=== PATIENT | male | born 1965 | race Caucasian/White ===

== ENCOUNTER 2022-10-27 10:30 | Outpatient (AMB) | payer OTHER, SELFPAY ==
--- NOTE | 2022-10-27 11:12 | MHC.OFFWIV ---
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 Reporting symptoms of sinus congestion, sore throat and difficulty swallowing. Low-grade fever. No family member is sick. No recent travel. Patient reports symptoms of malaise and fatigue. PFSH Social History Patient Tobacco Use Status: Never used Tobacco Physical Exam Vital Signs: Last Vital Signs Temp 98 F 10/27/22 11:13 Pulse 68 10/27/22 11:13 BP 120/80 10/27/22 11:13 Pulse Ox 98 10/27/22 11:13 Oxygen Delivery Method Room Air 10/27/22 11:13 BMI result Body Mass Index 36.0 Const General: cooperative and healthy appearing Nutritional Appearance: well nourished Orientation/consciousness: patient oriented x3 Limitations: no limitations HEENT Other: Left ear: Tympanic membrane is red. Head: Yes normal to inspection Eyes General: appearance normal, both eyes and all related structures Neck Neck: Yes normal visual inspection Chest Chest palpation & inspection: normal palpation of entire chest wall Resp Effort & Inspection: normal respiratory effort Neuro General: patient oriented x3 Assessment & Plan Assessment & Plan (1) Left acute serous otitis media: Code(s): H65.02 - Acute serous otitis media, left ear Plan: Antibiotics ordered. Increase fluid intake. Tylenol for aches and pains. If symptoms worsen, follow-up here for a recheck. Coding Level of Care Code Est Pt Level 3 (77917) Diagnoses Left acute serous otitis media H65.02
[2022-10-27 11:13] VITALS: BP 120/80; PULSE 68; TEMP 36.6; O2SAT 98; BMI 36.0
== END 2022-10-27 12:16 | disposition home or self-care (01) ==
PROVIDERS: PCP Family Medicine; Visit Provider Internal Medicine
DX: H65.02 Acute serous otitis media, left ear (principal)
CPT/HCPCS: 99213

== ENCOUNTER 2022-12-07 09:11 | Outpatient (AMB) | payer OTHER, SELFPAY ==
[2022-12-07 10:57] VITALS: BP 142/88; PULSE 73; TEMP 36.4; O2SAT 98; BMI 36.8
--- NOTE | 2022-12-07 10:57 | MHC.OFFWIV ---
Intake Vital Signs 12/07/22 10:57 Height 5 ft 8 in Weight 242 lb 4 oz BMI 36.8 BP 142/88 H Blood Pressure Location Rt brachial Position Sitting Pulse 73 Pulse Source Pulse Oximeter Temp 97.5 F Temp Source Oral Pulse Oximetry (%) 98 Oxygen Delivery Method Room Air Intake Visit Reasons: Est/left side jaw swelling/ear inf? Intake Note: Pt presents to the office today for c/o left sided jaw pain and swelling that goes behind the left ear that started Pt states he had an ear infection in his left ear about a month ago and it started to get better but it still never fully went away. Patient Tobacco Use Status: Never used Tobacco Allergies acetaminophen [From PERCOCET] Allergy (Unknown, Unverified 12/07/22 10:59) DIFFICULTY BREATHING oxycodone [From PERCOCET] Allergy (Unknown, Unverified 12/07/22 10:59) DIFFICULTY BREATHING HPI Est/left side jaw swelling/ear inf? HPI Details 57-year-old male presents to the office for a sick visit. Patient is reporting symptoms of pain around the left ear. He was seen for a left ear infection a month ago .. He completed the antibiotics and then had the flu for 3 weeks. The symptoms of pain have recurred around the left ear area. [facility], [facility] Social History Household Members: None Housing: Apartment Alcohol intake: never Patient Tobacco Use Status: Never used Tobacco Use of substances other than those prescribed or required for medical reasons: Yes Substance Use Type: Marijuana Physical Exam Vital Signs: Last Vital Signs Temp 97.5 F 12/07/22 10:57 Pulse 73 12/07/22 10:57 BP 142/88 H 12/07/22 10:57 Pulse Ox 98 12/07/22 10:57 Oxygen Delivery Method Room Air 12/07/22 10:57 BMI result Body Mass Index 36.8 Const General: cooperative and healthy appearing Nutritional Appearance: well nourished Orientation/consciousness: patient oriented x3 Limitations: no limitations HEENT Head: Yes normal to inspection Eyes General: appearance normal, both eyes and all related structures Neck Other: Swelling around the left TMJ area and between the angle of the jaw and the ear. Tender to touch. Oral cavity appears normal. Neck: Yes normal visual inspection Chest Chest palpation & inspection: normal palpation of entire chest wall Resp Effort & Inspection: normal respiratory effort Neuro General: patient oriented x3 Assessment & Plan Assessment & Plan (1) Parotitis, acute: Code(s): K11.21 - Acute sialoadenitis Plan: Ultrasound of the neck ordered. Antibiotics called in. Will call with results. Orders: Orders US soft tiss head and/or neck Today K11.21 - Acute sialoadenitis Coding Level of Care Code Est Pt Level 3 (73751) Diagnoses Parotitis, acute K11.21
== END 2022-12-07 11:40 | disposition home or self-care (01) ==
PROVIDERS: PCP Family Medicine; Visit Provider Internal Medicine
DX: K11.21 Acute sialoadenitis (principal)
CPT/HCPCS: 99213

== ENCOUNTER 2022-12-11 15:23 | Outpatient (REF) | payer OTHER, SELFPAY ==
--- NOTE | ~2022-12-11 | US_ITS ---
EXAMINATION: US SOFT TISSUE NECK CLINICAL INFORMATION: Acute sialoadenitis left neck. COMPARISON: None available. TECHNIQUE: Ultrasound of the neck soft tissues is performed with high- frequency slade-scale imaging and color Doppler. FINDINGS: The ultrasound examination is predominantly focused over the region of the left parotid gland. An abnormal irregular, somewhat lobulated 3.7 x 1.8 x 2.5 cm hypoechoic lesion is present within the parotid. The color Doppler images show no evidence of vascular flow within this hypoechoic focus. Also, there is no evidence of any hypervascularity in the surrounding tissues. The lesion has an approximately 1.2 cm area that is more hypoechoic than the lesion periphery. No calcifications within the gland. The visualized superficial parotid lymph nodes have normal size, contour and echotexture. US/US soft tiss head and/or neck IMPRESSION: There is an abnormal, irregular, somewhat lobulated 3.7 x 1.8 x 2.5 cm hypoechoic lesion within the left parotid gland. Since a history of sialoadenitis is given, the possibility of focal parotid inflammation with abscess formation is considered. Depending upon patient's overall clinical history and clinical course, determine whether there is any need to perform FNA of the lesion.
== END 2022-12-11 15:24 | disposition home or self-care (01) ==
LOC: HO.HMGCX 15:23
PROVIDERS: Visit Provider Internal Medicine
DX: K11.21 Acute sialoadenitis (principal)
CPT/HCPCS: 76536

== ENCOUNTER 2022-12-21 08:02 | Outpatient (AMB) | payer OTHER, SELFPAY ==
[2022-12-21 08:04] VITALS: BP 122/80; PULSE 76; TEMP 37.1; O2SAT 97; BMI 36.8
--- NOTE | 2022-12-21 08:04 | MHC.OFFWIV ---
Intake Vital Signs 12/21/22 08:04 Height 5 ft 8 in Weight 242 lb BMI 36.8 BP 122/80 Blood Pressure Location Rt brachial Position Sitting Pulse 76 Pulse Source Pulse Oximeter Temp 98.8 F Temp Source Temporal Artery Scan Pulse Oximetry (%) 97 Oxygen Delivery Method Room Air Intake Visit Reasons: EST/follow up per dr Souza ultrasound (leopoldo) Intake Note: pt is here for f/u ultrasound per dr souza Patient Tobacco Use Status: Never used Tobacco Allergies acetaminophen [From PERCOCET] Allergy (Unknown, Verified 12/21/22 08:36) DIFFICULTY BREATHING oxycodone [From PERCOCET] Allergy (Unknown, Verified 12/21/22 08:36) DIFFICULTY BREATHING Medication List - Last Reconciled 12/21/22 by Rodriguez Winkler MD clonidine HCl 0.1 mg PO BID divalproex 500 mg PO TID doxepin 10 mg PO BEDTIME gabapentin 100 mg PO DAILY PRN hydroxyzine HCl 10 mg PO Q8H PRN lisinopril 10 mg PO DAILY meloxicam 15 mg PO DAILY rosuvastatin 5 mg PO DAILY tamsulosin 0.4 mg PO DAILY Do you need a note to return to daycare/school/sports/work: Yes HPI EST/follow up per dr Souza ultrasound (leopoldo) HPI Details 57-year-old male presents to the office for a follow-up visit. The swelling on the left side of the face has subsided. Pain symptoms and discomfort have subsided. However he continues to feel something hard on the left side of the face. Able to function and do all activities of daily living. [facility] Social History Household Members: None Housing: Apartment Alcohol intake: never Patient Tobacco Use Status: Never used Tobacco Substance Use Type: Marijuana Physical Exam Vital Signs: Last Vital Signs Temp 98.8 F 12/21/22 08:04 Pulse 76 12/21/22 08:04 BP 122/80 12/21/22 08:04 Pulse Ox 97 12/21/22 08:04 Oxygen Delivery Method Room Air 12/21/22 08:04 BMI result Body Mass Index 36.8 HEENT Other: Face: Left parotid is still palpable and slightly hardened. Nontender to touch. Assessment & Plan Assessment & Plan (1) Parotitis, acute: Code(s): K11.21 - Acute sialoadenitis Plan: Ultrasound results discussed with patient. A copy of the ultrasound was provided to him. I instructed him to follow-up with his primary care provider. Patient reported he would be seeing a new provider. I instructed him that he would need an ENT follow-up for further evaluation of the parotid gland. Since there is no tenderness and no evidence of infection another round of antibiotics is unnecessary. Patient clearly understands that the swelling on the left side of the face needs further evaluation. Coding Level of Care Code Est Pt Level 3 (57087) Diagnoses Parotitis, acute K11.21
== END 2022-12-21 09:04 | disposition home or self-care (01) ==
PROVIDERS: PCP Family Medicine; Visit Provider Internal Medicine
DX: K11.21 Acute sialoadenitis (principal)
CPT/HCPCS: 99213

== ENCOUNTER 2023-01-29 12:46 | Outpatient (AMB) | payer OTHER, SELFPAY ==
[2023-01-29 13:45] VITALS: BP 130/80; PULSE 69; TEMP 36.8; O2SAT 99; BMI 36.7
--- NOTE | 2023-01-29 13:45 | MHC.OFFWIV ---
Intake Vital Signs 01/29/23 13:45 Height 5 ft 8 in Weight 241 lb 2 oz BMI 36.7 BP 130/80 Blood Pressure Location Lt brachial Position Sitting Pulse 69 Pulse Source Pulse Oximeter Temp 98.3 F Temp Source Oral Pulse Oximetry (%) 99 Oxygen Delivery Method Room Air Intake Visit Reasons: EST/ear infection (lobby masked) Intake Note: pt is here today for ear infection started months ago, has had antibiotics and pain meds. Patient Tobacco Use Status: Never used Tobacco Allergies acetaminophen [From PERCOCET] Allergy (Unknown, Verified 01/29/23 13:46) DIFFICULTY BREATHING oxycodone [From PERCOCET] Allergy (Unknown, Verified 01/29/23 13:46) DIFFICULTY BREATHING Do you need a note to return to daycare/school/sports/work: Yes HPI EST/ear infection (lobby masked) HPI Details This is a 57 year old patient who presents today with swelling/tenderness on the left side of his cheek near his ear. This has been ongoing for the last several months. He has been seen here at the [facility] for parotitis He has had antibiotics - azithromycin and Bactrim, and NSAIDs for treatment. He also had an U/S of this - Impression: There is an abnormal, irregular, somewhat lobulated 3.7 x 1.8 x 2.5 cm hypoechoic lesion within the left parotid gland. Since a history of sialoadenitis is given, the possibility of focal parotid inflammation with abscess formation is considered. Depending upon patient's overall clinical history and clinical course, determine whether there is any need to perform FNA of the lesion. He states that medication tends to improve symptoms for a short time however then swelling and pain recur. He has an ENT visit in March (soonest). He is waiting to see new PCP in February. He denies any fever or chills. Having some left ear pain as well. [facility] Social History Household Members: None Housing: Apartment Alcohol intake: never Patient Tobacco Use Status: Never used Tobacco Substance Use Type: Marijuana Review of Systems Const All systems reviewed & are unremarkable except as noted in HPI and below Physical Exam Vital Signs: Last Vital Signs Temp 98.3 F 01/29/23 13:45 Pulse 69 12/22/23 13:45 BP 130/80 01/29/23 13:45 Pulse Ox 99 01/29/23 13:45 Oxygen Delivery Method Room Air 01/29/23 13:45 BMI result Body Mass Index 36.7 Const General: cooperative and no acute distress HEENT Other: left parotid remains swollen, firm, and mildly tender to palpation. Ears: TM's normal bilaterally General nose exam: Normal external nose present Mouth: Normal oral and palatal mucosa present Throat: Yes posterior oropharynx normal Neck Neck: Yes no lymphadenopathy Resp Effort & Inspection: normal respiratory effort Skin General skin exam: no rashes or lesions noted Psych Appearance: grossly normal Mental Status: mental status grossly normal Speech and movement: Normal speech and movement present Assessment & Plan Assessment & Plan (1) Parotitis, acute: Code(s): K11.21 - Acute sialoadenitis Plan: Ongoing left parotitis. Consulted with Dr. Winkler in the office who has seen patient previously. Plan discussed to start on abx and nsaids and await evaluation with ENT. He will be establishing care with a new PCP soon. He can return to the clinic in the meantime if needed, and can go to ED if he develops worsening symptoms or fever. He verbalizes understanding and agrees to plan. Medications: New amoxicillin-pot clavulanate 875-125 mg 1 tab PO BID 20 tabs 0RF 10 days K11.21 - Acute sialoadenitis Refilled meloxicam 15 mg PO DAILY 14 tabs 0RF Coding Level of Care Code Est Pt Level 3 (50231) Diagnoses Parotitis, acute K11.21
== END 2023-01-29 14:41 | disposition home or self-care (01) ==
PROVIDERS: PCP Physician Assistant; Visit Provider Nurse Practitioner Family
DX: K11.21 Acute sialoadenitis (principal)
CPT/HCPCS: 99213

== ENCOUNTER 2023-03-01 12:18 | Outpatient (AMB) | payer OTHER, SELFPAY ==
[2023-03-01 12:22] VITALS: BP 120/86; PULSE 67; O2SAT 98; BMI 36.4
--- NOTE | 2023-03-01 12:22 | MHC.PC.OV ---
Vital Signs 03/01/23 12:22 Height 5 ft 8 in Weight 239 lb 8 oz BMI 36.4 BP 120/86 Blood Pressure Location Rt brachial Position Sitting Pulse 67 Pulse Source Pulse Oximeter Pulse Oximetry (%) 98 Oxygen Delivery Method Room Air Intake Visit Reasons: EST Care Req PE Intake Note: Pt is here to est care Allergies oxycodone [From PERCOCET] Allergy (Unknown, Verified 03/01/23 12:39) DIFFICULTY BREATHING Medication List - Last Reconciled 03/01/23 by NAT Burks clonidine HCl 0.1 mg PO BID divalproex 500 mg PO TID doxepin 10 mg PO BEDTIME hydroxyzine HCl 10 mg PO Q8H PRN lisinopril 10 mg PO DAILY rosuvastatin 5 mg PO DAILY sildenafil (Viagra) 100 mg PO DAILY PRN tamsulosin 0.4 mg PO DAILY Tobacco use date assessed: 03/01/23 Dental Screening Dental Screen Date: 03/01/23 Did you have a dental visit in the last 12 months?: Yes Did you have a dental problem in the last 6 months where you did not have access to dental care?: No Was dental information given to patient?: Patient has dentist HPI HPI Comments History of Present Illness Details Patient is a 57-year-old male here to establish care and have a physical exam. He was seen recently in our walk-in clinic for complaints of left sided mouth discomfort, he felt like he had a bump in his mouth that was getting larger. He was able to have an ultrasound for the walk-in clinic the impression revealed a hypoechoic mass of the left parotid gland. Patient will receive referral to ear nose throat. He denies difficulty breathing, denies difficulty eating or drinking, denies chest pain. Patient states he has upcoming appointment with Ear Nose Throat in 10 days. Patient has a past medical history significant for depression, anxiety, obstructive sleep apnea, hypertension, and prostate cancer. He has an established psychiatric provider as well as therapist. He has had an evaluation for sleep apnea and states he is unable to wear the CPAP machine, patient states he is willing to try the CPAP machine again once he addresses the concern of his left parotid gland. Patient has an established urologist who is following him for the history of prostate cancer, he states he has appointments with with his urologist every 6 months with a check PSA. He has a history of prostate surgery. Patient will be sending us his medical records from the [facility]. He states his last colonoscopy was 3 years ago, will seek medical records to determine next colonoscopy due date. He is going to receive the flu vaccine in office today. He is up-to-date with the COVID booster is. He is up-to-date on his other immunizations. [facility] Medical History (Updated 03/01/23 @ 14:02 by NAT Burks) Prostate cancer Hypertension Anxiety Bipolar 1 disorder Surgical History H/O prostate biopsy Family History Paternal Grandfather Substance use disorder Mother Mental health disorder Daughter Mental health disorder Family/Other Mental health disorder Father Prostate cancer Social History Household Members: None Housing: Apartment Alcohol intake: never Patient Tobacco Use Status: Never used Tobacco e-Cigarette/Vaping Use: Currently Using (tHC ) Second Hand Smoke Exposure: No Substance Use Type: Marijuana service: Yes Current occupational status: employed Current occupation: [employer] Current occupational exposures/hazards: No Cognitive needs: No Hearing needs: No Vision needs: No Questionnaire PHQ-9 Over the last 2 weeks, how often have you been bothered by any of the following problems? 1. Little interest or pleasure in doing things: more than half the days 2. Feeling down, depressed, or hopeless: more than half the days 3. Trouble falling or staying asleep, or sleeping too much: more than half the days 4. Feeling tired or having little energy: more than half the days 5. Poor appetite or overeating: more than half the days 6. Feeling bad about yourself - or that you are a failure or have let yourself or your family down: more than half the days 7. Trouble concentrating on things, such as reading the newspaper or watching television: several days 8. Moving or speaking so slowly that other people could have noticed. Or the opposite - being so fidgety or restless that you have been moving around a lot more than usual: several days 9. Thoughts that you would be better off or of hurting yourself in some way: not at all Total score: 14 Depression Screening Interpretation: Positive Depression Screening Done: Yes 03026 - PHQ-9 Billing: Yes Source: Developed by Drs. Joe West, Saima Gamino, Gaurav Rondon and colleagues, with an educational kimberly from [employer]. Thrive Questionnaire Date Thrive assessed: 03/01/23 I am a: Patient What is your living situation today?: I have a place to live, but I am worried about losing it in the future Within the past 12 months, did the food you bought not last and you didn't have the money to get more?: Sometimes True Within the past 12 months, did you worry whether your food would run out before you got money to buy more?: Sometimes True Do you have trouble paying for medicines?: I choose not to answer this question Do you have trouble getting transportation to medical appointments?: I choose not to answer this question Do you have trouble paying your heating and electricity bill?: I choose not to answer this question Do you have trouble taking care of your child, family member or friend?: I choose not to answer this question Do you have trouble with day-to-day activities such as bathing, preparing meals, shopping, managing finances, etc.?: Yes Are you currently unemployed and looking for a job?: No Are you interested in more education?: No Please select the resources that you would like help with: Housing/Assisted, Daily support and Job search/training THRIVE Score: 3 AUDIT C Alcohol Use Questionnaire (AUDIT-C) 1. How often do you have a drink containing alcohol?: Monthly or less 2. How many drinks containing alcohol do you have on a typical day when you are drinking?: 1 or 2 3. How often do you have six or more drinks on one occasion?: Monthly Total Score: 3 LASHELL-7 AMB Questionnaire LASHELL-7 Date LASHELL - 7 assessed: 03/01/23 Feeling nervous, anxious, or on edge: 2 = More than half the days Not being able to stop or control worryin = More than half the days Worrying too much about different things: 2 = More than half the days Trouble relaxin = More than half the days Being so restless that it is hard to sit still: 1 = Several days Becoming easily annoyed or irritable: 1 = Several days Feeling afraid as if something awful might happen: 2 = More than half the days Total LASHELL-7 score (0-4 normal; 5-9 mild; 10-14 moderate; 15-21 severe): 12 Source: Developed by Drs. Joe West, Saima Gamino, Gaurav Rondon and colleagues, with an educational kimberly from [employer]. LASHELL-7 Assessment Billing LASHELL-7 Assessment Tool: LASHELL-7 Assessment 05503 Review of Systems Const Details: Constitutional : No Weight loss, No Fever, No Chills, No Fatigue, No Malaise ENT/Mouth : No Rhinorrhea. Denies ear fullness. States he has a swollen left cheek Eyes: No Eye Pain, No Swelling, No Redness Cardiovascular : No Chest Pain, No SOB, No Dyspnea on Exertion, No Orthopnea, No Edema, No Palpitations Respiratory : No Cough, No Sputum, No Wheezing Gastrointestinal : No Nausea, No Vomiting, No Diarrhea, No Constipation, No abdominal Pain, No Hematochezia, No Melena. Admits heartburn. Genitourinary : Admits occasional dribbling urine. Musculoskeletal : No joint pain, No Myalgias, No Joint Swelling Skin : No Skin Lesions, No rash Neuro : No Weakness, No Numbness, No Dizziness, No Headache Psych : Admits Anxiety/Panic, Admits Depression. Denies SI/HI. Heme/Lymph: No Bruising, No Bleeding,No Lymphadenopathy Endocrine : No Polyuria, No Polydipsia All other systems reviewed and are negative Physical exam (Primary Care) Vital Signs: Last Vital Signs Pulse 67 03/01/23 12:22 BP 120/86 03/01/23 12:22 Pulse Ox 98 03/01/23 12:22 Oxygen Delivery Method Room Air 03/01/23 12:22 Care Plan Goal for BP management: Vital signs reviewed are stable BMI result Body Mass Index 36.4 Tobacco/Smoking Status: Tobacco use Status Tobacco use date assessed 03/01/23 03/01/23 12:30 Patient Tobacco Use Status Never used Tobacco 03/01/23 12:30 e-Cigarette/Vaping Use Currently Using (tHC ) 03/01/23 12:30 PHQ-9: PHQ-9 Score PHQ-9: Total score 20 03/01/23 12:53 Patient sees psychiatrist and therapist. He states he feels worse during the winter months. He denies SI HI. States he knows how to seek help if he feels like he needs it. Depression Screening Interpretation: Positive Thrive Assessment: Date of Thrive Assessment Date Thrive assessed 03/01/23 03/01/23 12:40 Const General: cooperative and no acute distress Orientation/consciousness: patient oriented x3 Limitations: no limitations HENMT Head: Yes normal to inspection and Yes normocephalic Ears: TM's normal bilaterally General nose exam: Normal septum present and no nasal discharge noted Mouth: Abnormal salivary glands and ducts left Stensons (parotid) duct(s mass hard and fixed Throat: Yes other (Patient has no uvula, no tonsils, due to surgical removal) Eyes General: appearance normal, both eyes and all related structures Eyelids: Yes eyelids normal Conjunctivae: conjunctivae normal Sclerae: sclerae normal Pupils: Equal, round and reactive pupils present EOM: EOMs intact bilaterally Direct Ophthalmoscopy: normal light reflex and no photophobia Neck Neck: Yes normal visual inspection, Yes full ROM and Yes no lymphadenopathy Thyroid: Thyroid normal Resp Auscultation: clear to auscultation bilaterally Cardio Rate: regular rate Rhythm: regular rhythm Heart sounds: S1 normal heart sound present and S2 normal heart sound present GI Inspection: Yes normal to inspection Auscultation: Hyperactive bowel sounds present Rectal Exam - Male: Yes deferred General: Yes no CVA tenderness Back/Spine/Pelvis Back: no CVA tenderness Thoracic/Lumbar Spine: thoracic and lumbar spine normal to inspection Skin General skin exam: no rashes or lesions noted Neuro General: patient oriented x3 and CN's II-XI intact bilaterally Cranial nerves: Yes Equal, round and reactive pupils present Cognition (Neuro): normal cognition Gait exam (Neuro): Normal gait present Motor exam (neuro): 5/5 motor strength present throughout Deep tendon reflexes (DTR's): Right patellar reflex intensity grade: 2+ and Left patellar reflex intensity grade: 2+ Extrem General: Yes normal to inspection and Yes full ROM Psych Affect: normal affect Attitude: cooperative Thought process: Normal thought process present Thought content: Normal thought content present Insight: Good insight present (Psych) Judgement: Good judgement present (Psych) Office Procedures Flu Questionnaire Does the patient have a severe egg allergy?: No Does the patient have severe life threatening allergies?: No Does the patient have a fever or illness today?: No Has the patient ever had Guillain-[place] Syndrome?: No Has the patient ever had any past reaction to a flu shot?: No Immunizations flu vacc [id number] 6mos up(PF) 60 mcg(15 mcgx4)/0.5 mL IM syringe Performing Provider: NAT Burks Performing Location: [facility] Administered by: DONAVON Stephens on 03/01/23 13:19 Dose Route Admin Location Dispensed Lot Number Expiration Date NDC Craft Coordinator 0.5 mL IM Right Deltoid 0.5 mL [id number] 03/01/23 15293-187-74 [employer] VIS Given Date VIS Provided VIS Publication Date 03/01/23 Single Vaccine 20 Eligibility Eligibility Date Funding Source Not [facility] Eligible 03/01/23 Private Results Reviewed Results Reviewed: From US results There is an abnormal, irregular, somewhat lobulated 3.7 x 1.8 x 2.5 cm hypoechoic lesion within the left parotid gland. Since a history of sialoadenitis is given, the possibility of focal parotid inflammation with abscess formation is considered. Depending upon patient's overall clinical history and clinical course, determine whether there is any need to perform FNA of the lesion. Assessment and Plan Assessment & Plan (1) Encounter for routine adult physical exam with abnormal findings: Comment: Will order labs. Patient has follow-up in 2 months Code(s): Z00.01 - Encounter for general adult medical examination with abnormal findings (2) Parotitis, acute: Comment: Patient had ultrasound walk-in the demonstrated hypoechoic lesion. Patient has referral to ENT. Patient has appointment with [facility] Ear Nose Throat in 10 days. Denies difficulty breathing. Denies difficulty eating or swallowing. Code(s): K11.21 - Acute sialoadenitis (3) GERD (gastroesophageal reflux disease): Comment: Patient has been educated on foods to avoid, that he should elevate the head of his bed, that he should not eat at least 3 hours before going to bed. He should drink plenty of water. Will prescribe omeprazole 20 mg to be taken as directed Code(s): K21.9 - Gastro-esophageal reflux disease without esophagitis Qualifiers: Esophagitis presence: esophagitis presence not specified Qualified Code(s): K21.9 - Gastro-esophageal reflux disease without esophagitis Plan: Take your medications as prescribed. If you were prescribed antibiotics today, it is important that you take your medication to their entirety, do not skip any doses, do not finish them early. Follow-up with your primary care provider this week. Return to the emergency department with new or worsening symptoms. Such as fevers, chills, chest pain, shortness of breath, nausea, vomiting, dizziness, headache, vision changes, lethargy In case of emergency call 911 Plan Patient will follow-up in 2 months Orders: Orders Influenza [id number] Immunization Today Z23 - Encounter for immunization Comprehensive Met. Panel Today Z91.89 - Other specified personal risk factors, not elsewhere classified Complete Blood Count Auto Diff Today Z13.0 - Encounter for screening for diseases of the blood and blood-forming organs and certain disorders involving the immune mechanism Lipid Panel Today Z13.220 - Encounter for screening for lipoid disorders PSA,Total (Free>4and<10) Today Z12.5 - Encounter for screening for malignant neoplasm of prostate Vitamin B12 Today Z13.21 - Encounter for screening for nutritional disorder TSH reflex Free T4 Today Z13.29 - Encounter for screening for other suspected endocrine disorder Vitamin D 25-OH (D2 and D3) Today Z13.21 - Encounter for screening for nutritional disorder Vitamin B6 Today Z13.21 - Encounter for screening for nutritional disorder UA CC w/rflx Micro + Cult Today Z13.89 - Encounter for screening for other disorder Referrals Ear/Nose/Throat Referral K11.21 - Acute sialoadenitis Medications: New omeprazole 20 mg PO DAILY 30 caps 0RF Coding Level of Care Code Est Pt Level 3 (93563) Diagnoses Encounter for routine adult physical exam with abnormal findings Z00.01 Parotitis, acute K11.21 Gastroesophageal reflux disease, unspecified whether esophagitis present K21.9 Esophagitis presence: esophagitis presence not specified Additional Codes LASHELL-7 Assessment Billing - LASHELL-7 Assessment Tool: LASHELL-7 Assessment 13575 ([id number]) Time Spent (min) 45
== END 2023-03-01 17:15 | disposition home or self-care (01) ==
PROVIDERS: PCP Physician Assistant; Visit Provider Nurse Practitioner Primary Care
DX: Z00.01 Encounter for general adult medical examination with abnormal findings (principal); K11.21 Acute sialoadenitis; K21.9 Gastro-esophageal reflux disease without esophagitis
CPT/HCPCS: 90471; 90686; 99396

== ENCOUNTER 2023-03-02 11:58 | Outpatient (REF) | payer OTHER, SELFPAY ==
[2023-03-02 13:29] LABS: MANUAL DIFF FLAG NO
[2023-03-02 13:44] LABS: Basophils Percent Auto 0.3 % (0-2); Eosinophils Absolute Auto 0.4 X10*3/uL (0.0-0.4); Eosinophils Percent Auto 6.4 % (0-4); Hematocrit 45.2 % (42.0-52.0); Hemoglobin 15.7 g/dl (14.0-18.0); Imm Gran Abs Auto 0.01 X10*3/uL (0.00-0.03); Imm Gran Pct Auto 0.2 % (0.0-0.4); Lymphocytes Absolute Auto 2.2 X10*3/uL (1.2-4.9); Lymphocytes Percent Auto 35.3 % (20-40); Mean Corpuscular HGB Conc 34.7 g/dl (31.0-36.0); Mean Corpuscular Hemoglobin 30.6 pg (27.0-33.0); Mean Corpuscular Volume 88.1 fL (80.0-98.0); Mean Platelet Volume 11.6 fL (9.4-12.4); Monocytes Absolute Auto 0.5 X10*3/uL (0.1-1.2); Monocytes Percent Auto 8.7 % (2-11); Neutrophils Absolute Auto 3.1 x10*3/uL (2.0-8.3); Neutrophils Percent Auto 49.1 % (45-73); Platelet Count 164 X10*3/uL (160-400); Red Blood Count 5.13 X10*6/uL (4.60-5.80); Red Cell Distribution Width 12.7 % (11.0-16.0); White Blood Count 6.2 X10*3/uL (4.8-10.8)
[2023-03-02 14:00] LABS: Appearance Urine Clear; Color Urine Yellow; Glucose Urine UA Negative (Negative); Leukocyte Esterase Urine Negative (Negative); Nitrite Urine Negative (Negative); Specific Gravity - Urine 1.015 (1.005-1.025); Urine Blood Negative (Negative); Urine Ketones Negative (Negative); Urine Protein Negative (Neg-Trace)
[2023-03-02 14:42] LABS: Valproate 94.5 mcg/mL (50.0-100.0)
[2023-03-02 14:44] LABS: PSA,Total (Free>4and<10) 1.85 ng/mL (0.00-4.00)
[2023-03-02 14:52] LABS: Vitamin B12 787 pg/mL (200-900)
[2023-03-02 15:01] LABS: Alanine Aminotransferase 25 U/L (0-40); Albumin Level 4.1 g/dL (3.5-5.0); Alkaline Phosphatase 38 U/L (39-117); Anion Gap 12 (12-20); Aspartate Amino Transferase 22 U/L (5-37); Bilirubin Total 0.9 mg/dL (0.0-1.0); Blood Urea Nitrogen 20 mg/dL (9-16); Calcium 8.8 mg/dL (8.4-10.2); Carbon Dioxide 24 mmol/L (22-29); Chloride 106 mmol/L (96-108); Cholesterol 143 mg/dL (<200); Estimated Glomerular Filt Rate > 60; Glucose Random 85 mg/dL (60-115); HDL Cholesterol 35 mg/dL (>40); LDL Cholesterol Calculated 78 mg/dL (<100); Potassium 3.9 mmol/L (3.3-5.1); Sodium 138 mmol/L (135-145); TSH reflex Free T4 2.47 uIU/mL (0.32-4.0); Total Protein 6.8 g/dL (6.5-8.0); Triglycerides 152 mg/dL (<150)
[2023-03-06 13:13] LABS: Vitamin D 25-OH, D2 <4 ng/mL; Vitamin D 25-OH, D3 35 ng/mL; Vitamin D 25-OH, Total 35 ng/mL (30-100)
[2023-03-08 06:24] LABS: Vitamin B6 25.6 ng/mL (2.1-21.7)
== END 2023-03-02 11:59 | disposition home or self-care (01) ==
LOC: HO.HMGCLDS 11:58
PROVIDERS: PCP Nurse Practitioner Primary Care; Visit Provider Nurse Practitioner Primary Care
DX: Z13.0 Encounter for screening for diseases of the blood and blood-forming organs and certain disorders involving the immune mechanism (principal); Z13.220 Encounter for screening for lipoid disorders; Z12.5 Encounter for screening for malignant neoplasm of prostate; Z13.29 Encounter for screening for other suspected endocrine disorder; Z13.21 Encounter for screening for nutritional disorder; Z13.89 Encounter for screening for other disorder; F41.1 Generalized anxiety disorder; F31.89 Other bipolar disorder; Z79.899 Other long term (current) drug therapy; Z91.89 Other specified personal risk factors, not elsewhere classified
CPT/HCPCS: 36415; 80053; 80061; 80164; 81003; 82306; 82607; 84153; 84207; 84443; 85025

== ENCOUNTER 2023-03-29 11:15 | Outpatient (AMB) | payer OTHER, SELFPAY ==
[2023-03-29 13:05] VITALS: BP 140/90; PULSE 76; TEMP 36.8; O2SAT 97; BMI 35.9
--- NOTE | 2023-03-29 13:05 | MHC.OFFWIV ---
Intake Vital Signs 03/29/23 13:05 Height 5 ft 8 in Weight 236 lb BMI 35.9 BP 140/90 H Blood Pressure Location Lt brachial Position Sitting Pulse 76 Pulse Source Pulse Oximeter Temp 98.3 F Temp Source Temporal Artery Scan Pulse Oximetry (%) 97 Oxygen Delivery Method Room Air Intake Visit Reasons: EP Left ear/jaw Intake Note: pt is here today for lft ear and jaw started november Patient Tobacco Use Status: Never used Tobacco Allergies oxycodone [From PERCOCET] Allergy (Unknown, Verified 03/29/23 13:08) DIFFICULTY BREATHING Do you need a note to return to daycare/school/sports/work: Yes HPI HPI Comments History of Present Illness Details The patient presents to emergency department for evaluation of left jaw pain. He was diagnosed with stage IV parotid gland cancer recently. He is seeing an ENT in [place] for this. However he was given gabapentin which has since run out. He is seeking pain medication relief of his jaw pain. 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 This is not new just that the patient noted it today. [facility] Medical History Prostate cancer Hypertension Anxiety Bipolar 1 disorder Surgical History H/O prostate biopsy Family History Paternal Grandfather Substance use disorder Mother Mental health disorder Daughter Mental health disorder Family/Other Mental health disorder Father Prostate cancer Social History Household Members: None Housing: Apartment Alcohol intake: never Patient Tobacco Use Status: Never used Tobacco e-Cigarette/Vaping Use: Currently Using (tHC ) Second Hand Smoke Exposure: No Substance Use Type: Marijuana service: Yes Current occupational status: employed Current occupation: [employer] Current occupational exposures/hazards: No Cognitive needs: No Hearing needs: No Vision needs: No Physical Exam Vital Signs: Last Vital Signs Temp 98.3 F 03/29/23 13:05 Pulse 76 03/29/23 13:05 BP 140/90 H 03/29/23 13:05 Pulse Ox 97 03/29/23 13:05 Oxygen Delivery Method Room Air 03/29/23 13:05 BMI result Body Mass Index 35.9 HEENT Other: 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 Left parotid gland mass firm tender Assessment & Plan Assessment & Plan (1) Cancer of parotid gland: Code(s): C07 - Malignant neoplasm of parotid gland Plan Will prescribe codeine as he states that Percocet made him itch had some previous time. He states that he was able to take codeine which was a decent pain reliever for him. Patient was advised to follow-up with his PCP for further pain management. Work note for this week given. Medications: New codeine sulfate Partial Fill upon patient request. 30 mg PO BID PRN 20 tabs 0RF pain Coding Level of Care Code Est Pt Level 3 (87314) Diagnoses Cancer of parotid gland C07
== END 2023-03-29 14:28 | disposition home or self-care (01) ==
PROVIDERS: PCP Nurse Practitioner Primary Care; Visit Provider Emergency Medicine
DX: C07 Malignant neoplasm of parotid gland (principal)
CPT/HCPCS: 99213

== ENCOUNTER 2023-11-01 13:43 | Outpatient (AMB) | payer OTHER, SELFPAY ==
--- OUTSIDE RECORDS SUMMARY | 2023-11-01 13:47 | XMS_ITS | Continuity of Care Document ---
Author Organization [facility] ter Address [address] [place] [address]- Care Team Providers Care Physiotherapy Assistant Name Role Phone Florencio Sky Primary Care Physician [facility]counter [facility] Date(s): 10/14/23 - 10/14/[address] [address] Discharge Disposition: A-D/C Home Attending Physician: Hoa Ruth MD Admitting Physician: Hoa Ruth MD Referring Physician: Hoa Ruth MD Allergies, Adverse Reactions, Alerts No Known Medication Allergies Immunizations Given and Recorded Vaccine Date Status Refusal Reason pneumococcal 23-valent vaccine 09/21/23 Given pneumococcal 15-valent conjugate vaccine 06/07/23 Given influenza virus vaccine, inactivated 03/01/23 Pascual rded influenza virus vaccine, inactivated 11/07/20 Pascual rded zoster vaccine, inactivated 07/10/21 Recorded zoster vaccine, inactivated 04/26/21 Recorded SARS-CoV-2 (COVID-19) mRNA-1273 vaccine 02/20/21 R ecorded SARS-CoV-2 (COVID-19) mRNA-1273 vaccine 07/10/20 R ecorded SARS-CoV-2 (COVID-19) mRNA-1273 vaccine 06/07/20 R ecorded Medications divalproex sodium 500 mg oral enteric coated tablet 1 tablet = 500 mg, By Mouth, 3 times a day, # 90 tablet, 0 Refills, Maintenance, 05/11/23 13:06:00 EDT, EC Tablet, Partial fill upon patient request if the prescription is for a schedule II opioid drug. Start Date: 05/11/23 Status: Ordered doxepin 10 mg oral capsule 1 capsule = 10 mg, By Mouth, 3 times a day, # 90 capsule, 0 Refills, Maintenance, 05/11/23 13:06:00EDT, Capsule, Partial fill upon patient request if the prescription is for a schedule II opioid drug. Start Date: 05/11/23 Status: Ordered Eliquis 5 mg oral tablet 1 tablet = 5 mg, By Mouth, 2 times a day, # 60 tablet, 3 Refills, Maintenance, 09/09/23 15:30:00 EDT, Tablet, [facility], Partial fill upon patient request if the prescription is for a schedule II opioid drug., 173, cm, 09/01/23 13:28:00 ED... Start Date: 09/09/23 Status: Ordered famotidine 20 mg oral tablet 20 mg, 1, tablet, By Mouth, Daily, # 30 tablet, Refills 0, Tot. Refills 0, Maintenance, 09/21/23 16:59:00 EDT, Route to Pharmacy Electronically, [facility], Partial fill upon patient request if the prescription is for a schedule II opioid d... Start Date: 09/21/23 Status: Ordered Jobst JoviPak extended chin strap Jobst JoviPak extended chin strap, See Instructions, # 1 each, Refills 0, Tot. Refills 0, Maintenance, Use as instructed. Diagnosis: I89.0, 10/08/23 13:35:00 EDT, Supply Start Date: 10/08/23 Status: Ordered lidocaine-prilocaine 2.5%-2.5% topical cream See Instructions, apply small dollop to [facility] 1 hr prior to appt and cover with plastic, #30 Gm, 1 Refills, Maintenance, 06/01/23 8:55:00 EDT, Cream, [facility], Partial fill upon patient request if the prescription is for a sched... Start Date: 06/01/23 Status: Ordered lisinopril 10 mg oral tablet 10 mg, 1, tablet, By Mouth, Daily, # 30 tablet, Refills 0, Maintenance, 05/11/23 13:06:00 EDT, Partial fill upon patient request if the prescription is for a schedule II opioid drug. Start Date: 05/11/23 Status: Ordered meclizine 25 mg oral tablet 1 tablet = 25 mg, By Mouth, 3 times a day, PRN for dizziness, # 30 tablet, 0 Refills, Acute 11/12/23 14:13:00 EDT, 10/12/23 14:13:00 EDT, Tablet, [facility], Partial fill upon patient request if the prescription is for a schedule II opioid... Start Date: 10/12/23 Stop Date: 11/12/23 Status: Ordered omeprazole 20 mg oral delayed release tablet 1 tablet = 20 mg, By Mouth, 2 times a day, # 60 tablet, 0 Refills, Maintenance, 09/21/23 16:58:00 EDT, EC Tablet, [facility], Partial fill upon patient request if the prescription is for aschedule II opioid drug., 173, cm, 09/21/23 15:44:0... Start Date: 09/21/23 Status: Ordered ondansetron 8 mg oral tablet 1 tablet = 8 mg, By Mouth, Every 8 hours, PRN as needed for nausea/vomiting, # 30 tablet, 1 Refills, Maintenance, 06/01/23 8:53:00 EDT, Tablet, [facility], Partial fill upon patient request if the prescription is for a schedule II opioid dr... Start Date: 06/01/23 Status: Ordered oxyCODONE 5 mg oral tablet 5 mg, 1, tablet, By Mouth, Every 4 hours, PRN, # 42 tablet, Refills 0, Tot. Refills 0, Maintenance,as needed for pain, 10/07/23 11:24:00 EDT, Route to Pharmacy Electronically, [facility],Partial fill upon patient request if the prescripti... Start Date: 10/07/23 Stop Date: 10/14/23 Status: Ordered [id number] oral powder for reconstitution = 17 Gm, By Mouth, Daily, PRN Constipation, # 510 Gm, 0 Refills, Maintenance, 07/12/23 12:28:00 EDT, REC Powder, [facility], Partial fill upon patient request if the prescription is fora schedule II opioid drug., 17 Gm By Mouth Daily,DC... Start Date: 07/12/23 Status: Ordered pilocarpine 5 mg oral tablet 1 tablet = 5 mg, By Mouth, 3 times a day, # 90 tablet, 0 Refills, Maintenance, 09/21/23 16:59:00 EDT, Tablet, [facility], Partial fill upon patient request if the prescription is for a schedule II opioid drug., 173, cm, 09/21/23 15:44:00 ED... Start Date: 09/21/23 Status: Ordered prochlorperazine 10 mg oral tablet 1 tablet = 10 mg, By Mouth, Every 6 hours, PRN nausea/vomiting, may cause drowsiness, # 30 tablet, 1 Refills, Maintenance, 06/01/23 8:53:00 EDT, [facility], Partial fill upon patient request if the prescription is for a schedule II opioid d... Start Date: 06/01/23 Status: Ordered rosuvastatin 5 mg oral capsule 1 capsule = 5 mg, By Mouth, Daily, # 30 capsule, 0 Refills, Maintenance, 05/11/23 13:07:00 EDT, Capsule, Partial fill upon patient request if the prescription is for a schedule II opioid drug. Start Date: 05/11/23 Status: Ordered senna 187 mg oral tablet 1 tablet = 8.6 mg, By Mouth, 2 times a day, PRN Constipation, # 30 tablet, 0 Refills, Maintenance, 07/12/23 12:28:00 EDT, Tablet, [facility], Partial fill upon patient request if the prescription is for a schedule II opioid drug., 173, c... Start Date: 07/12/23 Status: Ordered tamsulosin 0.4 mg oral capsule 0.4 mg, 1, capsule, By Mouth, Daily, # 30 capsule, Refills 0, Maintenance, 05/11/23 13:07:00 EDT, Partial fill upon patient request if the prescription is for a schedule II opioid drug. Start Date: 05/11/23 Status: Ordered Problem List Condition Confirmation Course Effective Dates Status Health St [facility] Informant Obese class I Confirmed Active Results Radiology Reports * Exam Date Time Procedure Performing Provider Status 10/14/23 11:06 AM IR End of Case Report Aut h (Verified) IR End of Case Report * Exam Date Time Procedure Performing Provider Status 10/14/23 11:06 AM IR Replace G Tube or Cecostomy Tube Auth (Verified) Notes: (IR Replace G Tube or Cecostomy Tube) Reason For Exam: Other: IR Replace G Tube or Cecostomy Tube Patient: CHRISSY REHMAN Study Date: 10/14/2023 Performing: Leroy Antunez PA-C Referring: : 1965 Age: 58 Gender: MALE Pre-procedure diagnosis and Indication: History of head/neck cancer, patient presents for g-tube exchange. Exam: Prior to the procedure, the patient was seen and the nature of the procedure explained along with its attendant risks and benefits to the patient . Informed consent was obtained from, the patient . The patient arrived in IR room 1 for a gastrostomy tube change PROCEDURE: The patient was positioned supine and secured with arm boards. The access site was prepped with chloraprep and draped in the usual clean fashion. Then water removed from the old balloon and the existing tube was removed. A new 16 FR gastrostomy tube was inserted, the retention balloon was filled to a volume of 5 ml's of water. Then contrast injected to check placement of new tube. The sterile field was maintained throughout the procedure and patient tolerated the procedure well with no complications of the procedure estimated blood loss was minimal Specimens/samples: no specimens or samples were sent for [place] [id number] [place] procedure instructions sent in envelope with the patient Impression: Satisfactory fluoroscopically guided replacement of a gastrostomy tube patient tolerated the procedure well with no complications of the procedure Please Note:. Do not cut the any suture encircling the G-tube collar (if present). 1. The G-tube can be used now. 2. Please consult with nutrition service concerning starting g-tube feeds. 3. When initiating G-tube feeds have the patient in right side down decubitus. 4. Written instructions and other information concerning G-tubes were given to [ ] and/or also placed in the patients chart. These orders were entered into [facility].. 5. Please ensure that the white port on the hub of the catheter is used for balloon inflation and deflation only. This port should only be manipulated by an interventional radiologist. This should not be used for flushing or administration of feeds. 6. We recommend that G-tubes of this type be replaced at 3 month intervals to avoid inadvertent loss of access due to deterioration in the G-tube retention balloon material. We will make arrangements. TO PREVENT CLOGGING OF THE G-TUBE FLUSH VIGOROUSLY WITH 30ML OF WATER AFTER EACH FEEDING. WHENEVER POSSIBLE GIVE MEDICATIONS IN LIQUID FORM; IF SOLID MEDICATIONS ARE ABSOLUTELY REQUIRED HAVE THE MEDICATIONS GROUND TO A FINE PASTE (preferably by a compounding pharmacy) SUSPEND IN WATER AND FLUSH AFTER EACH DOSE. IF CLUMPS OF MEDICATION ARE SEEN IN THE SUSPENSION, RESUSPEND. Fluoroscopy time and dose Total Fluoro Time: 0.1 mins Total dose 1 mGy Total DAP 47.8 - ?Gy/m2 Contrast used Contrast used: Omnipaque_300 10 ml's Signed By Leroy Antunez PA-C On 10/14/2023 12:06:49 PM Leroy Antunez PA-C, George MD Dictated By: Leroy Forte Dictated Date/Time: 10/14/23 11:06 a Reviewed By: Leroy Forte Signed By: Leroy Forte Signed Date/Time: 10/14/23 11:06 am Transcribed By: JACKELYN Transcribed Date/Time: 10/14/23 11:06 am Vital Signs Most recent to oldest [Reference Range]: 1 2 Height 173 cm (10/14/23 9:07 AM) 173 cm (10/14/23 9:03 AM) Weight 95 kg (10/14/23 9:07 AM) 95 kg (10/14/23 9:03 AM) Oxygen Saturation [94-100 %] 100 % (10/14/23 8:50 AM) Pulse Rate [55-90 bpm] 80 bpm (10/14/23 8:50 AM) Blood Pressure [90-138/55-84 mm Hg] 134/ 80mm Hg (10/14/23 8:50 AM) Respiratory Rate [16-30 br/min] 20 br/mi n (10/14/23 8:50 AM) Temperature [96.8-100.4 DegF] 98 DegF (10/14/23 8:50 AM) Mode of Delivery (Oxygen) Room air (10/14/23 8:50 AM) Blood pressure sites Arm, right (10/14/23 8:50 AM) Temperature Route Oral (10/14/23 8:50 AM) Dry Weight 95 kg (10/14/23 9:03 AM) Social History Social History Type Response Tobacco Interested in cessat ion: No. No Sex Hospital Progress note * Leroy Bliss RN: SIGN, MODIFY, PERFORM, SIGN, VERIFY Event Display: Progress Note Hospital Authored Date: Patient: CHRISSY REHMAN Age: 58 years Sex: Male : 1965 Associated Diagnoses: None Author: Leroy Bliss RN Findings Evaluation Patient arrived to unit, VSS. EMLA cream applied to tube site. Medical daystay assessment, home medreview, and pre-procedure checklist completed. Resting comfortably awaiting procedure. Will continue to monitor. . * Leroy Bliss RN: PERFORM Event Display: Progress Note Hospital Authored Date: Returned from procedure. VSS. G tube site CDI. No signs or symptoms of bleeding. Discharge instructions reviewed and signed. Questions asked and answered. Discharged from unit via wheelchair. Note * Leroy Bliss RN: PERFORM Event Display: Discharge/Transfer Note Hospital Authored Date: Nursing Discharge Note Entered On: 10/14/2023 11:58 EDT Performed On: 10/14/2023 11:58 EDT by Leroy Bliss RN Nursing Discharge Note 2 Discharge Time : 10/14/2023 11:58 EDT Discharge Level of Care at Discharge : Home/Intermediate/Foster Care Patient Left Unit Via : Wheelchair Patient Accompanied Off Unit with : Responsible adult DC Instructions Provided & Signed by Pt : Yes Patient Understands D/C Instructions : Yes Patient Instructions Discharge Signed : Yes Did Pt have Specialty Bed or Wound Vac : No Leroy Bliss RN - 10/14/2023 11:58 EDT Patient Care team information Care Team Personnel Name: Florencio Sky Position: Reference Physician Member Role: PCP Address: Address: [address] [place] [address]- Name: Maren Sanchez RN Position: S RN Member Role: Primary Care Nurse Name: Shital Green RN Position: S Onco RN Member Role: Primary Care Nurse Name: Preethi Simental RN Position: [facility] Onco RN Member Role: Primary Care Nurse Name: Johnna Musa RN Position: S RN Member Role: Primary Care Nurse Name: Paul Haines RN Position: [facility] Onco RN Member Role: Primary Care Nurse Name: Isabel Jeronimo RN Position: [facility] Onco RN Member Role: Primary Care Nurse Name: Harper Damian RN Position: S RN Member Role: Primary Care Nurse Name: Aleena Shelby LPN Position: S RN Member Role: Primary Care Nurse Name: Aleena Chacon LPN Position: [facility] RN Member Role: Primary Care Nurse Care Team Related Persons Name: SNOW NORWOOD Address: home [address] [place] [address] Name: MATY REHMAN Address: home [address] [place] [address]
--- OUTSIDE RECORDS SUMMARY | 2023-11-01 13:47 | XMS_ITS | Continuity of Care Document ---
Author Organization [facility] Address [address] [place] [address]- Care Team Providers Care Welt Beater Name Role Phone Florencio Sky Primary Care Physician Encounter [facility] Date(s): 06/15/23 - 07/15/[address] [address] Allergies, Adverse Reactions, Alerts No Known Medication Allergies Immunizations Given and Recorded Vaccine Date Status Refusal Reason pneumococcal 15-valent conjugate vaccine 06/07/23 Given influenza virus vaccine, inactivated 03/01/23 Pascual rded influenza virus vaccine, inactivated 11/07/20 Pascual rded zoster vaccine, inactivated 07/10/21 Recorded zoster vaccine, inactivated 04/26/21 Recorded SARS-CoV-2 (COVID-19) mRNA-1273 vaccine 02/20/21 R ecorded SARS-CoV-2 (COVID-19) mRNA-1273 vaccine 07/10/20 R ecorded SARS-CoV-2 (COVID-19) mRNA-1273 vaccine 06/07/20 R ecorded Medications acetaminophen-codeine 300 mg-30 mg oral tablet 1, tablet, By Mouth, Every 4 hours, PRN, Refills 0, Maintenance, for pain, 05/11/23 13:05:00 EDT, Tablet, Partial fill upon patient request if the prescription is for a schedule II opioid drug. Start Date: 05/11/23 Status: Ordered acyclovir 200 mg/5 mL oral suspension See Instructions, 10 mL By Mouth 3 times a day 7 days, then 10 ml twice a day for 21 days, # 630 mL, 0 Refills, Maintenance, 07/06/23 12:36:00 EDT, Suspension, [facility], Partial fill upon patient request if the prescription is for a sched... Start Date: 07/06/23 Status: Ordered Ativan 1 mg oral tablet See Instructions, PRN as needed for anxiety, 1 tab PO 30m prior to scheduled radaition treatment., # 36 tablet, 0 Refills, Acute 07/22/23 18:21:00 EDT, 05/23/23 15:17:00 EDT, Tablet, [id number], Partial fill upon patient request if the pres... Start Date: 05/23/23 Stop Date: 07/22/23 Status: Ordered divalproex sodium 500 mg oral enteric coated [...] drug. Start Date: 05/11/23 Status: Ordered Eliquis Starter Pack 5 mg oral tablet 0 Refills, Maintenance, 07/12/23 12:25:00 EDT, Partial fill upon patient request if the prescription is for a schedule II opioid drug. Start Date: 07/12/23 Status: Ordered gabapentin 300 mg oral capsule 300 mg, 1, capsule, By Mouth, 2 times a day, Refills 0, Maintenance, 05/11/23 13:08:00 EDT, Partialfill upon patient request if the prescription is for a schedule II opioid drug. Start Date: 05/11/23 Status: Ordered hydrOXYzine hydrochloride 10 mg oral tablet 2 tablet = 20 mg, By Mouth, 4 times a day, 0 Refills, Maintenance, 05/11/23 13:06:00 EDT, Partial fill upon patient request if the prescription is for a schedule II opioid drug. Start Date: 05/11/23 Status: Ordered lactulose 10 gm/15 ml oral syrup 30 mL = 20 Gm, By Mouth, 3 times a day, PRN as needed for constipation, for 7 days, # 630 mL, 0 Refills, Acute 07/19/23 12:26:00 EDT, 07/12/23 12:26:00 EDT, Syrup, [facility], Partial fill upon patient request if the prescription is for... Start Date: 07/12/23 Stop Date: 07/19/23 Status: Ordered lidocaine 4% mucous membrane solution 10 mL = 0.4 Gm, Swish and Spit, Every 4 hours, PRN Other, for 7 days, mouth sore / pain, # 420 mL, 0 Refills, Acute 07/19/23 12:41:00 EDT, 07/12/23 12:41:00 EDT, Solution, [facility], Partial fill upon patient request if the prescription... Start Date: 07/12/23 Stop Date: 07/19/23 Status: Ordered lidocaine-prilocaine 2.5%-2.5% topical cream See Instructions, apply small dollop [facility] 1 hr prior to appt and cover with plastic, #30 Gm, 1 Refills, Maintenance, 06/01/23 8:55:00 EDT, Cream, [facility], Partial fill upon patient request if the prescription is for a sched... Start Date: 06/01/23 Status: Ordered lisinopril 10 mg oral tablet 10 mg, 1, tablet, By Mouth, Daily, # 30 tablet, Refills 0, Maintenance, 05/11/23 13:06:00 EDT, Partial fill upon patient request if the prescription is for a schedule II opioid drug. Start Date: 05/11/23 Status: Ordered magic mouthwash magic mouthwash, See Instructions, # 580 mL, Refills 0, Tot. Refills 0, Maintenance, benadryl elixir 4 oz + nystatin susp (100,000 u/mL) 4 oz + lidocaine visc 2% 100 mL + Mylanta 8 oz 5-10 mL swish/spit or swallow every 2 hours PRN for throat/mouth... Start Date: 07/01/23 Status: Ordered olanzapine 5 mg oral tablet See Instructions, 1 tablet By Mouth at bedtime for 4 nights starting the first day of each Cisplatin chemo, as directed., # 16 tablet, Refills 0, Tot. Refills 0, Maintenance, 06/01/23 8:54:00 EDT, Instructions Replace Required Details, Route to Pharma... Start Date: 06/01/23 Status: Ordered omeprazole 20 mg oral delayed release tablet 1 tablet = 20 mg, By Mouth, 2 times a day, # 30 tablet, 0 Refills, Maintenance, 05/11/23 13:07:00 EDT, EC Tablet, Partial fill upon patient request if the prescription is for a schedule II opioid drug. Start Date: 05/11/23 Status: Ordered ondansetron 8 mg oral tablet 1 tablet = 8 mg, By Mouth, Every 8 hours, PRN as needed for nausea/vomiting, # 30 tablet, 1 Refills, Maintenance, 06/01/23 8:53:00 EDT, Tablet, [facility], Partial fill upon patient request if the prescription is for a schedule II opioid dr... Start Date: 06/01/23 Status: Ordered oxyCODONE 5 mg oral tablet 5 mg, 1, tablet, By Mouth, Every 6 hours, PRN, # 42 tablet, Refills 0, Tot. Refills 0, Maintenance,as needed for pain, 07/12/23 12:41:00 EDT, Route to Pharmacy Electronically, [facility], Partial fill upon patient request if the prescri... Start Date: 07/12/23 Status: Ordered [id number] oral powder for reconstitution = 17 Gm, By Mouth, Daily, PRN Constipation, # 510 Gm, 0 Refills, Maintenance, 07/12/23 12:28:00 EDT, REC Powder, [facility], Partial fill upon patient request if the prescription is fora schedule II opioid drug., 17 Gm By Mouth Daily,IA... Start Date: 07/12/23 Status: Ordered prochlorperazine 10 mg oral tablet 1 tablet = 10 mg, By Mouth, Every 6 hours, PRN nausea/vomiting, may cause drowsiness, # 30 tablet, 1 Refills, Maintenance, 06/01/23 8:53:00 EDT, [facility], Partial fill upon patient request [...] 0 Refills, Maintenance, 07/12/23 12:28:00 EDT, Tablet, [facility], Partial fill upon patient request if [...] atus Informant Obese class I Confirmed Active Social History Social History Type Response Tobacco Interested in cessat ion: No. No Sex Patient Care team information Care Team Personnel Name: Florencio Sky Position: Reference Physician Member Role: PCP Address: Address: [address] [place] [address] [address] [place] [address]- Name: Maren Sanchez RN Position: S RN Member Role: Primary Care Nurse Name: Shital Green RN Position: S Onco RN Member Role: Primary Care Nurse Name: Preethi Simental RN Position: S Onco RN Member Role: Primary Care Nurse Name: Johnna Musa RN Position: S RN Member Role: Primary Care Nurse Name: Thomas Haines RN Position: S Onco RN Member Role: Primary Care Nurse Name: Harper Damian RN Position: S RN Member Role: Primary Care Nurse Name: Aleena Shelby LPN Position: S RN Member Role: Primary Care Nurse Name: Aleena Chacon LPN Position: S RN Member Role: Primary Care Nurse Care Team Related Persons Name: ANGÉLICA NORWOODE Address: [address] [place] [address] Name: MATY REHMAN Address: home [address] [place] [address]
--- OUTSIDE RECORDS SUMMARY | 2023-11-01 13:47 | XMS_ITS | Continuity of Care Document ---
Author Organization [facility] Address [address] [place] [address]- Care Team Providers Care Programming Instructor Name Role Phone Florencio Sky Primary Care Physician Encounter [facility] Date(s): 04/28/23 - 05/05/[address] [address]- Attending Physician: Florence Conklin MD Allergies, Adverse Reactions, Alerts Substance Reaction Severity Status Percocet itchy Active Medications Clonidine 0 Refills, Maintenance, 08/09/18 11:07:52 EDT Start Date: 08/09/18 Status: Ordered Clonidine as needed for anxiety, 0 Refills, Maintenance, 08/09/18 11:08:25 EDT Start Date: 08/09/18 Status: Ordered Depakene 250 mg oral capsule 3 capsule = 750 mg, By Mouth, Daily at bedtime, 0 Refills, Maintenance, 08/09/18 11:06:45 EDT Start Date: 08/09/18 Status: Ordered Multivitamin 1 tablet, Daily, 0 Refills, Maintenance, 08/09/18 11:08:48 EDT Start Date: 08/09/18 Status: Ordered SEROquel 50 mg oral tablet 1 tablet = 50 mg, By Mouth, Daily at bedtime, 0 Refills, Maintenance, 08/09/18 11:07:19 EDT Start Date: 08/09/18 Status: Ordered Problem List Condition Confirmation Course Effective Dates Status Health [facility] Informant Obese class I Confirmed Active Social History Social History Type Response Smoking Status Never (less than 100 in lifetime) entered on: 04/26/19 Sex Patient Care team information Care Team Personnel Name: Florencio Sky Position: Reference Physician Member Role: PCP Address: Address: [address] [place] [place] [address] Care Team Related Persons Name: SNOW NORWOOD Address: home [address] [place] [address] Name: MATY REHMAN Address: home [address] [place] [address]
--- OUTSIDE RECORDS SUMMARY | 2023-11-01 13:47 | XMS_ITS | Continuity of Care Document ---
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 Name Role Phone Florencio Sky Primary Care Physician Encounter [facility] Date(s): 10/22/23 - 10/30/[address] [address]- Encounter Diagnosis Compression fx, lumbar spine(Final) - 10/21/23 Discharge Disposition: A-D/C Home Attending Physician: Sammie Brand MD Admitting Physician: Margarita JAUREGUI, Len Madrigal Referring Physician: Not on Staff, Referring MD Allergies, Adverse Reactions, Alerts No Known [...] (COVID-19) mRNA-1273 vaccine 06/07/20 R ecorded Medications acetaminophen 325 mg oral tablet 975 mg, By Mouth, 3 times a day, Please check Temperature prior to administering Tylenol, Refills 0, Maintenance, 10/30/23 13:12:00 EDT, Partial fill upon patient request if the prescription is for aschedule II opioid drug. Start Date: 10/30/23 Status: Ordered bisacodyl 10 mg rectal suppository 1 supp = 10 mg, Rectally, Daily, PRN Constipation, # 2 supp, 0 Refills, Acute 11/02/23 16:07:00 EDT, 10/30/23 16:06:00 EDT, Suppository, [facility], Partial fill upon patient request ifthe prescription is for a schedule II opioid drug.,... Start Date: 10/30/23 Stop Date: 11/02/23 Status: Ordered cyclobenzaprine 10 mg oral tablet 10 mg, Tablet, By Mouth, 10/30/23 15:00:00 EDT Start Date: 10/30/23 Stop Date: 10/30/23 Status: Completed cyclobenzaprine 10 mg oral tablet 10 mg, By Mouth, 3 times a day, PRN, # 15 tablet, Refills 0, Tot. Refills 0, Acute 11/03/23 13:13:00 EDT, Spasm, 10/30/23 13:12:00 EDT, Route to Pharmacy Electronically, [facility], Partial fill upon patient request if the prescription i... Start Date: 10/30/23 Stop Date: 11/03/23 Status: Ordered divalproex sodium 500 mg oral enteric coated tablet 1 tablet = 500 mg, By Mouth, 2 times a day, # 90 tablet, 0 Refills, Maintenance, 05/11/23 13:06:00 EDT, EC Tablet, Partial fill upon patient request if the prescription is for a schedule II opioid drug. Start Date: 05/11/23 Status: Ordered doxepin 10 mg oral capsule 1 capsule = 10 mg, By Mouth, Daily at bedtime, # 90 capsule, 0 Refills, Maintenance, 05/11/23 13:06:00 EDT, Capsule, Partial fill upon patient request if the prescription is for a schedule II opioid drug. Start Date: 05/11/23 Status: Ordered Eliquis 5 mg oral tablet 1 tablet = 5 mg, By Mouth, 2 times a day, # 60 tablet, 3 Refills, Maintenance, 09/09/23 15:30:00 EDT, Tablet, [facility], Partial fill upon patient request if the prescription is for a schedule II opioid drug., 173, cm, 09/01/23 13:28:00 ED... Start Date: 09/09/23 Status: Ordered Jobst JoviPak extended chin strap Jobst JoviPak extended chin strap, See Instructions, # 1 each, Refills 0, Tot. Refills 0, Maintenance, Use as instructed. Diagnosis: I89.0, 10/08/23 13:35:00 EDT, Supply Start Date: 10/08/23 Status: Ordered lactulose 10 gm/15 ml oral syrup 15 mL = 10 Gm, By Mouth, Daily, PRN as needed for constipation, # 480 mL, 0 Refills, Maintenance, 10/30/23 16:07:00 EDT, Syrup, [facility], Partial fill upon patient request if the prescription is for a schedule II opioid drug., 15 mL By... Start Date: 10/30/23 Status: Ordered lidocaine 5% topical film See Instructions, 1 patch apply Topically to painful area on back Daily. remove patches after 12 hours, # 30 patch, 0 Refills, Maintenance, 10/30/23 13:13:00 EDT, Patch, [facility], Partial fill upon patient request if the prescriptio... Start Date: 10/30/23 Status: Ordered lidocaine-prilocaine 2.5%-2.5% topical cream See Instructions, apply small dollop to [facility] site 1 hr prior to appt and cover with plastic, #30 Gm, 1 Refills, Maintenance, 06/01/23 8:55:00 EDT, Cream, [facility], Partial fill upon patient request if the prescription is for a sched... Start Date: 06/01/23 Status: Ordered meclizine 25 mg oral tablet 1 tablet = 25 mg, By Mouth, 3 times a day, PRN for dizziness, # 30 tablet, 0 Refills, Acute 11/12/23 14:13:00 EDT, 10/12/23 14:13:00 EDT, Tablet, [facility], Partial fill upon patient request if the prescription is for a schedule II opioid... Start Date: 10/12/23 Stop Date: 11/12/23 Status: Ordered morphine 30 mg/8 to 12 hr oral tablet, extended release = 30 mg, By Mouth, Every 8 hours, # 21 tablet, 0 Refills, Maintenance, 10/30/23 13:14:00 EDT, ER Tablet, [facility], Partial fill upon patient request if the prescription is for a schedule II opioid drug., 173, cm, 10/30/23 11:36:00 EDT,... Start Date: 10/30/23 Stop Date: 11/06/23 Status: Ordered MorPHINE CR Tablet 30 mg, CR Tablet, By Mouth, Hold for: sedation, RR < 10, 10/30/23 17:00:00 EDT Start Date: 10/30/23 Stop Date: 10/30/23 Status: Completed omeprazole 20 mg oral delayed release tablet 1 tablet = 20 mg, By Mouth, 2 times a day, # 180 tablet, 1 Refills, Maintenance, 10/18/23 9:47:00 EDT, EC Tablet, [facility], Partial fill upon patient request if the prescription is for aschedule II opioid drug., 173, cm, 10/14/23 9:07:00... Start Date: 10/18/23 Status: Ordered oxyCODONE 15 mg oral tablet 1 tablet = 15 mg, By Mouth, Every 4 hours, PRN Pain , Severe, for 7 days, # 42 tablet, 0 Refills, Acute 11/06/23 13:11:00 EDT, 10/30/23 13:11:00 EDT, Tablet, [facility], Partial fill upon patient request if the prescription is for a sche... Start Date: 10/30/23 Stop Date: 11/06/23 Status: Ordered oxyCODONE 5 mg oral tablet 15 mg, Tablet, By Mouth, Every 4 hours, PRN for Pain , Moderate, Routine, 10/23/23 16:19:00 EDT Start Date: 10/23/23 Stop Date: 10/31/23 Status: Discontinued [id number] oral powder for reconstitution = 17 Gm, By Mouth, Daily, # 510 Gm, 0 Refills, Maintenance, 10/30/23 13:11:00 EDT, REC Powder, [facility], Partial fill upon patient request if the prescription is for a schedule II opioid drug., 173, cm, 10/30/23 11:36:00 EDT, Height, 9... Start Date: 10/30/23 Status: Ordered prochlorperazine 10 mg oral tablet 1 tablet = 10 mg, By Mouth, Every 6 hours, PRN nausea/vomiting, may cause drowsiness, # 30 tablet, 1 Refills, Maintenance, 06/01/23 8:53:00 EDT, [facility], Partial fill upon patient [...] 0 Refills, Maintenance, 07/12/23 12:28:00 EDT, Tablet, [facility], Partial fill upon patient request if [...] List Condition Confirmation Course Effective Dates Status [facility] Informant Compression fx, lumbar spine Confirmed 10/21/23 Active DVT (deep venous thrombosis) Confirmed 10/22/23 Active Acinic cell carcinoma Confirmed 10/27/23 Active Obese class I Confirmed Active Results Radiology Reports * Exam Date Time Procedure Performing Provider Status 10/29/23 3:[address]/ US Image Guide Biopsy Auth (Verified) Notes: (CT/ US Image Guide Biopsy) Reason For Exam: Back pain, L4 fracture due to possible mets? CT/ US Image Guide Biopsy Patient: CHRISSY REHMAN Study Date: 10/29/2023 Performing: Renae Mclain MD Referring: : 1965 Age: 58 Gender: MALE PROCEDURE: CT guided biopsy of? L4? vertebral body? CLINICAL INDICATION:? Lytic lesion of L4 vertebral body?, history of left parotid gland acinar carcinoma MRB ENGINEER(S): Darren Gamino MD under the supervision of Renae Mclain M.D. RADIATION DOSE PARAMETERS: ? ANESTHESIA: Local anesthesia and general anesthesia from Dr. Yoav Ventura. TECHNIQUE: A limited CT scan of the? lumbar spine was performed using automatic tube current modulation to optimize exposure parameters. A suitable access site in the soft tissues to the right of L4? was identified, marked, prepped, and draped in standard fashion. One percent lidocaine was administered for local anesthesia.? Using intermittent CT fluoroscopy guidance, an 11 Ga Oncontrol introducer needle was advanced to the periphery of the target lesion. Two core biopsies of the targeted lesion were performed using the 13 Ga biopsy needles.? Samples submitted to histology in formalin. A post biopsy scan was performed.? COMPLICATIONS: The patient tolerated the procedure well and left the department in stable condition. There were no immediate complications.? FINDINGS:? Lytic lesion of L4 biopsied as above. Post biopsy scan shows no bleeding. PLAN: Routine post procedure monitoring in the PACU. ? IMPRESSION:? CT-guided bone biopsy of L4 bone lesion. Signed By Renae Mclain MD On 10/29/2023 6:13:49 PM Renae Mclain MD SUPPLIES : [employer] BONE LESION TRAY 11 X 10 Dictated By: Renae Mclain MD Dictated Date/Time: 10/29/23 3:06 pm Reviewed By: Renae Mclain MD Signed By: Renae Mclain MD Signed Date/Time: 10/29/23 3:06 pm Transcribed By: HEIDY Transcribed Date/Time: 10/29/23 3:06 pm * Exam Date Time Procedure Performing Provider Status 10/21/23 11:[address] Lumbar Spine W/O Contrast Jamel De La Fuente cassie; Auth (Verified) Notes: (CT Lumbar Spine W/O Contrast) Reason For Exam: Spine fracture, lumbar, traumatic;Other: RESULT: CT Lumbar Spine W/O Contrast CT Lumbar Spine W/O Contrast Hx of Present Illness: pt just finished chemo and radiation, pulled his back last week moving a picnic table last week, today he took a shower and bent over after getting out and pulled his back 12 10 pain pt took 10mg oxycodone po with no relief. pt barerly able to stand.; Reason: Other:; Spine fracture, lumbar, traumatic; Clinical Question(s): Fracture Dislocation; Order Comment: CLINICAL QUESTION: Fracture/Dislocation TECHNIQUE: Thin section axial images were acquired through the lumbar spine. Bone and soft tissue algorithms were reconstructed along with coronal and sagittal reformats. Weight-based protocol using automatic tube modulation was used to optimize exposure parameters. 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 Spine: No recent comparison studies available. There is a appears to be a pathologic compression fracture with large destructive lesion in the L4 vertebral body. Mild retropulsion noted. This finding is not seen on the PET CT scan 03/29/2023. There appears to be some associated disc bulging overall mild spinal canal narrowing. Soft tissues: No acute abnormality in the paravertebral soft tissues. Visualized aorta and kidneys appear unremarkable. IMPRESSION: Probable pathologic compression fracture of the L4 vertebral body with mild retropulsion and associated disc bulging. Overall mild canal narrowing. No other acute abnormality. WSN: [id number] Ordering Physician: Neris Rider Dictated By: Robbie Haynes MD Dictated Date/Time: 10/21/23 11:29 p Reviewed By: Robbie Haynes MD Signed By: Robbie Haynes MD Signed Date/Time: 10/21/23 11:29 pm Transcribed By: ROBERT Transcribed Date/Time: 10/21/23 11:26 pm Vital Signs Most recent to oldest [Reference Range]: 1 2 3 Height 173 cm (10/30/23 3:11 PM) 173 cm (10/30/23 11:36 AM) 173 cm (10/30/23 7:48 AM) Weight 90.3 kg (10/22/23 2:41 AM) 90.3 kg (10/22/23 2:30 AM) 95.5 kg (10/21/23 8:03 PM) Oxygen Saturation [94-100 %] 100 % (10/30/23 3:11 PM) 100 % (10/30/23 11:36 AM) 97 % (10/30/23 7:48 AM) Pulse Rate [55-90 bpm] 93 bpm *H* (10/30/23 3:11 PM) 82 bpm (10/30/23 11:36 AM) 87 bpm (10/30/23 7:48 AM) Body Mass Index [18.5-24.99 kg/m2] 30.17 kg/m2 *>HHI* (10/22/23 2:41 AM) 30.17 kg/m2 *>HHI* (10/22/23 2:30 AM) 31.91 kg/m2 *>HHI* (10/21/23 8:00 PM) Blood Pressure [90-138/55-84 mm Hg] 132/71mm Hg (10/30/23 3:11 PM) 142/87mm Hg *H* (10/30/23 11:36 AM) 139/82mm Hg *H* (10/30/23 7:48 AM) Respiratory Rate [16-30 br/min] 16 br/min (10/30/23 6:18 PM) 16 br/min (10/30/23 3:51 PM) 16 br/min (10/30/23 3:51 PM) Temperature [96.8-100.4 DegF] 97.8 DegF (10/30/23 3:11 PM) 97.6 DegF (10/30/23 11:36 AM) 97.7 DegF (10/30/23 7:48 AM) Liters per Minute 0 L/min (10/22/23 3:32 PM) Mode of Delivery (Oxygen) Room air (10/30/23 3:11 PM) Room air (10/30/23 11:36 AM) Room air (10/30/23 7:48 AM) Blood pressure sites Arm, right (10/30/23 3:11 PM) Arm, left (10/30/23 11:36 AM) Arm, right (10/30/23 7:48 AM) Temperature Route Oral (10/30/23 3:11 PM) Oral (10/30/23 11:36 AM) Oral (10/30/23 7:48 AM) Dry Weight 90.3 kg (10/22/23 2:41 AM) 95.5 kg (10/21/23 8:03 PM) 95.5 kg (10/21/23 8:00 PM) Weight Obtained Via Standing scale (10/21/23 8:00 PM) Dry Weight Obtained Via Standing scale (10/21/23 8:00 PM) Social History Social History Type Response Tobacco Interested in cessat ion: No. No Sex Admission evaluation note * Margarita JAUREGUI, Len Madrigal: PERFORM Event Display: Admission Note Authored Date: [id number] Patient: ??CHRISSY REHMAN ? Age:??58 Years?Sex:??Male?:??1965?? History of Present Illness 58-year-old male with past medical history of left parotid gland carcinoma, DVT left lower leg?? (06/16/2023), hypertension, hyperlipidemia, BPH, GERD, obesity, anxiety, depression, bipolar who was presented to the ED with new onset lower back pain after lifting heavy subjects. ?? Pt reported that??last week he went to the [facility] and try to move picnic table, since then he was having mild back pain.?? But yesterday when he bent over right after he take a shower suddenly started having significant amount of pain.? Patient denies urinary or stool incontinence or sensation loss around perineum, denies weakness, sensation loss.? 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 Chemo-Port placed on 06/01/2023, G tube inserted on 07/09/2023. Pt was started on??chemoradiation with cisplatin/etoposide??06/07/2023??and completed on 07/27/2023.? Pt started oral intake, reported recently drinks ensures, and trying to eat more solid foods not patricia dependent on G tube. CT lumbar remarkable for Probable pathologic compression fracture of the L4 vertebral body with mild retropulsion and associated disc bulging. Overall mild canal narrowing. ?? Labs are only remarkable for TSH 21.20 Free T41.11 Grossly unremarkable CBC and BMP Review of Systems None except as above?? Objective Vital Signs?? Temperature: 98.3 DegF (10/22/23 02:41:00) Temperature Route: Oral (10/22/23 02:41:00) Pulse Rate: 74 bpm (10/22/23 02:41:00) Respiratory Rate: 18 br/min (10/22/23 06:15:00) Systolic Blood Pressure:??155 mm Hg??High (10/22/23 02:41:00) Diastolic Blood Pressure:??93 mm Hg??High (10/22/23 02:41:00) Blood pressure sites: Arm, left (10/22/23 02:41:00) Mean Arterial Pressure: 114 mm Hg (10/22/23 02:41:00) Pulse Pressure: 62 mm Hg (10/22/23 02:41:00) Oxygen Saturation: 99 % (10/22/23 02:41:00) Mode of Delivery (Oxygen): Room air (10/22/23 02:41:00) Early Warning Score: 0 (10/22/23 06:15:55) ? Physical Exam Gen- not in acute distress,comfortably lying on bed, speaking in full sentences. HEENT- Normocephalic, Atraumatic, No pallor, icterus Neck-supple, no JVD Heart-S1S2(+),??regular, no murmurs. lungs- Clear, b/l air entry, no wheezing. chemo-port in place on R upper chest, clear around Abdomen-soft, nontender,nondistended,??bowel sounds present, No guarding. PEG tube in place, normalskin around.?? Extremities-pulses palpable. No pedal edema. No calf tenderness. Has R paraspinal tenderness, no midline tenderness. Movement and exam limited due to pain?? Neurological- AAO??3. 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 Psychiatric-patient???s mood is stable. Assessment/Plan Diagnoses Anxiety with depression ??(F41.8) BPH (benign prostatic hyperplasia) ??(N40.0) Bipolar disorder ??(F31.9) Compression fx, lumbar spine ??(S32.000A) DVT (deep venous thrombosis) ??(I82.409) GERD (gastroesophageal reflux disease) ??(K21.9) HTN (hypertension) ??(I10) Hypothyroidism ??(E03.9) ?? Assessment:??58-year-old male with past medical history of left parotid gland carcinoma s/p chemo-radiation??who was presented to the ED with new onset lower back pain after lifting heavy subjects. ? Bipolar disorder (F31.9) ?Grouped with??Anxiety with depression (F41.8) ? - continue doxepin ?? HTN (hypertension) (I10):??Pt is not taking lisinopril anymore due to dizziness and lightheadedness BP is elevated to 150s/80s but might be due to pain Monitor BP without lisinopril, if persistently elevated would discuss w patient?? -PCP follow up? GERD (gastroesophageal reflux disease) (K21.9):??resume PPI? DVT (deep venous thrombosis) (I82.409):??resume apixaban? BPH (benign prostatic hyperplasia) (N40.0):??resume tamsulosin? Hypothyroidism (E03.9):??Pt appears to be asymptomatic, having regular bowel movements, extremitiesare warm, no cold feeling, but TSh remarkably high TSH 21.20 Free T4 1.11 ?? Would consider consulting endocrinology??morning given parathyroidectomy as well during surgery, will likely need low dose replacement and outpatient follow up? Compression fx, lumbar spine (S32.000A):??After lifting heavy picnic table and bending over pt started feeling pain in his back. Exam is positive for paraspinal tenderness, no midline tenderness but CT lumbar is remarkable for probable pathologic compression fracture of the L4 vertebral body with mild retropulsion and associated disc bulging. Overall mild canal narrowing. Exam and imaging not concerning for cauda equina. ?? Plan: Would consider neurosurgery consult AM Pain management, continue with home oxycodone 5mg PRN, IV Dilaudid for??breakthrough pain?? Lidocaine patch?? Bladder scan to rule out retention?? PT ordered? VTE Prophylaxis:??C/w home eliquis?VTE Prophylaxis Assessment:??VTE Prophylaxis Ordered ?? Discharge Planning:??Pending clinical course? Ongoing Medical Necessity:??Lumbar fracture, severe back pain? Code Status:??Full code? Seen pt on 10/22/2023 ?? I spent a total of 55 minutes in patient care that includes??reviewing the chart and medical records, speaking with the patient, examining the patient, interpreting labs/imaging/ekg, formulating and discussing the treatment plan, counseling the patient, placing orders, communicating with??consultants and nurses??and documenting the encounter. ?? Please note that I have used [employer] dictation system to??transcribe??this note and it may contain unintentional errors. Please feel free to contact me for any clarification. ? Estimated Discharge Date ? Histories Allergies Allergies ?(Active and Proposed Allergies Only) No Known Medication Allergies? (Severity: Unknown severity, Onset: Unknown) ? Past Medical History/Problem List Active Problems(1) Obese class I ? Past Surgical History No surgery history documented. ? Social History Alcohol Details:??Frequency: 1-2 times per year. Substance Abuse Details:??Type: Marijuana. Tobacco Details:??Interested in cessation: No. ??No Details:??Interested in cessation: No. ??No Details:??Interested in cessation: No. ??No Details:??Interested in cessation: No. ??No Details:??Interested in cessation: No. ??No Details:??Use: Never (less than 100 in lifetime). Electronic Cigarette/Vaping Details:??Electronic Cigarette Use: 1-25 inhales/day. ??Type: Cannabinoid infused. Details:??Electronic Cigarette Use: 1-25 inhales/day. ??Type: Cannabinoid infused. Details:??Electronic Cigarette Use: 1-25 inhales/day. ??Type: Cannabinoid infused. Details:??Electronic Cigarette Use: 1-25 inhales/day. ??Type: Cannabinoid infused. Details:??Electronic Cigarette Use: 1-25 inhales/day. ??Type: Cannabinoid infused. Details:??Electronic Cigarette Use: 26-50 inhales/day. ??Type: Cannabinoid infused. ? Family History No Family History documented. ? Medications Home Medications apixaban (Eliquis 5 mg oral tablet)?1?tab(s)?5?Milligram?By Mouth?2 times a day Divalproex Sodium (divalproex sodium 500 mg oral enteric coated tablet)?1?tab(s)?500?Milligram?By Mouth?2 times a day Doxepin (doxepin 10 mg oral capsule)?1?capsule?10?Milligram?By Mouth?Daily at bedtime Durable Medical Equipment (Jobst JoviPak extended chin strap)?See Instructions?Use as instructed. ??Diagnosis: I89.0 Famotidine (famotidine 20 mg oral tablet)?1?tablet?By Mouth?Daily Lidocaine/Prilocaine Topical (lidocaine-prilocaine 2.5%-2.5% topical cream)?See Instructions?apply small dollop to portacath site 1 hr prior to appt and cover with plastic Lisinopril (lisinopril 10 mg oral tablet)?10?Milligram?1?tablet?By Mouth?Daily Meclizine (meclizine 25 mg oral tablet)?1?tab(s)?25?Milligram?By Mouth?3 times a day?as needed?for dizziness Omeprazole (omeprazole 20 mg oral delayed release tablet)?1?tab(s)?20?Milligram?By Mouth?2 times a day Omeprazole (omeprazole 20 mg oral enteric coated capsule)?1?capsule?20?Milligram?By Mouth?Daily Ondansetron (ondansetron 8 mg oral tablet)?1?tab(s)?8?Milligram?By Mouth?Every 8 hours?as needed?as needed for nausea/vomiting Oxycodone (oxyCODONE 5 mg oral tablet)?5?Milligram?1?tablet?By Mouth?Every 4 hours?as needed?for 7?Days?as needed for pain Pilocarpine (pilocarpine 5 mg oral tablet)?1?tab(s)?5?Milligram?By Mouth?3 times a day Polyethylene Glycol 3350 (LOQ5051 oral powder for reconstitution)?17?gram?By Mouth?Daily?as needed?Constipation PROCHLORperazine (prochlorperazine 10 mg oral tablet)?1?tab(s)?10?Milligram?By Mouth?Every 6 hours?as needed?nausea/vomiting?may cause drowsiness Rosuvastatin (rosuvastatin 5 mg oral capsule)?1?capsule?5?Milligram?By Mouth?Daily Senna (senna 187 mg oral tablet)?1?tab(s)?8.6?Milligram?By Mouth?2 times a day?as needed?Constipation Tamsulosin (tamsulosin 0.4 mg oral capsule)?0.4?Milligram?1?capsule?By Mouth?Daily ? Inpatient Medications Medications (18) Active SCHEDULED: (7) Apixaban 5 mg Tablet (Eliquis) ??5 mg, By Mouth, 2 times a day Doxepin 10 mg Capsule (Doxepin Capsule) ??10 mg, By Mouth, Daily at bedtime Lansoprazole 15 mg OD Tablet (Lansoprazole OD Tablet) ??15 mg, By Mouth, Daily NaCl 0.9% Flush 3ml (NaCL 0.9% Flush) ??3 mL, IV Push, Every 8 hours Remove Patch (Remove ??Patch) ??1 each, Topically, Once Rosuvastatin 5 mg Tablet (rosuvastatin 5 mg oral tablet) ??5 mg, By Mouth, Daily Tamsulosin 0.4 mg Capsule (tamsulosin 0.4 mg oral capsule) ??0.4 mg, By Mouth, Daily CONTINUOUS: (0) PRN: (11) Acetaminophen 325 mg Tablet (Acetaminophen Tablet) ??650 mg, By Mouth, Every 4 hours Dextromethorphan-Guaifenesin 20 mg-200 mg/10 mL Liqu UD (Robitussin DM Liquid) ??10 mL, By Mouth, Every 4 hours Docusate Sodium 100 mg Capsule (Docusate Sodium Capsule) ??100 mg 1 capsule, By Mouth, 2 times a day HYDROmorphone 1 mg/mL Inj Syringe (Dilaudid Inj) ??1 mg 1 mL, IV Push Slowly, Every 4 hours Melatonin 3 mg Tablet (Melatonin Tablet) ??3 mg, By Mouth, Daily at bedtime NaCl 0.9% Flush 3ml (NaCL 0.9% Flush) ??3 mL, IV Push, Every 8 hours OxyCODONE 5 mg IR Tablet (oxyCODONE 5 mg oral tablet) ??5 mg, By Mouth, Every 4 hours Polyethylene Glycol 17 Gm Powder (MiraLax Powder) ??17 Gm 1 pack/packet, By Mouth, Daily PROCHLORperazine 5 mg Tablet (prochlorperazine 5 mg oral tablet) ??10 mg, By Mouth, Every 6 hours Senna Tablet ??8.6 mg 1 tablet, By Mouth, 2 times a day Simethicone 80 mg Chewable Tablet (Simethicone Tablet) ??80 mg, Chew, 3 times a day ? Results Recent Labs BLOOD COUNT & DIFF WBC 6.9 k/mm3 ()?? 10/21/2023 23:15 RBC 4.31 m/mm3 (Low)?? 10/21/2023 23:15 Hgb 13.7 Gm/dL ()?? 10/21/2023 23:15 Hct 40.1 % (Low)?? 10/21/2023 23:15 MCV 93.0 femtoliters ()?? 10/21/2023 23:15 MCH 31.8 pg ()?? 10/21/2023 23:15 MCHC 34.2 g/dL ()?? 10/21/2023 23:15 Platelet Count 178 k/mm3 ()?? 10/21/2023 23:15 RDW-SD 42.1 femtoliters ()?? 10/21/2023 23:15 MPV 10.7 femtoliters ()?? 10/21/2023 23:15 Nucleated RBC (Automated) 0.0 #/100 WBC'S ()?? 10/21/2023 23:15 Abs. NRBC 0.0 k/mm3 ()?? 10/21/2023 23:15 Abs. Neut 5.4 k/mm3 ()?? 10/21/2023 23:15 Abs. Lymph 0.9 k/mm3 ()?? 10/21/2023 23:15 Abs. Graham 0.5 k/mm3 ()?? 10/21/2023 23:15 Abs. Eo 0.1 k/mm3 ()?? 10/21/2023 23:15 Abs. Baso 0.0 k/mm3 ()?? 10/21/2023 23:15 Neut % 78.6 % (High)?? 10/21/2023 23:15 Lymph % 12.8 % (Low)?? 10/21/2023 23:15 Graham % 6.5 % ()?? 10/21/2023 23:15 Eos % 1.7 % ()?? 10/21/2023 23:15 Baso % 0.1 % ()?? 10/21/2023 23:15 Imm Gran 0.3 % ()?? 10/21/2023 23:15 Abs. Imm Gran 0.0 k/mm3 ()?? 10/21/2023 23:15 ?? CHEM GENERAL Sodium 139 mmol/L ()?? 10/21/2023 23:25 Potassium 4.0 mmol/L ()?? 10/21/2023 23:25 Chloride 100 mmol/L ()?? 10/21/2023 23:25 Bicarbonate Level 26 mmol/L ()?? 10/21/2023 23:25 Anion Gap 13 ()?? 10/21/2023 23:25 Glucose Level 95 mg/dL ()?? 10/21/2023 23:25 BUN 18 mg/dL ()?? 10/21/2023 23:25 Creatinine-Blood 0.86 mg/dL ()?? 10/21/2023 23:25 Estimated GFR Creatinine 100 ML/MIN/1.73 M2 ()?? 10/21/2023 23:25 Calcium 9.6 mg/dL ()?? 10/21/2023 23:25 Protein, Total 7.0 Gm/dL ()?? 10/21/2023 23:25 Albumin 4.6 Gm/dL ()?? 10/21/2023 23:25 AG Ratio 1.9 ()?? 10/21/2023 23:25 Alkaline Phosphatase 49 units/L ()?? 10/21/2023 23:25 AST (SGOT) 13 units/L ()?? 10/21/2023 23:25 ALT (SGPT) 6 units/L ()?? 10/21/2023 23:25 Bilirubin, Total 0.2 mg/dL ()?? 10/21/2023 23:25 ?? ENDOCRINE/TUMOR MARKER TSH 21.20 uIU/mL (High)?? 10/21/2023 23:25 Free T4 1.11 ng/dL ()?? 10/21/2023 23:25 ?? URINE OTHER Est Creatinine Clearance 89.81 mL/min ()?? 10/22/2023 00:10 ?? VIROLOGY COVID-19 by RT-PCR NEGATIVE ()?? 10/22/2023 00:15 ? Abnormal Labs ?? BLOOD COUNT & DIFF Abs. Imm Gran?0.0 k/mm3 ()?10/21/2023 23:15 Abs. NRBC?0.0 k/mm3 ()?10/21/2023 23:15 Hct?40.1 % (Low)?10/21/2023 23:15 Imm Gran?0.3 % ()?10/21/2023 23:15 Lymph %?12.8 % (Low)?10/21/2023 23:15 Neut %?78.6 % (High)?10/21/2023 23:15 Nucleated RBC (Automated)?0.0 #/100 WBC'S ()?10/21/2023 23:15 RBC?4.31 m/mm3 (Low)?10/21/2023 23:15 RDW-SD?42.1 femtoliters ()?10/21/2023 23:15 ?? CHEM GENERAL AG Ratio?1.9 ()?10/21/2023 23:25 Estimated GFR Creatinine?100 ML/MIN/1.73 M2 ()?10/21/2023 23:25 ?? ENDOCRINE/TUMOR MARKER TSH?21.20 uIU/mL (High)?10/21/2023 23:25 ?? VIROLOGY COVID-19 by RT-PCR?NEGATIVE ()?10/22/2023 00:15 ?? Note: Critical results are displayed in red. ? Urinalysis Est Creatinine Clearance: 89.81 mL/min (00:10) ?? Blood Gases?? No qualifying data available. ? Hospital Progress note * Chayito Gutierrez RN: VERIFY, PERFORM, SIGN Event Display: Progress Note Hospital Authored Date: [id number] Patient: CHRISSY REHMAN Age: 58 years Sex: Male : 1965 Associated Diagnoses: None Author: Chayito Gutierrez RN Findings Problem Related to Alteration in Comfort : Alteration in Comfort/new 10/30/2023 3:00 EDT Alteration in Comfort Related to Disease process Goals & Outcomes: Comfort Pt will report acceptable level of comfort & pain control Interventions Implemented: Comfort Assess pain using appropriate pain scale/tools, Assess aggravating factors & prevent them accordingly, Assess alleviating factors & promote them accordingly BH Goals/Interventions, Comfort Yes Comfort, Problem Start 10/22/2023 18:15 Reviewed plan with, Comfort Patient Patient Progression, Comfort Pt progressing according to plan Comfort, Problem Ongoing Yes . Evaluation Pt A&O x3 reporting 4-5/10 pain to back that shoots down right leg. Medicated with Oxycodone and PO Morphine with good effect. Dressing to biopsy site, has small amount of blood on it. Abdomen has hypoactive bowel sounds, pt states he his passing gas, offered PRN suppository, pt states he will take it in the AM. Scheduled bowel Meds given. Safety measures in place, see CIS for full assessment.. Discharge Information Case Management Discharge Plan : Case Management Discharge Plan Data 10/29/2023 8:16 EDT Discharge Level of Care at Discharge Homehealth/VNA Discharge VNA/Hospice/Home Care [facility] [phone] Name of Agency #1 [place] [phone] Service Categories #1 Physical Therapy, Fdc Service Comments #1 [place] [phone] will contact you to begin services. Please call agency with any questions. Rehabilitation Discharge : Rehab Discharge Index 10/26/2023 16:31 EDT Walker: distance >50 * Porsche Alvarenga RN: VERIFY, PERFORM, SIGN Event Display: Progress Note Hospital Authored Date: Patient: CHRISSY REHMAN Age: 58 years Sex: Male : 1965 Associated Diagnoses: None Author: Porsche Alvarenga RN Findings Nursing Data Vital Signs : VITAL SIGNS SECTION 10/29/2023 18:02 EDT Temperature 97.6 DegF Temperature Route Oral Pulse Rate 103 bpm H Respiratory Rate 20 br/min Systolic Blood Pressure 153 mm Hg H Diastolic Blood Pressure 98 mm Hg H Blood pressure sites Arm, right Mean Arterial Pressure 116 mm Hg Pulse Pressure 55 mm Hg Oxygen Saturation 100 % Mode of Delivery (Oxygen) Room air . Narrative/Incidental patient A+Ox3, npo and went for CT guided biopsy. patient returned back to unit, VSS, reports feeling fatigued and zofran given per request. Dressing to R lower back with small drop of blood. Diet resumed, pt reports pain is minimal at this time. will continue to perform purposeful rounding... Discharge Information Case Management Discharge Plan : Case Management Discharge Plan Data 10/29/2023 8:16 EDT Discharge Level of Care at Discharge Homehealth/VNA Discharge VNA/Hospice/Home Care [facility] [phone] Name of Agency #1 [facility] [phone] Service Categories #1 Physical Therapy, Fdc Service Comments #1 [place] [phone] will contact you to begin services. Please call agency with any questions. 10/22/2023 14:44 EDT Discharge Level of Care at Discharge Homehealth/VNA Discharge VNA/Hospice/Home Care [facility] [phone] Name of Agency #1 [facility] Service Categories #1 Physical Therapy, [facility]. Rehabilitation Discharge : Rehab Discharge Index 10/26/2023 16:31 EDT Walker: distance >50 * Cathie JAUREGUI, Sammie Hewitt: PERFORM Event Display: Progress Note Hospital Authored Date: [id number] Patient: ??CHRISSY REHMAN ? Age:??58 Years?Sex:??Male?:??1965?? Subjective Patient seen and examined at bedside No significant overnight events Afebrile, saturating well on room air Patient??reported??slightly uncontrolled??back pain??since oral Dilaudid was discontinued.?? Has intermittent right??leg pain.?? Denies??chest pain, shortness of breath, dizziness,??nausea, vomiting.?? Did not have a bowel movement but passing flatus Labs reviewed Scheduled for??lumbar??lesion biopsy??under anesthesia this afternoon.?IR suggested to resume??anticoagulation tomorrow??if remains stable Review of Systems ROS negative except as noted above Objective Vital Signs?? Temperature: 98.4 DegF (10/29/23 11:33:00) Temperature Route: Oral (10/29/23 11:33:00) Pulse Rate:??92 bpm??High (10/29/23 11:33:00) Respiratory Rate: 20 br/min (10/29/23 11:33:00) Systolic Blood Pressure: 133 mm Hg (10/29/23 11:33:00) Diastolic Blood Pressure:??85 mm Hg??High (10/29/23 11:33:00) Blood pressure sites: Arm, right (10/29/23 11:33:00) Mean Arterial Pressure: 101 mm Hg (10/29/23 11:33:00) Pulse Pressure: 48 mm Hg (10/29/23 11:33:00) Oxygen Saturation: 97 % (10/29/23 11:33:00) Mode of Delivery (Oxygen): Room air (10/29/23 11:33:00) Early Warning Score: 0 (10/29/23 14:43:59) ? Intake/Output? 10/21 00:30 10/28 07:00 10/27 07:00 10/26 07:00 10/25 07:00 ?? 10/28 17:25 10/28 17:25 10/28 06:59 10/27 06:59 10/26 06:59 Intake ? 3827 ?0 ? 1316 ?0 ?951 Output ? 9375 ?950 ? 1575 ? 1100 ? 1050 Net Total ?-5548 ? -950 ? -259 ?-1100 ?-99 ? Urine Count ?1 ?0 ?0 ?0 ?0 ? Physical Exam ?General:??No apparent distress, lying in bed comfortably ?HEENT:??Chr dev of mouth,??Moist oral mucous membranes ?Heart:??S1 S2 heard, regular rate and rhythm ?Lungs:??Bilateral air entry fair. ??No wheeze or crackles ?Abdomen:??Soft, NT, ND,??G tube+?Neuro:??No focal neurological deficits ?Psychiatry:?Normal mood and affect ?Extremities:??No edema, normal pulses Results Recent Labs BLOOD COUNT & DIFF WBC 4.9 k/mm3 ()?? 10/29/2023 05:20 RBC 4.02 m/mm3 (Low)?? 10/29/2023 05:20 Hgb 12.6 Gm/dL (Low)?? 10/29/2023 05:20 Hct 37.2 % (Low)?? 10/29/2023 05:20 MCV 92.5 femtoliters ()?? 10/29/2023 05:20 MCH 31.3 pg ()?? 10/29/2023 05:20 MCHC 33.9 g/dL ()?? 10/29/2023 05:20 Platelet Count 196 k/mm3 ()?? 10/29/2023 05:20 RDW-SD 40.2 femtoliters ()?? 10/29/2023 05:20 MPV 9.9 femtoliters ()?? 10/29/2023 05:20 Nucleated RBC (Automated) 0.0 #/100 WBC'S ()?? 10/29/2023 05:20 Abs. NRBC 0.0 k/mm3 ()?? 10/29/2023 05:20 ?? CHEM GENERAL Sodium 137 mmol/L ()?? 10/29/2023 05:20 Potassium 4.2 mmol/L ()?? 10/29/2023 05:20 Chloride 97 mmol/L (Low)?? 10/29/2023 05:20 Bicarbonate Level 27 mmol/L ()?? 10/29/2023 05:20 Anion Gap 13 ()?? 10/29/2023 05:20 Glucose Level 114 mg/dL (High)?? 10/29/2023 05:20 BUN 14 mg/dL ()?? 10/29/2023 05:20 Creatinine-Blood 0.84 mg/dL ()?? 10/29/2023 05:20 Estimated GFR Creatinine 100 ML/MIN/1.73 M2 ()?? 10/29/2023 05:20 Calcium 9.6 mg/dL ()?? 10/29/2023 05:20 ?? COAG INR 1.0 ()?? 10/29/2023 05:20 Protime (PT) 10.9 seconds ()?? 10/29/2023 05:20 ?? URINE OTHER Est Creatinine Clearance 91.95 mL/min ()?? 10/29/2023 06:18 ?? VIROLOGY COVID-19 PCR Specimen Source NASAL ()?? 10/28/2023 06:40 COVID-19 PCR Result NEGATIVE ()?? 10/28/2023 06:40 ? Microbiology ?? COVID-19 (2019 Novel Coronavirus) PCR?? Completed?? Source: Nasal Body Site: Nose Collected Dt/Tm: 10/28/2023 05:27 Last Updated Dt/Tm: 10/28/2023 08:07 ?? COVID-19 (2019 Novel Coronavirus) PCR?? Completed?? Source: Nasal Body Site: Nose Collected Dt/Tm: 10/25/2023 05:46 Last Updated Dt/Tm: 10/25/2023 07:56 ?? COVID-19 (Novel Coronavirus), Rapid PCR?? Completed?? Source: Nasal Body Site: Nose Collected Dt/Tm: 10/22/2023 00:00 Last Updated Dt/Tm: 10/22/2023 01:07 ? Assessment/Plan ?? 58-year-old male with past medical history of left parotid gland carcinoma, DVT left lower leg??(06/16/2023), hypertension, hyperlipidemia, BPH, GERD, obesity, anxiety, depression, bipolar who was presented to the ED??complaining of severe lower back pain after he lifted something heavy. 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 Chemo-Port placed on 06/01/2023, G tube inserted on 07/09/2023 but he is not using it Pt was started on??chemoradiation with cisplatin/etoposide??06/07/2023??and completed on 07/27/2023.?? Patient follows up with and ??Jarek and??is scheduled for PET scan next week. ?? Lower back pain found to have acute pathological fracture most likely metastatic lesion compressionfx, lumbar spine (S32.000A):?? H/O Acinic cell carcinoma (C80.1):??- s/p G-tube placement presented with atraumatic low back pain??and was found to have an L4 pathologic vertebral body fracture. He is neurologically intact?? at this time. Neurosurgery recommend no??acute intervention. Spoke with radiologist ??Lenny Tilley who feels fracture is likely metastatic??in nature/due to lytic process given the??extent of??bone loss??centered??in the mid to posterior vertebral body Soft LSO brace??ordered to be worn for comfort Pain management: with Lidoderm patch, scheduled Tylenol, cyclobenzaprine, oxycodone 15mg q 4 hr prnfor mod??- severe pain. long acting morphine to 30 mg TID.? PT eval rec HWS Discussed with his rad-oncologist and with oncology team.??Rec L4 biopsy to rule out mets. Holding off on Eliquis, Last dose on 9/16 AM. IR plan L4 biopsy today at 2PM with general anesthesia.?? IR suggested to resume??anticoagulation tomorrow??if remains stable Patient not a candidate for kyphoplasty or osteocol as per Dr. Goldsmith. Bowel regimen?Bipolar disorder (F31.9) ?Grouped with??Anxiety with depression (F41.8) ?continue doxepin ?? HTN (hypertension) (I10):??Pt is not taking lisinopril anymore due to dizziness and lightheadedness Due to blood pressure and adjust??medication if needed ?? GERD (gastroesophageal reflux disease) (K21.9):??resume PPI? DVT (deep venous thrombosis) (I82.409):??SCDs, holding Eliquis??for biopsy, IR suggested to resume??anticoagulation tomorrow??if remains stable ?? BPH (benign prostatic hyperplasia) (N40.0):??resume tamsulosin? VTE Prophylaxis:??SCDs CODE STATUS full code ?? OMN: pain control, L4 biopsy? Estimated Discharge Date: 10/29 ? Consult note * Bridgette Walker: PERFORM Event Display: Consultation Note Authored Date: [id number] Patient: ??CHRISSY REHMAN ? Age:??58 Years?Sex:??Male?:??1965?? Provider Clinical Summary Neurosurgery consult note Reason: L4??pathologic fracture Attending: Dr. Gross Chief Complaint/Reason for Consult back pain History of Present Illness This is a 58-year-old male, with a history of left??parotid gland carcinoma??status post??parotidectomy, chemo/radiation??(completed on 07/27/2023), HTN, HLD, BPH,??bipolar disorder, DVT??on 06/16/2023??who presented to the ED with??atraumatic??low back pain.?CT lumbar spine??revealed an L4 pathologic fracture??for which neurosurgery was consulted.?Patient states he was moving a??picnic table??last week and shortly after,??bent down to get something and experienced severe low back pain. ??Hedenies any radicular pain, numbness, tingling, weakness, bowel/bladder dysfunction.?? He sees??Dr. Schrader??at [facility]??and says he has upcoming??imaging of his chest and abdomen and??2 weeks Review of Systems See HPI Physical Exam Vitals & Measurements T:??97.5?F?? HR:??67??(Peripheral)?? RR:??18?? BP:??166/98?? SpO2:??100%?? HT:??173??cm?? WT:??90.3??kg?? BMI:??30.17?? General: appears stated age, awake,alert and NAD HEENT: NC/AT, trachea midline Respiratory: Normal I:E Gastrointestinal:??nondistended Extremities:??Symmetric, no edema Skin: no obvious rashes Neurologic:?? Mental status: awake, alert oriented to location, date and self; speech clear, fluent appropriate, ;follows simple and complex commands CN: EOMI, PERRL, VFF, no nystagmus, chronic left facial paralysis s/p parotidectomy;hearing intact to voice Motor: normal bulk and tone?? Upper Extremities- Deltoid:?5/5 right?5/5 left Biceps:?5/5 right?5/5 left Triceps:?5/5 right?5/5 left Hand vessel scrapper helper:?5/5 right?5/5 left Lower Extremities- Hip Flexion:?5/5 right?5/5 left?? Knee Extension:?5/5 right?5/5 left Plantar flexion:?5/5 right?5/5 left Dorsiflexion:?5/5 right?5/5 left EHL:?5/5 right?5/5left Sensation: intact to light touch throughout upper and lower extremities?? Assessment/Plan 58-year-old male with history of left parotid gland carcinoma status post??parotidectomy, chemo/radiation completed??in July of this year??who presented to ED with atraumatic low back pain??and was found to have an L4 pathologic vertebral body fracture. ??He is neurologically intact on exam. ?? Spoke with radiologist ??Lenny Tilley who feels fracture is likely metastatic??in nature/due to lytic process given the??extent of??bone loss??centered??in the mid to posterior vertebral body ?? Recommendations: No acute neurosurgical intervention Soft LSO brace??ordered to be worn for comfort Pain control as needed Contact patient's oncologist??for recommendations regarding??further workup/treatment No routine follow-up needed Signing off ?? Please page [phone] with questions or concerns Attending: Dr. Gross Problem List/Past Medical History Ongoing Obese class I Procedure/Surgical History No qualifying data available. Home Medications apixaban: 5 mg = 1 tablet, By Mouth, 2 times a day Divalproex Sodium: 500 mg = 1 tablet, By Mouth, 2 times a day Doxepin: 10 mg = 1 capsule, By Mouth, Daily at bedtime Durable Medical Equipment (Jobst JoviPak extended chin strap): See Instructions, Use as instructed.??Diagnosis: I89.0 Famotidine: 1 tablet, By Mouth, Daily Lidocaine/Prilocaine Topical: See Instructions, apply small dollop to portacath site 1 hr prior to appt and cover with plastic Lisinopril: 10 mg = 1 tablet, By Mouth, Daily Meclizine: 25 mg = 1 tablet, By Mouth, 3 times a day, PRN (for dizziness) Omeprazole: 20 mg = 1 tablet, By Mouth, 2 times a day Omeprazole: 20 mg = 1 capsule, By Mouth, Daily Ondansetron: 8 mg = 1 tablet, By Mouth, Every 8 hours, PRN (as needed for nausea/vomiting) Oxycodone: 5 mg = 1 tablet, By Mouth, Every 4 hours, PRN (as needed for pain) Pilocarpine: 5 mg = 1 tablet, By Mouth, 3 times a day Polyethylene Glycol 3350: 17 Gm, By Mouth, Daily, PRN (Constipation) PROCHLORperazine: 10 mg = 1 tablet, By Mouth, Every 6 hours, PRN (nausea/vomiting), may cause drowsiness Rosuvastatin: 5 mg = 1 capsule, By Mouth, Daily Senna: 8.6 mg = 1 tablet, By Mouth, 2 times a day, PRN (Constipation) Tamsulosin: 0.4 mg = 1 capsule, By Mouth, Daily Allergies No Known Medication Allergies Social History Alcohol Frequency: 1-2 times per year. Electronic Cigarette/Vaping Electronic Cigarette Use: 1-25 inhales/day. Type: Cannabinoid infused. Substance Abuse Type: Marijuana. Tobacco Interested in cessation: No. No Family History No family history recorded. Images CT lumbar spine independently reviewed and radiology report as follows: IMPRESSION:?? Probable pathologic compression fracture of the L4 vertebral body with mild retropulsion and associated disc bulging. Overall mild canal narrowing. Note * Cathie JAUREGUI, Sammie R: PERFORM, MODIFY Event Display: Discharge/Transfer Note Hospital Authored Date: Patient: ??CHRISSY REHMAN ? Age:??58 Years?Sex:??Male?:??1965?? Patient Information Discharge Location: [facility] Primary Care Physician: Florencio Sky Admit Date/Time: 10/22/23 00:30 Discharge Disposition Discharge Disposition: Home with Home Health Discharge Diagnosis Acinic cell carcinoma (C80.1) Compression fx, lumbar spine (S32.000A) Hypothyroidism (E03.9) BPH (benign prostatic hyperplasia) (N40.0) Anxiety with depression (F41.8) DVT (deep venous thrombosis) (I82.409) GERD (gastroesophageal reflux disease) (K21.9) HTN (hypertension) (I10) Bipolar disorder (F31.9) _ Discharge Medications Acetaminophen (acetaminophen 325 mg oral tablet)?975?Milligram?By Mouth?3 times a day?Please check Temperature ??prior to administering Tylenol apixaban (Eliquis 5 mg oral tablet)?1?tab(s)?5?Milligram?By Mouth?2 times a day Bisacodyl (bisacodyl 10 mg rectal suppository)?1?suppository(ies)?10?Milligram?Rectal ly?Daily?as needed?Constipation Cyclobenzaprine (cyclobenzaprine 10 mg oral tablet)?10?Milligram?By Mouth?3 times a day?as needed?Spasm Divalproex Sodium (divalproex sodium 500 mg oral enteric coated tablet)?1?tab(s)?500?Milligram?By Mouth?2 times a day Doxepin (doxepin 10 mg oral capsule)?1?capsule?10?Milligram?By Mouth?Daily at bedtime Durable Medical Equipment (Jobst JoviPak extended chin strap)?See Instructions?Use as instructed. ??Diagnosis: I89.0 Lactulose (lactulose 10 gm/15 ml oral syrup)?15?Milliliter?10?gram?By Mouth?Daily?as needed?as needed for constipation Lidocaine Topical (lidocaine 5% topical film)?See Instructions?1 patch apply Topically to painful area on back Daily.remove patches after 12 hours Lidocaine/Prilocaine Topical (lidocaine-prilocaine 2.5%-2.5% topical cream)?See Instructions?apply small dollop to portacath site 1 hr prior to appt and cover with plastic Meclizine (meclizine 25 mg oral tablet)?1?tab(s)?25?Milligram?By Mouth?3 times a day?as needed?for dizziness Morphine (morphine 30 mg/8 to 12 hr oral tablet, extended release)?30?Milligram?By Mouth?Every 8 hours?for 7?Days Omeprazole (omeprazole 20 mg oral delayed release tablet)?1?tab(s)?20?Milligram?By Mouth?2 times a day Oxycodone (oxyCODONE 15 mg oral tablet)?1?tab(s)?15?Milligram?By Mouth?Every 4 hours?as needed?Pain , Severe?for 7?Days Polyethylene Glycol 3350 ([id number] oral powder for reconstitution)?17?gram?By Mouth?Daily PROCHLORperazine (prochlorperazine 10 mg oral tablet)?1?tab(s)?10?Milligram?By Mouth?Every 6 hours?as needed?nausea/vomiting?may cause drowsiness Rosuvastatin (rosuvastatin 5 mg oral capsule)?1?capsule?5?Milligram?By Mouth?Daily Senna (senna 187 mg oral tablet)?1?tab(s)?8.6?Milligram?By Mouth?2 times a day?as needed?Constipation Tamsulosin (tamsulosin 0.4 mg oral capsule)?0.4?Milligram?1?capsule?By Mouth?Daily ? Vaccinations and Immunoprophylaxis influenza virus vaccine, inactivated: 0.5 Unknown (03/01/23 07:00:00) influenza virus vaccine, inactivated: 0.5 Unknown (11/07/20 08:00:00) pneumococcal 15-valent conjugate vaccine: 0.5 mL (06/07/23 13:27:00) pneumococcal 23-valent vaccine: 0.5 mL (09/21/23 15:21:00) SARS-CoV-2 (COVID-19) mRNA-1273 vaccine: 0.25 Unknown (02/20/21 07:00:00) SARS-CoV-2 (COVID-19) mRNA-1273 vaccine: 0.5 Unknown (07/10/20 08:00:00) SARS-CoV-2 (COVID-19) mRNA-1273 vaccine: 0.5 Unknown (06/07/20 08:00:00) zoster vaccine, inactivated: 0.5 Unknown (07/10/21 08:00:00) zoster vaccine, inactivated: 0.5 Unknown (04/26/21 08:00:00) ? Durable Medical Equipment Discharge recommendations: Home with services (10/22/23) Discharge Medical Equipment Companies: [facility] [phone] (07/12/23) Name of Agency #1: [facility] [phone] (10/29/23) Service Categories #1: Physical Therapy, Fdc (10/29/23) Service Comments #1: [facility] [phone] will contact you to begin services. ??Pleasecall agency with any questions. (10/29/23) Service Categories #2: Other: Tube Feed supplies (07/09/23) Service Comments #2: The agency will call you to arrange supply delivery time, please call agency with questions (07/09/23) Ambulatory devices needed: Walker (10/30/23) ? Medications Started Morphine ER??30 mg every 8 hours MiraLAX?? Lactulose prn Bisacodyl suppository prn Flexeril as needed Lidocaine patch Medications Discontinued -- Doses Changed Oxycodone??15 mg every 4 hours as needed??for severe pain Allergies Allergies ?(Active and Proposed Allergies Only) No Known Medication Allergies? (Severity: Unknown severity, Onset: Unknown) ? PCP [facility] follow-up Follow-up??L4 lesion biopsy pending at discharge Ensure follow-up with oncology??for further management monitor BP, resume meds as needed Future Appointments Wednesday 12:00 PM EDT ?? With: Sylvie Orr Where: Rehab Adult Aud Status: Pending Wednesday 10:30 AM EST ?? Where: [place] [address]- Status: Pending Hospital Course ??58-year-old male with past medical history of left parotid gland carcinoma, DVT left lower leg??(06/16/2023), hypertension, hyperlipidemia, BPH, GERD, obesity, anxiety, depression, bipolar who was presented to the ED??complaining of severe lower back pain after he lifted something heavy. 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 Chemo-Port placed on 06/01/2023, G tube inserted on 07/09/2023 but he is not using it. Pt was started on??chemoradiation with cisplatin/etoposide??06/07/2023??and completed on 07/27/2023.?? Patient follows up with and ??Jarek and??is scheduled for PET scan next week. He was found to have an L4 pathologic vertebral body fracture w/o neuro deficits.??Neurosurgery recommend no??acute intervention, rec Soft LSO brace?? for comfort. Radiology reported that fracture islikely metastatic??in nature/due to lytic process. Oncology team rec to obtain L4 biopsy, performedunder anesthesia on 10/28, result pending at discharge to be followed by Oncology as outpatient and arrange further management. Pain medications were adjusted and pt is being discharged home with services on morphine to 30 mg TID + oxycodone 15mg q 4 hr prn . ? Objective Assessment and Plan ? Lower back pain found to have acute pathological fracture most likely metastatic lesion compressionfx, lumbar spine (S32.000A):?? H/O Acinic cell carcinoma (C80.1):??- s/p G-tube placement presented with atraumatic low back pain??and was found to have an L4 pathologic vertebral body fracture. no neuro deficits - Neurosurgery recommend no??acute intervention. Spoke with radiologist ??Lenny Tilley who feelsfracture is likely metastatic??in nature/due to lytic process given the??extent of??bone loss??centered??in the mid to posterior vertebral body - Soft LSO brace??ordered to be worn for comfort -Patient not a candidate for kyphoplasty or osteocol as per Dr. Goldsmith. - Pain management: with Lidoderm patch, scheduled Tylenol, cyclobenzaprine prn, oxycodone 15mg q 4 hr prn for mod??- severe pain. long acting morphine to 30 mg TID.?cont Bowel regimen? - PT eval rec HWS - As d/w his rad-oncologist and with oncology team.??IR performed??L4 biopsy to rule out mets on 10/28??, result pending at this time. Oncology will f/u result and arrange f/u.?Bipolar disorder (F31.9) ?Grouped with??Anxiety with depression (F41.8) ?continue doxepin, Depakote ?? HTN (hypertension) (I10):??Pt is not taking lisinopril anymore due to dizziness and lightheadedness. monitor BP ?? GERD (gastroesophageal reflux disease) (K21.9):??cont PPI? DVT (deep venous thrombosis) (I82.409):?? Held Eliquis??for biopsy, IR suggested to resume??anticoagulation??on 10/29, pt??agreed to take 1st dose at home tonight ?? BPH (benign prostatic hyperplasia) (N40.0):??cont tamsulosin? Constipation: likely due to opioids. Had flatus and??small??stool with enema. Prescribed aggressivebowel regimen on discharge. ?? Vital Signs?? Temperature: 97.6 DegF (10/30/23 11:36:00) Temperature Route: Oral (10/30/23 11:36:00) Normothermic Measures: Other: warm blankets applied (10/29/23 16:30:00) Pulse Rate: 82 bpm (10/30/23 11:36:00) Heart Rate Monitored:??102 bpm??High (10/29/23 17:15:00) Respiratory Rate: 18 br/min (10/30/23 11:36:00) Systolic Blood Pressure:??142 mm Hg??High (10/30/23 11:36:00) Diastolic Blood Pressure:??87 mm Hg??High (10/30/23 11:36:00) Blood pressure sites: Arm, left (10/30/23 11:36:00) Mean Arterial Pressure: 105 mm Hg (10/30/23 11:36:00) Pulse Pressure: 55 mm Hg (10/30/23 11:36:00) Oxygen Saturation: 100 % (10/30/23 11:36:00) Mode of Delivery (Oxygen): Room air (10/30/23 11:36:00) Early Warning Score: 3 (10/30/23 11:42:46) ? . Physical Exam ?General:??No apparent distress, lying in bed comfortably ?HEENT:??Chr dev of mouth,??Moist oral mucous membranes ?Heart:??S1 S2 heard, regular rate and rhythm ?Lungs:??Bilateral air entry fair. ??No wheeze or crackles ?Abdomen:??Soft, NT, ND,??G tube+?Neuro:??No focal neurological deficits ?Extremities:??No edema, normal pulses [facility] Patient Education Titles WebMD Ignite Patient Education - Back Pain (Acute or Chronic)?? WebMD Ignite Patient Education - Vertebral Compression Fracture?? Follow-Up Appointments Added Follow Up ?Time Frame ?Comments Rubin JAUREGUI, [place]?3-5 day: call to discuss follow up visit Florencio Sky?1 to 2 weeks Post Discharge Care Condition: ??Improved ?? Home Health Face to Face *Denotes mandatory multani ?? *I certify that this patient is under my care and that I or an allowed non- physician working with me had a face to face encounter with the patient on this date:??10/30/2023 13:33 ?? 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 *Select the indications for the discipline/s that are being arranged for this patient. Nursing (select all that apply): [_] None [x] Medication management (reconciliation, teaching)?? [x_] Chronic disease management?? [_] Wound care and treatment?? [_] Home safety evaluation [_] Administer SQ/IM/IV medications?? [_] Cath care?? [_] Drain care?? [_] Trach or GT care?? Other _ Occupation Therapy (select all that apply): [_] None [_] ADL Management [_] Fall prevention training [_] Energy conservation [_] Cognitive training Other _ Physical Therapy (select all that apply): [_] None [x_] Functional mobility training [x_] Home exercise program to strengthen [_] Increase ROM?? [_] Falls prevention training [x_] Home maintenance program for chronic disease Other _ Speech Therapy (select all that apply): [_] None [_] Swallow evaluation and training [_] Speech and language training [_] Cognitive training to process, organize, and/or recall information Other _ ? *Homebound due to (select all that apply): [x_] Inability to leave home without assistance/supervision [_] Inability to ambulate without assistance [_] Pain [_] Decreased strength and endurance [_] Unsteady gait [_] Severe SOB and fatigue [_] Impaired transfers [_] Inability to negotiate stairs [_] Limited weight bearing [_] Mental status change? *Physician Signature:??- Sammie Morton MD ?? *By signing this, I certify that I have personally evaluated the patient and agree with the findings and recommendations as documented above. ? Results Discharge Labs BLOOD COUNT & DIFF WBC 5.4 k/mm3 ()?? 10/30/2023 06:24 RBC 3.87 m/mm3 (Low)?? 10/30/2023 06:24 Hgb 12.1 Gm/dL (Low)?? 10/30/2023 06:24 Hct 35.8 % (Low)?? 10/30/2023 06:24 MCV 92.5 femtoliters ()?? 10/30/2023 06:24 MCH 31.3 pg ()?? 10/30/2023 06:24 MCHC 33.8 g/dL ()?? 10/30/2023 06:24 Platelet Count 209 k/mm3 ()?? 10/30/2023 06:24 RDW-SD 40.8 femtoliters ()?? 10/30/2023 06:24 MPV 10.4 femtoliters ()?? 10/30/2023 06:24 Nucleated RBC (Automated) 0.0 #/100 WBC'S ()?? 10/30/2023 06:24 Abs. NRBC 0.0 k/mm3 ()?? 10/30/2023 06:24 Abs. Neut 5.4 k/mm3 ()?? 10/21/2023 23:15 Abs. Lymph 0.9 k/mm3 ()?? 10/21/2023 23:15 Abs. Graham 0.5 k/mm3 ()?? 10/21/2023 23:15 Abs. Eo 0.1 k/mm3 ()?? 10/21/2023 23:15 Abs. Baso 0.0 k/mm3 ()?? 10/21/2023 23:15 Neut % 78.6 % (High)?? 10/21/2023 23:15 Lymph % 12.8 % (Low)?? 10/21/2023 23:15 Graham % 6.5 % ()?? 10/21/2023 23:15 Eos % 1.7 % ()?? 10/21/2023 23:15 Baso % 0.1 % ()?? 10/21/2023 23:15 Imm Gran 0.3 % ()?? 10/21/2023 23:15 Abs. Imm Gran 0.0 k/mm3 ()?? 10/21/2023 23:15 ?? CHEM GENERAL Sodium 134 mmol/L ()?? 10/30/2023 06:24 Potassium 4.1 mmol/L ()?? 10/30/2023 06:24 Chloride 97 mmol/L (Low)?? 10/30/2023 06:24 Bicarbonate Level 25 mmol/L ()?? 10/30/2023 06:24 Anion Gap 12 ()?? 10/30/2023 06:24 Glucose Level 129 mg/dL (High)?? 10/30/2023 06:24 BUN 15 mg/dL ()?? 10/30/2023 06:24 Creatinine-Blood 0.82 mg/dL ()?? 10/30/2023 06:24 Estimated GFR Creatinine 101 ML/MIN/1.73 M2 ()?? 10/30/2023 06:24 Calcium 9.7 mg/dL ()?? 10/30/2023 06:24 Phosphorus 5.2 mg/dL (High)?? 10/24/2023 05:25 Magnesium 1.8 mg/dL ()?? 10/24/2023 05:25 Protein, Total 7.2 Gm/dL ()?? 10/22/2023 11:50 Albumin 4.6 Gm/dL ()?? 10/22/2023 11:50 AG Ratio 1.8 ()?? 10/22/2023 11:50 Alkaline Phosphatase 56 units/L ()?? 10/22/2023 11:50 AST (SGOT) 14 units/L ()?? 10/30/2023 06:24 ALT (SGPT) 12 units/L ()?? 10/30/2023 06:24 Bilirubin, Total 0.4 mg/dL ()?? 10/22/2023 11:50 ? COAG INR 1.0 ()?? 10/29/2023 05:20 Protime (PT) 10.9 seconds ()?? 10/29/2023 05:20 ?? ENDOCRINE/TUMOR MARKER TSH 21.20 uIU/mL (High)?? 10/21/2023 23:25 Free T4 1.11 ng/dL ()?? 10/21/2023 23:25 ?? URINE OTHER Est Creatinine Clearance 94.19 mL/min ()?? 10/30/2023 08:12 ? VIROLOGY COVID-19 by RT-PCR NEGATIVE ()?? 10/22/2023 00:15 COVID-19 PCR Specimen Source NASAL ()?? 10/28/2023 06:40 COVID-19 PCR Result NEGATIVE ()?? 10/28/2023 06:40 ? Microbiology ?? COVID-19 (2019 Novel Coronavirus) PCR?? Completed?? Source: Nasal Body Site: Nose Collected Dt/Tm: 10/28/2023 05:27 Last Updated Dt/Tm: 10/28/2023 08:07 ?? COVID-19 (2019 Novel Coronavirus) PCR?? Completed?? Source: Nasal Body Site: Nose Collected Dt/Tm: 10/25/2023 05:46 Last Updated Dt/Tm: 10/25/2023 07:56 ?? COVID-19 (Novel Coronavirus), Rapid PCR?? Completed?? Source: Nasal Body Site: Nose Collected Dt/Tm: 10/22/2023 00:00 Last Updated Dt/Tm: 10/22/2023 01:07 ? Image ?CT Lumbar Spine W/O Contrast??10/21/2023 23:21 by Michelle De La Fuente ?IMPRESSION: Probable pathologic compression fracture of the L4 vertebral body with mild retropulsion and associated disc bulging. Overall mild canal narrowing. No other acute abnormality. ?CT/ US Image Guide Biopsy ?IMPRESSION:?CT-guided bone biopsy of L4 bone lesion. ?? 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 ?? Spoke with radiologist ??Lenny Tilley who feels fracture is likely metastatic??in nature/due to lytic process given the??extent of??bone loss??centered??in the mid to posterior vertebral body ?? Recommendations: No acute neurosurgical intervention Soft LSO brace??ordered to be worn for comfort Pain control as needed Contact patient's oncologist??for recommendations regarding??further workup/treatment No routine follow-up needed Signing off ?? Please page [phone] with questions or concerns Attending: Dr. Gross ?? 38??minutes spent on discharge * Tanesha Capone RN: PERFORM Event Display: Patient Education/Instruction Authored Date: Inpatient Adult Discharge Instructions. [address] [address] Name: CHRISSY REHMAN : 1965?? Visit: 10/22/2023 00:30?? Current Date: 10/30/2023 16:15 ?? Account: [id number]?? Inpatient Adult Discharge Instructions We would like to thank you for allowing us to assist you with your healthcare needs. The following includes patient education materials and information regarding your injury/illness. Our entire staffstrives to provide an excellent experience for our patients and their families. PLEASE ENSURE YOU FOLLOW-UP PER THE INSTRUCTIONS BELOW! ?? YOUR OPINION IS IMPORTANT TO US! Please complete the survey you may receive by mail or email. Your feedback will be used to make improvements to the healthcare experiences of our patients and their families. Surveys are administered by [employer] ?? If further treatment with your primary care physician or another doctor is recommended, it is important for you to keep the appointment. Call your primary care physician or return to the Emergency Department immediately if your condition worsens, fails to improve, or new symptoms develop. If you need to find a doctor, you can call [facility] for a referral at [phone] or toll free at [phone]) or log in to [email or web address].. ?? [facility], in keeping with [facility] guidance, no longer requires face masks for staff, patientsor visitors in most situations. Similiar to time spent indoors at other locations, there is the chance that you were exposed to repiratory viruses during your time with us (such as flu or COVID-19). If you develop symptoms concerning for a viral respiratory infection, please seek testing (and treatment if indicated) from your medical provider or home test kit. ?? You can view and manage your care through the patient portal or by using a health care greg of your choosing. [employer] is a website that allows you to securely view your medical information including your hospital discharge summary, office visit summaries, medications and follow-up visits. You can also request appointments, renew medications, and request access to your medical information using a health care greg of your choosing, or just ask a question. You can enroll at [email or web address] or register during your next office visit. You have been discharged from [facility], Patient Care Unit: [id number]??. If you have any questions regarding these instructions, including results of studies pending, afteryou leave, please call us and we will be happy to assist you 31/08. [facility] Your Care Team Attending Physician Sammie Brand MD?? Consulting Providers Sammie Brand MD?? Discharging Providers Sammie Brand MD Reason for Your Visit L4 compression fx?? Your Diagnosis Acinic cell carcinoma Anxiety with depression Back pain Bipolar disorder BPH (benign prostatic hyperplasia) DVT (deep venous thrombosis) GERD (gastroesophageal reflux disease) HTN (hypertension) Hypothyroidism Tests Performed Below is a partial list of the tests performed during your hospitalization. You may have had other tests and procedures not included in this list. Please discuss all test results with your provider. ALT AST Basic Metabolic Panel CBC CBC w/ Differential Comprehensive Metabolic Panel COVID-19 (2019 Novel Coronavirus) PCR COVID-19 (Novel Coronavirus), Rapid PCR FREE T4 INR Magnesium Level Phosphorus Level TSH with T4 Reflex (Adults Only) CT Lumbar Spine W/O Contrast CT/ US Image Guide Biopsy ALT?? AST?? Basic Metabolic Panel?? CBC?? CBC w/ Differential?? COVID-19 (2019 Novel Coronavirus) PCR?? COVID-19 (Novel Coronavirus), Rapid PCR?? CT Lumbar Spine W/O Contrast?? CT/ US Image Guide Biopsy?? Comprehensive Metabolic Panel?? Free T4?? INR?? Magnesium Level?? Phosphorus Level?? TSH with T4 Reflex (Adults Only)?? Primary Care Provider Florencio Sky? Advance Directive Health Care Proxy on File Yes - Health Care Proxy Discharge Vitals Temperature: 97.8 DegF Height: 173 cm Pulse Rate:??93 bpm??High Weight: 90.3 kg Respiratory Rate: 16 br/min Body Mass Index:??30.17 kg/m2??Critical Respiratory Rate: 16 br/min Body surface area: 2.08 Systolic Blood Pressure: 132 mm Hg ?? Diastolic Blood Pressure: 71 mm Hg ?? Oxygen Saturation: 100 % ?? Studies Pending All studies ordered during this hospital stay have been completed unless listed below. Please discuss all pending results with your provider listed above in these instructions. ?? Basic Metabolic Panel?? CBC?? What to do next Instructions From Your Doctor ?? Orders??:Improved? 10/30/23 16:08:00 EDT?? Prescriptions??, ??10/30/23 16:08:00 EDT?? Scheduled Follow-Up Appointments Wednesday 12:00 PM EDT ?? With: Sylvie Orr Where: Rehab Adult Aud Status: Pending Wednesday 10:30 AM EST ?? Where: [facility] [address] [address]- Status: Pending You Need to Schedule the Following Appointments Follow Up with??Rubin JAUREGUI, [place] When:??Within 3-5 day: call to discuss follow up visit Why: Please follow up with your oncologist?? Follow Up with??Junito CORTÉS, Florencio Beaver When:??Within 1 to 2 weeks Why: Please follow up with your PCP?? Where: [address] [place] [address]- Discharge Medications CHRISSY REHMAN :1965 Visit Date:10/22/2023 Medications: Please continue your medications until treatment is completed or stopped by your provider. Medications not listed below should be discontinued. Discuss any questions related to medications with your provider. What How Much When Instructions Next Dose New Acetaminophen (acetaminophen 325 mg oral tablet) 975 Milligram Oral 3 times a day Please check Temperature ??prior to administering Tylenol ?? 10/29 9pm New Bisacodyl (bisacodyl 10 mg rectal suppository) 1 suppository(ies) Per rectum Daily as needed for Constipation Pickup at [facility] As needed New Cyclobenzaprine (cyclobenzaprine 10 mg oral tablet) 10 Milligram Oral 3 times a day as needed for Spasm Pickup at [place] [address] As needed New Lactulose (lactulose 10 gm/ 15 ml oral syrup) 15 Milliliter Oral Daily as needed for as needed for constipation Pickup at [place] [address] As needed New Lidocaine Topical (lidocaine 5% topical film) See instructions 1 patch apply Topically to painful area on back Daily. ?? remove patches after 12 hours ?? Pickup at [place] [address] 10/30 New Morphine (morphine 30 mg/ 8 to 12 hr oral tablet, extended release) 30 Milligram Oral Every 8 hours Duration: 7 Days Pickup at [place] [address] 10/29 7pm Changed Omeprazole (omeprazole 20 mg oral delayed release tablet) 1 tab(s) Oral Twice a day 10/29 9pm Changed Oxycodone (oxyCODONE 15 mg oral tablet) 1 tab(s) Oral Every 4 hours as needed for Pain , Severe Duration: 7 Days Pickup at [place] [address] 10/29 7:30 pm Changed Polyethylene Glycol 3350 ([id number] oral powder for reconstitution) 17 gram Oral Daily Pickup at [place] [address] 10/30 9am Unchanged apixaban (Eliquis 5 mg oral tablet) 1 tab(s) Oral Twice a day 10/29 9pm Unchanged Divalproex Sodium (divalproex sodium 500 mg oral enteric coated tablet) 1 tab(s) Oral Twice a day 10/29 9pm Unchanged Doxepin (doxepin 10 mg oral capsule) 1 capsule Oral Daily at Bedtime 10/29 9pm Unchanged Durable Medical Equipment ([employer]st JoviPak extended chin strap) See instructions Use as instructed. ??Diagnosis: I89.0 ?? Unchanged Lidocaine/ Prilocaine Topical (lidocaine-prilocaine 2.5%-2.5% topical cream) See instructions apply small dollop to [facility] site 1 hr prior to appt and cover with plastic ?? Unchanged Meclizine (meclizine 25 mg oral tablet) 1 tab(s) Oral 3 times a day as needed for for dizziness As needed Unchanged PROCHLORperazine (prochlorperazine 10 mg oral tablet) 1 tab(s) Oral Every 6 hours as needed for nausea/vomiting may cause drowsiness ?? As needed Unchanged Rosuvastatin (rosuvastatin 5 mg oral capsule) 1 capsule Oral Daily 10/30 9am Unchanged Senna (senna 187 mg oral tablet) 1 tab(s) Oral Twice a day as needed for Constipation As needed Unchanged Tamsulosin (tamsulosin 0.4 mg oral capsule) 1 capsule Oral Daily 10/30 9am Pharmacy Information [facility]: [address] [place] [address] [phone] ?? What How Much When Comments Stop Taking Famotidine (famotidine 20 mg oral tablet) 1 tab(s) Oral Daily Stop Taking Lisinopril (lisinopril 10 mg oral tablet) 1 tab(s) Oral Daily Stop Taking Ondansetron (ondansetron 8 mg oral tablet) 1 tab(s) Oral Every 8 hours as needed for as needed for nausea/vomiting Stop Taking Pilocarpine (pilocarpine 5 mg oral tablet) 1 tab(s) Oral 3 times a day Prescription Given During Visit Bisacodyl (bisacodyl 10 mg rectal suppository) - 1 supp = 10 mg, Rectally, Daily, # 2 supp, 0 Refills, [facility], [address] [place] [phone]?? Cyclobenzaprine (cyclobenzaprine 10 mg oral tablet) - 10 mg, By Mouth, 3 times a day, # 15 tablet, 0 Refills, [facility], [address] [place] [phone]?? Lactulose (lactulose 10 gm/15 ml oral syrup) - 15 mL = 10 Gm, By Mouth, Daily, # 480 mL, 0 Refills,[facility] [address] [address] [phone]?? Lidocaine Topical (lidocaine 5% topical film) - , # 30 patch, 0 Refills, 1 patch apply Topically topainful area on back Daily.remove patches after 12 hours, [facility], [address] [place] [phone]?? Morphine (morphine 30 mg/8 to 12 hr oral tablet, extended release) - 30 mg, By Mouth, Every 8 hours, # 21 tablet, 0 Refills, [facility], [address] [place] [phone]?? Oxycodone (oxyCODONE 15 mg oral tablet) - 1 tablet = 15 mg, By Mouth, Every 4 hours, # 42 tablet, 0Refills, [facility], [address] [place] [address] [phone]?? Polyethylene Glycol 3350 ([id number] oral powder for reconstitution) - 17 Gm, By Mouth, Daily, # 510 Gm, 0 Refills, [facility], [address] [place] [address] [phone]?? Laboratory Results Below is a partial list of the most recent Laboratory test results done prior to this discharge. You may have had other tests and procedures not included in this list. Please discuss all test resultswith your provider. Est Creatinine Clearance - 94.19 mL/min (10/30/2023) ALT (10/30/2023) ???ALT (SGPT) - 12 units/L AST (10/30/2023) ???AST (SGOT) - 14 units/L Basic Metabolic Panel (10/30/2023) ???Sodium - 134 mmol/L???Potassium - 4.1 mmol/L???Chloride - 97 mmol/L???Bicarbonate Level - 25 mmol/L???Anion Gap - 12???Glucose Level - 129 mg/dL???BUN - 15 mg/dL???Creatinine-Blood - 0.82 mg/dL???Estimated GFR Creatinine - 101 ML/MIN/1.73 M2???Calcium - 9.7 mg/dL CBC (10/30/2023) ???WBC - 5.4 k/mm3???RBC - 3.87 m/mm3???Hgb - 12.1 Gm/dL???Hct - 35.8 %???MCV - 92.5 femtoliters???MCH - 31.3 pg???MCHC - 33.8 g/dL???Platelet Count - 209 k/mm3???RDW-SD - 40.8 femtoliters???MPV - 10.4 femtoliters???Nucleated RBC (Automated) - 0.0 #/100 WBC'S???Abs. NRBC - 0.0 k/mm3 CBC w/ Differential (10/21/2023) ???WBC - 6.9 k/mm3???RBC - 4.31 m/mm3???Hgb - 13.7 Gm/dL???Hct - 40.1 %???MCV - 93.0 femtoliters???MCH - 31.8 pg???MCHC - 34.2 g/dL???Platelet Count - 178 k/mm3???RDW-SD - 42.1 femtoliters???MPV - 10.7 femtoliters???Nucleated RBC (Automated) - 0.0 #/100 WBC'S???Abs. NRBC - 0.0 k/mm3???Abs. Neut - 5.4 k/mm3???Abs. Lymph - 0.9 k/mm3???Abs. Graham - 0.5 k/mm3???Abs. Eo - 0.1 k/mm3???Abs. Baso - 0.0 k/mm3???Neut % - 78.6 %???Lymph % - 12.8 %???Graham % - 6.5 %???Eos % - 1.7 %???Baso % - 0.1 %???Imm Gran - 0.3 %???Abs. Imm Gran - 0.0 k/mm3 Comprehensive Metabolic Panel (10/22/2023) ???Sodium - 137 mmol/L???Potassium - 4.0 mmol/L???Chloride - 97 mmol/L???Bicarbonate Level - 25 mmol/L???Anion Gap - 15???Glucose Level - 127 mg/dL???BUN - 14 mg/dL???Creatinine-Blood - 0.64 mg/dL???Estimated GFR Creatinine - 109 ML/MIN/1.73 M2???Calcium - 9.2 mg/dL???Protein, Total - 7.2 Gm/dL???Albumin - 4.6 Gm/dL???AG Ratio - 1.8???Alkaline Phosphatase - 56 units/L???AST (SGOT) - 28 units/L???ALT (SGPT) - 11 units/L???Bilirubin, Total - 0.4 mg/dL COVID-19 (2019 Novel Coronavirus) PCR (10/28/2023) ???COVID-19 PCR Specimen Source - NASAL???COVID-19 PCR Result - NEGATIVE COVID-19 (Novel Coronavirus), Rapid PCR (10/22/2023) ???COVID-19 by RT-PCR - NEGATIVE FREE T4 (10/21/2023) ???Free T4 - 1.11 ng/dL INR (10/29/2023) ???INR - 1.0???Protime (PT) - 10.9 seconds Magnesium Level (10/24/2023) ???Magnesium - 1.8 mg/dL Phosphorus Level (10/24/2023) ???Phosphorus - 5.2 mg/dL TSH with T4 Reflex (Adults Only) (10/21/2023) ???TSH - 21.20 uIU/mL You will be contacted within 72 hours with your results. Allergies (NKA means No Known Allergies) No Known Medication Allergies Problems Active Problems??(4) Acinic cell carcinoma?? Compression fx, lumbar spine?? DVT (deep venous thrombosis)?? Obese class I?? Education Materials Below is the list of Educational Leaflet Providered with your Discharge Instructions. [employer] Patient Education - Back Pain (Acute or Chronic)?? Web[employer] Ignite Patient Education - Vertebral Compression Fracture?? Valuables and Belongings I fully understand and agree that [facility] accepts no responsibility for all my personal property including clothing, toilet articles, radios, jewelry, dentures, hearing aids, rings, money, or any other property that is in my possession or is brought to me after admission. I understand certain valuables may be placed in a hospital safe for a short period of time. I understand that the hospital is not liable for loss or damage due to accident, fire, or other natural occurrence while said property is in the safe. I accept full responsibility for any personal property that I keep with me, and will not hold the hospital responsible in case of loss or disappearance. I acknowledge that i have been encouraged to send valuables and belongings home. ?? Review of Valuable and Belonging List: With patient Date for Pt to Sign Valuables/Belongings: 10/22/23 02:36:00 ?? Other Discharge Information ? Case Management Discharge Plan?? Discharge Plan?? Discharge Agency Information?? Discharge Level of Care at Discharge: Homehealth/VNA Name of Agency #1: [facility] [phone] Discharge VNA/Hospice/Home Care: [facility] [phone] Service Categories #1: Physical Therapy, [facility]dc ?? Service Comments #1: [facility] [phone] will contact you to begin services. ??Pleasecall agency with any questions. ?? Pulmonary Rehab Status?? Pulmonary Rehab Discharge Status?? Respiratory Rate: 16 br/min Respiratory Rate: 16 br/min ? Common Emergency Awareness Tips IS IT A STROKE? Act FAST and Check for these signs: FACE Does the face look uneven? ARM Does one arm drift down? SPEECH Does their speech sound strange? TIME Call at any sign of stroke ?? Heart Attack Signs Chest discomfort: Most heart attacks involve discomfort in the center of the chest and lasts more than a few minutes, or goes away and comes back. It can feel like uncomfortable pressure, squeezing, fullness or pain. Discomfort in upper body: Symptoms can include pain or discomfort in one or both arms, back, neck, jaw or stomach. Shortness of breath: With or without discomfort. Other signs: Breaking out in a cold sweat, nausea, or lightheaded. Remember, MINUTES DO MATTER. If you experience any of these heart attack warning signs, call to get immediate medical attention! ?? Smoking can increase your chances of developing chronic health problems and can cause harmful effects to other family members in your house. If you smoke, you are strongly encouraged to quit. Please call [facility] at [phone] or [phone] ([phone]) or log in to [email or web address] for referrals to smoking cessation programs. ?? 099 Suicide & Crisis Lifeline is available 31/08 if you or someone you know needs to find a reason to keep living. By calling 878 you'll be connected to a skilled, trained counselor at a crisis center in your area. INPATIENT DISCHARGE INSTRUCTIONS SIGNATURE PAGE CHRISSY REHMAN Location:[facility] Registration Date and Time:10/22/2023 00:30 EDT Primary Care Physician: Florencio Sky, Attending Physician: Cathie JAUREGUI, Sammie Hewitt, CHRISSY PARRA, have received the above patient education materials/instructions and have verbalized understanding. If ambulance or transport services are being used I further acknowledge being givena choice of service. ?? If you need to contact me, please call me at this number: . 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 [id number] Back Pain (Acute or Chronic) Back pain is one of the most common problems. The good news is that most people feel better in 1 to2 weeks, and most of the rest in 1 to 2 months. Most people can remain active. People who have pain??describe it differently???not??everyone is the same. ??? The pain can be sharp, stabbing, shooting, aching, cramping or burning. ??? Movement, standing,bending, lifting, sitting, or walking may worsen pain. ??? It can be limited to one spot or area, or it can be more generalized. ??? It can spread upwards, to the front, or go down your arms or legs (sciatica). ??? It can cause muscle spasm. Most of the time, mechanical problems with the muscles??or spine cause the pain. Mechanical problems??are usually caused by an injury to the muscles or ligaments. Illness can cause back pain, but it's usually not caused by a serious illness. Mechanical problems include:? Physical activity such as sports, exercise, work, or normal activity ??? Overexertion, lifting,pushing, pulling incorrectly or too aggressively ??? Sudden twisting, bending, or stretching from an accident, or accidental movement ??? Poor posture ??? Stretching or moving wrong, without noticingpain at the time ??? Poor coordination, lack of regular exercise (check with your doctor about this) ??? Spinal disc disease or arthritis ??? Stress Pain can also be related to , or illness such as appendicitis, bladder or kidney infections, kidney stones, and pelvic infections. Acute back pain usually gets better in??1 to 2 weeks. Back pain related to disk disease, arthritis in the spinal joints, or narrowing of the spinal canal (spinal stenosis) can become chronic and lastfor months or years. Unless you had a physical injury such as a car accident or fall, X-rays are usually not needed for the first assessment of back pain. If pain continues and does not respond to medical treatment, you may need X-rays and other tests. Home care Try this home care advice: ??? When in bed, try??to find a position of comfort. A firm mattress is best. Try lying flat on your back with pillows under your knees. You can also try lying on your side with your knees bent up toward your chest and a pillow between your knees. ??? At first, don't try to stretch out the sore spots. If there is a strain, it's not like the good soreness you get after exercising without an injury. In this case, stretching may make it worse. ??? Don't sit for long periods, as in a long car ride or during other??travel. This puts more stress on the lower back than standing or walking. ??? During the first 24 to 72 hours after an acute injury or flare up of chronic back pain, apply an ice pack to the painful area for 20 minutes and then remove it for 20 minutes. Do this over a period of 60 to 90 minutes or several times a day. This will reduce swelling and pain. Wrap the ice pack in a thintowel or plastic to protect your skin. ??? You can start with ice, then switch to heat. Heat (hot shower, hot bath, or heating pad) reduces pain and works well for muscle spasms. Heat can be applied to the painful area for 20 minutes then remove it for 20 minutes. Do this over a period of 60 to 90 minutes or several times a day. Don't sleep on a heating pad. It can lead to skin hunter or tissue damage. ??? You can alternate ice and heat therapy. Talk with your doctor about??the best treatment for your back pain. ??? Therapeutic massage can help relax the back muscles without stretching them. ??? Be aware of safe lifting methods. Don't lift anything without stretching first. Medicines Talk to your doctor before using medicine, especially if you have other medical problems or are taking other medicines. ??? You may use qqix-rmz-maxqzuo medicine as directed on the bottle to control pain, unless another pain medicine was prescribed. Talk with your healthcare provider before using these medicines if you have chronic conditions such as diabetes, liver or kidney disease, stomach ulcers, or digestive bleeding. Also talk with your provider if you take blood thinners. ??? Be careful if you are given a prescription medicines, narcotics, or medicine for muscle spasms. They can cause drowsiness, affect your coordination, reflexes, and judgment. Don't drive or operate heavy machinery. ?? Follow-up care Follow up with your healthcare provider, or as advised.?? If X-rays were taken, you will be told of any new findings that may affect your care. ?? Call 911 Call 911 if any of the following occur: ??? Trouble breathing ??? Confusion ??? Very drowsy or trouble awakening ??? Fainting or loss of consciousness ??? Rapid or very slow heart rate ??? Loss of bowel or bladder control ?? When to seek medical advice Call your healthcare provider right away if any of these occur:? Pain gets worse or spreads toyour legs ??? Your bowel or bladder control changes ??? Fever ??? Blood in your urine ??? Weakness or numbness in one or both legs ??? Numbness in the groin or genital area ?? Last Reviewed Date: 2021 ?? The E96. All rights reserved. This information is not intended as a substitute for professional medical care. Always follow your healthcare professional's instructions. ?? * Cathie JAUREGUI, Sammie Hewitt: PERFORM Event Display: Patient Education Leaflets Authored Date: [id number] Vertebral Compression Fracture ?? [id number] Vertebral Compression Fracture You have a crushed vertebra. This is a compression fracture of 1 or more bones in your spine. This kind of break usually happens in older people with thinning of the bones called osteoporosis. It mayhappen after a ground-level fall or even with a very minor force. This can include bending forward,getting up from a seated position, coughing, or sneezing. It may also occur in young healthy people after a severe injury, such as a car accident or a fall from a height. This is generally a stable break. This means the spine doesn't need to be realigned orfused. And it usually doesn't cause any injury to the spinal cord or nerves. This injury often takes 1 to 3 months to heal. It can be treated at home with bed rest and pain medicine. Prescription or tdvj-ayb-orurnjh pain medicine can be used to control the pain. Long-term use of pain medicine can increase the risk of side effects. This includes liver or kidney damage, gastrointestinal bleeding, constipation, or narcotic dependence. If you have chronic liver or kidney disease, or ever had a stomach ulcer or gastrointestinal bleeding, talk with your healthcare provider before using these medicines. If pain medicine is needed for more than 1 to 2 weeks, talk with your providerabout other treatment options. A back brace or abdominal binder may be prescribed. This reduces pain by limiting motion at the fracture site. If you have osteoporosis, talk with your healthcare provider about using calcium and vitamin D3 supplements. You may need prescription medicines to prevent further bone loss. If you take co rticosteroids, smoke or take nicotine products, or you had a bariatric surgery, talk to your provider about how this affects your bones. An exercise program to increase spine strength is a very important part of the treatment plan. It should start once the pain is under control. If you have severe and lasting pain, your provider may advise a procedure called a vertebral augmentation. In this procedure, a needle is used to inject a bone cement into the fractured vertebra. Home care ??? You may need to stay in bed for the first few days. But start sitting or walking as soon as possible. This will help prevent problems with prolonged bed rest such as: muscle weakness, worsening back stiffness and pain, and blood clots in the legs. ??? When in bed, try to find a comfortable position. A firm mattress is best. Try lying flat on your back with pillows under your knees. You can also try lying on your side with your knees bent up toward your chest and a pillow between your knees. ??? Don't sit for long periods of time. This puts more stress on the low back than standing or walking. ??? Apply an ice pack over the injured area for 15 to 20 minutes every 3 to 6 hours. You should do this for the first 24 to 48 hours. To make an ice pack, put ice cubes in a plastic bagthat seals at the top. Wrap the bag in a thin towel or cloth before using it. You can start with ice, then switch to heat after 2 days. Apply heat (warm shower or warm bath) for 15 to 20 minutes several times a day for muscle spasms. Some people feel best alternating ice and heat treatments. Use the one method that feels the best to you. Be careful not to injure your skin with the ice or heat treatments. Ice should never be applied directly to skin. Warm rather than hot heat should be used to protect skin areas that have decreased sensation. ??? Take pain medicine as directed. Call your healthcare provider if your pain isn't well-controlled. A dose change, stronger medicine, or other treatment options may be needed. ??? Be aware of safe lifting methods. Don't lift anything over 10 pounds until all the pain is gone. ?? Follow-up care Follow up with your healthcare provider as advised. If X-rays were taken, you'll be told of any newfindings that may affect your care. ?? Call 911 Call 911 if you have: ??? Weakness or numbness in 1 or both legs ??? Loss of control over bowels orbladder ??? Numbness in the groin area ?? When to get medical advice Call your healthcare provider right away if the pain gets worse or spreads to your arms or legs. ?? Last Reviewed Date: 2021 ?? [id number] The E96. All rights reserved. This information is not intended as a substitute for professional medical care. Always follow your healthcare professional's instructions. ?? * Chad IBANEZ, Bernice Agee: VERIFY, PERFORM, SIGN Event Display: Case Management Discharge Plan Authored Date: [id number] Patient: CHRISSY REHMAN Age: 58 years Sex: Male : 1965 Associated Diagnoses: None Author: Bernice Bonilla RN Discharge Plan Case Management Discharge Plan : Case Management Discharge Plan Data 10/29/2023 8:16 EDT Discharge Level of Care at Discharge Homehealth/VNA Discharge VNA/Hospice/Home Care [place] [phone] Name of Agency #1 [place] [phone] Service Categories #1 Physical Therapy, [facility]dc Service Comments #1 [place] [phone] will contact you to begin services. Please call agency with any questions. 10/22/2023 14:44 EDT Discharge Level of Care at Discharge Homehealth/VNA Discharge VNA/Hospice/Home Care [place] [phone] Name of Agency #1 [facility] Service Categories #1 Physical Therapy, [facility]. * Mackenzie Lizama RN: PERFORM Event Display: Discharge/Transfer Note Hospital Authored Date: [id number] Discharge Planning Nursing Entered On: 10/25/2023 16:44 EDT Performed On: 10/25/2023 16:44 EDT by Mackenzie Lizama RN Discharge Planning Nursing Anticipated discharge : Home Mackenzie Lizama RN - 10/25/2023 16:44 EDT * Fanny Ferguson RN, I: PERFORM Event Display: Discharge/Transfer Note Hospital Authored Date: [id number] Discharge Planning Nursing Entered On: 10/24/2023 18:22 EDT Performed On: 10/24/2023 9:00 EDT by Fanny Ferguson RN, I Discharge Planning Nursing Anticipated discharge : Unable to determine Fanny Ferguson RN, I - 10/24/2023 18:21 EDT Patient Care team information Care Team Personnel Name: Chayito Gutierrez RN Position: S RN Member Role: Primary Care Nurse Name: Florencio Sky Position: Reference Physician Member Role: PCP Address: Address: [address] [place] [address] [address] [place], [place] [address] Name: Maren Sanchez RN Position: S RN Member Role: Primary Care Nurse Name: Shital Green RN Position: S Onco RN Member Role: Primary Care Nurse Name: Preethi Simental RN Position: S Onco RN Member Role: Primary Care Nurse Name: Theron Gandhi RN Position: S RN Member Role: Primary Care Nurse Name: Johnna Musa RN Position: S RN Member Role: Primary Care Nurse Name: Paul Haines RN Position: S Onco RN Member Role: Primary Care Nurse Name: Isabel Jeronimo RN Position: S Onco RN Member Role: Primary Care Nurse Name: Sharon Patterson RN Position: S RN Member Role: Primary Care Nurse Name: Harper Damian RN Position: S RN Member Role: Primary Care Nurse Name: Aleena Shelby LPN Position: S RN Member Role: Primary Care Nurse Name: Aleena Chacon LPN Position: S RN Member Role: Primary Care Nurse Name: Fanny Ferguson RN, I Position: S RN Member Role: Primary Care Nurse Care Team Related Persons Name: SNOW NORWOOD Address: home [address] [place] [address] Name: FAUSTO REHMANANNINE Address: home [address] [place] [address]
--- OUTSIDE RECORDS SUMMARY | 2023-11-01 13:47 | XMS_ITS | Continuity of Care Document ---
Author Organization [facility] Address [address] [place] [address]- Care Team Providers Care Broiler Manager Name Role Phone Carmina TORRES, Antonio Beaver Primary Care Physician Encounter [facility] Date(s): 09/21/23 - 10/21/23 [facility] [address] [place] [id number] Attending Physician: Jeronimo Swartz Admitting Physician: AdmtrJeronimo Referring Physician: AdmtrJeronimo Allergies, Adverse Reactions, Alerts No Known Medication [...] 3 Refills, Maintenance, 09/09/23 15:30:00 EDT, Tablet, [facility], Partial fill upon patient request if the prescription is for a schedule II opioid drug., 173, cm, 09/01/23 13:28:00 ED... Start Date: 09/09/23 Status: Ordered famotidine 20 mg oral tablet 1, tablet, By Mouth, Daily, # 90 tablet, Refills 1, Tot. Refills 1, Maintenance, 10/18/23 9:47:00 EDT, Route to Pharmacy Electronically, [facility], 173, cm, 10/14/23 9:07:00 EDT, Height, 95, kg, 10/14/23 9:03:00 EDT, Dry Weight Start Date: 10/18/23 Status: Ordered Jobst JoviPak extended chin strap Jobst JoviPak extended chin strap, See Instructions, # 1 each, Refills 0, Tot. Refills 0, Maintenance, Use as instructed. Diagnosis: I89.0, 10/08/23 13:35:00 EDT, Supply Start Date: 10/08/23 Status: Ordered lidocaine-prilocaine 2.5%-2.5% topical cream See Instructions, apply small dollop to [facility] 1 hr prior to appt and cover with plastic, #30 Gm, 1 Refills, Maintenance, 06/01/23 8:55:00 EDT, Cream, [facility], Partial fill upon patient request [...] 11/12/23 14:13:00 EDT, 10/12/23 14:13:00 EDT, Tablet, [facility], Partial fill upon patient request if the prescription is for a schedule II opioid... Start Date: 10/12/23 Stop Date: 11/12/23 Status: Ordered omeprazole 20 mg oral delayed release tablet 1 tablet = 20 mg, By Mouth, 2 times a day, # 180 tablet, 1 Refills, Maintenance, 10/18/23 9:47:00 EDT, EC Tablet, [facility], Partial fill upon patient request if the prescription is for aschedule II opioid drug., 173, cm, 10/14/23 9:07:00... Start Date: 10/18/23 Status: Ordered ondansetron 8 mg oral tablet 1 tablet = 8 mg, By Mouth, Every 8 hours, PRN as needed for nausea/vomiting, # 30 tablet, 1 Refills, Maintenance, 06/01/23 8:53:00 EDT, Tablet, [facility], Partial fill upon patient request if the prescription is for a schedule II opioid dr... Start Date: 06/01/23 Status: Ordered oxyCODONE 5 mg oral tablet 5 mg, 1, tablet, By Mouth, Every 4 hours, PRN, # 42 tablet, Refills 0, Tot. Refills 0, Maintenance,as needed for pain, 10/07/23 11:24:00 EDT, Route to Pharmacy Electronically, [facility],Partial fill upon patient request if the prescripti... Start Date: 10/07/23 Stop Date: 10/14/23 Status: Ordered [id number] oral powder for reconstitution = 17 Gm, By Mouth, Daily, PRN Constipation, # 510 Gm, 0 Refills, Maintenance, 07/12/23 12:28:00 EDT, REC Powder, [facility], Partial fill upon patient request if the prescription is fora schedule II opioid drug., 17 Gm By Mouth Daily,NH... Start Date: 07/12/23 Status: Ordered pilocarpine 5 mg oral tablet 1 tablet = 5 mg, By Mouth, 3 times a day, # 90 tablet, 0 Refills, Maintenance, 09/21/23 16:59:00 EDT, Tablet, [facility], Partial fill upon patient request if the prescription is for a schedule II opioid drug., 173, cm, 09/21/23 15:44:00 ED... Start Date: 09/21/23 Status: Ordered prochlorperazine 10 mg oral tablet 1 tablet = 10 mg, By Mouth, Every 6 hours, PRN nausea/vomiting, may cause drowsiness, # 30 tablet, 1 Refills, Maintenance, 06/01/23 8:53:00 EDT, [facility], Partial fill upon patient request [...] 0 Refills, Maintenance, 07/12/23 12:28:00 EDT, Tablet, [facility], Partial fill upon patient request if [...] Interested in cessat ion: No. No Sex Radiology * Event Display: IR Special Procedures, Non-BH Authored Date: Patient Care team information Care Team Personnel Name: Maren Sanchez RN Position: [facility] RN Member Role: Primary Care Nurse Name: Antonio Grewal NP Position: Reference Physician Member Role: PCP Address: Address: [address] [place] [address]- Name: Shital Green RN Position: [facility] Onco RN Member Role: Primary Care Nurse Name: Preethi Simental RN Position: S Onco RN Member Role: Primary Care Nurse Name: Johnna Musa RN Position: S RN Member Role: Primary Care Nurse Name: Paul Haines RN Position: [facility] Onco RN Member Role: Primary Care Nurse Name: Isabel Jeronimo RN Position: [facility] Onco RN Member Role: Primary Care Nurse Name: Harper Damian RN Position: S RN Member Role: Primary Care Nurse Name: Aleena Shelby LPN Position: S RN Member Role: Primary Care Nurse Name: Aleena Chacon LPN Position: S RN Member Role: Primary Care Nurse Care Team Related Persons Name: SNOW NORWOOD Address: home [address] [place] [address] Name: MATY REHMAN Address: home [address] [place] [address]
--- OUTSIDE RECORDS SUMMARY | 2023-11-01 13:47 | XMS_ITS | Continuity of Care Document ---
Author Organization [facility] Address [address] [place] [address]- Care Team Providers Care Cook Specialty Name Role Phone Florencio Sky Primary Care Physician Encounter [facility] Date(s): 06/15/23 - 07/15/[address] [id number] Allergies, Adverse Reactions, Alerts No Known Medication [...] 0 Refills, Maintenance, 07/06/23 12:36:00 EDT, Suspension, [facility], Partial fill upon patient request if the prescription is for a sched... Start Date: 07/06/23 Status: Ordered Ativan 1 mg oral tablet See Instructions, PRN as needed for anxiety, 1 tab PO 30m prior to scheduled radaition treatment., # 36 tablet, 0 Refills, Acute 07/22/23 18:21:00 EDT, 05/23/23 15:17:00 EDT, Tablet, [id number], Partial fill upon patient request if the [...] 07/19/23 12:26:00 EDT, 07/12/23 12:26:00 EDT, Syrup, [facility], Partial fill upon patient request if the prescription is for... Start Date: 07/12/23 Stop Date: 07/19/23 Status: Ordered lidocaine 4% mucous membrane solution 10 mL = 0.4 Gm, Swish and Spit, Every 4 hours, PRN Other, for 7 days, mouth sore / pain, # 420 mL, 0 Refills, Acute 07/19/23 12:41:00 EDT, 07/12/23 12:41:00 EDT, Solution, [facility], Partial fill upon patient request if the prescription... Start Date: 07/12/23 Stop Date: 07/19/23 Status: Ordered lidocaine-prilocaine 2.5%-2.5% topical cream See Instructions, apply small dollop to [facility] 1 hr prior to appt and cover with plastic, #30 Gm, 1 Refills, Maintenance, 06/01/23 8:55:00 EDT, Cream, [facility], Partial fill upon patient [...] 1 Refills, Maintenance, 06/01/23 8:53:00 EDT, Tablet, [facility], Partial fill upon patient request if the prescription is for a schedule II opioid dr... Start Date: 06/01/23 Status: Ordered oxyCODONE 5 mg oral tablet 5 mg, 1, tablet, By Mouth, Every 6 hours, PRN, # 42 tablet, Refills 0, Tot. Refills 0, Maintenance,as needed for pain, 07/12/23 12:41:00 EDT, Route to Pharmacy Electronically, [facility], Partial fill upon patient request if the prescri... Start Date: 07/12/23 Status: Ordered [id number] oral powder for reconstitution = 17 Gm, By Mouth, Daily, PRN Constipation, # 510 Gm, 0 Refills, Maintenance, 07/12/23 12:28:00 EDT, REC Powder, [facility], Partial fill upon patient request if the prescription is fora schedule II opioid drug., 17 Gm By Mouth Daily,NH... Start Date: 07/12/23 Status: Ordered prochlorperazine 10 mg oral tablet 1 tablet = 10 mg, By Mouth, Every 6 hours, PRN nausea/vomiting, may cause drowsiness, # 30 tablet, 1 Refills, Maintenance, 06/01/23 8:53:00 EDT, [facility], Partial fill upon patient [...] 0 Refills, Maintenance, 07/12/23 12:28:00 EDT, Tablet, [facility], Partial fill upon patient [...] Reference Physician Member Role: PCP Address: Address: [address] [place] [address] [address] [place] [address]- Name: Maren Sanchez RN Position: S RN [...] Team Related Persons Name: ANGÉLICA NORWOODE Address: [address] [place] [address] Name: MATY REHMAN Address: home [address] [place] [address]
--- OUTSIDE RECORDS SUMMARY | 2023-11-01 13:47 | XMS_ITS | Continuity of Care Document ---
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 Start Date: 05/11/23 Status: Ordered Ativan 1 mg oral tablet See Instructions, PRN as needed for anxiety, 1 tab PO 30m prior to scheduled radaition treatment., # 36 tablet, 0 Refills, Acute 07/22/23 18:21:00 EDT, 05/23/23 15:17:00 EDT, Tablet, [id number], Partial fill upon patient request if the pres... Start Date: 05/23/23 Stop Date: 07/22/23 Status: Ordered Clonidine 0 Refills, Maintenance, 08/09/18 11:07:52 EDT Start Date: 08/09/18 Status: Ordered Clonidine as needed for anxiety, 0 Refills, Maintenance, 08/09/18 11:08:25 EDT Start Date: 08/09/18 Status: Ordered cloNIDine 0.1 mg oral tablet 0.1 mg, By Mouth, 4 times a day, # 30 tablet, Refills 0, Maintenance, 05/11/23 13:06:00 EDT, Partial fill upon patient request if the prescription is for a schedule II opioid drug. Start Date: 05/11/23 Status: Ordered Depakene 250 mg oral capsule 3 capsule = 750 mg, By Mouth, Daily at bedtime, 0 Refills, Maintenance, 08/09/18 11:06:45 EDT Start Date: 08/09/18 Status: Ordered divalproex sodium 500 mg oral [...] Eliquis Starter Pack 5 mg oral tablet 2 tablet = 10 mg, By Mouth, 2 times a day, followed by 1 tablet by mouth twice daily for 23 days, #74 tablet, 0 Refills, Maintenance, 06/16/23 11:35:00 EDT, [id number], Partial fill upon patient request if the prescription is for a schedul... Start Date: 06/16/23 Stop Date: 06/23/23 Status: Ordered gabapentin 300 mg oral capsule [...] opioid drug. Start Date: 05/11/23 Status: Ordered Lidocaine Viscous 2% solution 5 mL = 0.1 Gm, Topically, 3 times a day before meals and bedtime, PRN for mouth sore pain, # 100 mL, 0 Refills, Maintenance, 06/15/23 10:00:00 EDT, Solution, [id number], Partial fill upon patient request if the prescription is for a schedul... Start Date: 06/15/23 Status: Ordered lidocaine-prilocaine 2.5%-2.5% topical cream See Instructions, apply small dollop [facility] 1 hr prior to appt and cover with plastic, #30 Gm, 1 Refills, Maintenance, 06/01/23 8:55:00 EDT, Cream, [id number], Partial fill upon patient request if the prescription is for a sched... Start Date: 06/01/23 Status: Ordered lisinopril 10 mg oral tablet 10 mg, 1, tablet, By Mouth, Daily, # 30 tablet, Refills 0, Maintenance, 05/11/23 13:06:00 EDT, Partial fill upon patient request if the prescription is for a schedule II opioid drug. Start Date: 05/11/23 Status: Ordered Multivitamin 1 tablet, Daily, 0 Refills, Maintenance, 08/09/18 11:08:48 EDT Start Date: 08/09/18 Status: Ordered olanzapine 5 mg oral tablet [...] 1 Refills, Maintenance, 06/01/23 8:53:00 EDT, Tablet, [id number], Partial fill upon patient request if the prescription is for a schedule II opioid dr... Start Date: 06/01/23 Status: Ordered prochlorperazine 10 mg oral tablet 1 tablet = 10 mg, By Mouth, Every 6 hours, PRN nausea/vomiting, may cause drowsiness, # 30 tablet, 1 Refills, Maintenance, 06/01/23 8:53:00 EDT, [id number], Partial fill upon [...] opioid drug. Start Date: 05/11/23 Status: Ordered SEROquel 50 mg oral tablet 1 tablet = 50 mg, By Mouth, Daily at bedtime, 0 Refills, Maintenance, 08/09/18 11:07:19 EDT Start Date: 08/09/18 Status: Ordered tamsulosin 0.4 mg oral capsule 0.4 mg, 1, capsule, By Mouth, Daily, # 30 capsule, Refills 0, Maintenance, 05/11/23 13:07:00 EDT, Partial fill upon patient request if the prescription is for a schedule II opioid drug. Start Date: 05/11/23 Status: Ordered Problem List Condition Confirmation Course Effective Dates Status Health St at[facility] Informant Obese class II Confirmed Active Social History Social History Type Response Tobacco Interested in cessat ion: No. No Sex Patient Care team information Care Team Personnel Name: Florencio Sky Position: Reference Physician Member Role: PCP Address: Address: [address] [place] [address]- Name: Shital Green RN Position: [facility] Onco RN Member Role: Primary Care Nurse Name: Preethi Simental RN Position: [facility] Onco RN Member Role: Primary Care Nurse Care Team Related Persons Name: SNOW NORWOOD Address: home [address] [place] [address] Name: MATY REHMAN Address: home [address] [place] [address]
--- OUTSIDE RECORDS SUMMARY | 2023-11-01 13:47 | XMS_ITS | Continuity of Care Document ---
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 [address] [place] [id number] Attending Physician: Jeronimo Swartz Admitting Physician: AdmJeronimo gates Referring Physician: Admtr ArJayna Allergies, Adverse Reactions, Alerts Substance Reaction Severity Status Percocet itchy Active Medications acetaminophen-codeine 300 mg-30 mg oral tablet 1, tablet, By Mouth, Every 4 hours, PRN, Refills 0, Maintenance, for pain, 05/11/23 13:05:00 EDT, Tablet, Partial fill upon patient request if the prescription is for a schedule II opioid drug. Start Date: 05/11/23 Status: Ordered Ativan 1 mg oral tablet See Instructions, PRN as needed for anxiety, 1-2 tab PO 30m prior to scheduled MRI scan, # 2 tablet, 0 Refills, Acute 05/23/23 15:17:00 EDT, 05/11/23 15:16:00 EDT, Tablet, [id number], Partial fill upon patient request if the prescription is... Start Date: 05/11/23 Stop Date: 05/23/23 Status: Ordered Clonidine 0 Refills, Maintenance, 08/09/18 [...] opioid drug. Start Date: 05/11/23 Status: Ordered gabapentin 300 mg oral capsule [...] opioid drug. Start Date: 05/11/23 Status: Ordered lisinopril 10 mg oral tablet 10 mg, 1, tablet, By Mouth, Daily, # 30 tablet, Refills 0, Maintenance, 05/11/23 13:06:00 EDT, Partial fill upon patient request if the prescription is for a schedule II opioid drug. Start Date: 05/11/23 Status: Ordered Multivitamin 1 tablet, Daily, 0 Refills, Maintenance, 08/09/18 11:08:48 EDT Start Date: 08/09/18 Status: Ordered omeprazole 20 mg oral delayed release tablet 1 tablet = 20 mg, By Mouth, 2 times a day, # 30 tablet, 0 Refills, Maintenance, 05/11/23 13:07:00 EDT, [facility] Tablet, Partial fill upon patient request if the prescription is for a schedule II opioid drug. Start Date: 05/11/23 Status: Ordered rosuvastatin 5 mg oral capsule [...] Physician Member Role: PCP Address: Address: [address] [place] [address]- Care Team Related Persons Name: SNOW NORWOOD Address: home [address] [place] [address] Name: MATY REHMAN Address: home [address] [place] [address]
--- OUTSIDE RECORDS SUMMARY | 2023-11-01 13:47 | XMS_ITS | Continuity of Care Document ---
Author Organization [facility] ter Address [address] [place] [id number] Care Team Providers Care Self Storage Manager Name Role Phone Florencio Sky Primary Care Physician [phone] Encounter [facility] Date(s): 07/06/23 - 07/12/[address] [id number] Discharge Disposition: A-D/C Home Attending Physician: Sammie Brand MD Admitting Physician: Isidro Jewell DO Referring Physician: Isidro Jewell DO Allergies, Adverse Reactions, Alerts No Known Medication [...] 0 Refills, Maintenance, 07/06/23 12:36:00 EDT, Suspension, [id number], Partial fill upon patient request if the prescription is for a sched... Start Date: 07/06/23 Status: Ordered Ativan 1 mg oral tablet See Instructions, PRN as needed for anxiety, 1 tab PO 30m prior to scheduled radaition treatment., # 36 tablet, 0 Refills, Acute 07/22/23 18:21:00 EDT, 05/23/23 15:17:00 EDT, Tablet, [id number], Partial fill upon patient request if the [...] 07/19/23 12:26:00 EDT, 07/12/23 12:26:00 EDT, Syrup, [facility], Partial fill upon patient request if the prescription is for... Start Date: 07/12/23 Stop Date: 07/19/23 Status: Ordered lidocaine 4% mucous membrane solution 10 mL = 0.4 Gm, Swish and Spit, Every 4 hours, PRN Other, for 7 days, mouth sore / pain, # 420 mL, 0 Refills, Acute 07/19/23 12:41:00 EDT, 07/12/23 12:41:00 EDT, Solution, [facility], Partial fill upon patient request if the prescription... Start Date: 07/12/23 Stop Date: 07/19/23 Status: Ordered lidocaine-prilocaine 2.5%-2.5% topical cream See Instructions, apply small dollop to [facility] 1 hr prior to appt and cover with plastic, #30 Gm, 1 Refills, Maintenance, 06/01/23 8:55:00 EDT, Cream, [facility], Partial fill upon patient request if the prescription is for a sched... Start Date: 06/01/23 Status: Ordered lisinopril 10 mg oral tablet 10 mg, Tablet, Nasogastric Tube, 07/12/23 9:00:00 EDT Start Date: 07/12/23 Stop Date: 07/12/23 Status: Completed lisinopril 10 mg oral tablet 10 mg, [...] 1 Refills, Maintenance, 06/01/23 8:53:00 EDT, Tablet, [facility], Partial fill upon patient request if the prescription is for a schedule II opioid drPalmira. Start Date: 06/01/23 Status: Ordered oxyCODONE 5 mg oral tablet 5 mg, 1, tablet, By Mouth, Every 6 hours, PRN, # 42 tablet, Refills 0, Tot. Refills 0, Maintenance,as needed for pain, 07/12/23 12:41:00 EDT, Route to Pharmacy Electronically, [facility], Partial fill upon patient request if the prescri... Start Date: 07/12/23 Status: Ordered OxyCODONE 5mg/5mL Liquid 5 mg, Solution, By Mouth, Every 4 hours, PRN for Pain , Moderate, Routine, 07/10/23 10:42:00 EDT Start Date: 07/10/23 Stop Date: 07/17/23 Status: Ordered [id number] oral powder for reconstitution = 17 Gm, By Mouth, Daily, PRN Constipation, # 510 Gm, 0 Refills, Maintenance, 07/12/23 12:28:00 EDT, REC Powder, [facility], Partial fill upon patient request if the prescription is fora schedule II opioid drug., 17 Gm By Mouth Daily,[place]... Start Date: 07/12/23 Status: Ordered prochlorperazine 10 mg oral tablet 1 tablet = 10 mg, By Mouth, Every 6 hours, PRN nausea/vomiting, may cause drowsiness, # 30 tablet, 1 Refills, Maintenance, 06/01/23 8:53:00 EDT, [facility], Partial fill upon patient [...] 0 Refills, Maintenance, 07/12/23 12:28:00 EDT, Tablet, [facility], Partial fill upon [...] List Condition Confirmation Course Effective Dates Status [facility] atus Informant Obese class I Confirmed Active Results Radiology Reports * Exam Date Time Procedure Performing Provider Status 07/09/23 12:56 PM IR Insert Gastrostomy Tube Auth (Verified) Notes: (IR Insert Gastrostomy Tube) Reason For Exam: Other: IR Insert Gastrostomy Tube Patient: CHRISSY REHMAN Study Date: 07/09/2023 Performing: Hoa Ruth MD Referring: : 1965 Age: 57 Gender: MALE Pre-procedure diagnosis and Indication: 57-year-old male with past medical history of left leg DVT, hypertension, hyperlipidemia, BPH, GERD, obesity, anxiety, depression and bipolar disorder with recent diagnosis of 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 He has dysphagia to both solids and liquids. Interventional radiology was consulted for percutaneous gastrostomy tube placement. PROCEDURE: The procedure, risks, and alternatives, were discussed and all questions were answered. Written informed consent obtained. Accompanying paperwork was verified for accuracy. Directed history and physical exam performed prior to the procedure. Medication reconciliation performed by nursing personnel. Procedure was performed using a cap, sterile gown, sterile gloves, a large sterile sheet, handhygiene and 2% chlorhexadine for cutaneous antisepsis. The patient was positioned supine on the table and prepped and draped in usuale sterile fashion. Pre-procedure ultrasound was used to paola the medial edge of the liver. A preliminary spot digital radiograph was obtained of the abdomen which demonstrates a nasogastric tube to terminate within the stomach. The stomach has been insufflated with air. The colon projects below the stomach. A critical pause was performed with assisting personnel just prior to the procedure with the patient's identity confirmed using 2 identifiers, confirming site and side. 10 ml of 1% lidocaine was administered at the puncture site for local anesthesia. Under direct fluoroscopic guidance, a puncture was made of the gastric body with a [employer] T-Fastener. This was confirmed by the release of air and contrast injection. The T fastener was then deployed into the stomach and retracted to bring the stomach to the anterior peritoneal surface. The process was repeated for a total of two T-fasteners. An incision was made adjacent to the fasteners and an 18 g needle was used to access the stomach. Contrast was injected to confirm position within gastric lumen. An 0.035-inch Amplatz wire was advanced into the stomach and looped. The needle was removed. Dilatation of the tract was performed and a 20 Fr peel away sheath was placed. A 16 Bolivian feeding tube was advanced into the stomach. The peel away sheath and wire were removed. The balloon was inflated with sterile water and brought to the anterior gastric surface. Contrast injection confirmed an intraluminal location of the feeding tube tip. The stomach was decompressed through the gastrostomy tube. The catheter and flange were secured to the skin with sterile dressings. An 0 prolene suture was used to secure the disc. The patient tolerated the procedure well with no immediate complication. Blood loss was minimal. Patient condition was unchanged. estimated blood loss was minimal Specimens/samples: no specimens or samples were sent for this procedure Patient transferred to[address] Post procedure instructions sent in envelope with the patient Impression: Image guided placement of 16 Fr balloon retention gastrostomy feeding tube. G tube can be used for tube feeds after 24 hours if there are no signs of peritonitis (I.e. guarding, rigidity or rebound tenderness). Recommend starting with trickle feeds and increasing tube feeds to goal as long as patient tolerates feeds. TO PREVENT CLOGGING OF THE G-TUBE FLUSH [...] Fluoroscopy time and dose Total Fluoro Time: 3.6 mins Total dose 143 mGy Total DAP 3812.5 - ?Gy/m2 Contrast used Contrast used: Omnipaque_300 40 ml's Local Anesthetic Lidocaine 1% 6 ml's SQ Lidocaine 1% w/ 1:100,000 epinephrine 12 ml's SQ Lidocaine 1% w/ 1:100,000 epinephrine 6 ml's SQ Moderate sedation was provided From 13:26:09 to 14:07:03 Moderate Sedation Agent Dose Route Time By Fentanyl 25 mcg IV 13:26:05 CB Versed 0.5 mg IV 13:26:09 CB Fentanyl 25 mcg IV 13:35:52 CB Versed 0.5 mg IV 13:35:55 CB Fentanyl 25 mcg IV 13:41:25 CB Versed 0.5 mg IV 13:41:33 CB Fentanyl 25 mcg IV 13:47:11 CB Versed 0.5 mg IV 13:47:16 CB Signed By Hoa Ruth MD On 07/09/2023 7:44:53 PM Hoa Ruth MD Dictated By: Hoa Ruth MD Dictated Date/Time: 07/09/23 12:56 p Reviewed By: Hoa Ruth MD Signed By: Hoa Ruth MD Signed Date/Time: 07/09/23 12:56 pm Transcribed By: WEN Transcribed Date/Time: 07/09/23 12:56 pm * Exam Date Time Procedure Performing Provider Status 07/08/23 5:51 PM Chest 2 Views Frontal and Lat Senait Soto; Sola (Verified) Notes: (Chest 2 Views Frontal and Lat) Reason For Exam: Tube Placement ;Other: RESULT: Chest 2 Views Frontal and Lat Chest 2 Views Frontal and Lat Reason: Tube Placement; Clinical Question(s): Tube Placement COMPARISON: 04/26/2019 FINDINGS: LINES AND TUBES: Central venous catheter tip likely in the right atrium. Enteric tube appears in the stomach. Sidehole also likely in the stomach. LUNGS AND PLEURA: Clear lungs. Normal pulmonary vascularity. No pleural effusion. No pneumothorax. HEART, MEDIASTINUM AND MARY: Heart is normal in size. Normal mediastinal and hilar contour. BONES AND SOFT TISSUES: No acute abnormality. IMPRESSION: Enteric tube appears in good position. Central venous catheter tip likely in the right atrium. WSN: [id number] Ordering Physician: Ana Long Dictated By: Robbie Haynes MD Dictated Date/Time: 07/08/23 9:33 pm Reviewed By: Robbie Haynes MD Signed By: Robbie Haynes MD Signed Date/Time: 07/08/23 9:33 pm Transcribed By: ROBERT Transcribed Date/Time: 07/08/23 9:32 pm Vital Signs Most recent to oldest [Reference Range]: 1 2 3 Height 173 cm (07/12/23 11:52 AM) 173 cm (07/12/23 8:07 AM) 173 cm (07/12/23 3:31 AM) Weight 103 kg (07/06/23 6:11 PM) Oxygen Saturation [94-100 %] 95 % (07/12/23 11:52 AM) 93 % *L* (07/12/23 8:07 AM) 97 % (07/12/23 3:31 AM) Pulse Rate [55-90 bpm] 98 bpm *H* (07/12/23 11:52 AM) 118 bpm *H* (07/12/23 8:07 AM) 94 bpm *H* (07/12/23 3:31 AM) Body Mass Index [18.5-24.99 kg/m2] 34.41 kg/m2 *>HHI* (07/06/23 6:11 PM) Blood Pressure [90-138/55-84 mm Hg] 149/92mm Hg *H* (07/12/23 11:52 AM) 161/98mm Hg *H* (07/12/23 8:07 AM) 123/74mm Hg (07/12/23 7:55 AM) Respiratory Rate [16-30 br/min] 20 br/min (07/12/23 1:39 PM) 20 br/min (07/12/23 11:52 AM) 20 br/min (07/12/23 10:47 AM) Temperature [96.8-100.4 DegF] 98.4 DegF (07/12/23 11:52 AM) 98.0 DegF (07/12/23 8:07 AM) 98.4 DegF (07/12/23 3:31 AM) Mode of Delivery (Oxygen) Room air (07/12/23 11:52 AM) Room air (07/12/23 8:07 AM) Room air (07/12/23 3:31 AM) Blood pressure sites Arm, left (07/12/23 11:52 AM) Arm, right (07/12/23 8:07 AM) Arm, right (07/12/23 3:31 AM) Temperature Route Oral (07/12/23 11:52 AM) Oral (07/12/23 8:07 AM) Oral (07/12/23 3:31 AM) Dry Weight 103 kg (07/06/23 6:11 PM) Social History Social History Type Response Tobacco Interested in cessat ion: No. No Sex History and physical note * Boris JAUREGUI, Sahil Dalton: MODIFY, MODIFY, MODIFY, MODIFY, PERFORM, MODIFY Event Display: History and Physical Hospital Authored Date: [id number] Patient: ??NOLDS III, CHRISSY ? Age:??57 Years?Sex:??Male?:??1965?? History of Present Illness 07/05 ?? 57-year-old male with PMH including left parotid gland carcinoma, DVT left leg (06/16/2023), HTN, HLD, BPH, GERD, obesity, anxiety, depression, bipolar?? d/o.?? Patient was sent to??hospital??from oncology office??for G-tube placement. ?? Patient has acinic cell carcinoma with high-grade transformation of left parotid gland (diagnosed 03/2023) s/p left neck dissection levels II-IV, left near total parotidectomy with left facial nerve sacrifice s/p ansa hypoglossi and great auricular nerve graft to distal facial nerve branches and fatgraft reconstruction from left thigh and fascia elpidio sling from modiolous to zygomatic arch (04/06/2023) and on chemoradiation with cisplatin/etoposide (C1 D1 06/07/2023). ?? The patient says that for the last 3 to 4 days he is having difficulty swallowing??and pain??duringswallowing.?? He has developed??numerous??oral ulcers, feels pain??when he tries to swallow, feels??food is getting stuck??in the throat,??and feels??pain??while swallowing.?? He is??using??Magic mout hwash??but??it is not helping much. ??Hence he has not been able to eat or drink??for the last 3 days, feels dehydrated, lost about??9 pounds.?? Also??he is unable to sleep well at night??as he feelshe is gagging/choking.?? No fever, chill, cough,??chest pain, shortness of breath, abdominal pain, nausea, vomiting, diarrhea, dysuria symptoms.?? He also??complained of tinnitus. ?? Patient was seen??in oncology office earlier today??with above complaints.?? Decision was made??to get a G-tube placed DAVID.?? However??it was difficult to get it??done??as outpatient,??as per note?? Had available appointment for tomorrow but since patient is on apixaban and this medication needs to be held 24-48 hours before the procedure, and the next available is next week. ?? As patient was sent as a direct admission for G-tube placement. ?? Chart reviewed.?? Patient has remained hemodynamically stable.?? Labs done earlier in the morning showed WBC 2.9, hemoglobin 12.5, platelets 25, normal BMP. Review of Systems All systems reviewed and negative except as in HPI. Objective Measurements?? Height: 173 cm (07/06/23) Weight: 103 kg (07/06/23) Dry Weight: 103 kg (07/06/23) Body Mass Index:??34.41 kg/m2??Critical (07/06/23) ? Vital Signs?? Temperature: 98.2 DegF (07/06/23 18:11:00) Temperature Route: Oral (07/06/23 18:11:00) Pulse Rate:??91 bpm??High (07/06/23 18:11:00) Respiratory Rate: 18 br/min (07/06/23 18:54:00) Systolic Blood Pressure:??145 mm Hg??High (07/06/23 18:11:00) Diastolic Blood Pressure:??91 mm Hg??High (07/06/23 18:11:00) Blood pressure sites: Arm, right (07/06/23 18:11:00) Mean Arterial Pressure: 109 mm Hg (07/06/23 18:11:00) Pulse Pressure: 54 mm Hg (07/06/23 18:11:00) Oxygen Saturation: 99 % (07/06/23 18:11:00) Mode of Delivery (Oxygen): Room air (07/06/23 18:11:00) Vital Signs Comment: pt is unable to do an oral temp. (07/06/23 08:59:00) Early Warning Score: 0 (07/06/23 18:59:00) ? Physical Exam Constitutional: ??Alert,??no acute distress, co-operative, lying on the bed, saturating well on room air. ?? Mental state: Oriented x 3. Head: ??Normocephalic, atraumatic. ?? Eye:?No discharge. ENT: Numerous ulceration noted on tongue and oral mucosa. Neck: ??Supple,??no JVD. Cardiovascular: ??S1, S2. Regular rhythm. No MRG. Port noted. Respiratory: ??Lungs are clear to auscultation b/l, No RRR. ?? Gastrointestinal: ??Soft, Nontender, Non distended, ??Normal bowel sounds.?? Genitourinary: No costovertebral angle tenderness. Neurological:?Left sided facial palsy. Back: ??Nontender. Musculoskeletal: ??Normal ROM.??Left leg swollen, erythema (chronic and improving, since DVT as perpatient). Left leg edema. Hematology: No lymphadenopathy Skin: ??Warm, dry. Psychiatric: ??Cooperative.?? Assessment/Plan Diagnoses Anemia ??(D64.9) Anxiety with depression ??(F41.8) BPH (benign prostatic hyperplasia) ??(N40.0) Bipolar disorder ??(F31.9) Cancer of parotid gland ??(C07) DVT (deep venous thrombosis) ??(I82.409) Dysphagia ??(R13.10) Dysphagia ??(R13.10) GERD (gastroesophageal reflux disease) ??(K21.9) HLD (hyperlipidemia) ??(E78.5) HTN (hypertension) ??(I10) Leucopenia ??(D72.819) Mucositis ??(K12.30) Status post chemoradiation ??(Z92.3) Thrombocytopenia ??(D69.6) Tinnitus ??(H93.19) ?? Assessment:??57-year-old male with PMH including left parotid gland carcinoma, DVT left leg (06/16/2023), HTN, HLD, BPH, GERD, obesity, anxiety, depression, bipolar??d/o.??Patient was sent to??hospital??from oncology office??for G-tube placement. ? Dysphagia (R13.10): Odynophagia:??- Mucositis (K12.30):??- Patient with dysphagia??and light aphasia for about 3 days, unable to eat or drink anything, getting dehydrated,??weight loss.?? Also feels gagging/choking??during??sleep??due to??secretion. Sent from??oncology clinic??for G-tube placement. Visible??ulcers/sores??over??tongue,??oral mucosa, inner surface of the lips. Patient was started on??acyclovir which we will continue. Continue Magic mouthwash. IV fluid hydration. Aspiration precaution. Keep n.p.o. IR consult requested??for G-tube placement. Eliquis??has been held,??may need to be held for 24 to 48 hours. ??His last dose of Eliquis was earlier this morning.?? Patient??is??high thrombotic risk??due to??DVT??within 1 month. ??Also??patientis going for high??bleeding risk procedure. Also patient has??thrombocytopenia,??if persistent??thrombocytopenia in the morning??patient may require transfusion.?? Please coordinate with IR??regarding??what threshold they have for??platelets??for this procedure??and when they would??like to do the procedure??so we can??transfuse??prior to the ??intervention.?? I have obtained??consent for??transfusion and we will get??type and screen??done in the morning lab??in case we need those as well. Once G-tube is placed please consult nutrition??for feeding. Dysphagia itself may require??further workup??including??CT scan??and GI evaluation.?? Will leave to??oncology team??to decide whether??they wanted to workup??as inpatient??or outpatient??once the G-tube is placed. ?? Cancer of parotid gland (C07):??- Status post chemoradiation (Z92.3):??- Anemia (D64.9):??- Leucopenia (D72.819):??- Thrombocytopenia (D69.6):??-?? Patient received 1 dose of??chemotherapy.?? Subsequently developed??severe??leukopenia??that recovered??initially??and again??patient is leukopenic.?? Absolute neutrophil however 1.7.?? Patient has developed mild anemia as well.?? Platelets??has come down to 25??for the first time.?? No active bleeding. ??No rash.?? At this time we will monitor??blood counts.?? Patient may need??transfusion??prior to the procedure??depending on platelet level.?? Please coordinate with IR??regarding platelets transfusion. Oncology consult??requested. Morphine ordered for??pain. Gabapentin??if able to swallow. ?? DVT (deep venous thrombosis) (I82.409):??- Eliquis held for??IR procedure. Resume??once cleared by IR. ?? Bipolar disorder (F31.9):??- Anxiety with depression (F41.8):??- Continue divalproex, will switch to IV. Continue doxepin??if patient is able to swallow. Ativan as needed for??anxiety. Holding other medications??as patient??has difficulty swallowing. ?? GERD (gastroesophageal reflux disease) (K21.9):??- PPI, will switch IV. ?? BPH (benign prostatic hyperplasia) (N40.0):??- Holding tamsulosin, resume??once G-tube is done. ?? HLD (hyperlipidemia) (E78.5):??- Holding statin, resume once G-tube is done. ?? HTN (hypertension) (I10):??- Patient seems to be on??losartan.?? Unsure if??he will be??able to swallow.?? Hence I will hold??losartan??and use as needed IV hydralazine for blood pressure. ?? Tinnitus (H93.19):??- Outpatient hearing??work up.? VTE Prophylaxis:??on eliquis at home, held for procedure, resume when cleared. ?? Discharge Planning:? Code Status:??full code ?Order Code Status:??Code Status Ordered ? Histories Allergies Allergies ?(Active and Proposed [...] Family History documented. ? Medications Home Medications Acetaminophen/Codeine (acetaminophen-codeine 300 mg-30 mg oral tablet)?1?tab(s)?By Mouth?Every 4 hours?as needed?for pain Acyclovir (acyclovir 200 mg/5 mL oral suspension)?See Instructions?10 mL By Mouth 3 times a day 7 days, then 10 ml twice a day for 21 days apixaban (Eliquis Starter Pack 5 mg oral tablet)?2?tab(s)?10?Milligram?By Mouth?2times a day?for 7?Days?followed by 1 tablet by mouth twice daily for 23 days Clonidine?as needed for anxiety Clonidine (cloNIDine 0.1 mg oral tablet)?0.1?Milligram?By Mouth?4 times a day Divalproex Sodium (divalproex sodium 500 mg oral enteric coated tablet)?1?tab(s)?500?Milligram?By Mouth?3 times a day Doxepin (doxepin 10 mg oral capsule)?1?capsule?10?Milligram?By Mouth?3 times a day Gabapentin (gabapentin 300 mg oral capsule)?300?Milligram?1?capsule?By Mouth?2 times a day HydrOXYzine (hydrOXYzine hydrochloride 10 mg oral tablet)?2?tab(s)?20?Milligram?By Mouth?4 times a day Lidocaine Topical (Lidocaine Viscous 2% solution)?5?Milliliter?0.1?gram?Topically?3 times a day before meals and bedtime?as needed?for mouth sore pain Lidocaine/Prilocaine Topical (lidocaine-prilocaine 2.5%-2.5% topical cream)?See Instructions?apply small dollop to portacat site 1 hr prior to appt and cover with plastic Lisinopril (lisinopril 10 mg oral tablet)?10?Milligram?1?tablet?By Mouth?Daily Lorazepam (Ativan 1 mg oral tablet)?See Instructions?as needed?as needed for anxiety?1 tab PO 30m prior to scheduled radaition treatment. Miscellaneous Rx (magic mouthwash)?See Instructions?benadryl elixir 4 oz + nystatin susp (100,000 u/mL) 4 oz + lidocaine visc 2% 100 mL + Mylanta 8 oz 5-10 mL swish/spit or swallow every 2 hours PRN for throat/mouth sore/pain Multivitamin?1?tab(s)?Daily Olanzapine (olanzapine 5 mg oral tablet)?See Instructions?1 tablet By Mouth at bedtime for 4 nights starting the first day of each Cisplatin chemo, as directed. Omeprazole (omeprazole 20 mg oral delayed release tablet)?1?tab(s)?20?Milligram?By Mouth?2 times a day Ondansetron (ondansetron 8 mg oral tablet)?1?tab(s)?8?Milligram?By Mouth?Every 8 hours?as needed?as needed for nausea/vomiting Oxycodone (oxyCODONE 5 mg oral tablet)?5?Milligram?1?tablet?By Mouth?Every 6 hours?as needed?as needed for pain PROCHLORperazine (prochlorperazine 10 mg oral tablet)?1?tab(s)?10?Milligram?By Mouth?Every 6 hours?as needed?nausea/vomiting?may cause drowsiness Rosuvastatin (rosuvastatin 5 mg oral capsule)?1?capsule?5?Milligram?By Mouth?Daily Tamsulosin (tamsulosin 0.4 mg oral capsule)?0.4?Milligram?1?capsule?By Mouth?Daily ? Inpatient Medications Medications (12) Active SCHEDULED: (1) NaCl 0.9% Flush 3ml (NaCL 0.9% Flush) ??3 mL, IV Push, Every 8 hours CONTINUOUS: (0) PRN: (11) Acetaminophen 325 mg Tablet (Acetaminophen Tablet) ??650 mg, By Mouth, Every 4 hours Dextromethorphan-Guaifenesin 20 mg-200 mg/10 mL Liqu UD (Robitussin DM Liquid) ??10 mL, By Mouth, Every 4 hours Docusate Sodium 100 mg Capsule (Docusate Sodium Capsule) ??100 mg 1 capsule, By Mouth, 2 times a day Heparin 100 units/mL (Heparin Flush 100 units/mL Inj) ??500 units 5 mL, IV Push, Once Melatonin 3 mg Tablet (Melatonin Tablet) ??3 mg, By Mouth, Daily at bedtime NaCL 0.9% Flush 10ml (NaCL 0.9% Flush) ??10 mL, IV Push, Every hour NaCl 0.9% Flush 3ml (NaCL 0.9% Flush) ??3 mL, IV Push, Every 8 hours Ondansetron 2mg/mL Inj (2mL Vial) (Zofran Inj) ??4 mg, IV Push, Once Polyethylene Glycol 17 Gm Powder (MiraLax Powder) ??17 Gm 1 pack/packet, By Mouth, Daily Senna Tablet ??8.6 mg 1 tablet, By Mouth, 2 times a day Simethicone 80 mg Chewable Tablet (Simethicone Tablet) ??80 mg, Chew, 3 times a day ? Results Recent Labs BLOOD COUNT & DIFF WBC 2.9 k/mm3 (Low)?? 07/06/2023 09:50 RBC 4.33 m/mm3 (Low)?? 07/06/2023 09:50 Hgb 12.5 Gm/dL (Low)?? 07/06/2023 09:50 Hct 36.2 % (Low)?? 07/06/2023 09:50 MCV 83.6 femtoliters ()?? 07/06/2023 09:50 MCH 28.9 pg ()?? 07/06/2023 09:50 MCHC 34.5 g/dL ()?? 07/06/2023 09:50 Platelet Count 25 k/mm3 (Critical)?? 07/06/2023 09:50 RDW-SD 36.7 femtoliters ()?? 07/06/2023 09:50 MPV 10.4 femtoliters ()?? 07/06/2023 09:50 Nucleated RBC (Automated) 0.0 #/100 WBC'S ()?? 07/06/2023 09:50 Abs. NRBC 0.0 k/mm3 ()?? 07/06/2023 09:50 Abs. Neut 1.7 k/mm3 ()?? 07/06/2023 09:50 Abs. Lymph 0.7 k/mm3 (Low)?? 07/06/2023 09:50 Abs. Grundy 0.3 k/mm3 (Low)?? 07/06/2023 09:50 Abs. Eo 0.0 k/mm3 ()?? 07/06/2023 09:50 Abs. Baso 0.0 k/mm3 ()?? 07/06/2023 09:50 Neut % 57.0 % ()?? 07/06/2023 09:50 Lymph % 24.1 % ()?? 07/06/2023 09:50 Grundy % 11.4 % (High)?? 07/06/2023 09:50 Eos % 0.3 % ()?? 07/06/2023 09:50 Baso % 0.3 % ()?? 07/06/2023 09:50 Imm Gran 6.9 % ()?? 07/06/2023 09:50 Abs. Imm Gran 0.2 k/mm3 ()?? 07/06/2023 09:50 ?? CHEM GENERAL Sodium 138 mmol/L ()?? 07/06/2023 09:50 Potassium 4.9 mmol/L ()?? 07/06/2023 09:50 Chloride 102 mmol/L ()?? 07/06/2023 09:50 Bicarbonate Level 24 mmol/L ()?? 07/06/2023 09:50 Anion Gap 12 ()?? 07/06/2023 09:50 BUN 16 mg/dL ()?? 07/06/2023 09:50 BUN (POC) POC Cartridge 16 mg/dL ()?? 07/06/2023 10:05 Creatinine-Blood 1.02 mg/dL ()?? 07/06/2023 09:50 Creatinine (POC) POC Cartridge 1.0 mg/dL ()?? 07/06/2023 10:05 Estimated GFR Creatinine 85 ML/MIN/1.73 M2 ()?? 07/06/2023 09:50 ?? URINE OTHER Est Creatinine Clearance 77.67 mL/min ()?? 07/06/2023 13:22 ? EKG study * Event Display: ECG 12-Lead Authored Date: Please click on pdf link to open report * Event Display: ECG 12-Lead Authored Date: Ventricular Rate: 93 BPM Atrial Rate: 93 BPM P-R Interval: 124 ms QRS Duration: 86 ms Q-T Interval: 362 ms QTC Calculation(Bazett): 450 ms P [place]: 38 degrees R [place]: -24 degrees T [place]: 9 degrees Normal sinus rhythm Normal ECG When compared with ECG of 30-SEP-2004 12:23, No significant change was found Confirmed by TERI JAUREGUI [facility] ([id number]) on 07/11/2023 7:31:57 PM [place]: [facility] * Johnna Musa RN: PERFORM, SIGN, VERIFY, SIGN, MODIFY Event Display: Progress Note [facility] Authored Date: Patient: CHRISSY REHMAN III Age: 58 years Sex: Male : 1965 Associated Diagnoses: None Author: Johnna Musa RN Findings Problem Related to Alteration in Nutrition : Alteration in Nutrition/new 07/12/2023 8:00 EDT Alteration in Nutrition Related to Malnutrition Goals & Outcomes, Nutrition Pt will achieve/maintain adequate nutrition status, Pt will reach normal/improved electrolyte/vitamin balance, Pt will resume/maintain adequate hemodynamic status Interventions, Nutrition Assess, monitor & document weight, Encourage adequate & balanced intake, Maintain strict I&O, Observe & document food intake via calorie count as ordered BH Goals/Interventions, Nutrition Yes Nutrition, Problem Start 2023 11:55 Reviewed plan with, Nutrition Patient Patient Progression, Nutrition Pt progressing according to plan . Evaluation Vital signs stable/afebrile/alert & oriented x4. Reporst 07/18 abdominal pain particularly around g tube site. G tube site c/d/i. Patient thinks this is more related to constipation than incisional pain. Medicated with colace/senna/milk of mag/ and mirlax. Lung sounds clear bilaterally, denies shortness of breath/cough, 97% on room air. +bs, abd distended & firm, denies nausea or vomiting.Tolerating full liquid diet. Continues on bolus feeds with water flushes- see order. Continent x2. Independent in room. Purposeful hourly rounding completed & safety checks maintained. . Discharge Information Case Management Discharge Plan : Case Management Discharge Plan Data 07/09/2023 15:50 EDT Discharge Level of Care at Discharge Homehealth/VNA Discharge VNA/Hospice/Home Care [facility] [phone] Discharge Medical Equipment Companies [facility] Name of Agency #1 [facility] Service Categories #1 [facility] Service Comments #1 [facility] VNA will call you to coordinate time for homecare visits * Johnna Musa RN: PERFORM Event Display: Progress Note Hospital Authored Date: Patient discharged home with services. Education given on PEG tube feeding & PEG tube maintenance. Dietary educated patient as well at discharge. All paperwork gone over with patient & instructed to pick [facility] * Shaun IBANEZ, Celia Wilson: VERIFY, PERFORM, SIGN Event Display: Progress Note Hospital Authored Date: Patient: CHRISSY REHMAN III Age: 58 years Sex: Male : 1965 Associated Diagnoses: None Author: Shaun IBANEZ, Celia Wilson Findings Problem Related to Alteration in Comfort : Alteration in Comfort/new 07/11/2023 18:00 EDT Alteration in Comfort Related to Disease process Goals & Outcomes: Comfort Pt will report acceptable level of comfort & pain control, Pt will state importance of adhering to pain strategy regime, Pt will demonstrate necessary skills to manage pain, Non-verbal indicators will indicate comfort/pain control Interventions Implemented: Comfort Assess pain using appropriate pain scale/tools Goals/Interventions, Comfort Yes Comfort, Problem Start 07/08/2023 20:00 Reviewed plan with, Comfort Patient Patient Progression, Comfort Pt progressing according to plan Comfort, Problem Ongoing Yes . Nursing Data Vital Signs : VITAL SIGNS SECTION 07/11/2023 16:20 EDT Temperature 98.5 DegF Temperature Route Oral Pulse Rate 94 bpm H Respiratory Rate 16 br/min Systolic Blood Pressure 144 mm Hg H Diastolic Blood Pressure 94 mm Hg H Blood pressure sites Arm, right Mean Arterial Pressure 111 mm Hg Pulse Pressure 50 mm Hg Oxygen Saturation 97 % Mode of Delivery (Oxygen) Room air . Evaluation Pt A & O X3, VSS. Continues to C/O mouth/throat pain medicated with Oxycodone 5mg and Tylenol x2 with good effect. LS clear throughout, no cough noted. Abd slightly distended +BS, + flatus, appetite is improving, LBM 5/24 stool softeners given. NGT was removed today. G-tube dsg cleaned and changed. Tube feeding only given x1 today pt C/O being FULL , appetite is improving, Water Bolus given x3. Pt demistrated given himself water boluses, clamping tube, felt very comfortable about this task. Pt in good spirits today. Call mcdonnell within reach. OOB ambulating in room, gait steady. Call mcdonnell within reach. Plan on going.. * Rosalina CORTÉS, Jesu Corado: PERFORM Event Display: Progress Note Hospital Authored Date: Patient: ??NOLDReid IIICHRISSY ? Age:??58 Years?Sex:??Male?:??1965?? Subjective Chart, Labs, and Imaging reviewed. Patient Seen and examined at bedside. 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 States he feels well today. Tolerating feedings well States mouth pain is??tolerable today. ?? NG tube to be removed now that he is tolerating??oral intake??and feedings. ?? Patient seen at bedside with dietitian present. ??Given that he is taking food and??by mouth??mostly in the form of liquid,??dietitian??is assessing??current recommended??food intake.?? Will need follow-up prior to discharge with dietitian??to confirm??caloric needs and??ensure??he understands how t o??properly use??his G-tube. ?? No other new or acute concerns or complaints. Review of Systems Constitutional:??No f/c HENT:??No DALEY Cardiovascular:??No CP, palpitations Respiratory:??No cough, SOB GI:??No appetite changes. No AP, n/v/d. MSK:??No new myalgias, arthralgias, or deformity.?? Neuro:??No Dizziness, lightheadedness Heme: No bleeding or bruising.?? Skin: No new rashes or lesions ?? All other ROS negative except as stated in HPI.?? Objective ?? Physical Exam Temperature?98.2 ?(06:21) Systolic Blood Pressure?145 ?(06:21) Diastolic Blood Pressure?96 ?(06:21) Pulse?88 ?(06:21) SpO2?97 ?(06:21) Respiratory Rate?20 ?(06:25) ? Constitutional: Awake, alert . NAD. Lying comfortably in bed. HEENT: Normocephalic. Atraumatic. NG tube R. Nare.?Left eye patched.?? Edema over area of left parotid gland.?? Source remain??on??left lateral tongue border,??gumline??of lower teeth. Respiratory: Clear to auscultation. No wheezing, rales or rhonchi. Speaking in full sentences comfortably on room Air. Cardiovascular: RRR. No murmurs, rubs or gallops. No JVD. 2+ radial and pedal pulses. Gastrointestinal: Abdomen soft, non-tender, non-distended. + bowel sounds.?? G- tube site intact Neurologic: No focal deficits.?? Smooth and coordinated/spontaneous movement of extremities. MSK: Uniform strength against resistance in BL UE and LE,??able to??sit upright. Skin: No rashes or lesions??on exposed skin. Extremities: LLE greater circumference than RLE. ??LEs nontender. ??No cyanosis or clubbing. No gross deformities. Normal range of motion. Psychiatric: appropriate mood and affect. Patient is cooperative during exam.?? Assessment/Plan Assessment:??58-year-old male Hx??left parotid gland carcinoma, DVT left leg (06/16/2023),??HTN, HLD,BPH, GERD, obesity, anxiety, depression, bipolar disorder??who is developed mucositis d/t chemoradiation with associated inability to tolerate p.o./with??dysphagia.??Decision made to proceed with G-tu be placement and initiate??tube feeds.??Currently working towards??TF goal??1500 cc/day??(300 cc x 5 meals) ?? Mucositis (K12.30)??causing Dysphagia (R13.10) chemoradiation --> mucositis --> inability to clotilde PO/dysphagia --> malnutrition (07/08) s/p GT?? -Tube feeds started yesterday (150 x 5 meals) tolerating well -Increase TF's to 200??x 5 meals today. ??Dietary in agreement -Continue full liquid diet,??okay to liberalize??when patient feels ready -Continue to monitor for refeeding:??No signs currently -Prior to DC, patient will need to discuss with dietary??regarding??TF's at home ?? Cancer of parotid gland (C07) Chemotherapy related Anemia (D64.9) /??Thrombocytopenia (D69.6) Cancer-related pain (G89.3) dx 03/2023?Primary Onc: Conklin?Rad Onc:??Dong?? (03/2023) S/p L neck dissection, near total parotidectomy / L facial nerve sacrifice / grafting (, [facility]) -Cancer Directed therapy:??cisplatin/etop??(06/06 C1D1) + XRT -Pain:??Continue home oxy liquid 5 q4, morphine 4 IV??every 4 as needed severe pain. ??(If needed, can uptitrate oxy??to 10 every 4/swap for morphine SL if oxy??not working) -Will give liquid bowel meds given mild constipation ?? CHRONIC MEDICAL CONDITIONS: DVT (deep venous thrombosis) (I82.409):??Continue apixaban HTN (hypertension) (I10):??lisinopril HLD (hyperlipidemia) (E78.5):??not on statin BPH (benign prostatic hyperplasia) (N40.0):??noted GERD (gastroesophageal reflux disease) (K21.9):??PPI?? Anxiety with depression (F41.8)? Bipolar disorder (F31.9): continue doxepin ?? Quality Measures Code Status:Full Code Diet:Full Liquid DVT PPX:??Eliquis OMN/ Dispo:??Anticipate likely DC tomorrow ?? I spent a total of??38 minutes today reviewing the chart/medical records, speaking with the patientand approved contacts/ answering questions, formulating and discussing the treatment plan and documenting the findings and encounter. Discussed with nursing and case management. ?? Jesu Romano PA-C?? [facility], Dept. of Hospital Medicine Pager: [phone]?? Consult note * Riley JAUREGUI, Jessa Wilson: PERFORM, MODIFY, MODIFY, MODIFY, MODIFY, MODIFY, MODIFY, MODIFY, MODIFY, MODIFY Event Display: Consultation Note Authored Date: Patient: ??NOLDS III, CHRISSY ? Age:??57 Years?Sex:??Male?:??1965?? 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 He is status post left neck dissection, near-total parotidectomy, with facial nerve sacrifice. ?? Patient was seen in the clinic on 05 July and was noted to have difficulty swallowing both solids and liquids. It was planned to have a G-tube placed however, no availability until next week hence he was sent in patient for G-tube placement. Patient also noted to have leukopenia and thrombocytopenia. His last chemotherapy was given on 06/28/2023-cycle 2-day 1. 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 -CT neck of??March 19, 2023??showed??heterozygous??partially necrotic mass??of left parotid??confined to superficial lobe of the left parotid gland??but not extension to deep lobe of the left parotid gland. ??Left level 2B, 2A??necrotic lymph nodes??concerning for metastatic involvement. ?? -PET CT scan of March 29, 2023??showed abnormal findings??consistent with??a left parotid tumor with local extension to the level 2??lymph nodes on the left. -The patient was referred to Dr. Gross who performed??left neck??dissection levels??II-IV, left near total parotidectomy??with??left facial nerve??sacrifice status post??ansa hypoglossi and??great auricular nerve graft to distal facial nerve branches and fat graft??reconstruction??from??left thighand fascia elpidio sling from modiolous to zygomatic arch??on April 06, 2023. The surgical biopsy revealed acinic cell carcinoma with high grade transformation to involve inked resection margin, [id number]. -The patient was started with concurrent chemoXRT with cisplatin/etoposide on 06/07/23 ?? Chief Complaint Acinic??cell carcinoma??(ACC) of??left parotid gland. Review of Systems All systems reviewed, negative unless specified above Problem List/Past Medical History Ongoing Obese class I Procedure/Surgical History left neck??dissection Social History Alcohol Frequency: 1-2 times per year. Electronic Cigarette/Vaping Electronic Cigarette Use: 1-25 inhales/day. Type: Cannabinoid infused. Substance Abuse Type: Marijuana. Tobacco Interested in cessation: No. No Allergies No Known Medication Allergies Medications Inpatient Acetaminophen Tablet, 650 mg, By Mouth, Every 4 hours, PRN Acyclovir Liquid, 400 mg= 10 mL, By Mouth, 3 times a day Ativan Inj, 0.5 mg, IV Push Slowly, Every 8 hours, PRN Depacon IVPB Dextrose 50% Inj Syringe (25Gm), 12.5 Gm, IV Push Slowly, Every 20 minutes, PRN Dextrose 50% Inj Syringe (25Gm), 25 Gm, IV Push Slowly, Every 15 minutes, PRN Docusate Sodium Capsule, 100 mg= 1 capsule, By Mouth, 2 times a day, PRN Doxepin Capsule, 10 mg, By Mouth, Daily at bedtime gabapentin 300 mg oral capsule, 300 mg, By Mouth, 2 times a day Glucagon Inj, 1 mg, Intramuscular, Once, PRN Glucose Gel, 15 Gm, By Mouth, Every 20 minutes, PRN Glucose Gel, 30 Gm, By Mouth, Every 20 minutes, PRN Heparin Flush 100 units/mL Inj, 500 units= 5 mL, IV Push Slowly, Chemo To Be Scheduled, PRN Heparin Flush 100 units/mL Inj, 500 units= 5 mL, IV Push, Once, PRN hydrALAZINE Inj, 10 mg= 0.5 mL, IV Push Slowly, Every 8 hours, PRN LR 1,000 mL, 1000 mL, IV Infusion Magic Mouth Wash, 10 mL, Swish and Spit, Every 4 hours, PRN Melatonin Tablet, 3 mg, By Mouth, Daily at bedtime, PRN MiraLax Powder, 17 Gm= 1 pack/packet, By Mouth, Daily, PRN MorPHINE Inj, 4 mg, IV Push Slowly, Every 4 hours, PRN NaCL 0.9% 1,000 mL, 1000 mL, IV Infusion NaCL 0.9% 1,000 mL + Mannitol Cont IV 40 Gm + Potassium Chloride Cont IV 20 mEq + Magnesium Sulfate NaCL 0.9% 1,000 mL + Mannitol Cont IV 40 Gm + Potassium Chloride Cont IV 20 mEq + Magnesium Sulfate NaCL 0.9% 500 mL, 500 mL, IV Infusion NaCL 0.9% 500 mL, 500 mL, IV Infusion NaCL 0.9% 500 mL, 500 mL, IV Infusion NaCL 0.9% 500 mL, 500 mL, IV Infusion NaCL 0.9% 500 mL, 500 mL, IV Infusion NaCL 0.9% 500 mL, 500 mL, IV Infusion NaCL 0.9% Flush, 3 mL, IV Push, Every 8 hours NaCL 0.9% Flush, 3 mL, IV Push, Every 8 hours, PRN NaCL 0.9% Flush, 10 mL, IV Push, Every hour, PRN Pantoprazole Inj, 40 mg, IV Push Slowly, Daily Pneumovax 23 Adult Vaccine Inj, 0.5 mL, Intramuscular, Chemo To Be Scheduled Robitussin DM Liquid, 10 mL, By Mouth, Every 4 hours, PRN Senna Tablet, 8.6 mg= 1 tablet, By Mouth, 2 times a day, PRN Simethicone Tablet, 80 mg, Chew, 3 times a day, PRN Zofran Inj, 4 mg, IV Push, Once, PRN Home acetaminophen-codeine 300 mg-30 mg oral tablet, 1 tablet, By Mouth, Every 4 hours, PRN acyclovir 200 mg/5 mL oral suspension, See Instructions Ativan 1 mg oral tablet, See Instructions, PRN Clonidine Clonidine cloNIDine 0.1 mg oral tablet, 0.1 mg, By Mouth, 4 times a day divalproex sodium 500 mg oral enteric coated tablet, 500 mg= 1 tablet, By Mouth, 3 times a day doxepin 10 mg oral capsule, 10 mg= 1 capsule, By Mouth, 3 times a day Eliquis Starter Pack 5 mg oral tablet, 10 mg= 2 tablet, By Mouth, 2 times a day gabapentin 300 mg oral capsule, 300 mg= 1 capsule, By Mouth, 2 times a day hydrOXYzine hydrochloride 10 mg oral tablet, 20 mg= 2 tablet, By Mouth, 4 times a day Lidocaine Viscous 2% solution, 0.1 Gm= 5 mL, Topically, 3 times a day before meals and bedtime, PRN lidocaine-prilocaine 2.5%-2.5% topical cream, See Instructions, 1 refills lisinopril 10 mg oral tablet, 10 mg= 1 tablet, By Mouth, Daily magic mouthwash, See Instructions Multivitamin, 1 tablet, Daily olanzapine 5 mg oral tablet, See Instructions omeprazole 20 mg oral delayed release tablet, 20 mg= 1 tablet, By Mouth, 2 times a day ondansetron 8 mg oral tablet, 8 mg= 1 tablet, By Mouth, Every 8 hours, PRN, 1 refills oxyCODONE 5 mg oral tablet, 5 mg= 1 tablet, By Mouth, Every 6 hours, PRN prochlorperazine 10 mg oral tablet, 10 mg= 1 tablet, By Mouth, Every 6 hours, PRN, 1 refills rosuvastatin 5 mg oral capsule, 5 mg= 1 capsule, By Mouth, Daily tamsulosin 0.4 mg oral capsule, 0.4 mg= 1 capsule, By Mouth, Daily Physical Exam Vitals & Measurements T:??98.2?F?? TMIN:??98.0?F?? TMAX:??98.6?F?? HR:??83??(Peripheral)?? RR:??20?? BP:??150/89?? SpO2:??100%?? WT:??103??kg?? General: Patient in no acute distress HEENT: NC/AT, left facial droop Cardiovascular: S1 S2 Respiratory: no respiratory distress Neuro: AAOx3 no focal deficits Skin:??warm and dry Lab Results/Pathology CBC?? CMP?? Coag?? Abs. NRBC: 0 k/mm3 (07/07/23 01:37:00) Anion Gap: 11 (07/07/23:37:00) APTT: 25.1 seconds (07/07/23:37:00) Hct:??34.2 %??Low (07/07/23:37:00) Bicarbonate Level: 25 mmol/L (07/07/23 01:37:00) INR: 1 (07/07/23:37:00) Nucleated RBC (Automated): 0 #/100 WBC'S (07/07/23 01:37:00) BUN: 13 mg/dL (07/07/23 01:37:00) Protime (PT): 10.9 seconds (07/07/23 01:37:00) RBC:??3.97 m/mm3??Low (07/07/23 01:37:00) Chloride: 104 mmol/L (07/07/23 01:37:00) ?? RDW-SD: 38.4 femtoliters (07/07/23 01:37:00) Creatinine-Blood: 0.95 mg/dL (07/07/23 01:37:00) ?? WBC:??2.1 k/mm3??Low (07/07/23 01:37:00) Estimated GFR Creatinine: 93 ML/MIN/1.73 M2 (07/07/23 01:37:00) ? Glucose Level:??101 mg/dL??High (07/07/23 01:37:00) ? Potassium: 4.3 mmol/L (07/07/23 01:37:00) ? Sodium: 140 mmol/L (07/07/23 01:37:00) ?? Assessment/Plan 57-year-old male??with a diagnosis of??acinic cell??carcinoma of the left parotid gland??receiving chemoradiation with cisplatin etoposide started on??06/07/2023??cycle 2 given on??06/28/2023.?? Patient was directed admitted for??G-tube placement given poor??oral intake, dehydration,??dysphagia??and o dynophagia. He is also noted to have??pancytopenia??with platelets??dropping to??18,000. Cytopenias likely secondary to??chemotherapy. ?? Recommend transfusing as needed??for hemoglobin less than 7 and platelets??less than??10.?If he??is going for procedure such as G-tube placement??can transfuse 2 units of??platelets??prior to procedure. Monitor CBC after procedure. Patient can also become neutropenic, in which case would do supportive management and no role for G-CSF. ?? Case discussed with Dr. Cantu * Pepe JAUREGUI, Rawad: PERFORM Event Display: Consultation Note Authored Date: [id number] Attending Attestation: I have seen and evaluated this patient. I have discussed the case and its management with the Fellow and agree with the findings and plan as documented in the resident???s note. ?? Patient with cytopenia secondary to chemotherapy.?? Supportive management and transfusion as clinically indicated. ??No indication for G-CSF.?? Otherwise plan to proceed with G-tube placement. Note * Johnna Musa RN: PERFORM Event Display: Discharge/Transfer Note Hospital Authored Date: [id number] Nursing Discharge Note Entered On: 07/12/2023 14:23 EDT Performed On: 07/12/2023 14:22 EDT by Johnna Musa RN Nursing Discharge Note 2 Discharge Time : 07/12/2023 14:22 EDT Discharge Level of Care at Discharge : Homehealth/VNA Discharge VNA/Hospice/Home Care(v001) : [facility] [phone] Discharge Medical Equip Companies(v001) : [facility] [phone] Patient Left Unit Via : Wheelchair Patient Accompanied Off Unit with : Significant other DC Instructions Provided & Signed by Pt : Yes Patient Understands D/C Instructions : Yes Patient Instructions Discharge Signed : Yes Did Pt have Specialty Bed or Wound Vac : No Pack MARCELLE, Johnna - 07/12/2023 14:22 EDT * Sam CORTÉS, Holli Juan: PERFORM Event Display: Discharge/Transfer Note Hospital Authored Date: [id number] Patient: ??NOLDS III, CHRISSY ? Age:??58 Years?Sex:??Male?:??1965?? Patient Information Discharge Location: [facility] Primary Care Physician: Florencio Sky Admit Date/Time: 07/06/23 17:54 Discharge Date:??07/12/2023 12:34 Discharge Disposition Discharge Disposition: Home: No Services Discharge Diagnosis ?? Cancer related pain (G89.3) Cancer of parotid gland (C07) Dysphagia (R13.10) DVT (deep venous thrombosis) (I82.409) Mucositis (K12.30) Leucopenia (D72.819) Anemia (D64.9) Thrombocytopenia (D69.6) _ Discharge Medications Acetaminophen/Codeine (acetaminophen-codeine 300 mg-30 mg oral tablet)?1?tab(s)?By Mouth?Every 4 hours?as needed?for pain Acyclovir (acyclovir 200 mg/5 mL oral suspension)?See Instructions?10 mL By Mouth 3 times a day 7 days, then 10 ml twice a day for 21 days Divalproex Sodium (divalproex sodium 500 mg oral enteric coated tablet)?1?tab(s)?500?Milligram?By Mouth?3 times a day Doxepin (doxepin 10 mg oral capsule)?1?capsule?10?Milligram?By Mouth?3 times a day Gabapentin (gabapentin 300 mg oral capsule)?300?Milligram?1?capsule?By Mouth?2 times a day HydrOXYzine (hydrOXYzine hydrochloride 10 mg oral tablet)?2?tab(s)?20?Milligram?By Mouth?4 times a day Lactulose (lactulose 10 gm/15 ml oral syrup)?30?Milliliter?20?gram?By Mouth?3 times a day?as needed?as needed for constipation?for 7?Days Lidocaine/Prilocaine Topical (lidocaine-prilocaine 2.5%-2.5% topical cream)?See Instructions?apply small dollop to [facility] 1 hr prior to appt and cover with plastic Lisinopril (lisinopril 10 mg oral tablet)?10?Milligram?1?tablet?By Mouth?Daily Lorazepam (Ativan 1 mg oral tablet)?See Instructions?as needed?as needed for anxiety?1 tab PO 30m prior to scheduled radaition treatment. Miscellaneous Rx (magic mouthwash)?See Instructions?benadryl elixir 4 oz + nystatin susp (100,000 u/mL) 4 oz + lidocaine visc 2% 100 mL + Mylanta 8 oz 5-10 mL swish/spit or swallow every 2 hours PRN for throat/mouth sore/pain Olanzapine (olanzapine 5 mg oral tablet)?See Instructions?1 tablet By Mouth at bedtime for 4 nights starting the first day of each Cisplatin chemo, as directed. Omeprazole (omeprazole 20 mg oral delayed release tablet)?1?tab(s)?20?Milligram?By Mouth?2 times a day Ondansetron (ondansetron 8 mg oral tablet)?1?tab(s)?8?Milligram?By Mouth?Every 8 hours?as needed?as needed for nausea/vomiting Oxycodone (oxyCODONE 5 mg oral tablet)?5?Milligram?1?tablet?By Mouth?Every 6 hours?as needed?as needed for pain Polyethylene Glycol 3350 (UTC6281 oral powder for reconstitution)?17?gram?By Mouth?Daily?as needed?Constipation PROCHLORperazine (prochlorperazine 10 mg oral tablet)?1?tab(s)?10?Milligram?By Mouth?Every 6 hours?as needed?nausea/vomiting?may cause drowsiness Rosuvastatin (rosuvastatin 5 mg oral capsule)?1?capsule?5?Milligram?By Mouth?Daily Senna (senna 187 mg oral tablet)?1?tab(s)?8.6?Milligram?By Mouth?2 times a day?as needed?Constipation Tamsulosin (tamsulosin 0.4 mg oral capsule)?0.4?Milligram?1?capsule?By Mouth?Daily ? Medications Started constipation PRNs Medications Discontinued none Doses Changed none Allergies Allergies ?(Active and Proposed Allergies Only) No Known Medication Allergies? (Severity: Unknown severity, Onset: Unknown) ? PCP Follow-Up/Heads-Up - new GT, will be followed by Lissette ISLAS - mucositis, improving Hospital Course CHRISSY REHMAN is a 57 yo M with PMHx??left parotid gland carcinoma, DVT left leg (06/16/2023), HTN, HLD, BPH, GERD, obesity, anxiety, depression, bipolar who developed mucositis as a result of chemoradiation with associated inability to tolerate PO??/ dysphagia, and decision made??to proceed with G tube placement for initiation of TF.? His mucositis improved, and he was able to tolerate some diet orally. Our nutrition team has graciously provided him with a duel plan - one for TF if he is tolerating meals well, one if he is unable to tolerate oral intake. He will be followed by the Nutrition team at the [facility].? 07/12/2023??VSS.??Seen and examined at bedside this AM. Eager for discharge, states that he feels well, nearing baseline.?He is tolerating tube feeds and a small amount of oral fluid.??He has not had a BM in a couple of days, has taken a bowel regimen for this.??We discussed keeping him in-house until bowel function??versus discharge with close outpatient follow-up.??He opts for discharge home with??as needed bowel medications prescribed.??He understands to return if no BM in the next??48 hours. ?? Objective Assessment and Plan ?? Mucositis (K12.30)??causing Dysphagia (R13.10) chemoradiation --> mucositis --> inability to clotilde PO/dysphagia --> malnutrition (07/08) s/p GT?? dual plan: TF if no PO vs. holding TF if PO ok ?? 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 CHRONIC MEDICAL CONDITIONS: DVT (deep venous thrombosis) (I82.409):??apixaban HTN (hypertension) (I10):??lisinopril HLD (hyperlipidemia) (E78.5):??not on statin BPH (benign prostatic hyperplasia) (N40.0):??noted GERD (gastroesophageal reflux disease) (K21.9):??PPI?? Anxiety with depression (F41.8)? Bipolar disorder (F31.9): continue doxepin ? . Physical Exam Temperature?98.4 ?(11:53) Systolic Blood Pressure?149 ?(11:53) Diastolic Blood Pressure?92 ?(11:53) Pulse?98 ?(11:53) SpO2?95 ?(11:53) Respiratory Rate?20 ?(11:53) ?? General: Alert, NAD. HEENT: Normocephalic. NG tube via R nare.?? L eye patched. Edematous L parotid gland. Visualized sores on lateral border L tongue, lower teeth gum line . no obvious thrush , exudate, erythema . edemaposterior oropharynx Respiratory: Clear to auscultation. No wheezing, rales or rhonchi. Cardiovascular: RRR. No murmurs, rubs or gallops. Gastrointestinal: Abdomen soft, non-tender, non-distended. + bowel sounds. G tube site clean without surrounding erythema, edema, purulence, leakage.?? Neurologic: Moves all extremities spontaneously. Skin: No rashes or lesions. erythema to LLE.?? Extremities: No cyanosis or clubbing. No gross deformities. Normal range of motion. LLE circumference > RLE with increased erythema. peripheral pulses DP PT 2+ equal yolanda.?? Psychiatric: appropriate mood and affect Consultants IR rad onc Pending Results IR US Images ordered on 07/09/2023 Transfuse Platelets ordered on 07/07/2023 Transfuse Platelets ordered on 07/08/2023 Patient Education Titles WebMD Ignite Patient Education - Depression?? Follow-Up Appointments Added Follow Up ?Time Frame ?Comments Junito CORTÉS, Florencio Beaver Patient Instructions REASON FOR ADMISSION ??/ DIAGNOSIS:?? You were admitted to the hospital for placement of a G-tube. ??This was successfully placed. You will be sent home with some tube feeds. ??The nutrition team has reviewed with you??these tube feeds. ?? You will follow up with the ROSHAN Estrada at the cancer center.? MEDICATIONS: NEW:?? I have sent you some medications for constipation - these are miralax,??senna, and lactulose If you do not have a bowel movement within??about 48 hours, consider taking 1 of these.?? You can take whichever??you feel regulate your bowels best.?? You can take these all together, though note they may cause a little bit of diarrhea. ?? STOP: none CHANGED DOSES: none no other changes to your home regimen.? FOLLOW UP CARE:?? Please follow up??with your radiation oncologist and medical oncologist??as previously scheduled. ?? WHEN TO RETURN: If you are unable to have a bowel movement??and this causes vomiting.?? If the pain is getting worse. If your g tube pulls out, or has pus or any significant increased redness to the area.? It was a pleasure to be involved in your care here at [facility].?? We wish you the best in the future.?? Post Discharge Care Discharge ?07/12/23 12:33:00 EDT Discharge Prescriptions ?ePrescribed, 07/12/23 12:33:00 EDT Home Health Face to Face ^HomeHealthFTF Results Discharge Labs BLOOD BANK PLT Unit ID [id number] ()?? 07/08/2023 09:05 PLT Available PT ()?? 07/08/2023 09:05 ?? BLOOD COUNT & DIFF WBC 8.8 k/mm3 ()?? 07/12/2023 03:45 RBC 3.82 m/mm3 (Low)?? 07/12/2023 03:45 Hgb 10.9 Gm/dL (Low)?? 07/12/2023 03:45 Hct 32.4 % (Low)?? 07/12/2023 03:45 MCV 84.8 femtoliters ()?? 07/12/2023 03:45 MCH 28.5 pg ()?? 07/12/2023 03:45 MCHC 33.6 g/dL ()?? 07/12/2023 03:45 Platelet Count 94 k/mm3 (Low)?? 07/12/2023 03:45 RDW-SD 37.3 femtoliters ()?? 07/12/2023 03:45 MPV 9.4 femtoliters ()?? 07/12/2023 03:45 Nucleated RBC (Automated) 0.0 #/100 WBC'S ()?? 07/12/2023 03:45 Abs. NRBC 0.0 k/mm3 ()?? 07/12/2023 03:45 Abs. Neut 0.8 k/mm3 (Low)?? 07/08/2023 03:00 Abs. Lymph 0.9 k/mm3 ()?? 07/08/2023 03:00 Abs. Grundy 0.2 k/mm3 (Low)?? 07/08/2023 03:00 Abs. Eo 0.0 k/mm3 ()?? 07/08/2023 03:00 Abs. Baso 0.1 k/mm3 ()?? 07/08/2023 03:00 Neut % 42.2 % (Low)?? 07/08/2023 03:00 Lymph % 43.2 % (High)?? 07/08/2023 03:00 Grundy % 10.3 % ()?? 07/08/2023 03:00 Eos % 0.0 % ()?? 07/08/2023 03:00 Baso % 2.6 % (High)?? 07/08/2023 03:00 Atypical Lymph % 1.7 % ()?? 07/08/2023 03:00 Platelet Estimate DECREASED ()?? 07/08/2023 03:00 Imm Gran 1.9 % ()?? 07/07/2023 01:37 Abs. Imm Gran 0.0 k/mm3 ()?? 07/07/2023 01:37 ?? CHEM GENERAL Sodium 140 mmol/L ()?? 07/12/2023 03:45 Potassium 3.8 mmol/L ()?? 07/12/2023 03:45 Chloride 100 mmol/L ()?? 07/12/2023 03:45 Bicarbonate Level 30 mmol/L (High)?? 07/12/2023 03:45 Anion Gap 10 ()?? 07/12/2023 03:45 Glucose Level 118 mg/dL (High)?? 07/12/2023 03:45 Glucose, POC 114 mg/dL (High)?? 07/12/2023 11:34 BUN 6 mg/dL ()?? 07/12/2023 03:45 Creatinine-Blood 0.97 mg/dL ()?? 07/12/2023 03:45 Estimated GFR Creatinine 90 ML/MIN/1.73 M2 ()?? 07/12/2023 03:45 Calcium 8.3 mg/dL (Low)?? 07/12/2023 03:45 Calcium, Ionized pH Corrected 1.17 mmol/L ()?? 07/11/2023 06:38 Phosphorus 3.8 mg/dL ()?? 07/12/2023 03:45 Magnesium 1.9 mg/dL ()?? 07/12/2023 03:45 ?? COAG INR 1.0 ()?? 07/07/2023 01:37 Protime (PT) 10.9 seconds ()?? 07/07/2023 01:37 APTT 25.1 seconds ()?? 07/07/2023 01:37 ? URINE OTHER Est Creatinine Clearance 79.62 mL/min ()?? 07/12/2023 04:26 ? VIROLOGY COVID-19 by RT-PCR NEGATIVE ()?? 07/09/2023 17:55 COVID-19 PCR Specimen Source NASAL ()?? 07/12/2023 05:35 COVID-19 PCR Result NEGATIVE ()?? 07/12/2023 05:35 ? 35??minutes spent on discharge * Johnna Musa RN: PERFORM Event Display: Patient Education/Instruction Authored Date: Inpatient Adult Discharge Instructions. [address] [address] Name: CHRISSY REHMAN : 1965?? Visit: 07/06/2023 17:54?? Current Date: 07/12/2023 13:19 ?? Account: [id number]?? Inpatient Adult Discharge Instructions We would like [...] and their families. Surveys are administered by [employer] ?? If further treatment with your primary care physician or another doctor is recommended, it is important for you to keep the appointment. Call your primary care physician or return to the Emergency Department immediately if your condition worsens, fails to improve, or new symptoms develop. If you need to find a doctor, you can call [facility] Link for a referral at [phone] or toll free at [phone] ([phone]) or log in to [email or web address].. ?? [facility], in keeping with [facility] guidance, no longer requires face masks for [...] a health care greg of your choosing. [employer] is a website that allows you to securely view your medical information including your hospital discharge summary, office visit summaries, medications and follow-up visits. You can also request appointments, renew medications, and request access to your medical information using a health care greg of your choosing, or just ask a question. You can enroll at [email or web address] or register during your next office visit. You have been discharged from [facility], Patient Care Unit: [id number]??. If you have any questions regarding these instructions, including results of studies pending, afteryou leave, please call us and we will be happy to assist you 31/08. [facility] Your Care Team Attending Physician Sammie Brand MD?? Consulting Providers Sammie Brand MD?? 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 You may have had other tests and procedures not included in this list. Please discuss all test results with your provider. Basic Metabolic Panel BUN CBC CBC w/ Differential COVID-19 (2019 Novel Coronavirus) PCR COVID-19 (Novel Coronavirus), Rapid PCR Creatinine Electrolytes Glucose Level GLUCOSE POC INR Ionized Calcium Magnesium Level Phosphorus Level Platelet Count PTT IR Generic Order IR US Images?-- Results Pending -- XR Chest 2 Views Frontal and Lat You will be contacted within 72 hours with your results. IR US Images?? Transfuse Platelets (Platelets, Transfuse)?? Primary Care Provider Florencio Sky? Advance Directive Health Care Proxy on File Yes - Health Care Proxy Discharge Vitals Temperature: 98.4 DegF Height: 173 cm Pulse Rate:??98 bpm??High Weight: 103 kg Respiratory Rate: 20 br/min Body Mass Index:??34.41 kg/m2??Critical Systolic Blood Pressure:??149 mm Hg??High Body surface area: 2.22 Diastolic Blood Pressure:??92 mm Hg??High ?? Oxygen Saturation: 95 % ?? Studies Pending All studies ordered during this hospital stay have been completed unless listed below. Please discuss all pending results with your provider listed above in these instructions. ?? IR US Images?? Transfuse Platelets (Platelets, Transfuse)?? What to do next Instructions From Your Doctor REASON FOR ADMISSION ??/ DIAGNOSIS:?? You were admitted to the hospital for placement of a G-tube. ??This was successfully placed. You will be sent home with some tube feeds. ??The nutrition team has reviewed with you??these tube feeds. ?? You will follow up with the ROSHAN Estrada at the cancer center.? MEDICATIONS: NEW:?? I have sent you some medications for constipation - these are miralax,??senna, and lactulose If you do not have a bowel movement within??about 48 hours, consider taking 1 of these.?? You can take whichever??you feel regulate your bowels best.?? You can take these all together, though note they may cause a little bit of diarrhea. ?? STOP: none CHANGED DOSES: none no other changes to your home regimen.? FOLLOW UP CARE:?? Please follow up??with your radiation oncologist and medical oncologist??as previously scheduled. ?? WHEN TO RETURN: If you are unable to have a bowel movement??and this causes vomiting.?? If the pain is getting worse. If your g tube pulls out, or has pus or any significant increased redness to the area.? It was a pleasure to be involved in your care here at [facility].?? We wish you the best in the future.? Orders? 07/12/23 12:33:00 EDT?? Prescriptions??, ??07/12/23 12:33:00 EDT?? You Need to Schedule the Following Appointments Follow Up with??Florencio Sky Where: [address] [place] [address]- Discharge Medications NICCICHRISSY Mathews III :1965 Visit Date:07/06/2023 Medications: Please continue your medications until treatment is completed or stopped by your provider. Medications not listed below should be discontinued. Discuss any questions related to medications with your provider. What How Much When Instructions Next Dose New Lactulose (lactulose 10 gm/ 15 ml oral syrup) 30 Milliliter Oral 3 times a day as needed for as needed for constipation Duration: 7 Days Pickup at [place] [address] 9 07/12/2023 New Polyethylene Glycol 3350 (RHR5628 oral powder for reconstitution) 17 gram Oral Daily as needed for Constipation Pickup at [place] [address] as needed New Senna (senna 187 mg oral tablet) 1 tab(s) Oral Twice a day as needed for Constipation Pickup at [place] [address] 9 07/12/2023 Changed Lidocaine Topical (lidocaine 4% mucous membrane solution) 10 Milliliter Swish and Spit Every 4 hours as needed for Other Duration: 7 Days mouth sore / ??pain ?? Pickup at [place] [address] as needed Changed apixaban (Eliquis Starter Pack 5 mg oral tablet) Unchanged Acetaminophen/ Codeine (acetaminophen-codeine 300 mg-30 mg oral tablet) 1 tab(s) Oral Every 4 hours as needed for for pain Unchanged Acyclovir (acyclovir 200 mg/ 5 mL oral suspension) See instructions 10 mL By Mouth 3 times a day 7 days, then 10 ml twice a day for 21 days ?? 9pm 07/12/2023 Unchanged Divalproex Sodium (divalproex sodium 500 mg oral enteric coated tablet) 1 tab(s) Oral 3 times a day 9pm 07/12/2023 Unchanged Doxepin (doxepin 10 mg oral capsule) 1 capsule Oral 3 times a day 9pm 07/12/2023 Unchanged Gabapentin (gabapentin 300 mg oral capsule) 1 capsule Oral Twice a day pm 07/12/2023 Unchanged HydrOXYzine (hydrOXYzine hydrochloride 10 mg oral tablet) 2 tab(s) Oral 4 times a day as needed Unchanged Lidocaine/ Prilocaine Topical (lidocaine-prilocaine 2.5%-2.5% topical cream) See instructions apply small dollop to [facility] 1 hr prior to appt and cover with plastic ?? Unchanged Lisinopril (lisinopril 10 mg oral tablet) 1 tab(s) Oral Daily 9 am 07/13/2023 Unchanged Lorazepam (Ativan 1 mg oral tablet) See instructions 1 tab PO 30m prior to scheduled radaition treatment., As needed for as needed for anxiety ?? Unchanged Miscellaneous Rx (magic mouthwash) See instructions benadryl elixir 4 oz + nystatin susp (100,000 u/ mL) 4 oz + lidocaine visc 2% 100 mL + Mylanta 8 oz 5-10 mL swish/ spit or swallow every 2 hours PRN for throat/ mouth sore/ pain ?? Unchanged Olanzapine (olanzapine 5 mg oral tablet) See instructions 1 tablet By Mouth at bedtime for 4 nights starting the first day of each Cisplatin chemo, as directed. ?? Unchanged Omeprazole (omeprazole 20 mg oral delayed release tablet) 1 tab(s) Oral Twice a day 9pm 07/12/2023 Unchanged Ondansetron (ondansetron 8 mg oral tablet) 1 tab(s) Oral Every 8 hours as needed for as needed for nausea/vomiting as needed Unchanged Oxycodone (oxyCODONE 5 mg oral tablet) 1 tab(s) Oral Every 6 hours as needed for as needed for pain Pickup at [facility] 3 as needed Unchanged PROCHLORperazine (prochlorperazine 10 mg oral tablet) 1 tab(s) Oral Every 6 hours as needed for nausea/vomiting may cause drowsiness ?? as needed Unchanged Rosuvastatin (rosuvastatin 5 mg oral capsule) 1 capsule Oral Daily 9 am 07/13/2023 Unchanged Tamsulosin (tamsulosin 0.4 mg oral capsule) 1 capsule Oral Daily 9 am 07/13/2023 Pharmacy Information [facility] 3: [address] [place], [place] [id number] [phone] ?? What How Much When Comments Stop Taking Clonidine Stop Taking Clonidine as needed for anxiety ?? Stop Taking Clonidine (cloNIDine 0.1 mg oral tablet) 0.1 Milligram Oral 4 times a day Stop Taking Multivitamin 1 tab(s) Daily Prescription Given During Visit Lactulose (lactulose 10 gm/15 ml oral syrup) - 30 mL = 20 Gm, By Mouth, 3 times a day, # 630 mL, 0 Refills, [facility] [address] [place] [address] [phone]?? Lidocaine Topical (lidocaine 4% mucous membrane solution) - 10 mL = 0.4 Gm, Swish and Spit, Every 4hours, # 420 mL, 0 Refills, mouth sore / pain, [facility] [address] [address] [phone]?? Oxycodone (oxyCODONE 5 mg oral tablet) - 1 tablet = 5 mg, By Mouth, Every 6 hours, # 42 tablet, 0 Refills, [address] [address] [phone]?? Polyethylene Glycol 3350 (LHQ7039 oral powder for reconstitution) - 17 Gm, By Mouth, Daily, # 510 Gm, 0 Refills, [address] [address] [phone]?? Senna (senna 187 mg oral tablet) - 1 tablet = 8.6 mg, By Mouth, 2 times a day, # 30 tablet, 0 Refills, [address] [address] [phone]?? Laboratory Results Below is a partial list of the most recent Laboratory test results done prior to this discharge. You may have had other tests and procedures not included in this list. Please discuss all test resultswith your provider. Est Creatinine Clearance - 79.62 mL/min (07/12/2023) PLT Available - PT (07/08/2023) PLT Unit ID - [id number] (07/08/2023) Basic Metabolic Panel (07/12/2023) ???Sodium - 140 mmol/L???Potassium - 3.8 mmol/L???Chloride - 100 mmol/L???Bicarbonate Level - 30 mmol/L???Anion Gap - 10???Glucose Level - 118 mg/dL???BUN - 6 mg/dL???Creatinine-Blood - 0.97 mg/dL???Estimated GFR Creatinine - 90 ML/MIN/1.73 M2???Calcium - 8.3 mg/dL BUN (07/07/2023) ???BUN - 13 mg/dL CBC (07/12/2023) ???WBC - 8.8 k/mm3???RBC - 3.82 m/mm3???Hgb - 10.9 Gm/dL???Hct - 32.4 %???MCV - 84.8 femtoliters???MCH - 28.5 pg???MCHC - 33.6 g/dL???Platelet Count - 94 k/mm3???RDW-SD - 37.3 femtoliters???MPV - 9.4femtoliters???Nucleated RBC (Automated) - 0.0 #/100 WBC'S???Abs. NRBC - 0.0 k/mm3 CBC w/ Differential (07/08/2023) ???WBC - 2.0 k/mm3???RBC - 4.12 m/mm3???Hgb - 11.7 Gm/dL???Hct - 35.1 %???MCV - 85.2 femtoliters???MCH - 28.4 pg???MCHC - 33.3 g/dL???Platelet Count - 36 k/mm3???RDW-SD - 37.0 femtoliters???MPV - 10.0 femtoliters???Nucleated RBC (Automated) - 0.0 #/100 WBC'S???Abs. NRBC - 0.0 k/mm3???Abs. Neut - 0.8 k/mm3???Abs. Lymph - 0.9 k/mm3???Abs. Grundy - 0.2 k/mm3???Abs. Eo - 0.0 k/mm3???Abs. Baso - 0.1 k/mm3???Neut % - 42.2 %???Lymph % - 43.2 %???Grundy % - 10.3 %???Eos % - 0.0 %???Baso % - 2.6 %???Atypical Lymph % - 1.7 %???Platelet Estimate - DECREASED COVID-19 (2019 Novel Coronavirus) PCR (07/12/2023) ???COVID-19 PCR Specimen Source - NASAL???COVID-19 PCR Result - NEGATIVE COVID-19 (Novel Coronavirus), Rapid PCR (07/09/2023) ???COVID-19 by RT-PCR - NEGATIVE Creatinine (07/07/2023) ???Creatinine-Blood - 0.95 mg/dL???Estimated GFR Creatinine - 93 ML/MIN/1.73 M2 Electrolytes (07/07/2023) ???Sodium - 140 mmol/L???Potassium - 4.3 mmol/L???Chloride - 104 mmol/L???Bicarbonate Level - 25 mmol/L???Anion Gap - 11 Glucose Level (07/07/2023) ???Glucose Level - 101 mg/dL GLUCOSE POC (07/12/2023) ???Glucose, POC - 114 mg/dL INR (07/07/2023) ???INR - 1.0???Protime (PT) - 10.9 seconds Ionized Calcium (07/11/2023) ???Calcium, Ionized pH Corrected - 1.17 mmol/L Magnesium Level (07/12/2023) ???Magnesium - 1.9 mg/dL Phosphorus Level (07/12/2023) ???Phosphorus - 3.8 mg/dL Platelet Count (07/07/2023) ???Platelet Count - 18 k/mm3 PTT (07/07/2023) ???APTT - 25.1 seconds Allergies (NKA means No Known Allergies) No Known Medication Allergies Problems Active Problems??(1) Obese class I?? Education Materials Below is the list of Educational Leaflet Providered with your Discharge Instructions. [employer] Ignite Patient Education - Discharge Instructions: Caring for Your Gastrostomy Tube (G-Tube)?? Web[employer]Ease Ignite Patient Education - G_Tube Placement?? [employer] Patient Education - Depression?? Valuables and Belongings I fully understand and agree that [facility] accepts no responsibility for all my [...] Review of Valuable and Belonging List: With patient, With witness Date for Pt to Sign Valuables/Belongings: 07/09/23 17:59:00 ?? Other Discharge Information ? Case Management Discharge Plan?? Discharge Plan?? Discharge Agency Information?? Discharge Level of Care at Discharge: Homehealth/VNA Service Categories #1: Usp Discharge VNA/Hospice/Home Care: [facility] [phone] Service Comments #1: [facility] will call you to coordinate time for homecare visits Discharge Medical Equipment Companies: [facility] [phone] Service Categories #2: Other: Tube Feed supplies ?? Service Comments #2: The agency will call you to arrange supply delivery time, please call agency with questions ?? Pulmonary Rehab Status?? Pulmonary Rehab Discharge Status?? Respiratory Rate: 20 br/min Discharge Medical Equipment Companies: [facility] [phone] ? Common Emergency Awareness Tips IS IT [...] are strongly encouraged to quit. Please call [facility] Link at [phone] or [phone] ([phone]) or log in to [email or web address] for referrals to smoking cessation programs. ?? 709 Suicide & Crisis Lifeline is available 31/08 if you or someone you know needs to find a reason to keep living. By calling 988 you'll be connected to a skilled, trained counselor at a crisis center in your area. INPATIENT DISCHARGE INSTRUCTIONS SIGNATURE PAGE CHRISSY REHMAN III Location:[facility] Registration Date and Time:07/06/2023 17:54 EDT Primary Care Physician: Florencio Sky, Attending Physician: Sammie Brand MD, I CHRISSY REHMAN III, have received the above patient education materials/instructions and have verbalized understanding. If ambulance or transport services are being used I further acknowledge being given a choice of service. ?? If you need to contact me, please call me at this number: . Patient/Hair Salon Manager Name: Patient/Hair Salon Manager Signature: Relationship to Patient: Witness Name/Signature: Date: * Holli Angeles: PERFORM Event Display: Patient Education Leaflets Authored Date: [id number] Discharge Instructions: Caring for Your Gastrostomy Tube (G-Tube) ?? [id number] Discharge Instructions: Caring for Your Gastrostomy Tube (G-Tube) You have been discharged with a gastrostomy tube, or G-tube. The G-tube was inserted through your belly (abdominal) wall and into your stomach. The tube will provide you with food, fluids, and medicine. Your G-tube may move in and out slightly. If the tube comes out all the way in??the first few weeks after placement,??don???t put it back in. Call your healthcare provider right away. Don???t waituntil the next day. This is important because the G-tube tract through the skin may close very quickly, often in 24 hours.??After the first few weeks, if the tube comes out, ask your provider what todo next. In some cases, you may be told to replace the tube at home. Or you may need to see your pro vider to replace it. General guidelines for use ??? Wash your hands thoroughly with soap and clean, running water??before starting your feeding. ??? During the feeding and for one hour after, sit in a chair or sit up in bed. ??? Before feeding begins, your healthcare provider may have you check to see that your stomachis empty. Follow your healthcare team's specific instructions if you are advised to check residuals. If you are instructed to check residuals, you will l need a syringe for the following steps:?? o Put the tip of an empty syringe into the end of the G-tube. o Pull back on the syringe to withdraw your stomach contents. o In some cases, your provider will ask you to check how much feeding remains from the previous time. If so, your provider will tell you how much fluid is safe to have in your stomach before you start your feeding. ??? Clean the area around the tube with mild soap and water. ???Pat the area dry after bathing and as needed. ??? Clean the area more often if it gets wet. Or if it's leaking some discharge (weeping). ??? Keep the disk (flange) a few millimeters off the skin. This should leave just enough room for a gauze sponge if your provider advises keeping gauze on the site. Pulling the flange too tightly can damage the skin. But leaving the flange too loose leads to leaking around the G-tube. Your healthcare team will go over these guidelines before you leave the hospital. ?? The name of my feeding supplement/formula is: Amount per feeding:?? Times per day: Amount of water used to flush tube: My healthcare provider's name and phone number are: ?? [place] feeding method ??? Fill the feeding bag with the prescribed amount of formula. Run the fluid to the end of the tube to clear out any air. Clamp the tube. ??? Connect the end of the feeding bag tubing to the G-tube. ??? Hang the bag at least 18 inches above the level of your G-tube. ??? Openthe clamp and allow the formula to flow into the G-tube. ??? Follow with the prescribed amount of water. ??? Follow your healthcare team's instructions on when to clean your bag and tubing and when to use a new bag and tubing. ?? Pump feeding method ??? Fill the feeding bag with the prescribed amount of formula. Run the fluid to the end of the tube to clear out any air. Clamp the tube. ??? Connect the end of the feeding bag tubing to the G-tube. Set the pump rate of flow to the prescribed rate per hour. ??? Open the clamp on the tubing. Press the start button on your pump. ??? When feeding is done, disconnect the feeding set. ??? Connect the tip of an empty syringe to the feeding tube. Slowly push in the prescribed amount of water. ??? Follow your healthcare team's instructions on when to clean your bag and tubing andwhen to use a new bag and tubing. ?? Syringe feeding method ??? Remove the plunger from a syringe and connect the syringe to the G-tube.??? Hold the syringe upright and pour the formula into the syringe. ??? Refill the syringe as the formula reaches the bottom of the syringe. ??? Repeat the process until the prescribed amount of formula is given. ??? Follow the feeding with the prescribed amount of water. ??? Follow your healthcareteam's instructions on when to clean your syringe and tubing and when to use a new syringe and tubing. ?? Routine follow-up care Follow your healthcare provider's specific instructions on what to do if the tube comes out by accident. If the tube comes out all the way in??the first few weeks after placement,??don???t put it back in. Call your provider right away. Don???t wait until the next day. This is important because the G-tube tract through the skin may close very quickly, often in 24 hours.??After the first few weeks,if the tube comes out, ask your provider about what to do next. In some cases, you may be told to replace the tube at home. Or you may need to see your provider to replace it. Otherwise, follow up with your provider, or as advised. If your tube is scheduled to be removed, your provider will tell you when this needs to happen and what you need to do. ?? When to call your healthcare provider Call your healthcare provider right away if you have any of the following: ??? The tube comes out? The tube is blocked ??? Vomiting ??? Fever above 100.4??F ( 38.0??C) or higher ??? Diarrhea that lasts more than 2 days ??? Signs of infection (redness, swelling, or warmth at the tube site) ??? Drainage from the tube site ?? Last Reviewed Date: 2020 ?? [employer] All rights reserved. This information is not intended as a substitute for professional medical care. Always follow your healthcare professional's instructions. ?? * Holli Angeles: PERFORM Event Display: Patient Education Leaflets Authored Date: [id number] G_Tube Placement ?? 657 GIVE TO PATIENT OR SOFTWARE ENGINEER MOBILE ON DISCHARGE - ?? Gastrostomy (G-tube) or GastroJejunostomy (GJ) TubePlacement?? Who will take care of and teach me about the gastrostomy/GJ tube? Once the need for a Gastrostomy/GJ is identified, the interventional radiologist will evaluate you.The interventional radiologist will determine what type of tube will be placed and by what method. You will meet many different hospital staff who will help you learn about your new gastrostomy/GJ tube. These people will include the interventional radiologist, nurse practitioners, the staff nurses,the gifted teacher, and the home care manager. Each of these people will help you with different aspects of your care and be available to answer your questions and assist you with problem solving. Back to Basics - Anatomy and Physiology of the Gastrointestinal Tract The gastrointestinal (GI) tract is a continuous path from the mouth to the anus. In the normal GI tract food enters the mouth where it is chewed and partially broken down by saliva. When swallowed, food then enters the esophagus where it is transported to the stomach. The area between the esophagusand the stomach is the GE junction. Normally at the GE junction the angle into the stomach is such that food is contained in the stomach and not allowed to back up into the esophagus. So that the body can use the nutrients, acid in the stomach digests food. The digested food then moves through the pyloric canal and into the small intestine. In the small intestine the body absorbs more nutrients and water. The waste remaining moves into the large intestine and is produced as stool. Problems in the GI system can occur at any point along the way. ?? What is a gastrostomy/GJ feeding tube? A gastrostomy feeding tube is either a tube or a ???button??? (skin level device) that is placed into the stomach through the abdominal wall. There are a variety of tubes and skin level devices. Yourdoctor will choose the device which best meets your needs with the least invasive technique. Who needs a gastrostomy/GJ? Patients require gastrostomy/GJ feeding tubes for a variety of reasons. The primary indication for gastrostomy is the inability to take adequate nutrition or liquids by mouth for growth and development. The reasons why the patient is unable to take proper nutrition can be developmental, mechanical,or secondary to other health problems. A GastroJejunostomy (GJ) tube may be needed if there is a problem with gastroesophageal reflux from the stomach requiring that the feeding be done directly intothe small intestine. What does the preoperative/preprocedure testing is needed? There are several studies which may be done before arranging gastrostomy placement. These studies are done to be sure whether or not there is gastroesophageal reflux. If significant reflux is presentthe surgeon will discuss with you the possibility of surgically treating the reflux at the same time that the gastrostomy is done. Your child may not require all of these studies. The studies includethe followin. a. Upper GI/Swallow Study: For this study the patient swallows (if able) a small amount of contrast (barium) and its progress is monitored through the upper gastrointestinal tract by x-ray. If thepatient is unable to swallow, the barium is given through a feeding tube placed through the nose into the stomach. If movement of barium back into the esophagus from the stomach is seen, the patient has reflux. This study also provides the an x-ray picture of the patient gastrointestinal tract anatomy. This study is usually done as an outpatient. b. pH Probe: This study is done if the clinical history is suspicious for gastroesophageal reflux but reflux is not clearly demonstrated on an upper GI. Patients may be admitted to the hospital for 24 hours. A small wire with a sensor is placed through the nose and into the esophagus. The sensor sits just above the stomach and measures any acid or reflux episodes. After the pH probe is placed, the patient wears a small monitor and is free to movearound the hospital unit and eat and drink normally. A diary of activity and diet is kept during this time. c. Gastric Emptying Study: This study evaluates the time it takes for the stomach to empty a specific amount of food. Delayed emptying often significantly contributes to gastroesophageal reflux. This study is done as an outpatient. Once the studies are complete you may return to the clinic for a consultation with the interventional radiologist. The results of the studies will be reviewed and the interventional radiologist will discuss the recommendations. If you choose to plan the G Tube or G-J Tube, scheduling and necessary paperwork will be completed at that time.?? What is gastroesophageal reflux? As mentioned in the previous section, before placement of a gastrostomy feeding tube is planned, the presence or absence of gastroesophageal reflux must be determined. Gastroesophageal reflux is the movement of food and acid from the stomach back into the esophagus. Reflux often causes gagging, vomiting, and epigastric pain or burning. Many patients with reflux have frequent upper respiratory infections, inadequate weight gain, and/or inability to recline without pain or vomiting. It is common for babies to have some reflux and most stop refluxing as they grow bigger. There are some patients whose reflux is significant enough to interfere with growth. For patients with significant reflux, placing a gastrostomy feeding tube alone is not recommended. Surgical treatment of the refluxmay be recommended. The anti-reflux procedure is called a fundoplication. ?? Planning the Procedure/Expected Hospital Stay Once the pre-operative evaluation is complete, the procedure will be scheduled. Generally, patientscome to the hospital the day of the procedure and may be admitted after the procedure is over. Mostpatients will stay in the hospital for one to two hours if only a G-tube feeding tube is placed. Your time in the hospital will be spent recuperating from the procedure and beginning feedings throughthe gastrostomy tube. You will be taught how to care for the gastrostomy tube and administer feedings. Arrangements will be made for home care delivery of feeding supplies. Caring for the Gastrostomy Tube At Home Securing the tube : How a gastrostomy tube is secured is dependent on the type of tube placed. Mosttubes have a balloon or mushroom shaped part on the inside of the stomach and a disk, clamp, or crossbar on the outside to keep them in place. Initially some tubes will also have a stitch or suture holding it in place. It is extremely important that the tube stay in good position to avoid problems with leakage. If the balloon or mushroom sinks into the stomach or if the outside disk or clamp is too loose, stomach contents may leak out around the tube. The disk, clamp or crossbar should fit snugly enough to hold the tube in proper position, but not leave an indentation on the skin. ??Retention sutures to hold the stomach against the wall of the abdomen are placed and will usually be removed after two weeks. Cleaning around the tube : It is important for the area around the gastrostomy/GJ tube to be kept clean and dry. Start by washing your hands. For the first 2-3 days the gastrostomy/GJ tube site should be cleaned two to three times per day with half strength hydrogen peroxide. Do not use full strength hydrogen peroxide as this may burn the skin. Change the drain sponges/gauze pads with each cleaning. This keeps the area clean and promotes healing. After the first 2-3 days, the site should be cleaned daily with mild soap and warm water. Antibiotic ointments or creams are not usually necessary and should only be used at the instruction of your physician. Bathing : You will need to keep the new gastrostomy site dry for the first two days. You may showerafter two days. Clean the site and pat dry after showering. Your may bathe or swim after the retention sutures have been removed. Venting/Burping the tube : Some patients have a difficult time with gas after gastrostomy tube placement. It may be necessary to relieve the gas by venting or burping the gastrostomy tube. Place a 60cc syringe with the plunger removed into the end of the gastrostomy tube. If the tube is clamped, open the clamp (DO NOT OPEN THE CLAMP ON THE DRAIN TUBE ATTACHMENT). Hold the syringe above the stomach for a few minutes. If gas is present you should hear the gas bubble up through the tube or sometimes even see stomach contents back up into the tube and syringe. Once the gas is relieved allow the formula, if stomach contents also came out, to flow slowly back into the stomach. You may need to have this done frequently especially during the first few days after tube insertion. Activity Restrictions : You should not lift anything heavier than 10 pounds and should not participate in vigorous activity for two weeks after the surgery. After two weeks you may resume regular activities but not contact sports [such as football, wrestling]. What Happens if the Tube Comes Out? It is possible for your gastrostomy tube to accidentally come out. This may happen by mistake or when the tube has been left in too long and the balloon has becomeflat. If the tube comes out DO NOT PANIC. The site may bleed a little, stomach contents may leak out of the hole, and you may experience pain or discomfort. Cover the hole with a clean, dry cloth and call our office or after hours number immediately [see information at the end of this document]. Once the tube is out, the gastrostomy hole will begin to close and may close completely in only four to six hours. If you live near the hospital, we will ask you to come in immediately. If you live far from [facility], we will direct you to your local hospital emergency room. The local ERshould be able to get a temporary tube (usually a tube called a Adkins catheter) in place until you can come to [facility] for tube replacement. If your tube has been replaced within the first few weeks after surgery, the new tube should be checked under x-ray for proper placement. Leakage: Feed or medication may seep from around the tube and cause irritation. This can occur especially with: medications such as Prilosec (omeprazole) and similar medicines, too vigorous cleaning with hydrogen peroxide, twisting the tube, increased stomach acidity, and poor wound healing.?? Thismay be treated with a barrier cream but may need referral for tube change. Infections: Local infections are common and if minor may require local antiseptics or barrier creams. More severe infections require referral for antibiotics and possible revision or changing the tube. Feeding Through the Gastrostomy/G-J Tube at Home : There are several ways to feed through the gastrostomy tube and there are several types of feedings. The surgery/oncology nurse practitioner, gifted teacher, and referring doctor will help you to design a feeding plan that meets your needs and allows you to return to a regular lifestyle as soon as possible. Following are some definitions that will help you understand your feeding plan: Continuous : Over an extended time period feedings are given by a pump at a slow rate. An example would be 30cc per hour for 24 hours. Bolus : A larger amount of feeding is given 3-6 times per day. Sometimes given by a pump over a certain amount of time (one hour) or simply allowed to run into the stomach by gravity using a roller clamp to slow down flow as necessary. Direct : Direct feeds are given with the feeding set hooked directly into the gastrostomy tube. Chimney : Chimney feeds are given by dripping the feeding into a vent that is attached to the gastrostomy tube. Most patients are discharged on a continuous feeding plan that is a slow rate over a longer time period. Feeding is advanced as tolerated to your preferred plan over the course of the first week or two at home. When the gastrostomy tube is new, a full stomach can sometimes cause or encourage leakage and poor healing around the tube. Most patients are able to change from a continuous feeding plan after about one week. ?? Troubleshooting Your Gastrostomy/GJ Tube Tube comes out Balloon broken, pulled Replace if you know how, if not, follow emergency plan Leakage around tube Tube too loose, balloon broken, tract enlarged, stomach too full or child constipated. Check water in balloon, check placement of tube, re-secure tube, stop tube feedings, clean and protect skin, CALL interventional radiology. Mucus around tube Normal drainage, amount may increase when child has a cold. Keep site clean and dry. Clean more frequently when mucus increased. [place]/red bumpy tissue around tube Granulation tissue (or proud tissue), bleeds easily and creates increase in mucus drainage, may also cause site to leak. Treat with silver nitrate sticks or ???Kenelog??? ointment if you know how, otherwise call the office for an appointment to see either: the interventional radiologist, surgeon or nurse practitioner. Skin irritation or bleeding Granulation tissue, slight leak of stomach acids, yeast infection, infrequent cleaning, tape irritation Keep skin clean and dry, clean more frequently and/or change dressing more often, consult with nurse practitioner re. treatment Blockage of the feeding tube may occur if tablets or thick feed are pushed through the tube. Most medications are available as liquids or suspensions and ??should be given as liquids if available rather than as tablets or capsules. If tablets are given they should be ground up to a fine powder and flushed through the feeding tube with plenty of warm water.?? It is best if solid medications are prepared by a professional [facility]. ??If the feeding tube becomes blocked with feed the formula should be reviewed with the dietitian. If there is repeated blockage the tube should be vigorously flushed with a 60 ml syringe full of warm water twice a day or before and after each feed.?? Do not flush with saline as this may dry and cause crystals of salt to block the tube.?? Flushing with ???fizzy??? drink may damage the tube material and should be avoided. Switching to a skin level or button tube. Once the gastrostomy site is well- healed and the tract is developed it is possible to switch to a skin level or low-profile feeding device. These devices are commonly called buttons. There are several types of ???buttons. The most common are the Button made by [employer] and the [employer] [distributed by [employer]]. The change to a button can be done once the first tube has been in place for at least 4 weeks. [employer]Lee ?? [employer] Button ?? Pros Cons Pros Cons Easy to change, little or no pain Balloon breaks so needs more frequent change (3 MONTHLY) Only needs to be changed once per year Difficult to change, more painful Can be changed at home by parent Higher profile because valve is outside body Low profile because valve inside stomach Can only be changed in surgery office Comes in wide variety of sizes Stiffer silicone tube Softer silicone tube Limited size range Has locking feeding adaptor ? Feeding adaptors do not lock into place ? Needs different adaptor to vent Please note : We recommend that G-tubes/G-J/J Tubes of this type are replaced at 3 month intervals to avoid inadvertent loss of access due to deterioration in the G/G-J/J-tube retention balloon material. PLEASE ENSURE AN APPOINTMENT HAS BEEN MADE. ?? For more information on G-tubes go to: http://en.wikipedia.org/wiki/Feeding_tube SUPPLIES YOU MAY NEED: ?? HYDROGEN PEROXIDE SOLUTION (3% MCC) ??? Use half strength to clean around tube for first three daysand if the area becomes soiled. ?? 60 ml bladder syringe for tube flushing (FLUSH WITH 60 ML WARM TAP WATER) ??? FLUSH DAILY IF NOT INUSE OR AFTER EACH FEEDING UNLESS OTHERWISE ORDERED. ?? 4?? x 4?? Drain sponges ?? Duropore or Hypofix tape to fix G-tube and dressings to skin (not always required) ?? Post-Gastrostomy/G-J Tube Recommendations ??? In Hospital: ??? VS q 30 x 4 then routine vital signs per unit PROTOCOL. ??? Check tube site with vital signs for bleeding or leakage. ??? NPO x 6 hours except for prescribed oral liquid/crushed pain medication. ??? Cap the G/G-J-tube for first 6 hours. ??? Can use G/G-J-tube after 6 hours if clear gastric juices are draining from the G/G-J-tube and there is no evidence of peritoneal irritation (i.e. no abdominal pain, tenderness, normal bowel sounds). ??? Give clear fluids only by mouth ortube rom 6-12 hours post procedure. ??? Please consult with nutrition service concerning starting G/G-J-tube feeds. ??? When initiating feeding have the patient lying right side down [decubitus]. ??? Use 60 ml bladder syringe for tube flushing (FLUSH WITH 60 ML WARM TAP WATER) ??? FLUSH DAILY IF NOT IN USE OR AFTER EACH FEEEDING UNLESS OTHERWISE ORDERED. ?? We recommend that G/G-J/J-tubes of this type are replaced at 3 month intervals to avoid inadvertentloss of access due to deterioration in the G/G-J/J-tube retention balloon material. ENSURE THAT AN APPOINTMENT IS MADE. ?? We recommend removing the sutures after 10-14 DAYS after placement. The sutures should not remain in place longer than 2 weeks. ?? AN APPOINTMENT SHOULD BE MADE. ?? Where to Call for Advice or Help [Hospital Switchboard]: ask for the Interventional Radiologist breast surgeon or: [Interventional Radiology Hours: 8am-5pm Wednesday ??? Wednesday] ?? MILTON Sahni, [facility] Vascular & Interventional Radiology gold leaf printer [address] [address] [address] [email or web address] For more information go to: [email or web address]/xfxe-xccw-[email or web address]-lee/[email or web address]-qurc-[email or web address] ?? https://www.[email or web address]/media/166/[email or web address]_azb-mxd_iluz_ruyql_zavmlth.pdf ?? https://www.bmj.com/content/364/bmj.k5311.abstract ?? https://www.AQH[employer].com/contents/qdpjgabrthb-wdwag-ebod-hwqsofm-qexgrfnls-ygy-e huquzcj-lh-beyofl/print ?? * Michelle Bone: PERFORM Event Display: Patient Education Leaflets Authored Date: [id number] Depression ?? [id number] Depression Depression is a very common mental health problem. It's not just a state of being unhappy or sad. It's a true disease. The cause seems to be linked to a change in chemicals that send signals in the brain. These things increase a person???s risk of depression: ??? A family history of depression, alcoholism, or suicide ??? Chronic illness ??? Chronic pain ???Migraine headaches ??? High emotional stress Depression may be easier to see in others. You may have a hard time seeing it in yourself. It can show in many physical and emotional ways. These include: ??? Loss of appetite ??? Overeating ??? Not being able to sleep ??? Sleeping too much ??? A lot of tiredness not linked to physical activity ??? Restlessness or irritability ??? Slowness of movement or speech ??? Feeling sad or withdrawn ??? Loss of interest in things you once enjoyed ??? Trouble??concentrating, remembering,??or making decisions ??? Thoughts of harming or killing yourself, or thoughts that life is not worth living ??? Low self-esteem The treatment for depression may include both medicine and psychotherapy. Antidepressants can ease symptoms. They can also make it easier for you to do daily tasks. Therapy can offer emotional support. It can also help you understand things that may be causing the depression. Home care ??? Ongoing care and support help people manage this disease. Find a healthcare provider and therapist who meet your needs. Get help when you feel like you may be getting ill. ??? Be kind to yourself. Make it a point to do things that you enjoy. This may be gardening, walking in nature, or going to a movie. Reward yourself for small successes. ??? Take care of your body. Eat a balanced diet. Eat foods low in saturated fat. Eat a lot of fruits and vegetables. Exercise at least 3 times a week for 30 minutes. Even mild to moderate exercise like brisk walking can make you feel better. ??? Take medicine as prescribed. Don't stop your medicine or change the dose unless you talk with your healthcare provider. ??? Once you start medicine, expect your symptoms to get better slowly. Depression will lift over time. It doesn't get better right away. Ask your healthcare provider how long it will take for a medicine to start working. ??? Don't share your medicine. Don???t use someone else's medicine. ??? Tell your healthcare providers all the medicines you take. This includes prescription and kytu-xbq-ybmywmj medicines. It includes vitamins and herbal supplements. Some supplements caninteract with medicines. They can cause dangerous side effects. Ask your pharmacist about medicine interactions when you have questions. ??? Don't make major decisions until you feel better. This incl udes things such as a job change, a divorce, or a marriage. ??? Don't drink alcohol. It can make depression worse. ??? Talk with your family and??trusted friends??about your feelings and thoughts.??Ask them to help you notice behavior changes early. You can then get help and, if needed, your medicine can be changed. ??? Talk with your healthcare provider if you are not getting better. They may change your medicine or have you try another treatment. ?? Follow-up care Follow up with your healthcare provider as advised. ?? Crisis care Call [phone] if you have thoughts of harming yourself or others. When you call or text [phone], you will beconnected to trained crisis counselors. An online chat option is also available. [employer] is free and available 31/08. 988 counselors will work with [facility] to help you get the care you need. Call 911 if you: ??? Have trouble breathing ??? Are??very confused ??? Feel very drowsy or have??trouble awakening ??? Faint ??? Have new chest pain that becomes more severe, lasts longer, or spreadsinto your shoulder, arm, neck, jaw, or back ?? When to get medical care Call your healthcare provider right away if any of these happen: ??? Your symptoms get worse ??? You have extreme depression, fear, anxiety, or anger toward yourself or others ??? You feel out of control ??? You feel that you may try to harm yourself or another ??? You hear voices other people don't hear ??? You see things other people don't see ??? You don't sleep or eat for 3 days in a row ??? Friends or family express concern over your behavior and ask you to get help ?? Last Reviewed Date: 2021 ?? 0730-0588 [employer] All rights reserved. This information is not intended as a substitute for professional medical care. Always follow your healthcare professional's instructions. ?? Patient Care team information Care Team Personnel Name: Florencio Sky Position: Reference Physician Member Role: PCP Address: Address: [address] [facility] [facility] [address] [place] [address]- Name: Maren Sanchez RN Position: S RN [...] Care Nurse Care Team Related Persons Name: ENMA SNOW Address: home [address] [place] [address] Name: MATY REHMAN Address: home [address] [place] [address]
--- NOTE | 2023-11-01 13:48 | MHC.OFFWIV ---
Intake Vital Signs 11/01/23 13:50 Height 5 ft 8 in Weight 209 lb BMI 31.8 BP 128/82 Blood Pressure Location Lt brachial Position Sitting Pulse 120 H Pulse Source Pulse Oximeter Temp 99.1 F Temp Source Oral Pulse Oximetry (%) 96 Oxygen Delivery Method Room Air Intake Visit Reasons: EP Growth on RT salivary gland/pulse Intake Note: pt c/o RT salivary gland growth w/ pulse. Noticed today. 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 He is asking for an ultrasound today to evaluate the new growth on the right side. He states he does have a PET scan scheduled for November 17 with his specialist in [place] that managed the tumor on the left side. He denies trouble swallowing or breathing and states it is not affecting the inside of his mouth at all but it's tender to the touch on the base of his right cheek. [facility] Medical History Prostate cancer Hypertension Anxiety Bipolar 1 disorder Surgical History H/O prostate biopsy Family History Paternal Grandfather Substance use disorder Mother Mental health disorder Daughter Mental health disorder Family/Other Mental health disorder Father Prostate cancer Social History Household Members: None Housing: Apartment Alcohol intake: never Patient Tobacco Use Status: Never used Tobacco e-Cigarette/Vaping Use: Currently Using Second Hand Smoke Exposure: No Substance Use Type: Marijuana service: Yes Current occupational status: employed Current occupation: [employer] Current occupational exposures/hazards: No Cognitive needs: No Hearing needs: No Vision needs: No Review of Systems Const All systems reviewed & are unremarkable except as noted in HPI and below Physical Exam Vital Signs: Last Vital Signs Temp 99.1 F 11/01/23 13:50 Pulse 120 H 11/01/23 13:50 BP 128/82 11/01/23 13:50 Pulse Ox 96 11/01/23 13:50 Oxygen Delivery Method Room Air 11/01/23 13:50 BMI result Body Mass Index 31.8 Const General: cooperative, healthy appearing, comfortable, no acute distress and well developed Orientation/consciousness: patient oriented x3 Limitations: no limitations HEENT Head: Yes normal to inspection Ears: hearing grossly normal bilaterally, external ears normal and mastoids normal (No TTP) on the right General nose exam: Normal external nose present Face and sinus: Yes normal facial exam and No face symmetric (droop on left side) Face images: 1. 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 I can not order an ultrasound in the walk-in clinic. We will message his PCP to let them know what is going on in case the ENT in [place] wants us to start with an ultrasound. Patient understands and agrees with the plan (2) Swelling, mass, or lump on face: Code(s): R22.0 - Localized swelling, mass and lump, head Plan: See above Plan See above Coding Level of Care Code Est Pt Level 3 (61841) Diagnoses Salivary gland tumor D49.0 Swelling, mass, or lump on face R22.0
--- OUTSIDE RECORDS SUMMARY | 2023-11-01 13:48 | XMS_ITS | Continuity of Care Document ---
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 Start Date: 07/06/23 Status: Ordered Ativan 1 mg oral tablet See Instructions, PRN as needed for anxiety, 1 tab PO 30m prior to scheduled radaition treatment., # 36 tablet, 0 Refills, Acute 07/22/23 18:21:00 EDT, 05/23/23 15:17:00 EDT, Tablet, [id number], Partial fill upon patient request if the [...] 07/19/23 12:26:00 EDT, 07/12/23 12:26:00 EDT, Syrup, [facility], Partial fill upon patient request if the prescription is for... Start Date: 07/12/23 Stop Date: 07/19/23 Status: Ordered lidocaine 4% mucous membrane solution 10 mL = 0.4 Gm, Swish and Spit, Every 4 hours, PRN Other, for 7 days, mouth sore / pain, # 420 mL, 0 Refills, Acute 07/19/23 12:41:00 EDT, 07/12/23 12:41:00 EDT, Solution, [facility], Partial fill upon patient request if the prescription... Start Date: 07/12/23 Stop Date: 07/19/23 Status: Ordered lidocaine-prilocaine 2.5%-2.5% topical cream See Instructions, apply small dollop to [facility] 1 hr prior to appt and cover with plastic, #30 Gm, 1 Refills, Maintenance, 06/01/23 8:55:00 EDT, Cream, [facility], Partial fill upon patient [...] 1 Refills, Maintenance, 06/01/23 8:53:00 EDT, Tablet, [facility], Partial fill upon patient request if the prescription is for a schedule II opioid dr... Start Date: 06/01/23 Status: Ordered oxyCODONE 5 mg oral tablet 5 mg, 1, tablet, By Mouth, Every 6 hours, PRN, # 42 tablet, Refills 0, Tot. Refills 0, Maintenance,as needed for pain, 07/12/23 12:41:00 EDT, Route to Pharmacy Electronically, [id number], Partial fill upon patient request if the prescri... Start Date: 07/12/23 Status: Ordered [id number] oral powder for reconstitution = 17 Gm, By Mouth, Daily, PRN Constipation, # 510 Gm, 0 Refills, Maintenance, 07/12/23 12:28:00 EDT, REC Powder, [facility], Partial fill upon patient request if the prescription is fora schedule II opioid drug., 17 Gm By Mouth Daily,SD... Start Date: 07/12/23 Status: Ordered prochlorperazine 10 mg oral tablet 1 tablet = 10 mg, By Mouth, Every 6 hours, PRN nausea/vomiting, may cause drowsiness, # 30 tablet, 1 Refills, Maintenance, 06/01/23 8:53:00 EDT, [facility], Partial fill upon patient [...] 0 Refills, Maintenance, 07/12/23 12:28:00 EDT, Tablet, [facility], Partial fill upon patient [...] Reference Physician Member Role: PCP Address: Address: [address] [place] [address] [address] [place] [address]- Name: Maren Sanchez RN Position: S RN [...] Team Related Persons Name: ANGÉLICA NORWOODE Address: [address] [place] [address] Name: MATY REHMAN Address: home [address] [place] [address]
--- OUTSIDE RECORDS SUMMARY | 2023-11-01 13:48 | XMS_ITS | Continuity of Care Document ---
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 Phone Florencio Sky Primary Care Physician Encounter [facility] Date(s): 04/19/23 - 08/20/23 [facility] [address] [place] [id number] Encounter Diagnosis Acinic cell carcinoma(Discharge Diagnosis) - 05/26/23 Discharge Disposition: A-D/C Home Attending Physician: Florence Conklin MD Admitting Physician: Raciel JAUREGUI, Vivien Referring Physician: Shirley Gross MD Allergies, Adverse Reactions, Alerts No Known Medication Allergies Immunizations Given and Recorded Vaccine Date Status Refusal Reason pneumococcal 15-valent conjugate vaccine 06/07/23 Given influenza virus vaccine, inactivated 03/01/23 Pascual rded influenza virus vaccine, inactivated 11/07/20 Pascula rded zoster vaccine, inactivated 07/10/21 Recorded zoster [...] 0 Refills, Maintenance, 07/06/23 12:36:00 EDT, Suspension, [facility], Partial fill upon patient request if the prescription is for a sched... Start Date: 07/06/23 Status: Ordered divalproex sodium 500 mg oral [...] day, # 60 tablet, 0 Refills, Maintenance, 07/22/23 11:08:00 EDT, Tablet, [facility], Partial fill upon patient request if the prescription is for a schedule II opioid drug., 173, cm, 07/22/23 10:43:00 ED... Start Date: 07/22/23 Status: Ordered Eliquis Starter Pack 5 mg oral tablet 0 Refills, Maintenance, 07/12/23 12:25:00 EDT, Partial fill upon patient request if the prescription is for a schedule II opioid drug. Start Date: 07/12/23 Status: Ordered EQ Allergy Relief Childrens 12.5 MG/5ML Oral Elixir EQ Allergy Relief Childrens 12.5 MG/5ML Oral Elixir, 5 TO 10 ML, By Mouth, Every 2 hours, PRN, # 580 mL, 0 Refills, Maintenance, SORE/PAIN., 07/27/23 10:02:00 EDT, 173, cm, 07/22/23 10:43:00 EDT, Height, 98.1, kg, 07/22/23 9:03:00 EDT, Dry Weight Start Date: 07/27/23 Status: Ordered famotidine 20 mg oral tablet 20 mg, 1, tablet, By Mouth, Daily, # 30 tablet, Refills 0, Tot. Refills 0, Maintenance, 07/22/23 11:11:00 EDT, Route to Pharmacy Electronically, [facility], Partial fill upon patient request if the prescription is for a schedule II opioid d... Start Date: 07/22/23 Status: Ordered gabapentin 300 mg oral capsule [...] opioid drug. Start Date: 05/11/23 Status: Ordered lidocaine-prilocaine 2.5%-2.5% topical cream See Instructions, apply [facility]op [facility] prior to appt and cover with plastic, #30 Gm, 1 Refills, Maintenance, 06/01/23 8:55:00 EDT, Cream, [facility], Partial fill upon patient request [...] 2 hours PRN for throat/mouth... Start Date: 08/02/23 Status: Ordered olanzapine 5 mg oral tablet [...] day, # 60 tablet, 0 Refills, Maintenance, 07/22/23 11:11:00 EDT, EC Tablet, [facility], Partial fill upon patient request if the prescription is for aschedule II opioid drug., 173, cm, 07/22/23 10:43:0... Start Date: 07/22/23 Status: Ordered ondansetron 8 mg oral tablet 1 tablet = 8 mg, By Mouth, Every 8 hours, PRN as needed for nausea/vomiting, # 30 tablet, 1 Refills, Maintenance, 06/01/23 8:53:00 EDT, Tablet, [facility], Partial fill upon patient request if the prescription is for a schedule II opioid dr... Start Date: 06/01/23 Status: Ordered oxyCODONE 5 mg oral tablet 5 mg, 1, tablet, By Mouth, Every 4 hours, PRN, # 42 tablet, Refills 0, Tot. Refills 0, Maintenance,as needed for pain, 08/04/23 13:24:00 EDT, Route to Pharmacy Electronically, [facility],Partial fill upon patient request if the prescripti... Start Date: 08/04/23 Stop Date: 08/11/23 Status: Ordered [id number] oral powder for reconstitution = 17 Gm, By Mouth, Daily, PRN Constipation, # 510 Gm, 0 Refills, Maintenance, 07/12/23 12:28:00 EDT, REC Powder, [facility], Partial fill upon patient request if the prescription is fora schedule II opioid drug., 17 Gm By Mouth Daily,PA... Start Date: 07/12/23 Status: Ordered prochlorperazine 10 mg oral tablet 1 tablet = 10 mg, By Mouth, Every 6 hours, PRN nausea/vomiting, may cause drowsiness, # 30 tablet, 1 Refills, Maintenance, 06/01/23 8:53:00 EDT, [facility], Partial fill upon patient request [...] 0 Refills, Maintenance, 07/12/23 12:28:00 EDT, Tablet, [facility], Partial fill upon [...] atus Informant Obese class I Confirmed Active Diagnosis Diagnosis Type Effective Dates Health Status inical Service Informant Acinic cell carcinoma Discharge Diagnosis 05/26/23 Vital Signs Most recent to oldest [Reference Range]: 1 2 3 Height 173 cm (08/17/23 2:21 PM) 173 cm (08/12/23 2:25 PM) 173 cm (08/11/23 12:00 PM) Weight 95 kg (08/17/23 2:21 PM) 96.5 kg (08/11/23 10:45 AM) 94.4 kg (08/03/23 9:41 AM) Oxygen Saturation [94-100 %] 100 % (08/17/23 2:21 PM) 100 % (08/12/23 2:25 PM) 100 % (08/11/23 10:45 AM) Pulse Rate [55-90 bpm] 88 bpm (08/17/23 2:21 PM) 79 bpm (08/12/23 2:25 PM) 81 bpm (08/11/23 10:45 AM) Body Mass Index [18.5-24.99 kg/m2] 31.74 kg/m2 *>HHI* (08/17/23 2:21 PM) 32.24 kg/m2 *>HHI* (08/11/23 10:45 AM) 31.54 kg/m2 *>HHI* (08/03/23 9:41 AM) Blood Pressure [90-138/55-84 mm Hg] 128/77mm Hg (08/17/23 2:21 PM) 147/79mm Hg *H* (08/12/23 2:25 PM) 121/70mm Hg (08/11/23 10:45 AM) Respiratory Rate [16-30 br/min] 20 br/min (08/12/23 2:25 PM) 18 br/min (06/26/23 10:11 AM) Temperature [96.8-100.4 DegF] 97.3 DegF (08/17/23 2:21 PM) 97.4 DegF (08/12/23 2:25 PM) 98.2 DegF (08/11/23 10:45 AM) Mode of Delivery (Oxygen) Room air (08/17/23 2:21 PM) Room air (08/12/23 2:25 PM) Room air (08/11/23 10:45 AM) Blood pressure sites Arm, left (08/17/23 2:21 PM) Arm, right (08/11/23 10:45 AM) Arm, right (08/10/23 1:08 PM) Temperature Route Temporal (08/17/23 2:21 PM) Temporal (08/12/23 2:25 PM) Temporal (08/11/23 12:00 PM) Dry Weight 95 kg (08/17/23 2:21 PM) 96.0 kg (08/12/23 2:25 PM) 96.5 kg (08/11/23 10:45 AM) Weight Obtained Via Standing scale (08/17/23 2:21 PM) Standing scale (08/11/23 10:45 AM) Standing scale (08/03/23 9:41 AM) Dry Weight Obtained Via Standing scale (08/17/23 2:21 PM) Standing scale (08/12/23 2:25 PM) Standing scale (08/11/23 10:45 AM) Social History Social History Type Response Tobacco Interested in cessat ion: No. No Sex Hospital Consult note * Event Display: Inpatient Consult Note, Non-BH Authored Date: * Event Display: Inpatient Consult Note, Non-BH Authored Date: * Event Display: Inpatient Consult Note, Non-BH Authored Date: Laboratory * Event Display: Non BH Lab Results Authored Date: * Event Display: Non BH Lab Results Authored Date: Hospital Progress note * Kalyani Hoffman RN: PERFORM, SIGN, VERIFY Event Display: Progress Note Hospital Authored Date: Patient: CHRISSY REHMAN III Age: 58 years Sex: Male : 1965 Associated Diagnoses: None Author: Kalyani Hoffman RN Findings Evaluation Patient admitted for udenyca. 1 injectino right upper arm sc. No signs or symptoms of reaction observed or reported. VSS. Ambulatory off unit. . * Ishmael Howe RN: VERIFY, PERFORM, SIGN Event Display: Progress Note Hospital Authored Date: Patient: CHRISSY REHMAN III Age: 57 years Sex: Male : 1965 Associated Diagnoses: None Author: Ishmael Howe RN Findings Nursing Data Vital Signs : VITAL SIGNS SECTION 06/26/2023 10:11 EDT Temperature 97.3 DegF Temperature Route Temporal Pulse Rate 96 bpm H Respiratory Rate 18 br/min Systolic Blood Pressure 124 mm Hg Diastolic Blood Pressure 74 mm Hg Mean Arterial Pressure 91 mm Hg Pulse Pressure 50 mm Hg Oxygen Saturation 97 % Mode of Delivery (Oxygen) Room air . Narrative/Incidental Pt here for filgrastim (Zarxio) injection. It's the pt's first time at [facility] infusion but his third dose of the medication; pt declined further education, displaying the written edcuation he received two days ago. End time 1039. Injection site wiped with gauze after injection. Bandaid applied per pt request. Pt tolerated injection well without any s/s of reaction or complication. Pt ambulated off unit independently.. Radiology * Event Display: CT Scan Neck, Non- BH Authored Date: [id number] Note * Shital Diaz MA: PERFORM, SIGN, VERIFY Event Display: Patient Education/Instruction Authored Date: [id number] [facility] *Heme/Onc Adult Clinical Summary Name CHRISSY REHMAN Age 57 Years 1965 PCP Junito CORTÉS, Florencio Beaver PCP Visit Date 04/19/2023 13:33:00 Additional Instructions: Scheduled Appointments?? Future Appointments ?No Future Appointments Scheduled Follow-Up Instructions ?? With: Address: When: Florence Conklin [address] [place] [address] [place] [address] Business (1) 06/23/2023 9:30 AM With: Address: When: Florence Conklin [address] [place] [address] [place] [address] Business (1) 09/13/2023 11:30 AM Diagnosis Malignant (primary) neoplasm, unspecified Medications: Please continue your medications until treatment is completed or stopped by your provider. Discuss any questions related to medications with your provider. New Medications [facility], [address] [place] [phone], [phone] Lorazepam (Ativan 1 mg oral tablet) 1 tab PO 30m prior to scheduled radaition treatment.; as neededas needed for anxiety. Refills: 0. Next Dose: Medications to Continue with No Changes These medications were not printed or sent to your pharmacy Acetaminophen/Codeine (acetaminophen-codeine 300 mg-30 mg oral tablet) 1 tab(s) Oral every 4 hours as needed for pain. Next Dose: Clonidine Next Dose: Clonidine as needed for anxiety. Next Dose: Clonidine (cloNIDine 0.1 mg oral tablet) 0.1 Milligram Oral 4 times a day. Next Dose: Divalproex Sodium (divalproex sodium 500 mg oral enteric coated tablet) 1 tab(s) Oral 3 times a day. Next Dose: Doxepin (doxepin 10 mg oral capsule) 1 capsule Oral 3 times a day. Next Dose: Gabapentin (gabapentin 300 mg oral capsule) 1 capsule Oral twice a day. Next Dose: HydrOXYzine (hydrOXYzine hydrochloride 10 mg oral tablet) 2 tab(s) Oral 4 times a day. Next Dose: Lisinopril (lisinopril 10 mg oral tablet) 1 tab(s) Oral Daily. Next Dose: Multivitamin 1 tab(s) Daily. Next Dose: Omeprazole (omeprazole 20 mg oral delayed release tablet) 1 tab(s) Oral twice a day. Next Dose: Quetiapine (SEROquel 50 mg oral tablet) 1 tab(s) Oral Daily at Bedtime. Next Dose: Rosuvastatin (rosuvastatin 5 mg oral capsule) 1 capsule Oral Daily. Next Dose: Tamsulosin (tamsulosin 0.4 mg oral capsule) 1 capsule Oral Daily. Next Dose: Valproic Acid (Depakene 250 mg oral capsule) 3 capsule Oral Daily at Bedtime. Next Dose: Allergy Info:?? Percocet Medications Given This Visit Future Orders ?No future orders Future Orders ?No future orders Vital Signs Height 174 cm Weight 107.7 kg BMI 35.57 kg/m2 Blood Pressure 144 mm Hg/83 mm Hg Temperature 97.6 DegF Pulse Rate 77 bpm Respiratory Rate 02 Sat Mode of Delivery 100 %/Room air You can now view a summary of your hospital visit from the comfort of your home through a free online portal called [employer]. [employer] is a website that allows you to securely view your medical information including discharge summary, medications and follow-up visits. ??You can alsosend a secure electronic message to your doctor???s office to request appointments, renew medications or just ask a question. You can enroll at [email or web address] or register during your next office visit. Disclaimer:?? The information provided is of a general nature and is intended to be used in conjunction with the recommendations and advice of your health care practitioner. ??Every effort has been made to ensure that the information provided is accurate and complete at the time it is provided to you however, as your needs change, or, as new ??information becomes available, different or additional instructions may be required. If you have questions, please consult with your primary care provider or pharmacist, as appropriate. ??This information is not intended to serve as substitution for assessment and evaluation by a qualified health care provider. If you do not have a primary care provider, you may find a [facility] provider by calling [facility] Research Link at [phone]. [facility], in keeping with [facility] guidance, no longer requires face masks for staff, patientsor visitors in most situations. Similar to time spent indoors at other locations, there is the chance that you were exposed to respiratory viruses during your time with us (such as flu or COVID-19).? If you develop symptoms concerning for a viral respiratory infection, please seek testing (and treatment if indicated) from your medical provider or home test kit. For information about the plan of care including goals and instructions for your diagnosis, please see the patient education orders section of this document. Patient Education Materials?? The content of this educational material or handout may have been modified, supplemented, or adapted from its original content and format to support your individualized medical care. * Lydia Diego: PERFORM, SIGN, VERIFY Event Display: Patient Education/Instruction Authored Date: [id number] [facility] *Heme/Onc Adult Clinical Summary Name CHRISSY REHMAN Age 57 Years 1965 PCP Florencio Sky PCP Visit Date 04/19/2023 13:33:00 Additional Instructions: Scheduled Appointments?? Future Appointments ?No Future Appointments Scheduled Follow-Up Instructions ?? With: Address: When: Florence Conklin [address] [place] [address] [place] [address] [facility] (1) 09/13/2023 11:30 AM Diagnosis Medications: Please continue your medications until treatment is completed or stopped by your provider. Discuss any questions related to medications with your provider. Medications to Continue with No Changes [facility], [address] [place] [phone], [phone] Lorazepam (Ativan 1 mg oral tablet) 1-2 tab PO 30m prior to scheduled MRI scan; as needed as neededfor anxiety. Refills: 0. Next Dose: These medications were not printed or sent to your pharmacy Acetaminophen/Codeine (acetaminophen-codeine 300 mg-30 mg oral tablet) 1 tab(s) Oral every 4 hours as needed for pain. Next Dose: Clonidine Next Dose: Clonidine as needed for anxiety. Next Dose: Clonidine (cloNIDine 0.1 mg oral tablet) 0.1 Milligram Oral 4 times a day. Next Dose: Divalproex Sodium (divalproex sodium 500 mg oral enteric coated tablet) 1 tab(s) Oral 3 times a day. Next Dose: Doxepin (doxepin 10 mg oral capsule) 1 capsule Oral 3 times a day. Next Dose: Gabapentin (gabapentin 300 mg oral capsule) 1 capsule Oral twice a day. Next Dose: HydrOXYzine (hydrOXYzine hydrochloride 10 mg oral tablet) 2 tab(s) Oral 4 times a day. Next Dose: Lisinopril (lisinopril 10 mg oral tablet) 1 tab(s) Oral Daily. Next Dose: Multivitamin 1 tab(s) Daily. Next Dose: Omeprazole (omeprazole 20 mg oral delayed release tablet) 1 tab(s) Oral twice a day. Next Dose: Quetiapine (SEROquel 50 mg oral tablet) 1 tab(s) Oral Daily at Bedtime. Next Dose: Rosuvastatin (rosuvastatin 5 mg oral capsule) 1 capsule Oral Daily. Next Dose: Tamsulosin (tamsulosin 0.4 mg oral capsule) 1 capsule Oral Daily. Next Dose: Valproic Acid (Depakene 250 mg oral capsule) 3 capsule Oral Daily at Bedtime. Next Dose: Allergy Info:?? Percocet Medications Given This Visit Future Orders ?No future orders Future Orders ?No future orders Vital Signs Height 174 cm Weight 107.2 kg BMI 35.41 kg/m2 Blood Pressure 141 mm Hg/87 mm Hg Temperature 98.7 DegF Pulse Rate 85 bpm Respiratory Rate 02 Sat Mode of Delivery 96 %/Room air You can now view a summary of your hospital visit from the comfort of your home through a free online portal called [employer]. [employer] is a website that allows you to securely view your medical information including discharge summary, medications and follow-up visits. ??You can alsosend a secure electronic message to your doctor???s office to request appointments, renew medications or just ask a question. You can enroll at [email or web address] or register during your next office visit. Disclaimer:?? The information provided is of a general nature and is intended to be used in conjunction with the recommendations and advice of your health care practitioner. ??Every effort has been made to ensure that the information provided is accurate and complete at the time it is provided to you however, as your needs change, or, as new ??information becomes available, different or additional instructions may be required. If you have questions, please consult with your primary care provider or pharmacist, as appropriate. ??This information is not intended to serve as substitution for assessment and evaluation by a qualified health care provider. If you do not have a primary care provider, you may find a [facility] provider by calling [facility] Link at [phone]. [facility], in keeping with [facility] guidance, no longer requires face masks for staff, patientsor visitors in most situations. Similar to time spent indoors at other locations, there is the chance that you were exposed to respiratory viruses during your time with us (such as flu or COVID-19).? If you develop symptoms concerning for a viral respiratory infection, please seek testing (and treatment if indicated) from your medical provider or home test kit. For information about the plan of care including goals and instructions for your diagnosis, please see the patient education orders section of this document. Patient Education Materials?? The content of this educational material or handout may have been modified, supplemented, or adapted from its original content and format to support your individualized medical care. Patient Care team information Care Team Personnel Name: Florencio Sky Position: Reference Physician Member Role: PCP Address: Address: [address] [place] [address] [address] [place], [place] [address] Name: Maren Sanchez RN Position: S [...] Care Nurse Care Team Related Persons Name: ELBERT NORWOODLENE Address: home [address] [place] [address] Name: MATY REHMAN Address: home [address] [place] [address]
--- OUTSIDE RECORDS SUMMARY | 2023-11-01 13:48 | XMS_ITS | Continuity of Care Document ---
Author Organization [facility] ancer Care Address [address] [place] [address]- Care Team Providers Care Sap Project Manager Name Role Phone Florencio Sky Primary Care Physician Encounter [facility] Date(s): 08/24/23 - 09/23/[address] [address] Allergies, Adverse Reactions, Alerts No Known Medication [...] 3 Refills, Maintenance, 09/09/23 15:30:00 EDT, Tablet, [facility], Partial fill upon patient request if the prescription is for a schedule II opioid drug., 173, cm, 09/01/23 13:28:00 ED... Start Date: 09/09/23 Status: Ordered famotidine 20 mg oral tablet 20 mg, 1, tablet, By Mouth, Daily, # 30 tablet, Refills 0, Tot. Refills 0, Maintenance, 09/21/23 16:59:00 EDT, Route to Pharmacy Electronically, [facility], Partial fill upon patient request if the prescription is for a schedule II opioid d... Start Date: 09/21/23 Status: Ordered lidocaine-prilocaine 2.5%-2.5% topical cream See Instructions, apply small dollop to [facility] site 1 hr prior to appt and cover with plastic, #30 Gm, 1 Refills, Maintenance, 06/01/23 8:55:00 EDT, Cream, [facility], Partial fill upon patient request if the prescription is for a sched... Start Date: 06/01/23 Status: Ordered lisinopril 10 mg oral tablet 10 mg, 1, tablet, By Mouth, Daily, # 30 tablet, Refills 0, Maintenance, 05/11/23 13:06:00 EDT, Partial fill upon patient request if the prescription is for a schedule II opioid drug. Start Date: 05/11/23 Status: Ordered omeprazole 20 mg oral delayed release tablet 1 tablet = 20 mg, By Mouth, 2 times a day, # 60 tablet, 0 Refills, Maintenance, 09/21/23 16:58:00 EDT, EC Tablet, [facility], Partial fill upon patient request if the prescription is for aschedule II opioid drug., 173, cm, 09/21/23 15:44:0... Start Date: 09/21/23 Status: Ordered ondansetron 8 mg oral tablet 1 tablet = 8 mg, By Mouth, Every 8 hours, PRN as needed for nausea/vomiting, # 30 tablet, 1 Refills, Maintenance, 06/01/23 8:53:00 EDT, Tablet, [facility], Partial fill upon patient request if the prescription is for a schedule II opioid dr... Start Date: 06/01/23 Status: Ordered oxyCODONE 5 mg oral tablet 5 mg, 1, tablet, By Mouth, Every 4 hours, PRN, # 42 tablet, Refills 0, Tot. Refills 0, Maintenance,as needed for pain, 09/08/23 16:19:00 EDT, Route to Pharmacy Electronically, [facility],Partial fill upon patient request if the prescripti... Start Date: 09/08/23 Stop Date: 09/15/23 Status: Ordered [id number] oral powder for reconstitution = 17 Gm, By Mouth, Daily, PRN Constipation, # 510 Gm, 0 Refills, Maintenance, 07/12/23 12:28:00 EDT, REC Powder, [facility], Partial fill upon patient request if the prescription is fora schedule II opioid drug., 17 Gm By Mouth Daily,CA... Start Date: 07/12/23 Status: Ordered pilocarpine 5 mg oral tablet 1 tablet = 5 mg, By Mouth, 3 times a day, # 90 tablet, 0 Refills, Maintenance, 09/21/23 16:59:00 EDT, Tablet, [facility], Partial fill upon patient request if the prescription is for a schedule II opioid drug., 173, cm, 09/21/23 15:44:00 ED... Start Date: 09/21/23 Status: Ordered prochlorperazine 10 mg oral tablet 1 tablet = 10 mg, By Mouth, Every 6 hours, PRN nausea/vomiting, may cause drowsiness, # 30 tablet, 1 Refills, Maintenance, 06/01/23 8:53:00 EDT, [facility], Partial fill upon patient [...] 0 Refills, Maintenance, 07/12/23 12:28:00 EDT, Tablet, [facility], Partial fill upon patient request [...] Reference Physician Member Role: PCP Address: Address: [address] [place] [address] [address] [place], [place] [address] Name: Maren Sanchez RN Position: [facility] RN Member Role: Primary Care Nurse Name: Shital Green RN Position: [facility] [place] RN Member Role: Primary Care Nurse Name: Preethi Simental RN Position: [facility] Onco RN Member Role: Primary [...] Care Nurse Care Team Related Persons Name: ENMASNOW Address: home [address] [place] [address] Name: MATY REHMAN Address: home [address] [place] [address]
--- OUTSIDE RECORDS SUMMARY | 2023-11-01 13:48 | XMS_ITS | Continuity of Care Document ---
Author Organization [facility] ancer Care Address [address] [place] [address]- Care Team Providers Care Robotics Systems Engineer Name Role Phone Florencio Sky Primary Care Physician Encounter [facility] Date(s): 05/31/23 - 06/30/23 [facility] [address] [place] [id number] Immunizations Given and Recorded Vaccine Date Status [...] 07/22/23 18:21:00 EDT, 05/23/23 15:17:00 EDT, [id number], Partial fill upon patient request if the [...] opioid drug. Start Date: 05/11/23 Status: Ordered divalproex sodium 500 mg oral [...] tablet, 0 Refills, Maintenance, 06/16/23 11:35:00 EDT, [id number], Partial fill upon [...] 0 Refills, Maintenance, 06/15/23 10:00:00 EDT, Solution, [id number], Partial fill upon patient request if the prescription is for a schedul... Start Date: 06/15/23 Status: Ordered lidocaine-prilocaine 2.5%-2.5% topical cream See Instructions, apply small dollop to [facility] site 1 hr prior to appt and cover with plastic, #30 Gm, 1 Refills, Maintenance, 06/01/23 8:55:00 EDT, Cream, [id number], Partial fill upon [...] 1 Refills, Maintenance, 06/01/23 8:53:00 EDT, Tablet, [id number], Partial fill upon patient request if the prescription is for a schedule II opioid dr... Start Date: 06/01/23 Status: Ordered oxyCODONE 5 mg oral tablet 5 mg, 1, tablet, By Mouth, Every 6 hours, PRN, # 42 tablet, Refills 0, Tot. Refills 0, Maintenance,as needed for pain, 06/25/23 12:09:00 EDT, Route to Pharmacy Electronically, [id number],Partial fill upon patient request if the prescripti... Start Date: 06/25/23 Status: Ordered prochlorperazine 10 mg oral tablet 1 tablet = 10 mg, By Mouth, Every 6 hours, PRN nausea/vomiting, may cause drowsiness, # 30 tablet, 1 Refills, Maintenance, 06/01/23 8:53:00 EDT, [id number], Partial fill upon [...] opioid drug. Start Date: 05/11/23 Status: Ordered tamsulosin 0.4 mg oral capsule [...] Physician Member Role: PCP Address: Address: [address] [place] [address]- Name: Shital Green RN Position: [facility] Onco RN Member Role: Primary Care Nurse Name: Preethi Simental RN Position: [facility] Onco RN Member Role: Primary Care Nurse Name: Thomas Haines RN Position: [facility] Onco RN Member Role: Primary Care Nurse Care Team Related Persons Name: SNOW NORWOOD Address: [address] [place] [address] Name: MATY REHMAN Address: home [address] [place] [address]
[2023-11-01 13:50] VITALS: BP 128/82; PULSE 120; TEMP 37.3; O2SAT 96; BMI 31.8
== END 2023-11-01 14:25 | disposition home or self-care (01) ==
PROVIDERS: PCP Nurse Practitioner Primary Care; Visit Provider Physician Assistant
DX: D49.0 Neoplasm of unspecified behavior of digestive system (principal); R22.0 Localized swelling, mass and lump, head

== ENCOUNTER → 2023-11-01 13:43 | Outpatient (BNVA) | payer OTHER, SELFPAY | PROVIDERS: PCP Nurse Practitioner Primary Care | DX: R22.0 Localized swelling, mass and lump, head (principal); D49.0 Neoplasm of unspecified behavior of digestive system ==

== ENCOUNTER → 2023-11-17 12:33 | Outpatient (BNVA) | payer OTHER, SELFPAY | PROVIDERS: PCP Nurse Practitioner Primary Care; Visit Provider Nurse Practitioner Family ==

== ENCOUNTER 2023-11-17 13:53 | Outpatient (AMB) | payer OTHER, SELFPAY ==
--- OUTSIDE RECORDS SUMMARY | 2023-11-17 13:55 | XMS_ITS | Continuity of Care Document ---
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 Role Phone Florencio Sky Primary Care Physician Encounter [facility] Date(s): 11/10/23 - 11/12/[address] [id number] Discharge Disposition: A-D/C Home Attending Physician: Cynthia Rothman MD Admitting Physician: Olman Bull MD Referring Physician: Not on Staff, Referring MD [...] acetaminophen 325 mg oral tablet 975 mg, Tablet, By Mouth, 11/12/23 9:00:00 EDT Start Date: 11/12/23 Stop Date: 11/12/23 Status: Completed acetaminophen 325 mg oral tablet 975 mg, Tablet, By Mouth, 11/12/23 15:00:00 EDT Start Date: 11/12/23 Stop Date: 11/12/23 Status: Completed acetaminophen 325 mg oral tablet 975 mg, By Mouth, 3 times a day, Please check Temperature prior to administering Tylenol, Refills 0, Maintenance, 10/30/23 13:12:00 EDT, Partial fill upon patient request if the prescription is for aschedule II opioid drug. Start Date: 10/30/23 Status: Ordered amoxicillin-clavulanate 875 mg-125 mg oral tablet 1 tablet, By Mouth, 2 times a day, for 5 days, # 10 tablet, 0 Refills, Acute 11/17/23 13:41:00 EDT,11/12/23 13:41:00 EDT, Tablet, [facility], Partial fill upon patient request if the prescription is for a schedule II opioid drug., 173,... Start Date: 11/12/23 Stop Date: 11/17/23 Status: Ordered Ativan 1 mg oral tablet 1 tablet = 1 mg, By Mouth, Daily, PRN as needed for anxiety, for 30 days, # 30 tablet, 0 Refills, Acute 12/05/23 12:26:00 EDT, 11/05/23 12:26:00 EDT, Tablet, [facility], Partial fill upon patient request if the prescription is for a schedul... Start Date: 11/05/23 Stop Date: 12/05/23 Status: Ordered dexamethasone 4 mg oral tablet 1 tablet, By Mouth, 2 times a day, # 28 tablet, 0 Refills, Maintenance, 11/09/23 10:48:00 EDT, [facility], 173, cm, 11/09/23 10:25:00 EDT, Height, 94, kg, 11/09/23 10:25:00 EDT, Dry Weight Start Date: 11/09/23 Stop Date: 11/23/23 Status: Ordered divalproex sodium 500 mg oral [...] 3 Refills, Maintenance, 09/09/23 15:30:00 EDT, Tablet, [facility], Partial fill upon patient request if the prescription is for a schedule II opioid drug., 173, cm, 09/01/23 13:28:00 ED... Start Date: 09/09/23 Status: Ordered gabapentin 300 mg oral capsule 300 mg, Capsule, By Mouth, Hold for: lethargy, 11/12/23 9:00:00 EDT Start Date: 11/12/23 Stop Date: 11/12/23 Status: Completed gabapentin 300 mg oral capsule 300 mg, 1, capsule, By Mouth, 2 times a day, TAKE 1 CAPSULE BY MOUTH TWICE DAILY Start Date: 11/10/23 Status: Ordered Jobst JoviPak extended chin strap [...] 0 Refills, Maintenance, 10/30/23 16:07:00 EDT, Syrup, [facility], Partial fill upon patient request if the prescription is for a schedule II opioid drug., 15 mL By... Start Date: 10/30/23 Status: Ordered lidocaine 5% topical film See Instructions, 1 patch apply Topically to painful area on back Daily. remove patches after 12 hours, # 30 patch, 0 Refills, Maintenance, 10/30/23 13:13:00 EDT, Patch, [facility], Partial fill upon patient request if the prescriptio... Start Date: 10/30/23 Status: Ordered lidocaine-prilocaine 2.5%-2.5% topical cream See Instructions, apply small dollop to portacath site 1 hr prior to appt and cover with plastic, #30 Gm, 1 Refills, Maintenance, 06/01/23 8:55:00 EDT, Cream, [facility], Partial fill upon patient request if the prescription is for a sched... Start Date: 06/01/23 Status: Ordered meclizine 25 mg oral tablet 1 tablet, By Mouth, 3 times a day, PRN NEEDED FOR DIZZINESS, # 30 tablet, 2 Refills, Maintenance, 11/08/23 11:29:00 EDT, [facility], 173, cm, 11/05/23 10:05:00 EDT, Height, 93.3, kg, 11/05/23 10:05:00 EDT, Dry Weight Start Date: 11/08/23 Status: Ordered morphine 15 mg/8 to 12 hr oral tablet, extended release 30 mg, CR Tablet, By Mouth, 11/12/23 9:00:00 EDT Start Date: 11/12/23 Stop Date: 11/12/23 Status: Completed morphine 30 mg/8 to 12 hr oral tablet, extended release = 30 mg, By Mouth, Every 8 hours, # 21 tablet, 0 Refills, Maintenance, 11/09/23 14:10:00 EDT, ER Tablet, [facility], Partial fill upon patient request if the prescription is for a schedule II opioid drug., 173, cm, 11/09/23 10:25:00 EDT,... Start Date: 11/09/23 Stop Date: 11/16/23 Status: Ordered omeprazole 20 mg oral enteric coated capsule 1 capsule = 20 mg, By Mouth, 2 times a day, TAKE 1 CAPSULE BY MOUTH TWICE DAILY Start Date: 11/12/23 Status: Ordered oxyCODONE 15 mg oral tablet 1 tablet = 15 mg, By Mouth, Every 4 hours, PRN Pain , Severe, for 7 days, # 42 tablet, 0 Refills, Acute 11/19/23 15:32:00 EDT, 11/12/23 15:32:00 EDT, Tablet, [facility], Partial fill upon patient request if the prescription is for a sche... Start Date: 11/12/23 Stop Date: 11/19/23 Status: Ordered [id number] oral powder for reconstitution = 17 Gm, By Mouth, Daily, # 510 Gm, 0 Refills, Maintenance, 10/30/23 13:11:00 EDT, REC Powder, [facility], Partial fill upon patient request if the prescription is for a schedule II opioid drug., 173, cm, 10/30/23 11:36:00 EDT, Height, 9... Start Date: 10/30/23 Status: Ordered prochlorperazine 10 mg oral tablet 1 tablet = 10 mg, By Mouth, 4 times a day, PRN Nausea & Vomiting, TAKE 1 TABLET BY MOUTH EVERY 6 HOURS NEEDED FOR NAUSEA AND VOMITING MAY CAUSE DROWSINESS Start Date: 11/10/23 Status: Ordered rosuvastatin 5 mg oral capsule [...] 0 Refills, Maintenance, 07/12/23 12:28:00 EDT, Tablet, [facility], Partial fill upon patient request if the prescription is for a schedule II opioid drug., 173, c... 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 100 cc of Omnipaque 300 was administered intravenously. This study was performed without oral contrast. Weight-based protocol was performed using automatic exposure control. CTDIvol Body: 12.70 mGy, DLP Body: 956 mGy*cm. COMPARISON: CT lumbar spine 10/21/2023, PET/CT 03/29/2023 FINDINGS: [employer] view findings, lines and tubes: Right IJ Port-A-Cath terminates at the cavoatrial junction. Percutaneous gastrostomy tube terminates in the distal stomach. Trachea and airways: Patent without evidence of tracheal or endobronchial lesion. Lungs and pleura: 6 mm subpleural right lower lobe nodule (205:81). Additional medial right lower lobe nodules measuring up to 7 mm (205:90). These nodules were not definitively present on PET CT 03/29/2023. No consolidation. No effusion or pneumothorax. Mediastinum and aniket: No mass or hematoma. No mediastinal or hilar lymphadenopathy. No esophageal abnormality. Partially imaged thyroid is unremarkable. Heart: Heart is normal in size. No pericardial effusion. No coronary arterial calcifications. Aorta: No aortic aneurysm. Pulmonary arteries: Normal caliber. No evidence of pulmonary embolism on this study performed without angiographic technique. Chest wall soft tissues: No acute abnormality. Diaphragm: Intact. Liver: Normal in attenuation and morphology. 1.6 cm low-density lesion within the posterior right hepatic lobe (201:89), not present on prior PET/CT. Gallbladder: No CT evidence of gallbladder pathology. Bile ducts: No biliary ductal dilation. Spleen: Normal in size. Pancreas: No suspicious lesion or ductal dilatation. Adrenal glands: No nodule. Kidneys and ureters: No hydronephrosis, stone, or suspicious lesion. Bladder: No wall thickening or surrounding stranding. Reproductive organs: Prostatomegaly measuring up to 5.5 cm in axial plane (201:200). Stomach, small bowel, and large bowel: Unremarkable stomach, small and large bowel. No evidence of bowel obstruction or acute inflammation. Mild stool retention throughout the colon. Appendix: Not seen, but no evidence of acute appendicitis. Peritoneum and retroperitoneum: No ascites or pneumoperitoneum. No omental or mesenteric lesions. Lymph nodes: No enlarged lymph nodes. Blood vessels: Mild vascular calcifications but no aneurysm. No evidence of venous thrombosis. Abdominal and pelvic wall soft tissues: No acute abnormality. Bones: No acute abnormality. Redemonstration of lytic lesion within the L4 vertebral body with slight increase in vertebral body height loss associated with pathologic compression fracture. No new suspicious bony lesions. IMPRESSION: Right lower lobe nodules measuring up to 7 mm, not definitively present on PET CT 03/29/2023, although those images are not diagnostic for the evaluation of pulmonary nodules. Findings are suspicious for possible metastatic disease. Continued monitoring with short-term repeat chest CT in 3 months isrecommended. New 1.6 cm low-density lesion within the posterior right hepatic lobe, also suspicious for metastatic disease. Slight increase in vertebral body height loss associated with pathologic fracture of the L4 vertebral body. No new suspicious bony lesions. I have personally reviewed the images and I agree with this report. WSN: [id number] Ordering Physician: Cynthia Rothman Dictated By: Sandra Pa MD Dictated Date/Time: 11/11/23 12:00 p Reviewed By: Doyle Escobar MD Signed By: Doyle Escobar MD Signed Date/Time: 11/11/23 12:05 pm Transcribed By: ROBERT Transcribed Date/Time: 11/11/23 11:43 am * Exam Date Time Procedure Performing Provider Status 11/11/23 11:[address] Chest W/ Contrast Lydia Giles; Auth (Verified) Notes: (CT Chest W/ Contrast) Reason For Exam: metastatic parotid ca;Tumor Secondary RESULT: CT Chest W/ Contrast CT Chest W/ Contrast, CT Abd/Pelvis W/ IV + Oral Contrast INDICATION: Reason: Tumor Secondary; metastatic parotid ca; Clinical Question(s): Staging Metastatic Tumor TECHNIQUE: Helical CT scan of the chest, abdomen, and pelvis with IV contrast, formatted in 3 planes. 100 cc of Omnipaque 300 was administered intravenously. This study was performed without oral contrast. Weight-based protocol was performed using automatic exposure control. CTDIvol Body: 12.70 mGy, DLP Body: 956 mGy*cm. COMPARISON: CT lumbar spine 10/21/2023, PET/CT 03/29/2023 FINDINGS: [employer] Load[employer] view findings, lines and tubes: Right IJ Port-A-Cath terminates at the cavoatrial junction. Percutaneous gastrostomy tube terminates in the distal stomach. Trachea and airways: Patent without evidence of tracheal or endobronchial lesion. Lungs and pleura: 6 mm subpleural right lower lobe nodule (205:81). Additional medial right lower lobe nodules measuring up to 7 mm (205:90). These nodules were not definitively present on PET CT 03/29/2023. No consolidation. No effusion or pneumothorax. Mediastinum and aniket: No mass or hematoma. No mediastinal or hilar lymphadenopathy. No esophageal abnormality. Partially imaged thyroid is unremarkable. Heart: Heart is normal in size. No pericardial effusion. No coronary arterial calcifications. Aorta: No aortic aneurysm. Pulmonary arteries: Normal caliber. No evidence of pulmonary embolism on this study performed without angiographic technique. Chest wall soft tissues: No acute abnormality. Diaphragm: Intact. Liver: Normal in attenuation and morphology. 1.6 cm low-density lesion within the posterior right hepatic lobe (201:89), not present on prior PET/CT. Gallbladder: No CT evidence of gallbladder pathology. Bile ducts: No biliary ductal dilation. Spleen: Normal in size. Pancreas: No suspicious lesion or ductal dilatation. Adrenal glands: No nodule. Kidneys and ureters: No hydronephrosis, stone, or suspicious lesion. Bladder: No wall thickening or surrounding stranding. Reproductive organs: Prostatomegaly measuring up to 5.5 cm in axial plane (201:200). Stomach, small bowel, and large bowel: Unremarkable stomach, small and large bowel. No evidence of bowel obstruction or acute inflammation. Mild stool retention throughout the colon. Appendix: Not seen, but no evidence of acute appendicitis. Peritoneum and retroperitoneum: No ascites or pneumoperitoneum. No omental or mesenteric lesions. Lymph nodes: No enlarged lymph nodes. Blood vessels: Mild vascular calcifications but no aneurysm. No evidence of venous thrombosis. Abdominal and pelvic wall soft tissues: No acute abnormality. Bones: No acute abnormality. Redemonstration of lytic lesion within the L4 vertebral body with slight increase in vertebral body height loss associated with pathologic compression fracture. No new suspicious bony lesions. IMPRESSION: Right lower lobe nodules measuring up to 7 mm, not definitively present on PET CT 03/29/2023, although those images are not diagnostic for the evaluation of pulmonary nodules. Findings are suspicious for possible metastatic disease. Continued monitoring with short-term repeat chest CT in 3 months isrecommended. New 1.6 cm low-density lesion within the posterior right hepatic lobe, also suspicious for metastatic disease. Slight increase in vertebral body height loss associated with pathologic fracture of the L4 vertebral body. No new suspicious bony lesions. I have personally reviewed the images and I agree with this report. WSN: [id number] Ordering Physician: Cynthia Rothman Dictated By: Sandra Pa MD Dictated Date/Time: 11/11/23 12:00 p Reviewed By: Doyle Escobar MD Signed By: Doyle Escobar MD Signed Date/Time: 11/11/23 12:05 pm Transcribed By: ROBERT Transcribed Date/Time: 11/11/23 11:43 am * Exam Date Time Procedure Performing Provider Status 11/09/23 11:[address] Head/Brain W/O Contrast Pedro Suggs; Sola (Verified) Notes: (CT Head/Brain W/O Contrast) Reason For Exam: Brain mass or lesion;Other: RESULT: CT Head/Brain W/O Contrast CT Head/Brain W/O Contrast INDICATION: Hx of Present Illness: swollen right face; Reason: Other:; Brain mass or lesion; Clinical Question(s): Hematoma TECHNIQUE: Noncontrast head CT using axial technique and reconstructed in axial and coronal planes.Iterative reconstruction techniques are used to optimize dose and image quality. CTDIvol Head: 48.10 mGy, DLP Head: 772 mGy*cm. COMPARISON: 04/26/2019. 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 BRAIN AND EXTRA-AXIAL SPACES: No parenchymal hemorrhage, midline shift, or mass effect. Walker-white matter differentiation is wellpreserved. No acute infarct. Negative insular ribbon and hyperdense vessel signs. Ventricles, sulci, and basilar cisterns are normal. Prominent CSF space in the posterior fossa likely represents an arachnoid cyst or karo cisterna magna. No white matter lesions. No subarachnoid hemorrhage. No subdural or epidural collection. CALVARIUM, SKULL BASE, AND SOFT TISSUES: No fractures or suspicious bony lesions. Moderate mucosal thickening in maxillary sinuses. Remainder of the paranasal sinuses and mastoid air cells are clear. Visualized orbits and globes are intact. Diffuse soft tissue swelling in the right face extending to the frontal and temporal scalp. IMPRESSION: No acute intracranial pathology. Diffuse soft tissue swelling in the right face extending to the frontal and temporal scalp. WSN: [id number] Ordering Physician: Ingrid Barr Dictated By: Yani Slade MD Dictated Date/Time: 11/09/23 11:55 p Reviewed By: Yani Slade MD Signed By: Yani Slade MD Signed Date/Time: 11/09/23 11:55 pm Transcribed By: ROBERT Transcribed Date/Time: 11/09/23 11:53 pm * Exam Date Time Procedure Performing Provider Status 11/09/23 11:[address] Soft Tissue Neck W/ Contrast Pedro Pelayo (Verified) Notes: (CT Soft Tissue Neck W/ Contrast) Reason For Exam: Neck Mass Undiagnosed RESULT: CT Soft Tissue Neck W/ Contrast CT Soft Tissue Neck W/ Contrast INDICATION/CLINICAL QUESTION: Hx of Present Illness: swollen right face; Reason: Neck Mass Undiagnosed; Clinical Question(s): Carcinoma / Carcinoma. TECHNIQUE: Spiral CT neck with IV contrast formatted in 3 planes. 100 cc of Omnipaque 300 was administered intravenously. Weight-based protocol using automatic tube modulation was used to optimize exposure parameters. CTDIvol Body: 10.20 mGy, DLP Body: 420 mGy*cm. COMPARISON: CT neck on 12/12/2008; MRI neck from 1024. 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 Intracranial structures: Visualized portions are unremarkable. Orbits: Right-sided periorbital inflammatory fat stranding and swelling. No postseptal inflammatorychange. No abscess. Left orbit is unremarkable. Paranasal sinuses and mastoids: Mild mucosal thickening of the maxillary sinuses without fluid levels. Remaining paranasal sinuses are clear. Partial opacification of left-sided mastoid air cells. Mucosal surfaces: There is asymmetric mucosal edema of the right oropharynx, hypopharynx, supraglottic larynx, contiguous with inflammatory change of the right neck described below, likely reactive. (The right piriform sinus is. Superficial and deep neck spaces: There is extensive inflammatory fat stranding and swelling centered on the enlarged and heterogeneously enhancing right parotid gland. The right parotid gland is inseparable from the right masseter muscle, which is also enlarged and heterogeneously enhancing. Rightmedial pterygoid muscle also demonstrates asymmetric enlargement and heterogeneous enhancement. Inflammatory fat stranding extends to the parapharyngeal fat pad at its deep aspect. More superficially, extensive fat stranding and edema extends throughout the surrounding superficial soft tissues of the right cheek, and superiorly to the right periorbital fat and the right frontoparietal scalp. Inferiorly, inflammatory change extends into the superficial soft tissues as far inferiorly as the subcutaneous fat of the anterior chest,, and surrounds the length of the right sternocleidomastoid muscle, and along the right carotid sheath. No discrete fluid collection or abscess is present. Cervical lymph nodes: Mild asymmetric prominence of level 2 and 3 lymph nodes with normal morphology, not meeting size criteria for enlargement (201:66, 57, 52). Prior left neck dissection with surgical clips and partial effacement of fat planes. Salivary glands: There is diffuse enlargement and heterogeneous enhancement of the right parotid gland. No ductal dilatation or stone is seen. No focal mass or fluid collection is present. The inflammatory change extends to surround the right submandibular gland with mild heterogeneity of enhancement in the gland, likely reactive inflammatory change. Left submandibular gland is unremarkable. The left parotid gland is surgically absent, with fat in the surgical bed. Thyroid gland: Normal CT appearance. Inflammatory change adjacent to the right thyroid lobe as above Vascular structures: Unremarkable. Upper chest: The upper lungs are clear. The upper mediastinum is unremarkable. Bones and teeth: Multilevel degenerative changes of the spine. No acute abnormality. IMPRESSION: 1. Extensive inflammatory/infectious process centered in the enlarged and heterogeneous right parotid gland, compatible with parotitis. There is extensive surrounding edema and fat stranding extending superiorly to the right periorbital fat and right frontotemporal scalp, and inferiorly to the chest wall. No associated fluid collection/abscess. 2. Partial effacement of the right-sided hypopharynx and supraglottic larynx by right-sided mucosaledema secondary to the above process. I have personally reviewed the images and I agree with this report. WSN: [id number] Ordering Physician: Ingrid Barr Dictated By: Darren Gamino MD Dictated Date/Time: 11/10/23 8:33 am Reviewed By: Holli Gutierrez MD Signed By: Holli Gutierrez MD Signed Date/Time: 11/10/23 8:38 am Transcribed By: ROBERT Transcribed Date/Time: 11/10/23 8:08 am Vital Signs Most recent to oldest [Reference Range]: 1 2 3 4 5 Height 173 cm (11/12/23 1:48 PM) 173 cm (11/12/23 6:29 AM) 173 cm (11/11/23 9:31 PM) Weight 91.8 kg (11/10/23 12:57 PM) 95.5 kg (11/10/23 6:12 AM) 95.5 kg (11/09/23 10:15 PM) Oxygen Saturation [94-100 %] 99 % (11/12/23 1:48 PM) 98 % (11/12/23 6:29 AM) 100 % (11/11/23 9:31 PM) Pulse Rate [55-90 bpm] 72 bpm (11/12/23 1:48 PM) 64 bpm (11/12/23 6:29 AM) 77 bpm (11/11/23 9:31 PM) Body Mass Index [18.5-24.99 kg/m2] 30.67 kg/m2 *>HHI* (11/10/23 12:57 PM) 31.91 kg/m2 *>HHI* (11/10/23 6:12 AM) 31.91 kg/m2 *>HHI* (11/09/23 7:29 PM) Blood Pressure [90-138/55-84 mm Hg] 135/85mm Hg (11/12/23 1:48 PM) 134/81mm Hg (11/12/23 6:29 AM) 137/84mm Hg (11/11/23 9:31 PM) Respiratory Rate [16-30 br/min] 18 br/min (11/12/23 4:01 PM) 17 br/min (11/12/23 1:48 PM) 18 br/min (11/12/23 9:27 AM) 18 br/min (11/12/23 9:27 AM) 18 br/min (11/12/23 9:27 AM) Temperature [96.8-100.4 DegF] 97.4 DegF (11/12/23 1:48 PM) 97.6 DegF (11/12/23 6:29 AM) 98 DegF (11/11/23 9:31 PM) Mode of Delivery (Oxygen) Room air (11/12/23 1:48 PM) Room air (11/12/23 6:29 AM) Room air (11/11/23 9:31 PM) Blood pressure sites Arm, right (11/12/23 1:48 PM) Arm, left (11/12/23 6:29 AM) Arm, left (11/11/23 9:31 PM) Temperature Route Oral (11/12/23 1:48 PM) Oral (11/12/23 6:29 AM) Oral (11/11/23 9:31 PM) Dry Weight 91.8 kg (11/10/23 12:57 PM) 95.5 kg (11/10/23 6:12 AM) 95.5 kg (11/09/23 10:15 PM) Weight Obtained Via Standing scale (11/09/23 7:29 PM) Dry Weight Obtained Via Standing scale (11/09/23 7:29 PM) Social History Social History Type Response Tobacco Interested in cessat ion: No. No, Other: pt uses medical marijuana. Sex History and physical note * Stephan JAUREGUI, Cynthia: PERFORM, MODIFY, MODIFY, MODIFY, MODIFY, MODIFY Event Display: History and Physical Hospital Authored Date: Patient: ??CHRISSY REHMAN ? Age:??58 Years?Sex:??Male?:??[id number]?? Chief Complaint/Reason for Consultation ?? Swelling??of the right side of the face History of Present Illness ?? History obtained from chart review and from patient at bedside in the ER ?? 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 ?? He completed treatment??for his cancer around July. 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 He was seen by oncology and radiation oncology???plan was to start radiation. ??However he also noted??swelling of the right side of the face and looks like he went for follow- up to see hisoncologist Dr. Conklin yesterday in the clinic???was discharged on??dexamethasone.?? He probably took a dose and says he went to sleep and when he woke up he felt the swelling was worse than usual so came to the ER ?? He otherwise denies any fever chills, main complaint is swelling tightness??of the right side of his face No nausea vomiting diarrhea Denies any pain in his eyes or redness of the eye ?? In emergency room,??he was afebrile, vital signs notable for high blood pressure and tachycardia Routine labs with leukocytosis, sodium was low at 129 ?? CT scan of the head did not show any acute finding CT scan soft tissue neck - showed Extensive inflammatory/infectious process centered in the enlarged and heterogeneous right parotid gland, compatible with parotitis. There is extensive surrounding edema and fat stranding extending superiorly to the right periorbital fat and right frontotemporal scalp, and inferiorly to the chest wall. No associated fluid collection/abscess. Partial effacement of the right-sided hypopharynx and supraglottic larynx by right-sided mucosal edema secondary to the above process. ?? He was given a dose of dexamethasone 10 mg and Unasyn ?? At the time of my exam, patient says he is feeling better than before. ??He is feels the swelling is improving. ??He denies any difficulty any new difficulty with swallowing. ??Says he does have some underlying??dysphagia??and has been getting intermittent??G-tube feed. ??He denies any difficulty with??breathing ?? Review of Systems Rest of the review of system negative Objective Measurements?? Height: 173 cm (11/10/23) Weight: 95.5 kg (11/10/23) Dry Weight: 95.5 kg (11/10/23) Body Mass Index:??31.91 kg/m2??Critical (11/10/23) ? Vital Signs?? Temperature: 98.2 DegF (11/09/23 22:15:00) Temperature Route: Oral (11/09/23 22:15:00) Pulse Rate:??96 bpm??High (11/10/23 11:42:00) Respiratory Rate: 18 br/min (11/10/23 11:42:00) Systolic Blood Pressure:??146 mm Hg??High (11/10/23 11:42:00) Diastolic Blood Pressure:??89 mm Hg??High (11/10/23 11:42:00) Blood pressure sites: Arm, left (11/10/23 11:42:00) Mean Arterial Pressure: 123 mm Hg (11/10/23 06:12:00) Pulse Pressure: 57 mm Hg (11/10/23 11:42:00) Oxygen Saturation: 98 % (11/10/23 11:42:00) Mode of Delivery (Oxygen): Room air (11/10/23 11:42:00) Early Warning Score: 2 (11/10/23 11:50:52) ? Physical Exam ?? General???pleasant man,??no acute distress at rest, walking around in the room HEENT???swelling of the right side of the face??up to the eye and extending down to the neck no redness noted in the eye,??no pain with eye??movements. ??Has some mild erythema. Respiratory???no wheezing or crackles. ??No stridor Cardiovascular???normal heart sounds GI???abdomen soft, bowel sound present, nontender Neuro-??? oriented x 3 Lower extremity???no pedal edema Psych???mood stable Assessment/Plan ?? 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 ?? Cancer of parotid gland ??(C07) Metastatic acinic cell carcinoma Possible Cellulitis ??(L03.90) Recent??L4??pathologic fracture Acute parotitis (K11.21)? Currently afebrile, hemodynamically stable Has leukocytosis of??13,000 CT scan of the soft tissue neck???extensive??inflammation.?? No fluid collection or abscess Denies any dysphagia,??no problem with breathing or stridor Symptomatically he feels better??than when he came in and feels the facial??swelling is better thanwhen he came in Concern for malignancy Plan Continue with IV Unasyn??given patient is already feeling better.?? Dexamethasone increased to 4 mg IV every 6 hours Oncology consulted???was seen yesterday and plan was to start chemotherapy soon Keep HOB > 45 Pain control???Tylenol, morphine ER??30 mg 2 times a day, as needed oral oxycodone. Gabapentin, Added IV morphine??if oral meds is not working Dietitian consulted for G-tube feed ( pt uses this intermittently ) ?? Hyponatremia (E87.1) Sodium 129 Looks euvolemic on exam Plan Repeat sodium If still low will order workup ?? Bipolar disorder ??(F31.9) / Anxiety ???Depakote. Doxepin Constipation ??(K59.00)???complained of some having blood in the stool once was at that??he had to manually disimpact himself as he was very constipated and had not had a bowel movement for 5 days. ??Continue with scheduled bowel regimen. ??H&H stable Chronic GERD ??(K21.9) - PPI DVT (deep venous thrombosis) ??(I82.409) - Apixaban History of BPH ??(Z87.438) - FLomax ?? VTE prophylaxis???planned anticoagulation CODE STATUS???full. ??Discussed with patient ?? Reviewed oncology??recommendation???ordered for MRI??brain and CT scan??for staging Histories Allergies Allergies ?(Active and Proposed Allergies Only) No Known Medication Allergies? (Severity: Unknown severity, Onset: Unknown) ? Past Medical History/Problem List ?? Parotid gland cancer???status post chemo//radiation and surgery???March 2023 Pathologic Fracture of??of L4???10/2023???biopsy???metastatic acinic??cell cancer Bipolar disorder Anxiety/depression Hypertension GERD Hyperlipidemia ? Past Surgical History ?? Left parotidectomy ? Social History ?? Denies any tobacco or alcohol Uses marijuana every day No other recreational drug ? Family History No Family History documented. ? Medications Home Medications Acetaminophen (acetaminophen 325 mg oral tablet)?975?Milligram?By Mouth?3 times a day?Please check Temperature ??prior to administering Tylenol apixaban (Eliquis 5 mg oral tablet)?1?tab(s)?5?Milligram?By Mouth?2 times a day Dexamethasone (dexamethasone 4 mg oral tablet)?1?tab(s)?By Mouth?2 times a day?for 14?Days Divalproex Sodium (divalproex sodium 500 mg oral enteric coated tablet)?1?tab(s)?500?Milligram?By Mouth?2 times a day Doxepin (doxepin 10 mg oral capsule)?1?capsule?10?Milligram?By Mouth?Daily at bedtime Durable Medical Equipment ([employer] extended chin strap)?See Instructions?Use as instructed. ??Diagnosis: I89.0 Gabapentin (gabapentin 300 mg oral capsule)?300?Milligram?1?capsule?By Mouth?2 times a day?TAKE 1 CAPSULE BY MOUTH TWICE DAILY Lactulose (lactulose 10 gm/15 ml oral syrup)?15?Milliliter?10?gram?By Mouth?Daily?as needed?as needed for constipation Lidocaine Topical (lidocaine 5% topical film)?See Instructions?1 patch apply Topically to painful area on back Daily.remove patches after 12 hours Lidocaine/Prilocaine Topical (lidocaine-prilocaine 2.5%-2.5% topical cream)?See Instructions?apply small dollop to portacath site 1 hr prior to appt and cover with plastic Lorazepam (Ativan 1 mg oral tablet)?1?tab(s)?1?Milligram?By Mouth?Daily?as needed?as needed for anxiety?for 30?Days Meclizine (meclizine 25 mg oral tablet)?1?tab(s)?By Mouth?3 times a day?as needed? NEEDED FOR DIZZINESS Morphine (morphine 30 mg/8 to 12 hr oral tablet, extended release)?30?Milligram?By Mouth?Every 8 hours?for 7?Days Omeprazole (omeprazole 20 mg oral enteric coated capsule)?1?capsule?20?Milligram?By Mouth?2 times a day?TAKE 1 CAPSULE BY MOUTH TWICE DAILY Oxycodone (oxyCODONE 15 mg oral tablet)?1?tab(s)?15?Milligram?By Mouth?Every 4 hours?as needed?Pain , Severe?for 7?Days Polyethylene Glycol 3350 ([id number] oral powder for reconstitution)?17?gram?By Mouth?Daily PROCHLORperazine (prochlorperazine 10 mg oral tablet)?1?tab(s)?10?Milligram?By Mouth?4 times a day?as needed?Nausea & Vomiting?TAKE 1 TABLET BY MOUTH EVERY 6 HOURS NEEDED FOR NAUSEA AND VOMITING MAY CAUSE DROWSINESS Rosuvastatin (rosuvastatin 5 mg oral capsule)?1?capsule?5?Milligram?By Mouth?Daily Senna (senna 187 mg oral tablet)?1?tab(s)?8.6?Milligram?By Mouth?2 times a day?as needed?Constipation Tamsulosin (tamsulosin 0.4 mg oral capsule)?0.4?Milligram?1?capsule?By Mouth?Daily?TAKE 1 CAPSULE BY MOUTH ONCE DAILY ?? Reviewed made send based on external history and discussed with patient???although morphine ER is ordered??every 8 hours???he says he takes it only twice a day Results CBC, CBC w/Diff?? CBC?? Differential?? WBC:??13.5 k/mm3??High (21:55) Abs. Neut:??12.2 k/mm3??High (21:55) RBC:??4.38 m/mm3??Low (21:55) Abs. Lymph:??0.4 k/mm3??Low (21:55) Hct:??40.1 %??Low (21:55) Abs. Powell: 0.8 k/mm3 (21:55) RDW-SD: 41.3 femtoliters (:55) Abs. Eo: 0 k/mm3 (21:55) Nucleated RBC (Automated): 0 #/100 WBC'S (:55) Abs. Baso: 0 k/mm3 (21:55) Abs. NRBC: 0 k/mm3 (21:55) Neut %:??90.4 %??High (21:55) ?? Lymph %:??3 %??Low (21:55) ?? Powell %: 5.8 % (21:55) ?? Eos %: 0.3 % (21:55) ?? Baso %: 0.1 % (21:55) ?? Imm Gran: 0.4 % (21:55) ?? Abs. Imm Gran: 0.1 k/mm3 (21:55) ? BMP, Mg, and Phos Anion Gap: 12 (21:55) Bicarbonate Level: 26 mmol/L (21:55) BUN: 18 mg/dL (21:55) Calcium: 9.1 mg/dL (21:55) Chloride:??91 mmol/L??Low (21:55) Creatinine-Blood:??0.65 mg/dL??Low (21:55) Estimated GFR Creatinine: 109 ML/MIN/1.73 M2 (21:55) Glucose Level:??159 mg/dL??High (21:55) Magnesium: 1.9 mg/dL (21:55) Potassium: 4.4 mmol/L (21:55) Sodium:??129 mmol/L??Low (21:55) ?? Coagulation Profile APTT: 27.2 seconds (21:55) INR: 1 (21:55) Protime (PT): 11 seconds (21:55) ?? LFT Albumin: 3.8 Gm/dL (21:55) Alkaline Phosphatase: 73 units/L (21:55) ALT (SGPT): 6 units/L (21:55) AST (SGOT): 10 units/L (21:55) Bilirubin, Total: 0.2 mg/dL (21:55) Protime (PT): 11 seconds (21:55) ?? Urinalysis Est Creatinine Clearance: 118.82 mL/min (22:39) ? Blood Gases?? No qualifying data available. ? Hospital Progress note * Teodora García RN: PERFORM, SIGN, VERIFY, MODIFY, SIGN Event Display: Progress Note Hospital Authored Date: Patient: CHRISSY REHMAN Age: 58 years Sex: Male : 1965 Associated Diagnoses: None Author: Teodora García RN Findings Problem Related to Alteration in Immunologic : Alteration in Immunologic Function/new 11/12/2023 19:00 EDT Alteration Immunologic Status Related to Sepsis Goals & Outcomes, Immunologic Pt will maintain/resume normal fluid/electrolyte balance, Pt willmaintain intact skin integrity, Pt will not develop complications r/t immobility, Inflammatory/infectious process will resolve Interventions, Immunologic Resolved problem, Interventions no longer in effect Goals/Interventions, Immunologic Yes Immunologic, Problem Start 11/10/2023 13:31 Reviewed Plan with, Immunologic Patient Patient Progression, Immunologic Status Resolved problem Immunologic, Problem Resolved 11/12/2023 19:51 . Evaluation Pt alert, oriented 4, c/o Rt facial pain, sched Acetaminophen given with good effect, pt reports pain 4/10 is clotilde. Pt does not present with any cardiac/resp distress, he is d/c home. Pt declines tubefeed bolus, he clotilde PO intake well, see nutrition notes. D/C instructions reviewed with pt, questions encouraged and answered. Rt chest port de accessed by [employer] prior to d/c. Po Augmentin given as ordered. Pt left unit via w/c accompanied by patients transporter. . Discharge Information Case Management Discharge Plan : Case Management Discharge Plan Data 11/12/2023 16:23 EDT Discharge Level of Care at Discharge Home/[facility] * Teodora García RN: PERFORM, SIGN, VERIFY Event Display: Progress Note Hospital Authored Date: Patient: CHRISSY REHMAN Age: 58 years Sex: Male : 1965 Associated Diagnoses: None Author: Teodora García RN Findings Problem Related to Alteration in Immunologic : Alteration in Immunologic Function/new 11/11/2023 18:00 EDT Alteration Immunologic Status Related to Sepsis Goals & Outcomes, Immunologic Pt will maintain/resume normal fluid/electrolyte balance, Pt willmaintain intact skin integrity, Pt will not develop complications r/t immobility, Inflammatory/infectious process will resolve Interventions, Immunologic Maintain patent IV access, Maintain and monitor nutritional intake, Assess skin integrity BH Goals/Interventions, Immunologic Yes Immunologic, Problem Start 11/10/2023 13:31 Reviewed Plan with, Immunologic Patient Patient Progression, Immunologic Status Pt progressing according to plan . Evaluation P: Alteration in immunologic function I: See above interventions E: Pt alert, oriented, x 4, c/o Rt facial pain 5/10 on assessment, sched Morphine and sched Acetaminophen given with some effect. Pt reports pain alleviated down to 4/10, he declined prn Oxycodone when offered. Pt ref tube feed in afternoon, diet advanced and pt able to clotilde well, nutrition consult req. Pt cont IV abt, no adverse reaction noted. Pt does not present with any cardiac/resp distress. Call mcdonnell within reach, safety maintained . * Cynthia Rothman MD: PERFORM Event Display: Progress Note Hospital Authored Date: Patient: ??CHRISSY REHMAN ? Age:??58 Years?Sex:??Male?:??1965?? Subjective ?? Seen later in the morning No significant overnight event Has been afebrile Overall feeling much better this??right face swelling has improved markedly Labs today???leukocytosis resolved ?? Has some issues with swallowing which is not new this is why he has the??G-tube as per patient ?? Blood culture in process Currently on IV Unasyn Decrease dexamethasone to 3 times a day ?? Review of Systems Rest of the review of system negative Objective Measurements?? Height: 173 cm (11/11/23) Weight: 91.8 kg (11/10/23) Dry Weight: 91.8 kg (11/10/23) Body Mass Index:??30.67 kg/m2??Critical (11/10/23) ? Vital Signs?? Temperature: 98 DegF (11/11/23 05:37:00) Temperature Route: Oral (11/11/23 05:37:00) Pulse Rate: 72 bpm (11/11/23 05:37:00) Respiratory Rate: 18 br/min (11/11/23 09:05:00) Respiratory Rate: 18 br/min (11/11/23 09:05:00) Systolic Blood Pressure: 125 mm Hg (11/11/23 05:37:00) Diastolic Blood Pressure: 82 mm Hg (11/11/23 05:37:00) Blood pressure sites: Arm, right (11/11/23 05:37:00) Mean Arterial Pressure: 96 mm Hg (11/11/23 05:37:00) Pulse Pressure: 43 mm Hg (11/11/23 05:37:00) Oxygen Saturation: 98 % (11/11/23 05:37:00) Mode of Delivery (Oxygen): Room air (11/11/23 05:37:00) Early Warning Score: 0 (11/11/23 11:55:21) ? Physical Exam ?? General???pleasant man,??no acute distress at rest HEENT??? marked improvement in swelling of the right side of the face?? Respiratory???no wheezing or crackles. ??No stridor Cardiovascular???normal heart sounds GI???abdomen soft, bowel sound present, nontender Neuro-??? oriented x 3 Lower extremity???no pedal edema _ 72 Hour Antibiotic History Active Antibiotics Calendar Day Last Administered First Administered Ampicillin-Sulbactam??3 Gm, 100 mL/hr, IVPB, Every 6 hours ?2 11/11/2023 11:33 11/10/2023 01:08 ? Results Abnormal Labs ?? BLOOD COUNT & DIFF Abs. NRBC?0.0 k/mm3 ()?11/11/2023 02:09 Hct?32.9 % (Low)?11/11/2023 02:09 Hgb?11.5 Gm/dL (Low)?11/11/2023 02:09 Nucleated RBC (Automated)?0.0 #/100 WBC'S ()?11/11/2023 02:09 RBC?3.64 m/mm3 (Low)?11/11/2023 02:09 RDW-SD?41.2 femtoliters ()?11/11/2023 02:09 ?? CHEM GENERAL Creatinine-Blood?0.69 mg/dL (Low)?11/11/2023 02:09 Estimated GFR Creatinine?107 ML/MIN/1.73 M2 ()?11/11/2023 02:09 ?? Note: Critical results are displayed in red. ? Assessment/Plan ?? 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 ?? Cancer of parotid gland ??(C07) Metastatic acinic cell carcinoma Possible Cellulitis ??(L03.90) Recent??L4??pathologic fracture Acute parotitis (K11.21)? Afebrile, hemodynamically stable Leukocytosis resolved Marked improvement in??symptoms CT scan of the soft tissue neck on admission extensive??inflammation.?? No fluid collection or abscess Seen by oncology??on 11/09???getting staging workup Plan Continue with IV Unasyn?? Continue with dexamethasone dose decreased to every 8 hours???to be tapered down to every 12 hours from tomorrow (he was prescribed this dose as outpatient).?? Keep HOB > 45 Pain control???Tylenol, morphine ER??30 mg 2 times a day, as needed oral oxycodone. Gabapentin CT scan abdomen pelvis and chest???done today???will follow-up on the read MRI brain with and without contrast Follow-up on blood culture???in process ?? Hyponatremia (E87.1)???resolved ?? Bipolar disorder ??(F31.9) / Anxiety ???Depakote. Doxepin Constipation ??(K59.00)???scheduled bowel regimen Chronic GERD ??(K21.9) - PPI DVT (deep venous thrombosis) ??(I82.409) - Apixaban History of BPH ??(Z87.438) - FLomax ?? VTE prophylaxis???planned anticoagulation CODE STATUS???full. ??Discussed with patient ?? OMN???IV antibiotic. ??Follow-up on blood culture, MRI brain with and without Dispo???Home??when ready ?? [place]???in next 24 to 48 hours if he continues to improve ?? Consult note * Deidre Tran MD: PERFORM, MODIFY, MODIFY Event Display: Consultation Note Authored Date: Patient: ??CHRISSY REHMAN ? Age:??58 Years?Sex:??Male?:??1965?? Reason for Consult/Visit Metastatic??acini cell carcinoma of the parotid gland Requesting Physician Dr. Rothman Primary Oncologist Dr. 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 (Confirmed??by??biopsy on 10/29/2023).?He was awaiting??repeat PET/CT after??being found to have metastatic disease.?? CT head??with no??findings.?? Was also planned to get MRI brain??to complete staging.?? Patient saw Dr. Conklin??in clinic??on 11/08??and plan was to start on??carboplatin/paclitaxel and pembrolizumab. ??(PD-L1 expression was 15%) ?? Presented to ER??on the same day??11/08 with??facial swelling??on the right side that continued to worsen over the last??few weeks.?? Also started drooling??and noticed voice changes. ?? In ER,??patient was started on??Unasyn??for the concern of??soft tissue infection,??dexamethasone 4mg??twice daily??to help with swelling and morphine for pain control. Hematology/Oncology Shared Clinical Summary -Left parotid biopsy??on [...] fat graft??reconstruction??from??left thighand fascia elpidio sling from modiolus to zygomatic arch??on April 06, 2023. The surgical biopsy revealed acinic cell carcinoma with high grade transformation to involve inked resection margin, [id number]. ?? -The patient was started with concurrent chemoXRT with cisplatin/etoposide on 06/07/23. He toleratedthe therapy well. He received pegfilgrastim on 07/01/23 due to neutropenia. -The patient received cycle 2 day 1 of the therapy on 06/28/2023 -The patient receive cycle 3 day 1??on 07/18. G-tube placed in. -The pt receive C4D1 of therapy on 08/08 (full dose of cisplatin) Review of Systems All systems reviewed. Pertinent positives are noted in HPI/ interval history.?? Problem List/Past Medical History Ongoing Acinic cell carcinoma Compression fx, lumbar spine DVT (deep venous thrombosis) Obese class I Social History Alcohol Frequency: 1-2 times per year. Electronic Cigarette/Vaping Electronic Cigarette Use: 1-25 inhales/day. Type: Cannabinoid infused. Substance Abuse Type: Marijuana. Tobacco Interested in cessation: No. No, Other: pt uses medical marijuana. Allergies No Known Medication Allergies Medications Inpatient acetaminophen 325 mg oral tablet, 975 mg, By Mouth, 3 times a day Acetaminophen Tablet, 650 mg, By Mouth, Every 4 hours, PRN Artificial Tears1.4%, 2 drops, Eyes, Both, Every 4 hours, PRN CARBOplatin IVPB, 655.545 mg, 5.5 AreaUnderCurve, IVPB, Chemo To Be Scheduled Depakote Tablet, 500 mg, By Mouth, 2 times a day dexamethasone 4 mg oral tablet, 4 mg, By Mouth, 2 times a day Dexamethasone IVPB, 10 mg= 50 mL, IVPB, Chemo To Be Scheduled DiphenhydrAMINE IVPB, 50 mg, IVPB, Chemo To Be Scheduled Docusate Sodium Capsule, 100 mg= 1 capsule, By Mouth, 2 times a day, PRN Eliquis, 5 mg, By Mouth, 2 times a day Famotidine IVPB, 20 mg= 2 mL, IVPB, Chemo To Be Scheduled Fosaprepitant IVPB, 150 mg= 100 mL, IVPB, Chemo To Be Scheduled gabapentin 300 mg oral capsule, 300 mg, By Mouth, 2 times a day Heparin Flush 100 units/mL Inj, 500 units= 5 mL, IV Push Slowly, Daily, PRN lactulose 10 gm/15 ml oral syrup, 10 Gm= 15 mL, By Mouth, Daily, PRN Melatonin Tablet, 3 mg, By Mouth, Daily at bedtime, PRN MiraLax Powder, 17 Gm= 1 pack/packet, By Mouth, Daily, PRN morphine 15 mg/8 to 12 hr oral tablet, extended release, 30 mg, By Mouth, Every 12 hours MorPHINE Inj, 4 mg, IV Push Slowly, Every 4 hours, PRN NaCL 0.9% 500 mL, 500 mL, IV Infusion NaCL 0.9% 500 mL, 500 mL, IV Infusion NaCL 0.9% Flush, 3 mL, IV Push, Every 8 hours NaCL 0.9% Flush, 3 mL, IV Push, Every 8 hours, PRN oxyCODONE 5 mg oral tablet, 15 mg, By Mouth, Every 4 hours, PRN PACLitaxel IVPB, 364 mg, 175 mg/m2, IVPB, Chemo To Be Scheduled Palonosetron Inj, 0.25 mg= 5 mL, IV Push, Chemo To Be Scheduled pantoprazole 20 mg oral delayed release tablet, 20 mg, By Mouth, Daily Pembrolizumab IVPB, 200 mg, IVPB, Chemo To Be Scheduled Polyethylene Glycol Powder, 17 Gm= 1 pack/packet, By Mouth, Daily Robitussin DM Liquid, 10 mL, By Mouth, Every 4 hours, PRN Senna 8.6 mg oral tablet, 17.2 mg= 2 tablet, By Mouth, Daily Senna Tablet, 8.6 mg= 1 tablet, By Mouth, 2 times a day, PRN Simethicone Tablet, 80 mg, Chew, 3 times a day, PRN tamsulosin 0.4 mg oral capsule, 0.4 mg, By Mouth, Daily at bedtime Unasyn IVPB, 3 Gm, IVPB, Every 6 hours Home acetaminophen 325 mg oral tablet, 975 mg, By Mouth, 3 times a day Ativan 1 mg oral tablet, 1 mg= 1 tablet, By Mouth, Daily, PRN dexamethasone 4 mg oral tablet, 1 tablet, By Mouth, 2 times a day divalproex sodium 500 mg oral enteric coated tablet, 500 mg= 1 tablet, By Mouth, 2 times a day doxepin 10 mg oral capsule, 10 mg= 1 capsule, By Mouth, Daily at bedtime Eliquis 5 mg oral tablet, 5 mg= 1 tablet, By Mouth, 2 times a day, 3 refills gabapentin 300 mg oral capsule, 300 mg= 1 capsule, By Mouth, 2 times a day [employer]it[employer] extended chin strap, See Instructions lactulose 10 gm/15 ml oral syrup, 10 Gm= 15 mL, By Mouth, Daily, PRN lidocaine 5% topical film, See Instructions lidocaine-prilocaine 2.5%-2.5% topical cream, See Instructions, 1 refills meclizine 25 mg oral tablet, 1 tablet, By Mouth, 3 times a day, PRN morphine 30 mg/8 to 12 hr oral tablet, extended release, 30 mg, By Mouth, Every 8 hours omeprazole 20 mg oral enteric coated capsule, 20 mg= 1 capsule, By Mouth, 2 times a day oxyCODONE 15 mg oral tablet, 15 mg= 1 tablet, By Mouth, Every 4 hours, PRN [id number] oral powder for reconstitution, 17 Gm, By Mouth, Daily prochlorperazine 10 mg oral tablet, 10 mg= 1 tablet, By Mouth, 4 times a day, PRN rosuvastatin 5 mg oral capsule, 5 mg= 1 capsule, By Mouth, Daily senna 187 mg oral tablet, 8.6 mg= 1 tablet, By Mouth, 2 times a day, PRN tamsulosin 0.4 mg oral capsule, 0.4 mg= 1 capsule, By Mouth, Daily Physical Exam Vitals & Measurements T:??98.2?F?? TMIN:??98.2?F?? TMAX:??98.5?F?? HR:??96??(Peripheral)?? RR:??18?? BP:??146/89?? SpO2:??98%?? WT:??95.5??kg?? R Facial swelling, no warmth, firm to palpation Clear to auscultation bilateral RRR Abdomen soft nondistended No LE edema Lab Results/Pathology CBC?? CMP?? Coag?? Abs. NRBC: 0 k/mm3 (11/09/23 21:55:00) AG Ratio: 1.3 (11/09/23 21:55:00) APTT: 27.2 seconds (11/09/23 21:55:00) Hct:??40.1 %??Low (11/09/23 21:55:00) Alkaline Phosphatase: 73 units/L (11/09/23 21:55:00) INR: 1 (11/09/23 21:55:00) Nucleated RBC (Automated): 0 #/100 WBC'S (11/09/23 21:55:00) ALT (SGPT): 6 units/L (11/09/23 21:55:00) Protime (PT): 11 seconds (11/09/23 21:55:00) RBC:??4.38 m/mm3??Low (11/09/23 21:55:00) Anion Gap: 12 (11/09/23 21:55:00) ?? RDW-SD: 41.3 femtoliters (11/09/23 21:55:00) AST (SGOT): 10 units/L (11/09/23 21:55:00) ?? WBC:??13.5 k/mm3??High (11/09/23:55:00) Bicarbonate Level: 26 mmol/L (11/09/23:55:00) ? Bilirubin, Total: 0.2 mg/dL (11/09/23:55:00) ? BUN: 18 mg/dL (11/09/23:55:00) ? Calcium: 9.1 mg/dL (11/09/23 21:55:00) ? Chloride:??91 mmol/L??Low (11/09/23 21:55:00) ? Creatinine-Blood:??0.65 mg/dL??Low (11/09/23 21:55:00) ? Estimated GFR Creatinine: 109 ML/MIN/1.73 M2 (11/09/23 21:55:00) ? Glucose Level:??159 mg/dL??High (11/09/23 21:55:00) ? Potassium: 4.4 mmol/L (11/09/23 21:55:00) ? Protein, Total: 6.8 Gm/dL (11/09/23 21:55:00) ? Sodium:??129 mmol/L??Low (11/09/23 21:55:00) ?? 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 In October,??patient was found to have L4 pathologic fracture, biopsy proved as nasal carcinoma.?? The plan was to??start on??carboplat in/paclitaxel/pembrolizumab??given PD-L1 expression was 15%.?? However,??patient??was admitted to the hospital with??right-sided facial swelling,??CT soft tissue neck with??Extensive inflammatory/infectious process centered in the enlarged and heterogenous right parotid gland, compatible with parotitis.?? There was extensive surrounding edema and fat stranding extending superiorly to the right periorbital fat and right frontotemporal scalp and inferiorly to the chest wall.?? No associated fluidcollection/abscess.?? There was partial effacement of the right-sided hypopharynx and supraglottic larynx by right-sided mucosal edema. ?? Patient was started on dexamethasone 4 mg twice daily and Unasyn. ?? -Agree with treating the soft tissue infection aggressively. -Recommend ID consult -Recommend to obtain MRI brain, CT chest abdomen pelvis to complete staging when able. -Please provide IV hydration to prevent dehydration as dehydration worsens salivary obstruction - FU o.p for cancer treatment once infection resolves ?? Discussed with Dr. Edwards [1]??CT Chest W/ Contrast; Shawn JAUREGUI, Lauryannycarrie Lebron 11/11/2023 11:11 EDT * Jagdeep Edwards MD: PERFORM Event Display: Consultation Note Authored Date: [id number] I have seen the patient with the fellow, examined the patient and agree with the assessment plan asoutlined in this note.?? The patient had signs and symptoms of acute??parotitis, and is already responding to antibiotics with marked reduction in swelling, as well as pain and symptoms.?? I expect afew more days of antibiotics in hospital followed by discharge home after??cultures have been evaluated, with completion of oral antibiotic regimen. * Chelsea JAUREGUI, Deidre: PERFORM Event Display: Consultation Note Authored Date: [id number] (11/11/2023 11:[address] Chest W/ Contrast) Right lower lobe nodules measuring up to 7 mm, not definitively present on PET CT 03/29/2023, although those images are not diagnostic for the evaluation of pulmonary nodules. Findings are suspicious for possible metastatic disease. Continued monitoring with short-term repeat chest CT in 3 months isrecommended. ?? New 1.6 cm low-density lesion within the posterior right hepatic lobe, also suspicious for metastatic disease. ?? Slight increase in vertebral body height loss associated with pathologic fracture of the L4 vertebral body. No new suspicious bony lesions. ?? [1] Note * Teodora García RN: PERFORM Event Display: Discharge/Transfer Note Hospital Authored Date: [id number] Nursing Discharge Note Entered On: 11/12/2023 16:24 EDT Performed On: 11/12/2023 16:23 EDT by Teodora García RN Nursing Discharge Note 2 Discharge Time : 11/12/2023 16:13 EDT Discharge Level of Care at Discharge : Home/Snf/Foster Care Patient Left Unit Via : Wheelchair Patient Accompanied Off Unit with : Other: patients transporter DC Instructions Provided & Signed by Pt : Yes Patient Understands D/C Instructions : Yes Patient Instructions Discharge Signed : Yes Did Pt have Specialty Bed or Wound Vac : No Teodora García RN - 11/12/2023 16:23 EDT * Cynthia Rothman MD: MODIFY, PERFORM Event Display: Discharge/Transfer Note Hospital Authored Date: [id number] Patient: ??CHRISSY REHMAN ? Age:??58 Years?Sex:??Male?:??1965?? Patient Information Discharge Location: [facility] Primary Care Physician: Florencio Sky Admit Date/Time: 11/10/23 01:49 Discharge Disposition Discharge Disposition: Home with Home Health Discharge Diagnosis ?? Acute parotitis (K11.21) Cancer of parotid gland (C07) Cellulitis (L03.90) Compression fx, lumbar spine (4642972283) DVT (deep venous thrombosis) (I82.409) Bipolar disorder (F31.9) Hypertension (I10) Chronic GERD (K21.9) History of BPH (Z87.438) Constipation (K59.00) Hyponatremia (E87.1) _ Discharge Medications ?? Acetaminophen (acetaminophen 325 mg oral tablet)?975?Milligram?By Mouth?3 times a day?Please check Temperature ??prior to administering Tylenol Amoxicillin-Clavulanate (amoxicillin-clavulanate 875 mg-125 mg oral tablet)?1?tab(s)?By Mouth?2 times a day?for 5?Days apixaban (Eliquis 5 mg oral tablet)?1?tab(s)?5?Milligram?By Mouth?2 times a day Dexamethasone (dexamethasone 4 mg oral tablet)?1?tab(s)?By Mouth?2 times a day?for 14?Days Divalproex Sodium (divalproex sodium 500 mg oral enteric coated tablet)?1?tab(s)?500?Milligram?By Mouth?2 times a day Doxepin (doxepin 10 mg oral capsule)?1?capsule?10?Milligram?By Mouth?Daily at bedtime Durable Medical Equipment (Jobst JoviPak extended chin strap)?See Instructions?Use as instructed. ??Diagnosis: I89.0 Gabapentin (gabapentin 300 mg oral capsule)?300?Milligram?1?capsule?By Mouth?2 times a day?TAKE 1 CAPSULE BY MOUTH TWICE DAILY Lactulose (lactulose 10 gm/15 ml oral syrup)?15?Milliliter?10?gram?By Mouth?Daily?as needed?as needed for constipation Lidocaine Topical (lidocaine 5% topical film)?See Instructions?1 patch apply Topically to painful area on back Daily.remove patches after 12 hours Lidocaine/Prilocaine Topical (lidocaine-prilocaine 2.5%-2.5% topical cream)?See Instructions?apply small dollop to portacath site 1 hr prior to appt and cover with plastic Lorazepam (Ativan 1 mg oral tablet)?1?tab(s)?1?Milligram?By Mouth?Daily?as needed?as needed for anxiety?for 30?Days Meclizine (meclizine 25 mg oral tablet)?1?tab(s)?By Mouth?3 times a day?as needed? NEEDED FOR DIZZINESS Morphine (morphine 30 mg/8 to 12 hr oral tablet, extended release)?30?Milligram?By Mouth?Every 8 hours?for 7?Days Omeprazole (omeprazole 20 mg oral enteric coated capsule)?1?capsule?20?Milligram?By Mouth?2 times a day?TAKE 1 CAPSULE BY MOUTH TWICE DAILY Oxycodone (oxyCODONE 15 mg oral tablet)?1?tab(s)?15?Milligram?By Mouth?Every 4 hours?as needed?Pain , Severe?for 7?Days Polyethylene Glycol 3350 (IHA2161 oral powder for reconstitution)?17?gram?By Mouth?Daily PROCHLORperazine (prochlorperazine 10 mg oral tablet)?1?tab(s)?10?Milligram?By Mouth?4 times a day?as needed?Nausea & Vomiting?TAKE 1 TABLET BY MOUTH EVERY 6 HOURS NEEDED FOR NAUSEA AND VOMITING MAY CAUSE DROWSINESS Rosuvastatin (rosuvastatin 5 mg oral capsule)?1?capsule?5?Milligram?By Mouth?Daily Senna (senna 187 mg oral tablet)?1?tab(s)?8.6?Milligram?By Mouth?2 times a day?as needed?Constipation Tamsulosin (tamsulosin 0.4 mg oral capsule)?0.4?Milligram?1?capsule?By Mouth?Daily?TAKE 1 CAPSULE BY MOUTH ONCE DAILY ? Medications Started Augmentin Medications Discontinued None Doses Changed None Allergies Allergies ?(Active and Proposed Allergies Only) No Known Medication Allergies? (Severity: Unknown severity, Onset: Unknown) ? PCP Follow-Up/Heads-Up ?? Outpatient oncology follow-up ?? Scheduled for MRI brain and PET scan as outpatient next week ?? Follow-up on final??blood culture results???negative at the time of discharge Future Appointments Wednesday 10:30 AM EST ?? Where: [facility] [address] [place] [address]- Status: Pending Hospital Course ?? 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 ?? Cancer of parotid gland ??(C07) Metastatic acinic cell carcinoma Possible Cellulitis ??(L03.90) Recent??L4??pathologic fracture Acute parotitis (K11.21)? Afebrile, hemodynamically stable Leukocytosis resolved Marked improvement in??symptoms CT scan of the soft tissue neck on admission extensive??inflammation.?? No fluid collection or abscess Seen by oncology??on 11/09???recommended staging workup CT scan of the chest and abdomen pelvis was done???showed??7 mm right lung nodule and 1.6 cm lesionin the liver??concerning for metastasis MRI brain with and without was ordered however was not done.?? Patient is eager to go home is feeling much better. ??He is scheduled to have MRI brain??and PET Scan next week??as per pt. ??Discussed briefly with oncology??and this can be done as outpatient Treated with Unasyn and transition to Augmentin at discharge Blood cultures have remained negative Plan Augmentin for 5 days Continue with dexamethasone 4 mg 2 times a day Keep HOB > 45 Pain control???Tylenol, morphine ER??30 mg 2 times a day, as needed oral oxycodone. Gabapentin Follow-up on final blood culture results???negative at the time of discharge Close outpatient follow-up with oncologist???being planned for chemotherapy.? Hyponatremia (E87.1)???resolved ?? Bipolar disorder ??(F31.9) / Anxiety ???Depakote. Doxepin Constipation ??(K59.00)???scheduled bowel regimen Chronic GERD ??(K21.9) - PPI DVT (deep venous thrombosis) ??(I82.409) - Apixaban History of BPH ??(Z87.438) - FLomax ?? Objective ?? No significant overnight event He is feeling much better, swelling has improved??a lot He is ambulating independently No fever chills He is very eager to be discharged Blood cultures have remained negative Reviewed CT scan finding ?? Also updated patient's sister??Brittaney over the phone ?? Patient requested prescription for oxycodone???check [place]???last picked up on 10/31/2019 for 42 tablets. ??Sent prescription for 42 tablets for 7 days ?? Vital Signs?? Temperature: 97.6 DegF (11/12/23 06:29:00) Temperature Route: Oral (11/12/23 06:29:00) Pulse Rate: 64 bpm (11/12/23 06:29:00) Respiratory Rate: 18 br/min (11/12/23 08:27:00) Respiratory Rate: 18 br/min (11/12/23 08:27:00) Systolic Blood Pressure: 134 mm Hg (11/12/23 06:29:00) Diastolic Blood Pressure: 81 mm Hg (11/12/23 06:29:00) Blood pressure sites: Arm, left (11/12/23:29:00) Mean Arterial Pressure: 99 mm Hg (11/12/23 06:29:00) Pulse Pressure: 53 mm Hg (11/12/23:29:00) Oxygen Saturation: 98 % (11/12/23 06:29:00) Mode of Delivery (Oxygen): Room air (11/12/23 06:29:00) Early Warning Score: 2 (11/12/23 12:58:10) ? . Physical Exam ?? General???no acute distress at rest, respiratory???no wheezing Cardiovascular???normal heart sounds Almost complete resolution of the right side??face swelling [facility] Pending Results Type and Screen ordered on 11/09/2023 Patient Education Titles WebMD Ignite Patient Education - Amoxicillin and Clavulanic Acid?? Follow-Up Appointments Added Follow Up ?Time Frame ?Comments Florence Conklin MD?1 week?as scheduled Florencio Sky?1 to 2 weeks Patient Instructions Follow-up on the final blood culture results???negative at the time of discharge ?? Post Discharge Care Diet: ??Dental Soft Diet ?? Activity: ??as tolerated ?? Home Health Face to Face *Denotes mandatory multani ?? *I certify that this patient is under my care and that I or an allowed non- physician working with me had a face to face encounter with the patient on this date:??11/12/2023 13:50 ?? *The encounter with the patient was in whole, or in part, for the following medical condition, which is the primary diagnosis(es) for home health care:??Cancer of parotid gland (C07) Cellulitis (L03.90) Compression fx, lumbar spine ([id number]) DVT (deep venous thrombosis) (I82.409) Bipolar disorder (F31.9) Hypertension (I10) Chronic GERD (K21.9) History of BPH (Z87.438) Constipation (K59.00) Hyponatremia (E87.1) Acute parotitis (K11.21) ?? *Select the indications for the discipline/s that are being arranged for this patient. Nursing (select all that apply): [_] None [_] Medication management (reconciliation, teaching)?? [_] Chronic disease management?? [_] Wound care and treatment?? [_] Home safety evaluation [_] Administer SQ/IM/IV medications?? [_] Cath care?? [_] Drain care?? [_] Trach or GT care?? Other?? REsume as before_ Occupation Therapy (select all that apply): [_] None [_] ADL Management [_] Fall prevention training [_] Energy conservation [_] Cognitive training Other _ Physical Therapy (select all that apply): [_] None [_] Functional mobility training [_] Home exercise program to strengthen [_] Increase ROM?? [_] Falls prevention training [_] Home maintenance program for chronic disease Other _ Speech Therapy (select all that apply): [_] None [_] Swallow evaluation and training [_] Speech and language training [_] Cognitive training to process, organize, and/or recall information Other _ ? *Homebound due to (select all that apply): [_] Inability to leave home without assistance/supervision [_] Inability to ambulate without assistance [_] Pain [X] Decreased strength and endurance [_] Unsteady gait [_] Severe SOB and fatigue [_] Impaired transfers [_] Inability to negotiate stairs [_] Limited weight bearing [_] Mental status change? *Physician Signature:?? Cynthia Rothman_ ?? *By signing this, I certify that I have personally evaluated the patient and agree with the findings and recommendations as documented above. ? Results Discharge Labs BACTERIOLOGY Blood Culture Results Preliminary report ()?? 11/10/2023 18:32 Blood Culture Specimen Source BLOOD ()?? 11/10/2023 18:32 Blood Culture Isolate 1 Comment ()?? 11/10/2023 18:32 Blood Cult 2 Results Preliminary report ()?? 11/10/2023 18:32 Blood Culture 2 Specimen Source BLOOD ()?? 11/10/2023 18:32 Blood Culture 2 Isolate 1 Comment ()?? 11/10/2023 18:32 ?? BLOOD BANK Blood Type A Positive ()?? 11/09/2023 22:14 Antibody Screen Negative ()?? 11/09/2023 22:14 ?? BLOOD COUNT & DIFF WBC 10.9 k/mm3 ()?? 11/11/2023 02:09 RBC 3.64 m/mm3 (Low)?? 11/11/2023 02:09 Hgb 11.5 Gm/dL (Low)?? 11/11/2023 02:09 Hct 32.9 % (Low)?? 11/11/2023 02:09 MCV 90.4 femtoliters ()?? 11/11/2023 02:09 MCH 31.6 pg ()?? 11/11/2023 02:09 MCHC 35.0 Gm/dL ()?? 11/11/2023 02:09 Platelet Count 310 k/mm3 ()?? 11/11/2023 02:09 RDW-SD 41.2 femtoliters ()?? 11/11/2023 02:09 MPV 10.1 femtoliters ()?? 11/11/2023 02:09 Nucleated RBC (Automated) 0.0 #/100 WBC'S ()?? 11/11/2023 02:09 Abs. NRBC 0.0 k/mm3 ()?? 11/11/2023 02:09 Abs. Neut 12.2 k/mm3 (High)?? 11/09/2023 21:55 Abs. Lymph 0.4 k/mm3 (Low)?? 11/09/2023 21:55 Abs. Powell 0.8 k/mm3 ()?? 11/09/2023 21:55 Abs. Eo 0.0 k/mm3 ()?? 11/09/2023 21:55 Abs. Baso 0.0 k/mm3 ()?? 11/09/2023 21:55 Neut % 90.4 % (High)?? 11/09/2023 21:55 Lymph % 3.0 % (Low)?? 11/09/2023 21:55 Powell % 5.8 % ()?? 11/09/2023 21:55 Eos % 0.3 % ()?? 11/09/2023 21:55 Baso % 0.1 % ()?? 11/09/2023 21:55 Imm Gran 0.4 % ()?? 11/09/2023 21:55 Abs. Imm Gran 0.1 k/mm3 ()?? 11/09/2023 21:55 ?? CHEM GENERAL Sodium 137 mmol/L ()?? 11/11/2023 02:09 Potassium 4.6 mmol/L ()?? 11/11/2023 02:09 Chloride 100 mmol/L ()?? 11/11/2023 02:09 Bicarbonate Level 26 mmol/L ()?? 11/11/2023 02:09 Anion Gap 11 ()?? 11/11/2023 02:09 Glucose Level 159 mg/dL (High)?? 11/09/2023 21:55 Glucose, POC 90 mg/dL ()?? 11/12/2023 11:59 BUN 20 mg/dL ()?? 11/11/2023 02:09 Creatinine-Blood 0.69 mg/dL (Low)?? 11/11/2023 02:09 Estimated GFR Creatinine 107 ML/MIN/1.73 M2 ()?? 11/11/2023 02:09 Calcium 9.1 mg/dL ()?? 11/09/2023 21:55 Magnesium 2.3 mg/dL ()?? 11/11/2023 02:09 Protein, Total 6.8 Gm/dL ()?? 11/09/2023 21:55 Albumin 3.8 Gm/dL ()?? 11/09/2023 21:55 AG Ratio 1.3 ()?? 11/09/2023 21:55 Alkaline Phosphatase 73 units/L ()?? 11/09/2023 21:55 Amylase 60 units/L ()?? 11/09/2023 21:55 Lipase 14 units/L ()?? 11/09/2023 21:55 AST (SGOT) 10 units/L ()?? 11/09/2023 21:55 ALT (SGPT) 6 units/L ()?? 11/09/2023 21:55 Bilirubin, Total 0.2 mg/dL ()?? 11/09/2023 21:55 Lactate 1.4 mmol/L ()?? 11/09/2023 21:55 C-Reactive Protein 11.2 mg/dL (High)?? 11/09/2023 21:55 ? COAG INR 1.0 ()?? 11/09/2023 21:55 Protime (PT) 11.0 seconds ()?? 11/09/2023 21:55 APTT 27.2 seconds ()?? 11/09/2023 21:55 ? MISC. CHEMISTRY Hold Gel Top SPECIMEN DISCARDED AFTER 1 WEEK ()?? 11/10/2023 13:21 ? URINE OTHER Est Creatinine Clearance 111.94 mL/min ()?? 11/11/2023 03:12 ? 35_ minutes spent on discharge * Teodora García RN: PERFORM Event Display: Patient Education/Instruction Authored Date: [id number] Inpatient Adult Discharge Instructions. [address] [id number] Name: CHRISSY REHMAN : 1965?? Visit: 11/10/2023 01:49?? Current Date: 11/12/2023 14:31 ?? Account: [id number]?? Inpatient Adult Discharge Instructions We would like [...] and their families. Surveys are administered by [employer] ?? If further treatment with your primary care physician or another doctor is recommended, it is important for you to keep the appointment. Call your primary care physician or return to the Emergency Department immediately if your condition worsens, fails to improve, or new symptoms develop. If you need to find a doctor, you can call [facility] [employer] Link for a referral at [phone] or toll free at [phone] Accounts ([phone]) or log in to [email or web address] ?? [facility], in keeping with [facility] guidance, no longer requires face masks [...] a health care greg of your choosing. [employer] is a website that allows you to securely view your medical information including your hospital discharge summary, office visit summaries, medications and follow-up visits. You can also request appointments, renew medications, and request access to your medical information using a health care greg of your choosing, or just ask a question. You can enroll at [email or web address] or register during your next office visit. You have been discharged from [facility], Patient Care Unit: S64??. If you have any questions regarding these instructions, including results of studies pending, afteryou leave, please call us and we will be happy to assist you 31/08. [facility] Your Care Team Attending Physician Cynthia Rothman MD?? Consulting Providers Cynthia Rothman MD?? Discharging Providers Cynthia Rothman MD Reason for Your Visit infection right masseter muscle/right parotid gland?? Your Diagnosis Cancer of parotid gland Cellulitis Compression fx, lumbar spine DVT (deep venous thrombosis) Bipolar disorder Hypertension Chronic GERD History of BPH Constipation Acute parotitis Facial swelling Hyponatremia Tests Performed Below is a partial list of the tests performed during your hospitalization. You may have had other tests and procedures not included in this list. Please discuss all test results with your provider. Amylase Blood Culture Blood Culture #2 Blood Culture 2 Results Blood Culture Result BUN CBC CBC w/ Differential Comprehensive Metabolic Panel Creatinine CRP Electrolytes GLUCOSE POC HOLD GEL TUBE INR Lactate Level Lipase Magnesium Level PTT CT Abd/Pelvis W/ IV + Oral Contrast CT Chest W/ IV Contrast CT Head/Brain W/O Contrast CT Soft Tissue Neck W/ Contrast Amylase?? BUN?? Blood Culture?? Blood Culture #2?? Blood Culture 2 Results?? Blood Culture Result?? C Reactive Protein (CRP)?? CBC?? CBC w/ Differential?? CT Abd/Pelvis W/ IV + Oral Contrast?? CT Chest W/ Contrast (CT Chest W/ IV Contrast)?? CT Head/Brain W/O Contrast?? CT Soft Tissue Neck W/ Contrast?? Comprehensive Metabolic Panel?? Creatinine?? Electrolytes?? Glucose POC?? Hold Gel Top Tube (HOLD GEL TUBE)?? INR?? Lactic Acid Level (Lactate Level)?? Lipase?? Magnesium Level?? PTT?? Type and Screen?? Primary Care Provider Florencio Sky? Advance Directive Health Care Proxy on File Yes - Health Care Proxy Discharge Vitals Temperature: 97.4 DegF Height: 173 cm Pulse Rate: 72 bpm Weight: 91.8 kg Respiratory Rate: 17 br/min Body Mass Index:??30.67 kg/m2??Critical Systolic Blood Pressure: 135 mm Hg Body surface area: 2.1 Diastolic Blood Pressure:??85 mm Hg??High ?? Oxygen Saturation: 99 % ?? Studies Pending All studies ordered during this hospital stay have been completed unless listed below. Please discuss all pending results with your provider listed above in these instructions. ?? Type and Screen?? What to do next Instructions From Your Doctor Follow-up on the final blood culture results???negative at the time of discharge ? Orders??:Dental Soft Diet :as tolerated? 11/12/23 13:51:00 EDT?? Prescriptions??, ??11/12/23 13:51:00 EDT?? Scheduled Follow-Up Appointments Wednesday 10:30 AM EST ?? Where: [facility] [address] [place] [address]- Status: Pending You Need to Schedule the Following Appointments Follow Up with??Florence Conklin MD When:??Within 1 week Why: as scheduled Where: [address] [facility] [place] [address]- Follow Up with??Junito CORTÉS, Florencio Beaver When:??Within 1 to 2 weeks Where: [address] [place] [address]- Discharge Medications CHRISSY REHMAN :1965 Visit Date:11/10/2023 Medications: Please continue your medications until treatment is completed or stopped by your provider. Medications not listed below should be discontinued. Discuss any questions related to medications with your provider. What How Much When Instructions Next Dose New Amoxicillin-Clavulanate (amoxicillin-clavulanate 875 mg-125 mg oral tablet) 1 tab(s) Oral Twice a day Duration: 5 Days Pickup at [facility] 3 dose given 11/12/23 @ 1501 Changed Meclizine (meclizine 25 mg oral tablet) 1 tab(s) Oral 3 times a day as needed for NEEDED FOR DIZZINESS As needed Changed Omeprazole (omeprazole 20 mg oral enteric coated capsule) 1 capsule Oral Twice a day TAKE 1 CAPSULE BY MOUTH TWICE DAILY ?? Resume regimen ?? Changed PROCHLORperazine (prochlorperazine 10 mg oral tablet) 1 tab(s) Oral 4 times a day as needed for Nausea & Vomiting TAKE 1 TABLET BY MOUTH EVERY 6 HOURS NEEDED FOR NAUSEA AND VOMITING MAY CAUSE DROWSINESS ?? As needed Changed Tamsulosin (tamsulosin 0.4 mg oral capsule) 1 capsule Oral Daily TAKE 1 CAPSULE BY MOUTH ONCE DAILY ?? 11/12/23 tonight Unchanged Acetaminophen (acetaminophen 325 mg oral tablet) 975 Milligram Oral 3 times a day Please check Temperature ??prior to administering Tylenol ?? last dose 11/12/23 @ 1501 Unchanged apixaban (Eliquis 5 mg oral tablet) 1 tab(s) Oral Twice a day 11/12/23 tonight Unchanged Dexamethasone (dexamethasone 4 mg oral tablet) 1 tab(s) Oral Twice a day Duration: 14 Days last dose 11/12/23 @ 1223 Unchanged Divalproex Sodium (divalproex sodium 500 mg oral enteric coated tablet) 1 tab(s) Oral Twice a day 11/12/23 tonight Unchanged Doxepin (doxepin 10 mg oral capsule) 1 capsule Oral Daily at Bedtime 11/12/23 tonight Unchanged Durable Medical Equipment (Jobst JoviPak extended chin strap) See instructions Use as instructed. ??Diagnosis: I89.0 ?? Equipment Unchanged Gabapentin (gabapentin 300 mg oral capsule) 1 capsule Oral Twice a day TAKE 1 CAPSULE BY MOUTH TWICE DAILY ?? 11/12/23 tonight Unchanged Lactulose (lactulose 10 gm/ 15 ml oral syrup) 15 Milliliter Oral Daily as needed for as needed for constipation As needed Unchanged Lidocaine Topical (lidocaine 5% topical film) See instructions 1 patch apply Topically to painful area on back Daily. ?? remove patches after 12 hours ?? Resume regimen Unchanged Lidocaine/ Prilocaine Topical (lidocaine-prilocaine 2.5%-2.5% topical cream) See instructions apply small dollop to [facility] site 1 hr prior to appt and cover with plastic ?? Resume regimen Unchanged Lorazepam (Ativan 1 mg oral tablet) 1 tab(s) Oral Daily as needed for as needed for anxiety Duration: 30 Days As needed Unchanged Morphine (morphine 30 mg/ 8 to 12 hr oral tablet, extended release) 30 Milligram Oral Every 8 hours Duration: 7 Days last dose 11/12/23 @ 0827?? Unchanged Oxycodone (oxyCODONE 15 mg oral tablet) 1 tab(s) Oral Every 4 hours as needed for Pain , Severe Duration: 7 Days As needed last dose 11/12/23 @ 0441 Unchanged Polyethylene Glycol 3350 ([id number] oral powder for reconstitution) 17 gram Oral Daily 11/13/23 Unchanged Rosuvastatin (rosuvastatin 5 mg oral capsule) 1 capsule Oral Daily Resume regimen Unchanged Senna (senna 187 mg oral tablet) 1 tab(s) Oral Twice a day as needed for Constipation As needed last dose 11/12/23 @ 0828 Pharmacy Information [facility] [facility]: [address], [place] [phone] Prescription Given During Visit Amoxicillin-Clavulanate (amoxicillin-clavulanate 875 mg-125 mg oral tablet) - 1 tablet, By Mouth, 2times a day, # 10 tablet, 0 Refills, [facility], [address] [place] [phone]?? Laboratory Results Below is a partial list of the most recent Laboratory test results done prior to this discharge. You may have had other tests and procedures not included in this list. Please discuss all test resultswith your provider. Antibody Screen - Negative (11/09/2023) Blood Type - A Positive (11/09/2023) Est Creatinine Clearance - 111.94 mL/min (11/11/2023) Amylase (11/09/2023) ???Amylase - 60 units/L Blood Culture (11/10/2023) ???Blood Culture Results - Preliminary report???Blood Culture Specimen Source - BLOOD Blood Culture #2 (11/10/2023) ???Blood Cult 2 Results - Preliminary report???Blood Culture 2 Specimen Source - BLOOD Blood Culture 2 Results (11/10/2023) ???Blood Culture 2 Isolate 1 - Comment Blood Culture Result (11/10/2023) ???Blood Culture Isolate 1 - Comment BUN (11/11/2023) ???BUN - 20 mg/dL CBC (11/11/2023) ???WBC - 10.9 k/mm3???RBC - 3.64 m/mm3???Hgb - 11.5 Gm/dL???Hct - 32.9 %???MCV - 90.4 femtoliters???MCH - 31.6 pg???MCHC - 35.0 Gm/dL???Platelet Count - 310 k/mm3???RDW-SD - 41.2 femtoliters???MPV - 10.1 femtoliters???Nucleated RBC (Automated) - 0.0 #/100 WBC'S???Abs. NRBC - 0.0 k/mm3 CBC w/ Differential (11/09/2023) ???WBC - 13.5 k/mm3???RBC - 4.38 m/mm3???Hgb - 13.4 Gm/dL???Hct - 40.1 %???MCV - 91.6 femtoliters???MCH - 30.6 pg???MCHC - 33.4 Gm/dL???Platelet Count - 285 k/mm3???RDW-SD - 41.3 femtoliters???MPV - 10.1 femtoliters???Nucleated RBC (Automated) - 0.0 #/100 WBC'S???Abs. NRBC - 0.0 k/mm3???Abs. Neut -12.2 k/mm3???Abs. Lymph - 0.4 k/mm3???Abs. Powell - 0.8 k/mm3???Abs. Eo - 0.0 k/mm3???Abs. Baso - 0.0k/mm3???Neut % - 90.4 %???Lymph % - 3.0 %???Powell % - 5.8 %???Eos % - 0.3 %???Baso % - 0.1 %???Imm Gran - 0.4 %???Abs. Imm Gran - 0.1 k/mm3 Comprehensive Metabolic Panel (11/09/2023) ???Sodium - 129 mmol/L???Potassium - 4.4 mmol/L???Chloride - 91 mmol/L???Bicarbonate Level - 26 mmol/L???Anion Gap - 12???Glucose Level - 159 mg/dL???BUN - 18 mg/dL???Creatinine-Blood - 0.65 mg/dL???Estimated GFR Creatinine - 109 ML/MIN/1.73 M2???Calcium - 9.1 mg/dL???Protein, Total - 6.8 Gm/dL???Albumin - 3.8 Gm/dL???AG Ratio - 1.3???Alkaline Phosphatase - 73 units/L???AST (SGOT) - 10 units/L???ALT (SGPT) - 6 units/L???Bilirubin, Total - 0.2 mg/dL Creatinine (11/11/2023) ???Creatinine-Blood - 0.69 mg/dL???Estimated GFR Creatinine - 107 ML/MIN/1.73 M2 CRP (11/09/2023) ???C-Reactive Protein - 11.2 mg/dL Electrolytes (11/11/2023) ???Sodium - 137 mmol/L???Potassium - 4.6 mmol/L???Chloride - 100 mmol/L???Bicarbonate Level - 26 mmol/L???Anion Gap - 11 GLUCOSE POC (11/12/2023) ???Glucose, POC - 90 mg/dL HOLD GEL TUBE (11/10/2023) ???Hold Gel Top - SPECIMEN DISCARDED AFTER 1 WEEK INR (11/09/2023) ???INR - 1.0???Protime (PT) - 11.0 seconds Lactate Level (11/09/2023) ???Lactate - 1.4 mmol/L Lipase (11/09/2023) ???Lipase - 14 units/L Magnesium Level (11/11/2023) ???Magnesium - 2.3 mg/dL PTT (11/09/2023) ???APTT - 27.2 seconds You will be contacted within 72 hours with your results. Allergies (NKA means No Known Allergies) No Known Medication Allergies Problems Active Problems??(4) Acinic cell carcinoma?? Compression fx, lumbar spine?? DVT (deep venous thrombosis)?? Obese class I?? Education Materials Below is the list of Educational Leaflet Providered with your Discharge Instructions. Meedor Ignite Patient Education - Amoxicillin and Clavulanic Acid?? Valuables and Belongings I fully understand and agree that [facility] accepts no responsibility for all my personal [...] witness Date for Pt to Sign Valuables/Belongings: 11/10/23 13:07:00 ?? Other Discharge Information ? Pulmonary Rehab Status?? Pulmonary Rehab Discharge Status?? Respiratory Rate: 17 br/min ? Common Emergency Awareness Tips IS [...] are strongly encouraged to quit. Please call [facility] [facility] at [phone] or [phone] or log in to [email or web address] for referrals to smoking cessation programs. ?? 866 Suicide & Crisis Lifeline is available 31/08 if you or someone you know needs to find a reason to keep living. By calling 119 you'll be connected to a skilled, trained counselor at a crisis center in your area. INPATIENT DISCHARGE INSTRUCTIONS SIGNATURE PAGE CHRISSY REHMAN Location:[facility] Registration Date and Time:11/10/2023 01:49 EDT Primary Care Physician: Florencio Sky, Attending Physician: Cynthia Rothman MD, I CHRISSY REHMAN, have received the above patient education materials/instructions and have verbalized understanding. If ambulance or transport services are being used I further acknowledge being givena choice of service. ?? If you need to contact me, please call me at this number: . Patient/Acute Care Physician Name: Patient/Acute Care Physician Signature: Relationship to Patient: Witness Name/Signature: Date: * Cynthia Rothman MD: PERFORM Event Display: Patient Education Leaflets Authored Date: [id number] Amoxicillin and Clavulanic Acid ?? [id number] Amoxicillin and Clavulanic Acid Brand Name(s): Augmentin?? (as a combination product containing Amoxicillin, Clavulanate), Augmentin?? XR (as a combination product containing Amoxicillin, Clavulanate); also available generically WHY is this medicine prescribed? The combination of amoxicillin and clavulanic acid is used to treat certain infections caused by bacteria, including infections of the ears, lungs, sinus, skin, and urinary tract. Amoxicillin is in aclass of medications called penicillin-like antibiotics. It works by stopping the growth of bacteria. Clavulanic acid is in a class of medications called beta-lactamase inhibitors. It works by preventing bacteria from destroying amoxicillin. Antibiotics will not work for colds, flu, or other viral infections. Using antibiotics when they are not needed increases your risk of getting an infection later that resists antibiotic treatment. HOW should this medicine be used? The combination of amoxicillin and clavulanic acid comes as a tablet, a chewable tablet, and a suspension (liquid) to take by mouth. It is usually taken with a meal or snack every 8 hours (three times a day) or every 12 hours (twice a day). To help you remember to take amoxicillin and clavulanate, take it around the same times every day. Follow the directions on your prescription label carefully,and ask your doctor or pharmacist to explain any part you do not understand. Take amoxicillin and clavulanic acid exactly as directed. Do not take more or less of it or take it more often than prescribed by your doctor. Shake the liquid well before each use to mix the medication evenly. The chewable tablets should be chewed thoroughly before they are swallowed. You should begin to feel better during the first few days of treatment with amoxicillin and clavulanic acid. If your symptoms do not improve or get worse, call your doctor. If you are taking the suspension, do not use a household spoon to measure your dose. Use a properlymarked measuring device such as a medicine spoon or oral syringe. Ask your doctor or pharmacist if you need help getting or using a measuring device. Take amoxicillin and clavulanic acid until you finish the prescription, even if you feel better. Ifyou stop taking amoxicillin and clavulanic too soon, or skip doses, your infection may not be completely treated and the bacteria may become resistant to antibiotics. Are there OTHER USES for this medicine? This medication may be prescribed for other uses; ask your doctor or pharmacist for more information. What SPECIAL PRECAUTIONS should I follow? Before taking amoxicillin and clavulanic acid, ??? tell your doctor and pharmacist if you are allergic to amoxicillin, clavulanic acid, penicillin, cephalosporins, any other medications, or any of the ingredients in amoxicillin and clavulanic acid tablet, chewable tablet, and oral suspension. Ask your pharmacist for a list of the ingredients. ??? tell your doctor and pharmacist what prescription and nonprescription medications, vitamins, nutritional supplements, and herbal products you are taking. Your doctor may need to change the doses ofyour medications or monitor you carefully for side effects. ??? You should know that amoxicillin and clavulanic acid may decrease the effectiveness of oral contraceptives ( control pills). You wi ll need to use another method of contraception to prevent while taking amoxicillin and clavulanic acid. Talk to your doctor about other ways to prevent while you are taking this medication. ??? tell your doctor if you have ever had any liver problems after you have previously taken amoxicillin and clavulanic acid. Your doctor may tell you not to take amoxicillin and clavulanicacid. ??? tell your doctor if you have mononucleosis (a virus; also called 'mono') and if you have or have ever had kidney or liver disease, allergies, asthma, hay fever, or hives. ??? tell your doctor if you are , plan to become , or are . If you become while taking amoxicillin and clavulanic acid, call your doctor. ??? if you have phenylketonuria (PKU, an inherited condition in which a special diet must be followed to prevent damage to your brain that cancause severe intellectual disability), you should know that amoxicillin and clavulanic acid chewable tablets and oral suspension are sweetened with aspartame that forms phenylalanine. What SPECIAL DIETARY instructions should I follow? Unless your doctor tells you otherwise, continue your normal diet. What should I do IF I FORGET to take a dose? Take the missed dose as soon as you remember it. However, if it is almost time for the next dose, skip the missed dose and continue your regular dosing schedule. Do not take a double dose to make up for a missed one. What SIDE EFFECTS can this medicine cause? Amoxicillin and clavulanic acid may cause side effects. Tell your doctor if any of these symptoms are severe or do not go away: ??? diarrhea ??? upset stomach ??? vomiting ??? vaginal itching and/or discharge ??? Some side effects can be serious. If you experience any of the following symptoms, call your doctor immediately: ??? watery or bloody stools, stomach cramps, or fever during treatment or for up to two or more months after stopping treatment ??? severe vomiting that may occur 1 to 4 hours after you take amoxicillin and clavulanic acid ??? rash ??? itching ??? hives ??? difficulty breathing or swallowing ??? swelling of the face, throat, tongue, lips, and eyes ??? wheezing ??? peeling, blistering, or shedding skin ??? a return of fever, sore throat, chills, or other signs of infection ??? yellowing of the skin or eyes, pain or discomfort in right upper stomach area, fatigue, loss of appetite, bleeding or bruising more easily than normal, or dark urine Amoxicillin and clavulanic acid may cause other side effects. Call your doctor if you have any unusual problems while taking this medication. If you experience a serious side effect, you or your doctor may send a report to the Food and Drug Administration's (FDA) MedWatch Adverse Event Reporting program online (https://www.fda.gov/Safety/MedWatch) or by phone ( ). What should I know about STORAGE and DISPOSAL of this medication? Keep this medication in the container it came in, tightly closed, and out of reach of children. Store the tablets at room temperature and away from excess heat and moisture (not in the bathroom). Keep liquid medication in the refrigerator, tightly closed, and dispose of any unused medication after 10 days. It is important to keep all medication out of sight and reach of children as many containers (such as weekly pill minders and those for eye drops, creams, patches, and inhalers) are not child-resistant and young children can open them easily. To protect young children from poisoning, always lock safety caps and immediately place the medication in a safe location ??? one that is up and away and out of their sight and reach. https://www.upandaway.org Unneeded medications should be disposed of in special ways to ensure that pets, children, and otherpeople cannot consume them. However, you should not flush this medication down the toilet. Instead,the best way to dispose of your medication is through a medicine take-back program. Talk to your pharmacist or contact your local garbage/recycling department to learn about take-back programs in your community. See the FDA's Safe Disposal of Medicines website (https://goo.gl/c4Rm4p) for more information if you do not have access to a take-back program. What should I do in case of OVERDOSE? In case of overdose, call the poison control helpline at . Information is also available online at https://www.poisonhelp.org/help. If the victim has collapsed, had a seizure, has trouble breathing, or can't be awakened, immediately call emergency services at 911. Symptoms of overdose may include the following: ??? cloudy or bloody urine ??? decreased urination What OTHER INFORMATION should I know? Keep all appointments with your doctor and the laboratory. Your doctor may order certain lab tests to check your body's response to amoxicillin and clavulanic acid. If you are diabetic, use Clinistix or TesTape (not Clinitest) to test your urine for sugar while taking this medication. Do not let anyone else take your medication. Your prescription is probably not refillable. If you still have symptoms of infection after you finish the amoxicillin and clavulanic acid, call your doctor. It is important for you to keep a written list of all of the prescription and nonprescription (xlog-rkh-irkelcz) medicines you are taking, as well as any products such as vitamins, minerals, or otherdietary supplements. You should bring this list with you each time you visit a doctor or if you areadmitted to a hospital. It is also important information to carry with you in case of emergencies. This report on medications is for your information only, and is not considered individual patient advice. Because of the changing nature of drug information, please consult your physician or pharmacist about specific clinical use. The [employer] [employer] represents that the information provided hereunder was formulated with a reasonable standard of care, and in conformity with professional standards in the field. The [employer] makes no representations or warranties, express or implied, including, but not limited to, any implied warranty of merchantability and/or fitness for a particular purpose, with respect to such information and specifically disclaims all such warranties. Users are advised that decisions regarding drug therapy are complex medical decisions requiring the independent, informed decision of an appropriate health furnace caretaker, and the information is provided for informational purposes only. The entire monograph for a drug should be reviewed for a thorough understanding of the drug's actions, uses and side effects. The [employer] does not endorse or recommend the use of any drug.The information is not a substitute for medical care. AHFS?? Patient Medication Information???. ?? Copyright, 2023. The [employer]??, [address], [address], [place], [place]. All Rights Reserved. Duplication for commercial use must be authorized by [facility]. Selected Revisions: August 28, 2023. AHFS?? Patient Medication Information???. ?? Copyright, 2023 ?? Patient Care team information Care Team Personnel Name: Chayito Gutierrez RN Position: S RN Member Role: Primary Care Nurse Name: Florencio Sky Position: Reference Physician Member Role: PCP Address: Address: [address] [place] [address] [address] [place], [place] [address] Name: Maren Sanchez RN Position: S RN [...] Care Nurse Care Team Related Persons Name: BRITTANEY NORWOOD Address: home [address] [place] [address] Name: MAYT REHMAN Address: home [address] [place] [address]
--- NOTE | 2023-11-17 13:58 | A.OFFPC_ITS ---
Vital Signs 11/17/23 13:59 Height 5 ft 8 in Weight 210 lb BMI 31.9 BP 126/82 Blood Pressure Location Lt brachial Position Sitting Pulse 77 Pulse Source Pulse Oximeter Pulse Oximetry (%) 98 Intake Visit Reasons: stage 4 cancer/reschedule/[facility] pt. Intake Note: pt is here to est care with vish Alvarez from [facility]. Patient has stage 4 cancer and undergoing chemotherapy currently. Clinical Staff Educator Required: No Accompanied by: Self / Same As Patient Allergies No Known Allergies Allergy (Verified 11/17/23 17:13) Medication List - Last Reconciled 11/17/23 by WENCESLAO WalshP- acetaminophen 325 mg PO QID PRN amoxicillin-pot clavulanate 875-125 mg 1 tab PO BID apixaban (Eliquis) 5 mg PO BID cyclobenzaprine 10 mg PO TID PRN divalproex 500 mg PO TID doxepin 10 mg PO BEDTIME hydroxyzine HCl 10 mg PO Q8H PRN lactulose mL PO lidocaine 5% 1 patch topical DAILY lorazepam 1 mg PO DAILY PRN meclizine 25 mg PO TID PRN morphine ER 30 mg PO TID omeprazole 20 mg PO BID omeprazole mg PO oxycodone mg PO pilocarpine HCl 5 mg PO TID polyethylene glycol 3350 17 grams PO DAILY rosuvastatin 5 mg PO DAILY tamsulosin 0.4 mg PO DAILY Tobacco use date assessed: 03/01/23 Dental Screening Dental Screen Date: 03/01/23 HPI stage 4 cancer/reschedule/[facility] pt. 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 He had a left parotid biopsy on 03/12/23 which showed [address]oid neoplasm. CT on 03/19/23 showed heterozygous partially necrotic mass of left parotid confined to superficial lobe of the left parotid gland but no extension to deep lobe of the left parotid gland, left level 2B, 2A necrotic lymph nodes concerning for metastatic involvement. PET CT scan on 03/29/23 showed abnormal findings consistent with a left parotid tumor with local extension to the level 2 lymph nodes on the left. Pt underwent a left neck dissection level II-IV, left near total parotidectomy with left facial nerve sacrifice status post ansa hypoglossi and great auricular nerve graft to distal facial nerve branches and fat graft [facility] zygomatic arch on 04/06/23. He is currently undergoing chemotherapy. Pt has a feeding tube to his abdomen. He flushes this himself. He also has a port to his right upper chest. Pt reports weakness to his RLE and numbness to his BLE (related to spine farzad). Denies fever, chills, and dizziness. [facility] Medical History (Updated 11/17/23 @ 17:17 by JEREL Walsh) Prostate cancer Hypertension Anxiety Bipolar 1 disorder Surgical History H/O prostate biopsy Family History Paternal Grandfather Substance use disorder Mother Mental health disorder Daughter Mental health disorder Family/Other Mental health disorder Father Prostate cancer Social History Household Members: None Housing: Apartment Alcohol intake: never Patient Tobacco Use Status: Never used Tobacco e-Cigarette/Vaping Use: Currently Using Second Hand Smoke Exposure: No Substance Use Type: Marijuana service: Yes Current occupational status: employed Current occupation: [employer] Current occupational exposures/hazards: No Cognitive needs: No Hearing needs: No Vision needs: No Questionnaire PHQ-9 Over the last 2 weeks, how often have you been bothered by any of the following problems? 79091 - PHQ-9 Billing: Patient declined-do not bill Source: Developed by Drs. Joe West, Saima Gamino, Gaurav Rondon and colleagues, with an educational kimberly from [employer]. Thrive Questionnaire Date Thrive assessed: 11/13/23 I am a: Patient What is your living situation today?: I have a steady place to live Within the past 12 months, did the food you bought not last and you didn't have the money to get more?: I choose not to answer this question Within the past 12 months, did you worry whether your food would run out before you got money to buy more?: I choose not to answer this question Do you have trouble paying for medicines?: No Do you have trouble getting transportation to medical appointments?: No Do you have trouble paying your heating and electricity bill?: No Do you have trouble taking care of your child, family member or friend?: No Do you have trouble with day-to-day activities such as bathing, preparing meals, shopping, managing finances, etc.?: No Are you interested in more education?: No Currently or been in a relationship where the following occur: No concerns reported THRIVE Score: 0 LASHELL-7 AMB Questionnaire LASHELL-7 Date LASHELL - 7 assessed: 03/01/23 Source: Developed by Drs. Joe West, Saima Gamino, Gaurav Rondon and colleagues, with an educational kimberly from [employer]. Review of Systems Const Reports as per HPI Physical exam (Primary Care) Vital Signs: Last Vital Signs Pulse 77 11/17/23 13:59 BP 126/82 11/17/23 13:59 Pulse Ox 98 11/17/23 13:59 BMI result Body Mass Index 31.9 Tobacco/Smoking Status: Tobacco use Status Tobacco use date assessed 03/01/23 11/17/23 14:01 Patient Tobacco Use Status Never used Tobacco 11/17/23 14:01 e-Cigarette/Vaping Use Currently Using 11/17/23 14:01 Thrive Assessment: Date of Thrive Assessment Date Thrive assessed 11/13/23 11/17/23 14:01 Currently or been in a relationship where the following occur: No concerns reported Const General: cooperative Orientation/consciousness: patient oriented x3 HENMT Other: left facial paralysis/facial droop, limited mobility of left eyelid Chest Other: right upper chest with port Resp Effort & Inspection: normal respiratory effort Auscultation: clear to auscultation bilaterally Cardio Rate: regular rate Rhythm: regular rhythm Heart sounds: S1 normal heart sound present and S2 normal heart sound present GI Other: feeding tube to abdomen Neuro Other: able to understand speech General: patient oriented x3 Psych Appearance: grossly normal Mental Status: mental status grossly normal Speech and movement: Normal speech and movement present Affect: normal affect Attitude: cooperative Thought process: Normal thought process present Thought content: Normal thought content present Insight: Good insight present (Psych) Judgement: Good judgement present (Psych) Coding Level of Care Code New Pt Level 4 (34977) Diagnoses 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 Scribed for NAT Laura-BIJAL by hazel Lieberman scribe, on 11/17/2023 at 14:40 EST.
[2023-11-17 13:59] VITALS: BP 126/82; PULSE 77; O2SAT 98; BMI 31.9
== END 2023-11-17 17:05 | disposition home or self-care (01) ==
PROVIDERS: PCP Nurse Practitioner Primary Care; Visit Provider Nurse Practitioner Family
DX: D49.0 Neoplasm of unspecified behavior of digestive system (principal); C61 Malignant neoplasm of prostate; C79.51 Secondary malignant neoplasm of bone

== ENCOUNTER 2023-12-27 13:02 | Outpatient (REF) | payer OTHER, SELFPAY ==
[2023-12-27 16:06] LABS: Appearance Urine Clear; Color Urine Yellow; Glucose Urine UA Negative (Negative); Leukocyte Esterase Urine Small (1+) (Negative); Nitrite Urine Negative (Negative); PH 6.5 (5.0-9.0); Specific Gravity - Urine >= 1.030 (1.005-1.025); UMIC TRIGGER UACC YES; Urine Blood Negative (Negative); Urine Ketones Trace mg/dL (Negative); Urine Protein Trace mg/dL (Neg-Trace)
[2023-12-27 16:08] LABS: Basophils Percent Auto 0.9 % (0-2); Hemoglobin 9.6 g/dl (14.0-18.0); Imm Gran Abs Auto 0.01 X10*3/uL (0.00-0.03); Imm Gran Pct Auto 0.4 % (0.0-0.4); Lymphocytes Absolute Auto 0.6 X10*3/uL (1.2-4.9); MANUAL DIFF FLAG SCAN; Mean Corpuscular HGB Conc 33.1 g/dl (31.0-36.0); Mean Corpuscular Hemoglobin 30.2 pg (27.0-33.0); Mean Corpuscular Volume 91.2 fL (80.0-98.0); Mean Platelet Volume 9.8 fL (9.4-12.4); Monocytes Absolute Auto 0.3 X10*3/uL (0.1-1.2); Monocytes Percent Auto 14.7 % (2-11); Neutrophils Absolute Auto 1.3 x10*3/uL (2.0-8.3); Platelet Count 321 X10*3/uL (160-400); Red Blood Count 3.18 X10*6/uL (4.60-5.80); Red Cell Distribution Width 16.3 % (11.0-16.0); SCAN SMEAR FLAG 1
[2023-12-27 16:09] LABS: White Blood Count 2.3 X10*3/uL (4.8-10.8)
[2023-12-27 16:13] LABS: Bacteria Urine None Seen (None Seen); RBC Urine 0-2 /HPF (0-2); UACC Culture Trigger YES
[2023-12-27 16:21] LABS: Alanine Aminotransferase 10 U/L (0-40); Albumin Level 3.8 g/dL (3.5-5.0); Anion Gap 13 (12-20); Aspartate Amino Transferase 20 U/L (5-37); Bilirubin Total 0.3 mg/dL (0.0-1.0); Blood Urea Nitrogen 11 mg/dL (9-16); Calcium 9.2 mg/dL (8.4-10.2); Carbon Dioxide 26 mmol/L (22-29); Chloride 104 mmol/L (96-108); Cholesterol 146 mg/dL (<200); Estimated Glomerular Filt Rate > 60; Glucose Fasting 90 mg/dL (60-99); HDL Cholesterol 31 mg/dL (>40); LDL Cholesterol Calculated 79 mg/dL (<100); Potassium 4.2 mmol/L (3.3-5.1); Sodium 139 mmol/L (135-145); Total Protein 6.3 g/dL (6.5-8.0); Triglycerides 181 mg/dL (<150)
[2023-12-27 16:29] LABS: SLIDE REVIEW VERIFIED
[2023-12-27 16:38] LABS: Prostate Specific Antigen Scr 11.19 ng/mL (<0.05-4.0)
[2023-12-27 16:45] LABS: TSH reflex Free T4 3.59 uIU/mL (0.32-4.0); Valproate 74.8 mcg/mL (50.0-100.0)
[2023-12-27 16:49] LABS: Alkaline Phosphatase 46 U/L (39-117)
== END 2023-12-27 13:03 | disposition home or self-care (01) ==
LOC: HO.HMGCLDS 13:02
PROVIDERS: PCP Nurse Practitioner Family; Visit Provider Nurse Practitioner Family
DX: Z00.00 Encounter for general adult medical examination without abnormal findings (principal); F31.9 Bipolar disorder, unspecified; C61 Malignant neoplasm of prostate; Z12.5 Encounter for screening for malignant neoplasm of prostate
CPT/HCPCS: 36415; 80053; 80061; 80164; 81001; 84153; 84443; 85025; 87086